=== PATIENT | female | born 1975 | race Caucasian/White ===

== ENCOUNTER → 2023-11-22 08:25 | Outpatient (REF) | payer OTHER, SELFPAY | LOC: RCS 08:25 | PROVIDERS: ATTENDING PHYSICIAN Internal Medicine Cardiovascular Disease; FAMILY PHYSICIAN Family Medicine | DX: I42.9 Cardiomyopathy, unspecified (principal) | CPT/HCPCS: 93306; 93356 ==

== ENCOUNTER 2024-04-23 22:10 | Inpatient (IN) | payer OTHER, SELFPAY ==
[2024-04-23] VITALS (8 sets, daily range): BP systolic 123–134; BP diastolic 72–116; BMI 31.8; BMI 27.7
[2024-04-23 15:00] LABS: % Basophils 0.2 % (0-2); % Eosinophils 1.3 % (0-6); % Immature Granulocytes 1.1 % (0-0.5); % Lymphocytes 16.2 % (20.5-51.1); % Neutrophils 78.2 % (42.2-75.2); Absolute Eosinophils 0.1 10^3/uL (0-0.7); Absolute Immature Granulocytes 0.1 10^3/uL (0-0.05); Absolute Lymphocytes 0.8 10^3/uL (1.2-3.4); Absolute Monocytes 0.1 10^3/uL (0.1-0.6); Absolute Neutrophils 3.7 10^3/uL (1.4-6.5); Hematocrit 26.8 % (37.0-47.0); Hemoglobin 8.8 g/dL (12.0-16.0); Mean Corp Hgb Conc. 32.8 g/dL (33.0-37.0); Mean Corpuscular Hgb 24.9 pg (27.0-31.0); Mean Corpuscular Volume 75.7 fL (81.0-99.0); Mean Platelet Volume 10.4 fL (7.4-10.4); Nucleated Red Blood Cells % 0 %; Platelet Count 276 10^3/uL (130-400); Red Blood Cell Count 3.54 10^6/uL (4.20-5.40); Red Cell Dist. Width 18.1 % (11.5-14.5); White Blood Cell Count 4.7 10^3/uL (4.8-10.8)
[2024-04-23 15:46] LABS: ALT (SGPT) 16 U/L (0-35); AST (SGOT) 32 U/L (14-36); Albumin 3.9 g/dl (3.5-5.0); Alkaline Phosphatase 52 U/L (38-126); Blood Urea Nitrogen 13 mg/dl (7-17); Calcium 9.1 mg/dl (8.4-10.2); Carbon Dioxide 23 mmol/L (22-30); Chloride 107 mmol/L (98-107); Glucose 145 mg/dl (70-99); Potassium 4.1 mmol/L (3.5-5.1); Sodium 139 mmol/L (135-145); Total Bilirubin 0.3 mg/dl (0.2-1.3); Total Protein 7.1 g/dl (6.3-8.2); eGFR > 60.00
--- NOTE | 2024-04-23 16:43 | EDRN ---
Pt speaking in full sentences, states she needs oxygen. Vitals rechecked and normal. Pt in no distress, laughing and speaking the entire 3-5 minutes in triage with this RN.
--- NOTE | 2024-04-23 17:39 | ED.GENMED ---
History of Present Illness
General
Chief Complaint: Breathing Problem
Time Seen by Provider: 04/23/24 17:38
History of Present Illness
History of Present Illness:
HPI: The patient presents with shortness of breath. This is associated with fever that started over the past few days. She is no longer febrile and states that she had a negative COVID test. She was admitted here with bilateral pneumonia and at
that time had a decreased ejection fraction as well as pleural effusions�the etiology was felt to possibly related to lupus.
EXAM:
GENERAL: Patient in mild distress
HEENT: Moist oral mucosa
CARDIOVASCULAR: No murmurs, normal heart rate, regular rhythm, No chest wall tenderness
PULMONARY: Minimal respiratory distress, breath sounds are decreased with some rales at the bases
ABDOMEN: Soft with no peritoneal signs, no tenderness
NEUROLOGIC: Excellent strength all extremities, no coordination deficits
PSYCHIATRIC: Appropriate mental status, normal insight and judgement
EXTREMITIES: Nontender, no edema, moves all extremities equally
SKIN: No rash, no lesions
TIME OF INITIAL ENCOUNTER: 5:50 PM
NUMBER AND COMPLEXITY OF PROBLEMS ADDRESSED AT THE ENCOUNTER
� Chronic conditions affecting care: Has had decreased ejection fraction as well as pleural effusions in the past
� Acute Exacerbation and/or Progression of Chronic Illness: This is an acute problem
� Differential Diagnosis includes: Pleural effusion, PE, pneumonia, reactive airway disease
AMOUNT AND/OR COMPLEXITY OF DATA TO BE REVIEWED AND ANALYZED
� I performed an independent evaluation of and my interpretation is:
EKG: Sinus 94, nonspecific anterior ST abnormality
CT: CT shows no definite sign of PE but does show small to moderate bilateral pleural effusions
X-rays:
Laboratory Studies: Normal chemistries, white count 4.7, hemoglobin 8.8 down from 10.6 in August 2023
Other:
� Review of other/old records: In August 2023 the EF was 43% and most recent echo from 11/22/2023 is now 55 to 60%. The patient was admitted here in August 2023 with severe bilateral pneumonia likely related to lupus
exacerbation and at that time was also managed for heart failure with reduced ejection fraction. She was intubated at that time. She also had small bilateral effusions at that time.
� Clinical information was obtained by an independent historian: I spoke to mother at bedside
� Prescriptions/Medications Considered but not given:
� Further testing considered but not performed:
RISK OF COMPLICATIONS AND/OR MORBIDITY OR MORTALITY OF PATIENT MANAGEMENT
� Social determinants of health affecting care: Lives at home
� Discussion with other providers: Hospitalist, Dr. Flores, for admission at 8:28 PM
� Escalation of care including admission/observation vs risk of discharge considered: The patient reportedly had a chest x-ray that suggested pleural effusions as an outpatient. She feels similar to the time that she was here
and was rather ill. Will obtain CT imaging for further evaluation. CTA obtained that she does have a 'clotting disorder' and has had DVT in the past.
Phy Exam
Physical Exam
Physical Exam:
See HPI
Scores
Heart Failure Risk
Heart Failure Risk Score: Not Applicable
Course
Orders/Labs/Results
Orders:
Orders
04/23/24 14:55
CMP [Comprehensive Metabolic Panel] Urgent
Complete Blood Count/With Diff Urgent
HCG, Serum Qualitative Screen Urgent
Comment: ADD ON
NT-proBNP Urgent
Comment: ADD ON
04/23/24 17:40
Add On- LAB Urgent
Tests Added?: bnp
04/23/24 17:41
Electrocardiogram (*1) Urgent
Reason for Study: Shortness of Breath
EKG- Treatment ONCE
04/23/24 17:50
CT Chest Pe Study Urgent
Comment:
Reason For Exam: sob, outpt cxr pl eff?
04/23/24 17:55
Add On- LAB Urgent
Tests Added?: hcg serum
04/23/24 18:10
COVID-19 Antigen Urgent
Source: Nasal Swab
Influenza A+B Rapid Molecular Urgent
CARO Source: Nasal Swab
Specimen Description:
04/23/24 20:02
Furosemide [Lasix] 40 mg IV NOW STA
Abnormal Lab Results
04/23/24
14:55
WBC 4.7 L 10^3/uL
(4.8-10.8)
RBC 3.54 L 10^6/uL
(4.20-5.40)
Hgb 8.8 L g/dL
(12.0-16.0)
Hct 26.8 L %
(37.0-47.0)
MCV 75.7 L fL
(81.0-99.0)
MCH 24.9 L pg
(27.0-31.0)
MCHC 32.8 L g/dL
(33.0-37.0)
RDW 18.1 H %
(11.5-14.5)
Abs Immat Gran (auto) 0.1 H 10^3/uL
(0-0.05)
Absolute Lymphs (auto) 0.8 L 10^3/uL
(1.2-3.4)
Immature Gran % 1.1 H %
(0-0.5)
Neutrophils % 78.2 H %
(42.2-75.2)
Lymphocytes % 16.2 L %
(20.5-51.1)
Glucose 145 H mg/dl
(70-99)
04/23/24 14:55
04/23/24 14:55
Vital Signs
Initial and Last Documented VS:
Initial Vital Signs
Temp Pulse Resp BP Pulse Ox
98.8 F 117 20 134/84 94
04/23/24 14:44 04/23/24 14:44 04/23/24 14:44 04/23/24 14:44 04/23/24 14:44
Last Documented Vital Signs
Temp Pulse Resp BP Pulse Ox
98.3 F 100 31 132/81 96
04/23/24 17:56 04/23/24 20:15 04/23/24 20:15 04/23/24 20:00 04/23/24 16:41
*Critical Care Note
Total Time (30-74mins, 75-104mins- exclusive of procedures): Not Applicable
ED Attending Note
-
Portions of this chart may have been created with voice recognition software.� Occasional wrong word or��sound alike� substitutions may have occurred due to the inherent limitations of voice recognition software.
Discharge Plan
Departure
Patient Disposition: Admit
Date of Disposition: 04/23/24
Time of Disposition: 20:26
Presentation/result/management discussed w/ accepting MD/DO: Hospitalist
Discharge Problem:
Pleural effusion, bilateral
Prescriptions:
No Action
furosemide 40 mg tablet
40 mg PO DAILY
gabapentin 600 mg tablet
1,200 mg PO HS
omeprazole 40 mg capsule,delayed release(DR/EC)
40 mg PO DAILY
mycophenolate mofetil 500 mg tablet
1,000 mg PO BID
duloxetine 30 mg capsule,delayed release(DR/EC)
30 mg PO DAILY
sildenafil (pulm.hypertension) 20 mg tablet
20 mg PO Q8H
cyclobenzaprine 5 mg Tablet
5 mg PO HS
aspirin [Children's Aspirin] 81 mg Tablet,Chewable
81 mg PO DAILY Qty: 0 0RF
prednisone 10 mg tablet
10 mg PO DAILY Qty: 6 0RF
Rx Instructions:
Taper (start 08/22/23AM): 30mg daily x 1 day, 20mg daily x 1 day, 10mg daily x 1 day
prednisone 10 mg tablet
10 mg PO DAILY Qty: 30 0RF
Rx Instructions:
start 08/25/23
Referrals:
Flako Wild MD [Family Provider] -
Interventions
Interventions:
*Risk Screen - Suicide Last Done: 04/23/24 18:00
*General Assessment Last Done: 04/23/24 18:00
*ED COVID-19 Vaccine History Last Done: 04/23/24 18:00
ED- Cardiac Assessment Last Done: 04/23/24 17:58
ED- Pulmonary Assessment Last Done: 04/23/24 17:58
Discharge Date and Time
Print Language: ANGOLAN
[2024-04-23 18:14] LABS: HCG, Serum Qualitative Screen Negative
[2024-04-23 18:25] LABS: NT-proBNP 226 pg/ml
[2024-04-23 18:31] LABS: COVID-19 Antigen Negative (Negative)
[2024-04-23] MEDS: LASIX 40 MG IV (20:24)
[2024-04-23] MEDS: FLUSH (NSS) 1 FLUSH IV (21:22)
--- NOTE | 2024-04-23 21:35 | HPS.HSE ---
Family Physician
-
Family Physician: Flako Wild
Chief Complaint
-
Shortness of breath
History of Present Illness
Patient is a 48 y/o female with a PMH of SLE, pulmonary hypertension and cardiomyopathy with recovered EF who reports to the ED for shortness of breath x 1 week. Patient states she saw her PCP for the shortness of breath today who told her to get a
chest x-ray. Her PCP called her with the results saying she had bilateral pleural effusions and to come to the ED. She has shortness of breath with exertion and has had a productive cough with clear sputum. She admits to flank pain that is similar
to her previous episode of pleural effusion. She admits to having a fever on Sunday with a max temp of 101.7, which she took Tylenol. In August she was admitted for bilateral pneumonia and had an ECHO that showed a decreased EF and pleural
effusions. On her most recent ECHO in November showed improved EF to 55-60%. She denies chest pain, palpitations, edema, chills, diaphoresis, nausea, vomiting, or abdominal pain.
Medical History
Past Medical History
Past Medical History: Reports Other
Additional Past Medical History:
Cardiomyopathy with Recovered EF
Pulmonary Hypertension
Systemic Lupus Erythematosus
Raynaud's
Peripheral Neuropathy
Past Surgical History: Reports Other
Additional Past Surgical History:
Cholecystectomy
Social History
Tobacco: Smoker (1 PPD)
Family History
Family History: Not pertinent
Allergies / Home Medications
Allergies reflects when Allergies were last updated in [facility].
Home Medications with original date entered in [facility]
Allergy/Medication List:
Allergies
Allergy/AdvReac Type Severity Reaction Status Date / Time
dapsone Allergy Unknown Verified 04/23/24 14:47
hydroxychloroquine Allergy Unknown Verified 04/23/24 14:47
[From Plaquenil]
Home Medications
furosemide 40 mg tablet 40 mg PO DAILY Fluid Retention/Swelling 08/16/23
gabapentin 600 mg tablet 1,200 mg PO HS Pain 08/16/23
mycophenolate mofetil 500 mg tablet 2,000 mg PO DAILY@1430 LUPUS 08/16/23
omeprazole 40 mg capsule,delayed release 40 mg PO DAILY GERD 08/16/23
sildenafil (pulm.hypertension) 20 mg tablet 20 mg PO Q8H Raynaud's 08/16/23
aspirin 81 mg chewable tablet (Children's Aspirin) 81 mg PO DAILY #0 tabs 08/21/23
albuterol sulfate 90 mcg/actuation aerosol inhaler 2 puff inhalation R Q4HPRN PRN sob/wheezing 04/23/24
budesonide-formoterol HFA 80 mcg-4.5 mcg/actuation aerosol inhaler (Symbicort) 2 puff inhalation R BID 04/23/24
prednisone 2.5 mg tablet 7.5 mg PO DAILY 04/23/24
Review of Systems
-
A 12 point ROS was completed and negative except as noted: Yes
Constitutional: Reports Fever (Last Week)
Respiratory: Reports Cough and Trouble Breathing
Cardiac: Denies Chest Pain or Palpitations
Physical Exam
Vital Signs
Vital Signs
Temp Pulse Resp BP Pulse Ox
98.3 F 100 31 132/81 96
04/23/24 17:56 04/23/24 20:15 04/23/24 20:15 04/23/24 20:00 04/23/24 16:41
Physical Exam
General: Comfortable and Conversant
HEENT: Moist mucous membranes and PERRLA
Respiratory: Clear, Non Labored Respirations and Other (Absent Breath Sounds Bilateral Bases)
Cardiac: S1/S2 and Regular Rhythm; No Murmur
GI: Soft, Non Tender and Non Distended
Rectal: Deferred by Provider
Musculoskeletal: No Clubbing, No Cyanosis and No Edema
Skin: Warm and Dry
Neuro: Awake, Alert, Oriented and Nonfocal/grossly intact
Psych: Calm
Laboratory Results
-
04/23/24 14:55
04/23/24 14:55
Laboratory Results
Total Bilirubin 0.3 mg/dl (0.2-1.3) 04/23/24 14:55
AST 32 U/L (14-36) 04/23/24 14:55
ALT 16 U/L (0-35) 04/23/24 14:55
Alkaline Phosphatase 52 U/L (38-126) 04/23/24 14:55
Echo Nov 2023: Left ventricular normal size and function with EF 55-60%.
Data Reviewed
-
CT Scan: Report Reviewed by me
Lab Data: Labs Reviewed by me
Old Records: Reviewed
Impression/Plan
-
Bilateral Pleural Effusions, likely secondary to Lupus
-Consult Cardiology and Pulmonary
-Consult IR for thoracentesis
-Continue Lasix
Microcytic Anemia
-Check Iron studies
Pulmonary Hypertension
-Continue sildenafil
Systemic Lupus Erythematosus
-Continue Mycophenolate
-Continue Prednisone
Peripheral Neuropathy
-Continue gabapentin
GERD
-Continue Protonix
Tobacco Use Disorder
-Encourage smoking cessation
DVT Proph: Lovenox
Code Status: Full Code
[2024-04-23 21:37] LABS: Iron 35 ug/dl (37-170)
[2024-04-23 21:46] LABS: Percent Saturation 7 % (20-50); Total Iron Binding Capacity 465 ug/dl (265-497)
--- NOTE | 2024-04-23 21:49 | W.PN.UPDATE ---
Update Note
Progress Note Update
Seen and examined and discussed with physician property management assistant in detail and in agreement with the detail management and planning by physician property management assistant, independent evaluation made by me.
Patient seen and evaluated, awake and alert, presented to the hospital complaining of progressive shortness of breath over the last few days, admitted for significant exertional activity admitted orthopnea but no paroxysmal nocturnal dyspnea, as.
He had no fever look like earlier at some subjective fever, denied recent travel or sick contact.
Workup in the ER including CTA chest showed no pulmonary embolism but showed by lateral mild to moderate pleural effusion. Given a dose of Lasix she has been urinating well.
Vital signs reviewed
Physical exam:
General: Awake, alert and oriented x3, not in distress and holds appropriate conversation.
HEENT: No active discharge, ecchymosis or bruising, moist lips, tongue and mucous membrane.
Eyes: No discharge or red conjunctiva, no nystagmus, pupils are reactive and equal
Neck:Supple, no JVD no bruit no goiter.
Respiratory: Normal AP contour and diameter, normal chest wall movement, normal respiratory effort, no respiratory distress,
Lungs: Good air entry bilaterally and midlung Toprol decreased in the bases,, no wheezing or rhonchi, no rales or crackles
Heart: S1, S2 regular, normal rate, no added sound. Mild lower extremities
Gastrointestinal: Positive bowel sounds, soft, nontender, no guarding or rigidity or organomegaly
Musculoskeletal: , no chest wall abnormality or tenderness. All joints and extremities have good range of motion, no muscle tenderness or any joint swelling or tenderness.
Extremities: No pitting edema, good peripheral pulses, good range of motion
Skin: Warm and dry, no ulceration, normal color.
Neurological: Awake, alert and oriented x3, , speech clear and comprehensive, good muscle tone, normal sensory and motor function
Psychiatric: Normal mood, normal thought and judgment, normal affect,
Workup including labs, imaging, EKG and archive reviewed.
Assessment and plan:
Bilateral Pleural Effusions, likely secondary to Lupus and no other causes like cardiac exercise specialist for consider specially at some point her EF was 43% the Lasix improvement back to normal. Doubted pneumonia
-Consult Cardiology and Pulmonary
-Consult IR for thoracentesis, for fluid analysis
-Continue Lasix
Daily weight and intake and output
Defer further workup to cardiology and pulm
Microcytic Anemia
-Baseline hemoglobin around 9-10 today is 8.8
Denies any bleeding event
-Check Iron studies, B12 and folic acid
-Occult blood
Pulmonary Hypertension
-Continue sildenafil
-Pulmonary
Systemic Lupus Erythematosus
-Continue Mycophenolate
-Continue Prednisone
Peripheral Neuropathy
-Continue gabapentin
GERD
-Continue Protonix
Tobacco Use Disorder
-Encourage smoking cessation
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
All discussed with the patient in detail and expressed
Discussed with physicians
[2024-04-23] MEDS: REVATIO 20 MG PO (22:59)
[2024-04-23] MEDS: NEURONTIN 1200 MG PO (22:59)
[2024-04-23 23:13] LABS: Urine Albumin Negative (Neg - Trace); Urine Bilirubin Negative (Negative); Urine Character Clear (Clear); Urine Color Yellow; Urine Glucose Negative (Negative); Urine Ketone Negative (Negative); Urine Leukocyte Negative (Negative); Urine Nitrite Negative (Negative); Urine Occult Blood Negative (Negative); Urine Urobilinogen Negative (Neg - 1+)
[2024-04-23 23:16] LABS: Ferritin 20.2 ng/ml (6.24-137)
[2024-04-23 23:47] LABS: Folate > 20.0 ng/ml (2.76-20); Vitamin B12 372 pg/ml (239-931)
--- NOTE | 2024-04-24 00:30 | PTCARENOTE ---
Received pt from ED @ 5670. Pt AAOx3, ambulatory in room. Pt reports SOB but in no acute distress. Oriented to room, call montano and plan of care.
[2024-04-24] MEDS: TYLENOL 650 MG PO ×2 (03:35→10:34)
[2024-04-24 03:46] VITALS: BP 113/60
[2024-04-24 07:35] VITALS: BP 125/82
[2024-04-24] MEDS: DELTASONE 7.5 MG PO (07:50)
[2024-04-24] MEDS: LASIX 40 MG IV (07:50)
[2024-04-24] MEDS: REVATIO 20 MG PO (07:51)
[2024-04-24 08:10] LABS: Hematocrit 28.6 % (37.0-47.0); Hemoglobin 9.2 g/dL (12.0-16.0); Mean Corp Hgb Conc. 32.2 g/dL (33.0-37.0); Mean Corpuscular Hgb 24.4 pg (27.0-31.0); Mean Corpuscular Volume 75.9 fL (81.0-99.0); Mean Platelet Volume 10.2 fL (7.4-10.4); Platelet Count 286 10^3/uL (130-400); Red Blood Cell Count 3.77 10^6/uL (4.20-5.40); Red Cell Dist. Width 17.9 % (11.5-14.5); White Blood Cell Count 4.3 10^3/uL (4.8-10.8)
[2024-04-24 08:19] LABS: INR 0.98
--- NOTE | 2024-04-24 08:24 | CON.CAR ---
Addendum entered and electronically signed by Dheeraj Wang MD 04/24/24 13:16:
I saw and examined the patient.
The University Professor's note was reviewed and I agree with the note.
Comment:
GEN: No distress, awake, Ox3
HEENT: supple, anicteric, mmm
LUNGS: CTA, no wheezes/rales
CV: Reg, S1/S2, 1/6 syst LSB, no gallop
ABD: soft, BS+, NT/ND
EXT: No edema
NEURO: Gross non-focal
SKIN: No rash
PLan:
She has a past medical history of recovered cardiomyopathy, pulm hypertension, lupus, Raynaud's, and tobacco abuse. She presented with shortness of breath and weight gain of approximately 10 pounds. She was found to have bilateral pleural
effusions and started on IV Lasix. She admits to sometimes being noncompliant with a low fluid diet.
Check echocardiogram to reevaluate LVEF and pulmonary pressures. Clinically she is much improved and has diuresed well. She likely will need her outpatient Lasix dose increased to 60 mg daily.
Will continue revatio for pulmonary hypertension.
She likely can be discharged today with close follow-up as an outpatient.
Original Note:
Consultation
Consultation Request
Date/Time Consultation Requested: 04/24/2024
Date/Time Consultation Performed: 04/24/2024
Requesting Provider: Dr. Beckman
Performing Provider: Dr. Wang
Reason for Consultation: Pleural effusion, possible CHF
Medical History
-
History of Present Illness:
HPI: Katty is a 48 year old female with PMH of cardiomyopathy, pulmonary hypertension, lupus, Raynaud's, GERD, and tobacco abuse. She presented to [facility] for evaluation of worsening SOB x 1 week. She also noted weight gain during that time of
approximately 10 lbs. She reports she is typically around 170 lbs, but had noted weights over the past few days were approximately 180lbs which is uncommon. She notes she has been eating a high sodium diet and has been drinking large volumes of
fluid. She has been compliant with her lasix at home, however due to worsening SOB, came to for evaluation. In ER, she was found to have small-moderate b/l pleural effusions and she was admitted for further workup and evaluation. She was started
on IV lasix and notes she has had good urine output overnight with improvement in her respiratory status back to her baseline. She was arranged for thoracentesis this AM, however chest US showed there was not enough fluid to safely tap and procedure
was cancelled. Cardiology consulted due to concern for heart failure contributing to SOB and pleural effusions.
PMH:
CM, EF 43% 08/2023, improved to 55-60% 11/2023
Sinus tachycardia
h/o respiratory failure requiring intubation 08/2023
Pulmonary HTN
Lupus
Raynaud's
GERD
ongoing tobacco use
Past Medical History
Past Medical History: Other
Past Surgical History: Cholecystectomy
Social History
Tobacco: Smoker
Alcohol: Occasional
Personal: Single
Employment: Employed
Family History
Family History: Reviewed & Not Pertinent
Allergies / Home Medications
Allergy/AdvReac Type Severity Reaction Status Date / Time
dapsone Allergy Unknown Verified 04/23/24 14:47
hydroxychloroquine Allergy Unknown Verified 04/23/24 14:47
[From Plaquenil]
�Medication �Instructions �Recorded �Confirmed �Type
furosemide 40 mg tablet 40 mg PO DAILY Fluid 08/16/23 04/23/24 History
Retention/Swelling
gabapentin 600 mg tablet 1,200 mg PO HS Pain 08/16/23 04/23/24 History
mycophenolate mofetil 500 mg tablet 2,000 mg PO DAILY@1430 LUPUS 08/16/23 04/23/24 History
omeprazole 40 mg capsule,delayed 40 mg PO DAILY GERD 08/16/23 04/23/24 History
release
sildenafil (pulm.hypertension) 20 20 mg PO Q8H Raynaud's 08/16/23 04/23/24 History
mg tablet
aspirin 81 mg chewable tablet 81 mg PO DAILY #0 tabs 08/21/23 04/23/24 Rx
(Children's Aspirin)
albuterol sulfate 90 mcg/actuation 2 puff inhalation R Q4HPRN PRN 04/23/24 04/23/24 History
aerosol inhaler sob/wheezing
budesonide-formoterol HFA 80 2 puff inhalation R BID 04/23/24 04/23/24 History
mcg-4.5 mcg/actuation aerosol
inhaler (Symbicort)
prednisone 2.5 mg tablet 7.5 mg PO DAILY 04/23/24 04/23/24 History
Review of Systems
-
History Source: Patient
All other systems: Negative unless noted
Physical Exam
Vital Signs
Temp Pulse Resp BP Pulse Ox
98.0 F 99 19 125/82 94
04/24/24 07:35 04/24/24 07:35 04/24/24 07:35 04/24/24 07:35 04/24/24 07:35
Lab Results
04/24/24 07:32
Fqr-O-Hucgsexkdzp Pept 226 pg/ml 04/23/24 14:55
Physical Exam
General: Well Developed, Well Nourished and No Apparent Distress
HEENT: Normocephalic, Anicteric and Moist Mucous Membranes
Respiratory: Clear and Non Labored Respirations
Cardiac: S1/S2 and Regular Rhythm
Musculoskeletal: No Clubbing, No Cyanosis and No Edema
Skin: Warm and Dry
Neuro: AO x 3 and Nonfocal/Grossly Intact
Psych: Calm
Impression / Plan
-
PCP: Dr. Donald
Movie Critic: Dr. Helton
Impression:
Presented with SOB, weight gain
Small b/l pleural effusions by chest US 04/24
CM, EF 43% 08/2023, improved to 55-60% 11/2023
Sinus tachycardia
h/o respiratory failure requiring intubation 08/2023
Pulmonary HTN
Lupus
Raynaud's
GERD
ongoing tobacco use
Exercise nuclear stress test 09/03/2023: Patient completed 5 minutes and 31 seconds of the Rah protocol achieving 6.5 METS and 85% maximum predicted HR. Stress ECG negative for ischemia. Perfusion imaging reveals a small area of mildly decreased
perfusion that is fixed in the mid inferolateral segment consistent with soft tissue attenuation which improves with prone imaging. TID present with ratio 1.39.
ECHO 08/17/23: EF 43%, WMA of mid inferoseptal, apical septal, and basal mid inferior carlson (this is most c/w 'D shaped septum' from RV pressure overload), enlarged, mod MR, mild to mod TR, small pericardial effusion, PAP 49mmHg
Echo 11/22/2023: EF 55-60%, mild MR, mild TR, estimated PAP 25-30mmHg
Echo 04/24/2024: Study pending
Plan:
-Presented with SOB. Noted weight gain over the past few weeks of approximately 10 lbs. Admits to high sodium diet at home as well as significant fluid intake.
-Chest CT with small-moderate b/l pleural effusions, however chest US 04/24 shows only small effusions, not large enough for thoracentesis.
-Given weight gain with SOB, IV lasix started. ProBNP only 226. Weight in AM 04/24 171lbs which is her baseline.
-Breathing back to baseline. Feels ready for discharge.
-Echo 11/22/2023 with improved EF, now up to 55-60%. Will repeat while admitted.
-Would continue lasix at higher dose 60mg daily. BMP in 1 week.
-EKG SR without any acute ischemic changes.
-Continue sildenafil for pulmonary hypertension.
-Follow up arranged.
HPI: Katty is a 48 year old female with PMH of cardiomyopathy, pulmonary hypertension, lupus, Raynaud's, GERD, and tobacco abuse. She presented to [facility] for evaluation of worsening SOB x 1 week. She also noted weight gain during that time of
approximately 10 lbs. She reports she is typically around 170 lbs, but had noted weights over the past few days were approximately 180lbs which is uncommon. She notes she has been eating a high sodium diet and has been drinking large volumes of
fluid. She has been compliant with her lasix at home, however due to worsening SOB, came to for evaluation. In ER, she was found to have small-moderate b/l pleural effusions and she was admitted for further workup and evaluation. She was started
on IV lasix and notes she has had good urine output overnight with improvement in her respiratory status back to her baseline. She was arranged for thoracentesis this AM, however chest US showed there was not enough fluid to safely tap and procedure
was cancelled. Cardiology consulted due to concern for heart failure contributing to SOB and pleural effusions.
Data Reviewed
-
EKG: Tracing Personally Visualized and interpreted
CT Scan: Report Reviewed by me
Ultrasound: Report Reviewed by me
Labs: Labs Reviewed by me
Old Records: Reviewed
[2024-04-24 08:48] LABS: Blood Urea Nitrogen 15 mg/dl (7-17); Calcium 9.1 mg/dl (8.4-10.2); Carbon Dioxide 26 mmol/L (22-30); Chloride 104 mmol/L (98-107); Estimated Creatinine Clearance 105 ml/min; Glucose 85 mg/dl (70-99); LDH 159 U/L (120-246); Magnesium 1.8 mg/dl (1.6-2.3); Potassium 3.8 mmol/L (3.5-5.1); Sodium 138 mmol/L (135-145); eGFR > 60.00
--- NOTE | 2024-04-24 09:19 | CON.PUL ---
Consultation
Consultation Request
Date/Time Consultation Requested: 04/24/2024-7:30 AM
Date/Time Consultation Performed: 04/24/2024-8:30 AM
Requesting Provider: Hospitalist
Performing Provider: Dr. Barrera
Reason for Consultation: shortness of breath
Medical History
-
Chief Complaint: sob
History of Present Illness:
48-year-old smoking female with history of lupus, pulm hypertension and cardiomyopathy with recovered EF who presents with increasing shortness of breath over 1 week noted to have bilateral pleural effusions and pulm consulted for shortness of
breath 04/24/2024. She feels improved from yesterday including shortness of breath, no longer has any back/chest pain, and less dyspnea on exertion. She had 1 day of fevers which she stated was close to 102 but has not had any since then. She has
no chest congestion, productive cough, pleurisy, hemoptysis, abdominal pain, nausea, vomiting, leg swelling or weakness.
Past Medical History
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 Pulm hypertension-on sildenafil. VDRF/CHF-hypoxemia/hypercapnia 08/16/2023. Raynaud's. Peripheral neuropathy. Cigarette smoker. GERD. Cardiomyopathy-subsequently
recovered EF. Cholecystectomy.)
Social History
Tobacco: Smoker (1 pack/day)
Living: With Family
Employment: Employed
Occupational Exposures: No known asbestos exposure
Environmental Exposures: No known tuberculosis exposure
Family History
Family History: Reviewed & Not Pertinent
Allergies / Home Medications
Allergies
Allergy/AdvReac Type Severity Reaction Status Date / Time
dapsone Allergy Unknown Verified 04/23/24 14:47
hydroxychloroquine Allergy Unknown Verified 04/23/24 14:47
[From Plaquenil]
Home Medications
�Medication �Instructions �Recorded �Confirmed �Last Taken �Type
furosemide 40 mg tablet 40 mg PO DAILY Fluid 08/16/23 04/23/24 04/23/24 History
Retention/Swelling
gabapentin 600 mg tablet 1,200 mg PO HS Pain 08/16/23 04/23/24 04/22/24 History
mycophenolate mofetil 500 mg tablet 2,000 mg PO DAILY@1430 LUPUS 08/16/23 04/23/24 04/22/24 History
omeprazole 40 mg capsule,delayed 40 mg PO DAILY GERD 08/16/23 04/23/24 04/23/24 History
release
sildenafil (pulm.hypertension) 20 20 mg PO Q8H Raynaud's 08/16/23 04/23/24 Unknown History
mg tablet
albuterol sulfate 90 mcg/actuation 2 puff inhalation R Q4HPRN PRN 04/23/24 04/23/24 Unknown History
aerosol inhaler sob/wheezing
budesonide-formoterol HFA 80 2 puff inhalation R BID 04/23/24 04/23/24 Unknown History
mcg-4.5 mcg/actuation aerosol Lung/Breathing Issues
inhaler (Symbicort)
prednisone 2.5 mg tablet 7.5 mg PO DAILY Anti-Inflammatory 04/23/24 04/23/24 04/23/24 History
aspirin 81 mg chewable tablet 81 mg PO DAILY Blood Clot 04/24/24 04/23/24 Unknown History
(Children's Aspirin) Prevention/Tx
Review of Systems
-
Unable to Obtain full review of systems at this time due to: Other (Per HPI)
Vitals / Labs / Diagnostic Testing
Vital Signs
Temp Pulse Resp BP Pulse Ox
98.0 F 99 19 125/82 94
04/24/24 07:35 04/24/24 07:35 04/24/24 07:35 04/24/24 07:35 04/24/24 07:35
Lab Data
04/24/24 07:32
04/24/24 07:32
Laboratory Results
04/24/24
07:32
PT 13.0
INR 0.98
Microbiology
04/23/24 18:10 Nasal Swab Influenza Types A & B (NGOZI) - Final
Negative for Influenza A & B, NAAT
Negative results must be combined with clinical observations
and patient history.
Nucleic Acid Amplification test (NAAT)performed on the
[employer] platform.
Diagnostic Testing:
Physical Exam
-
Exam:
Well-nourished and well-developed in no apparent distress
HEENT-atraumatic, normocephalic
Neck-supple, no JVD, no bruit
Heart-regular rate and rhythm-no murmurs, rubs or gallops
Chest with diminished breath sounds at the bases, no wheezes and rare crackles
Abdomen-soft, nontender, nondistended, no hepatosplenomegaly
Extremities-no cyanosis, clubbing, edema and good peripheral pulses
Integument-intact, no rashes, lesions or ecchymosis
Neurology-alert and oriented, nonfocal motor and sensory exam
Assessment
-
48-year-old smoking female with history of lupus, pulm hypertension and cardiomyopathy with recovered EF who presents with increasing shortness of breath over 1 week noted to have bilateral pleural effusions and pulm consulted for shortness of
breath 04/24/2024.
Assessment
Shortness of breath likely related to bilateral pleural effusions
Bilateral pleural effusions likely related to SLE
History of CHF-EF recovered
Cyyscv-[id number] 9.2
Conditions present prior to admission:
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
Pulmonary hypertension-on sildenafil.
VDRF/CHF-hypoxemia/hypercapnia 08/16/2023.
Raynaud's.
Peripheral neuropathy.
Cigarette smoker.
GERD.
Cardiomyopathy-subsequently recovered EF.
Cholecystectomy.
Plan
Suspect respiratory decompensation is due to fluid overload, possible lupus flare however
Supplemental oxygen
Nebulizers if needed-currently not bronchospastic
Radiographs reviewed
Diuresis as tolerated
Monitor renal function, electrolytes, intake/output, lower extremity edema and weight
Replace electrolytes as needed
Cardiology following-correspondence reviewed
Repeat echocardiogram 04/24/2024-pending
Sildenafil continues for pulmonary hypertension
Smoking cessation counseling provided
Very small pleural effusions to my eye-unlikely amenable to thoracentesis
Interventional radiology consulted in case there was enough fluid
DVT prophylaxis
Nutrition
Early mobilization
Outpatient rheumatologic and dermatologic follow-up
Outpatient pulmonary [id number] has referred her to Lynda Olvera-May 08, 2024
Diagnostic data:
Chest x-ray 08/16/2023-low lung volumes, interstitial pulmonary edema
CT chest 04/23/2024-no definitive evidence for pulmonary embolism, no lobar pulm embolism, small to moderate bilateral pleural effusions, stable 4 mm pulmonary nodule right middle lobe, slightly progressed bilateral axillary lymphadenopathy
Exercise nuclear stress test 09/03/2023: Patient completed 5 minutes and 31 seconds of the Rah protocol achieving 6.5 METS and 85% maximum predicted HR. Stress ECG negative for ischemia. Perfusion imaging reveals a small area of mildly decreased
perfusion that is fixed in the mid inferolateral segment consistent with soft tissue attenuation which improves with prone imaging. TID present with ratio 1.39.
ECHO 08/17/23: EF 43%, WMA of mid inferoseptal, apical septal, and basal mid inferior carlson (this is most c/w 'D shaped septum' from RV pressure overload), enlarged, mod MR, mild to mod TR, small pericardial effusion, PAP 49mmHg
Echo 11/22/2023: EF 55-60%, mild MR, mild TR, estimated PAP 25-30mmHg
Data Reviewed
-
EKG: Report reviewed by me
Radiology: Image personally visualized and interpreted and Report reviewed by me
CT Scan: Image personally visualized and interpreted and Report reviewed by me
Medical Tests (Nuc Med, Echo etc): Report reviewed by me
Labs: Labs reviewed by me
Old Records: Reviewed
Total Time Spent with Patient (in minutes): 55
[2024-04-24 10:24] VITALS: BP 136/73
--- NOTE | 2024-04-24 11:23 | CM ---
Patient seen bedside with mother, initial assessment completed. Patient resides independently in a single story home, seven steps to enter. Patient denies DME, VN, or SNF. Patient denies any food, housing/utility, or transportation insecurities at
home. Patient PCP Flako Wild, pharmacy [facility], confirms prescription coverage. Patient reports her mother will provide transportation home. Patient denies any needs from CM at this time. CM will continue to follow for all
discharge planning needs.
Plan; home no needs anticipated.
--- NOTE | 2024-04-24 13:12 | W.PN.HOSP.TC ---
Today's Communication/Plan
-
Discharge home today
Assessment / Plan
Assessment / Plan
Bilateral Pleural Effusions, likely secondary to Lupus
-Seen by cardiology and Pulmonary
-Consult IR for thoracentesis, no enough fluid to drain
-Will be discharged on oral Lasix 60 mg daily and repeat BMP after 1 week.
Microcytic Anemia
-Check Iron studies
Pulmonary Hypertension
-Continue sildenafil
Systemic Lupus Erythematosus
-Continue Mycophenolate
-Continue Prednisone
Peripheral Neuropathy
-Continue gabapentin
GERD
-Continue Protonix
Tobacco Use Disorder
-Encourage smoking cessation
DVT Proph: Lovenox
Code Status: Full Code
Anticipated Discharge: Today
Subjective/Interval History
-
Date of Service: April 24, 2024
Patient seen and examined at bedside, denies any chest pain, her shortness of breath significantly improved, no abdominal pain, no nausea, no vomiting, no diarrhea or constipation.
Seen by both cardiology and pulmonology.
Plan to be discharged on 60 mg of Lasix daily and repeat BMP in 1 week
Advised for fluid restrictions on discharge.
Objective Data
-
Labs:
Laboratory Results
04/24/24
07:32
WBC 4.3 L
Hgb 9.2 L
Hct 28.6 L
Plt Count 286
PT 13.0
INR 0.98
Sodium 138
Potassium 3.8
Chloride 104
Carbon Dioxide 26
BUN 15
Creatinine 0.7
Glucose 85
Calcium 9.1
Vital Signs:
Vital Signs
Temp Pulse Resp BP Pulse Ox
98.2 F 71 20 136/73 95
04/24/24 10:24 04/24/24 10:24 04/24/24 10:24 04/24/24 10:24 04/24/24 10:24
I&O
04/23/24 04/24/24 04/25/24
06:59 06:59 06:59
Intake Total 480 / 480
Balance 480 / 480
Physical Exam
-
General: Well Developed and No Apparent Distress
HEENT: Normocephalic, Atraumatic and Moist Mucous Membranes
Respiratory: Rales and Rhonchi
Cardiac: Regular Rhythm and S1/S2; Negative Murmur, Rub or Gallop
GI: Soft, Nontender, Nondistended and Normal Bowel Sounds; Negative Organomegaly
Rectal: Deferred by Provider
Musculoskeletal: No Clubbing, No Cyanosis and No Edema
Skin: Negative Rash
Neuro: Nonfocal/Grossly Intact
--- NOTE | 2024-04-24 13:14 | W.DCSUMMARY ---
Discharge Summary
Discharge Data
Date of Admission: 04/23/24
Date of Discharge: 04/24/24
-
Pending Results: Yes
Additional Pending Results:
Pending echocardiogram
Hospital Course
Bilateral Pleural Effusions, likely secondary to Lupus
-Seen by cardiology and Pulmonary
-Consult IR for thoracentesis, no enough fluid to drain
-Will be discharged on oral Lasix 60 mg daily and repeat BMP after 1 week.
Microcytic Anemia
-Check Iron studies
Pulmonary Hypertension
-Continue sildenafil
Systemic Lupus Erythematosus
-Continue Mycophenolate
-Continue Prednisone
Peripheral Neuropathy
-Continue gabapentin
GERD
-Continue Protonix
Tobacco Use Disorder
-Encourage smoking cessation
DVT Proph: Lovenox
Code Status: Full Code
Anticipated Discharge: Today
Discharge Plan
-
Patient Disposition: Home (Routine Discharge)
Discharge Diagnosis/Procedures: Pleural effusion
Diet: 2 Gram Sodium and Restrict fluids to 48 oz
Activity: No restrictions
Driving Restrictions: As prior to admission
Blood Work: BMP in 1 week
Specialty Instructions: Weigh Daily- Call MD for wt gain/loss 3 lbs overnight/5 lbs in 1 week
Referrals:
Angeles Oneal CRNP [Specified Professional Personl] - 05/05/24 1:00 pm ( You have a follow up visit with Dr. Helton's BATH STEWARD/STEWARDESS, [place], at the [place] office. Please call with questions. )
Flako Wild MD [Family Provider] -
Cortez Benitez MD [Active] - in three to four weeks
Prescriptions:
New
furosemide 20 mg Tablet
60 mg PO DAILY Qty: 30 0RF
Continued
gabapentin 600 mg tablet
1,200 mg PO HS
omeprazole 40 mg capsule,delayed release(DR/EC)
40 mg PO DAILY
mycophenolate mofetil 500 mg tablet
2,000 mg PO DAILY@1430
sildenafil (pulm.hypertension) 20 mg tablet
20 mg PO Q8H
prednisone 2.5 mg tablet
7.5 mg PO DAILY
albuterol sulfate 90 mcg/actuation HFA aerosol inhaler
2 puff INHALATION R Q4HPRN PRN (Reason: sob/wheezing)
budesonide-formoterol [Symbicort] 80-4.5 mcg/actuation HFA aerosol inhaler
2 puff INHALATION R BID
aspirin [Children's Aspirin] 81 mg tablet,chewable
81 mg PO DAILY
Discontinued
furosemide 40 mg tablet
40 mg PO DAILY
Discharge Orders:
Discharge Patient (As Directed); Ordered 04/24/24
Ordered By: Alta Beckman
Discharge Date and Time
Print Language: INDONESIAN
== END 2024-04-24 14:15 | disposition home or self-care (01) | DRG 546 ==
LOC: 4 WEST ACU 22:10
PROVIDERS: Emergency Medicine; Physician Assistant Medical; ADMITTING PHYSICIAN Internal Medicine; ATTENDING PHYSICIAN General Practice; EMERGENCY PHYSICIAN Emergency Medicine; FAMILY PHYSICIAN Family Medicine; OTHER PHYSICIAN Internal Medicine Cardiovascular Disease; OTHER PHYSICIAN Internal Medicine Critical Care Medicine
DX: M32.13 Lung involvement in systemic lupus erythematosus (principal); I42.9 Cardiomyopathy, unspecified; J91.8 Pleural effusion in other conditions classified elsewhere; I27.20 Pulmonary hypertension, unspecified; D50.9 Iron deficiency anemia, unspecified; I73.00 Raynaud's syndrome without gangrene; G62.9 Polyneuropathy, unspecified; K21.9 Gastro-esophageal reflux disease without esophagitis; F17.210 Nicotine dependence, cigarettes, uncomplicated; Z91.119 Patient's noncompliance with dietary regimen due to unspecified reason; Z79.82 Long term (current) use of aspirin; Z79.52 Long term (current) use of systemic steroids; Z79.899 Other long term (current) drug therapy; Z90.49 Acquired absence of other specified parts of digestive tract; Z88.8 Allergy status to other drugs, medicaments and biological substances
CPT/HCPCS: 71275; 76604; 80048; 80053; 81003; 82607; 82728; 82746; 83540; 83550; 83615; 83735; 83880; 84155; 84703; 85025; 85027; 85610; 87502; 87811; 93005; 93306; 96374; 99285; Q9967

== ENCOUNTER 2024-05-03 04:24 | Inpatient (IN) | payer OTHER, SELFPAY ==
[2024-05-02 21:42] VITALS: BP 81/39; BMI 26.6
[2024-05-02 22:20] LABS: % Basophils 0.1 % (0-2); % Eosinophils 0.9 % (0-6); % Immature Granulocytes 0.3 % (0-0.5); % Lymphocytes 5.7 % (20.5-51.1); % Monocytes 2.1 % (1.7-9.3); % Neutrophils 90.9 % (42.2-75.2); Absolute Eosinophils 0.1 10^3/uL (0-0.7); Absolute Lymphocytes 0.5 10^3/uL (1.2-3.4); Absolute Monocytes 0.2 10^3/uL (0.1-0.6); Absolute Neutrophils 8.1 10^3/uL (1.4-6.5); Hematocrit 26.6 % (37.0-47.0); Hemoglobin 8.6 g/dL (12.0-16.0); Mean Corp Hgb Conc. 32.3 g/dL (33.0-37.0); Mean Corpuscular Hgb 25.3 pg (27.0-31.0); Mean Corpuscular Volume 78.2 fL (81.0-99.0); Mean Platelet Volume 10.1 fL (7.4-10.4); Nucleated Red Blood Cells % 0 %; Platelet Count 310 10^3/uL (130-400)
--- NOTE | 2024-05-02 22:28 | ED.GENMED ---
History of Present Illness
General
Chief Complaint: Fever
Source: patient and family
Time Seen by Provider: 05/02/24 22:27
History of Present Illness
History of Present Illness:
48-year-old female with a history of lupus who presents with some back pain and fevers at home. Patient had temperature 103 at home she states. She states she took Aleve, ibuprofen and Tylenol today. She states she did have some frequent stools
but not really watery diarrhea. Patient denies vomiting to me. No dysuria. No abdominal pain. No chest pain. Pain is sort of in the right flank area toward midline. No neck pain. Does report feeling just hot and felt like her skin was red.
Is on any immunosuppressive medications. Recently was put on a fluid restriction and given diuretics due to water retention.
Past History
Past History
ED Past Medical History: Other (Systemic lupus erythematosus, pulmonary retention, microcytic anemia, pleural effusions, GERD)
Social History
Tobacco: Former smoker
Phy Exam
Physical Exam
Physical Exam:
CONSTITUTIONAL Patient alert and oriented to person, place and time. Vital signs reviewed. Hypotensive. Temperature 100.4 during exam
HEAD atraumatic, normocephalic.
EYES eyelids normal to inspection, Pupils equally round and reactive to light, Extraocular muscles intact, Conjunctiva normal, Sclera normal.
NECK normal range of motion, Trachea midline, no jugular venous distention.
RESPIRATORY CHEST No respiratory distress noted, Chest expansion equal, diminished at bases.
CARDIOVASCULAR regular rate and rhythm, Heart sounds normal.
ABDOMEN abdomen nontender, Bowel sounds normal. No distention.
BACK normal inspection, no obvious deformities, no CVA tenderness
UPPER EXTREMITY range of motion normal, Motor strength normal, no cyanosis, no edema.
LOWER EXTREMITY range of motion normal, Motor strength normal, no cyanosis, no edema.
NEURO Speech normal, No focal motor deficits, Beatris coma scale 15, Memory normal, Cranial Nerves intact to screening exam.
SKIN skin warm, and generally mildly reddened
PSYCHIATRIC patient oriented to person place and time, Normal affect.
Course
Orders/Labs/Results
Orders:
Orders
05/02/24 22:04
Complete Blood Count/With Diff Urgent
Comprehensive Metabolic Panel Urgent
Lactic Acid Q4H
Comment: ON ICE, CANCEL 2ND ORDER IF FIRST LACTIC ACID LEVEL <2
05/02/24 22:28
0.9% Sodium Chloride 1000 ml [Nss] 1,000 ml IV BOLUS
05/02/24 23:18
Acetaminophen [Tylenol] 650 mg PO NOW STA
05/02/24 23:26
Urinalysis Reflex To Culture Urgent
Date Specimen was Collected: 05/02/24
Time Specimen was Collected: 23:19
Urine Microscopic Reflex Cult Urgent
Blood Culture Urgent
CARO Source: Blood/Venous
Specimen Description:
Urine Culture Urgent
CARO Source: U
Specimen Description:
Date Specimen was Collected: 05/02/24
Time Specimen was Collected: 23:19
05/02/24 23:37
Piperacillin/Tazo 3.375 Gram [Zosyn] 3.375 gram in 50 ml IV NOW
Vancomycin [Vancocin] 2,000 mg 0.9% Sodium Chloride 500 ml [Nss] 500 ml IV NOW
05/02/24 23:47
COVID-19 Antigen Urgent
Source: Nasal Swab
05/02/24 23:59
Vancomycin [Vancocin] 2,000 mg 0.9% Sodium Chloride 500 ml [Nss] 500 ml IV NOW
05/03/24 00:00
CR Chest - 2 Views Urgent
Reason For Exam: fever
05/03/24 00:36
PHENYLephrine 50 MG/250 ML NSS [Ludin-Synephrine] 50 mg in 250 ml IV NOW
Initial dose in mcg/min, then titrate:: 20
Titrate to keep:: MAP > 65 mmHg
Titrate by mcg/min:: 20 mcg/min
Frequency of titrations (minutes):: 5
Maximum dose in ICU in mcg/min:: 200
Maximum dose in IMU in mcg/min:: 80
Begin to taper infusion when:: Remained at goal for 4hrs
Taper by mcg/min:: 20 mcg/min
Frequency of taper (minutes) if patient maintains goal:: 30
Taper to off?: Yes
If infusion off & no longer maintaining goal:: Contact Provider
05/03/24 00:59
NORepinephrine 4 MG/250 ML [Levophed] 4 mg in 250 ml IV NOW
Initial dose in mcg/min, then titrate:: 2
Titrate to keep:: MAP > 65 mmHg
Titrate by mcg/min:: 1-2 mcg/min
Frequency of titrations (minutes):: 5
Maximum dose in ICU in mcg/min:: 30
Maximum dose in IMU in mcg/min:: 8
Maximum dose in IVU in mcg/min:: 4
Begin to taper infusion when:: Remained at goal for 4hrs
Taper by mcg/min:: 1-2 mcg/min
Frequency of taper (minutes) if patient maintains goal:: 30
Taper to off?: Yes
If infusion off & no longer maintaining goal:: Contact Provider
05/03/24 01:00
CT Abd/Pel (IV only)-DH only Urgent
Comment:
Reason For Exam: flank pain, fever, hypotension
Abnormal Lab Results
05/02/24 05/02/24
22:04 23:26
RBC 3.40 L 10^6/uL
(4.20-5.40)
Hgb 8.6 L g/dL
(12.0-16.0)
Hct 26.6 L %
(37.0-47.0)
MCV 78.2 L fL
(81.0-99.0)
MCH 25.3 L pg
(27.0-31.0)
MCHC 32.3 L g/dL
(33.0-37.0)
RDW 18.0 H %
(11.5-14.5)
Absolute Neuts (auto) 8.1 H 10^3/uL
(1.4-6.5)
Absolute Lymphs (auto) 0.5 L 10^3/uL
(1.2-3.4)
Neutrophils % 90.9 H %
(42.2-75.2)
Lymphocytes % 5.7 L %
(20.5-51.1)
Sodium 130 L mmol/L
(135-145)
BUN 38 H mg/dl
(7-17)
Creatinine 1.5 H mg/dL
(0.6-1.0)
AST 83 H U/L
(14-36)
ALT 49 H U/L
(0-35)
Total Protein 6.1 L g/dl
(6.3-8.2)
Albumin 3.2 L g/dl
(3.5-5.0)
Urine Ketones Trace A
(Negative)
Urine Bilirubin 1+ A
(Negative)
Leukocyte Esterase Rfl Trace A
(Negative)
Urine Bacteria (Reflex) Moderate A
(Negative)
05/02/24 22:04
05/02/24 22:04
Vital Signs
Initial and Last Documented VS:
Initial Vital Signs
Temp Pulse Resp BP Pulse Ox
100.4 F H 121 22 81/39 94
05/02/24 21:42 05/02/24 21:42 05/02/24 21:42 05/02/24 21:42 05/02/24 21:42
Last Documented Vital Signs
Temp Pulse Resp BP Pulse Ox
99.0 F 99 20 81/40 95
05/03/24 02:00 05/03/24 00:00 05/03/24 00:00 05/03/24 00:22 05/02/24 23:12
MDM/Problems Addressed
MDM/Problems Addressed:
Fever, immunosuppressive, acute kidney injury, chronic anemia, chronic SLE, septic shock
*Radiology
Radiology exam reviewed: preliminary read by ED provider (Bilateral effusions)
*Pulse Oximetry
Patient hypoxic: no
*Automatic I Threading Machine Feeder Interpretation
Rate: normal
Rhythm: sinus
*Critical Care Note
Total Time (30-74mins, 75-104mins- exclusive of procedures): Not Applicable (45 minutes)
Data Reviewed
Review of Other/Old Records Reveals: Labs (Prior labs reviewed and prior creatinine normal) and Discharge Summary (Discharge summary reviewed from just 10 days ago.)
Source: patient and family
Patient Management
Discussion with other providers: Hospitalist
Escalation/DeEscalation of care consider admission/obs:
48-year-old female on chronic immunosuppressive's with 103 temperature at home. Unclear source at this time. CT reading pending. Initiated Levophed due to the fact that she has been persistently hypotensive despite IV fluids. Cannot give typical
sepsis 30/kg bolus due to pericardial and pleural effusions with volume overload and fluid restriction as recommended. Broad-spectrum antibiotics ordered and given. Admit
ED Attending Note
-
Portions of this chart may have been created with voice recognition software.� Occasional wrong word or��sound alike� substitutions may have occurred due to the inherent limitations of voice recognition software.
Discharge Plan
Departure
Patient Disposition: Admit
Date of Disposition: 05/03/24
Time of Disposition: 01:07
Admit to: IMU
Presentation/result/management discussed w/ accepting MD/DO: Hospitalist
Discharge Problem:
Septic shock
Prescriptions:
No Action
gabapentin 600 mg tablet
1,200 mg PO HS
omeprazole 40 mg capsule,delayed release(DR/EC)
40 mg PO DAILY
mycophenolate mofetil 500 mg tablet
2,000 mg PO DAILY@1430
sildenafil (pulm.hypertension) 20 mg tablet
20 mg PO Q8H
prednisone 2.5 mg tablet
7.5 mg PO DAILY
albuterol sulfate 90 mcg/actuation HFA aerosol inhaler
2 puff INHALATION R Q4HPRN PRN (Reason: sob/wheezing)
budesonide-formoterol [Symbicort] 80-4.5 mcg/actuation HFA aerosol inhaler
2 puff INHALATION R BID
aspirin [Children's Aspirin] 81 mg tablet,chewable
81 mg PO DAILY
furosemide 20 mg Tablet
60 mg PO DAILY Qty: 30 0RF
Referrals:
Flako Wild MD [Family Provider] -
Interventions
Interventions:
*Risk Screen - Suicide Last Done: 05/02/24 21:42
*General Assessment Last Done: 05/02/24 22:04
*Neglect/Abuse Screening Last Done: 05/02/24 21:42
ED- Fall Risk Assessment Last Done: 05/02/24 22:05
ED- Neurological Assessment Last Done: 05/02/24 22:18
ED-Skin Assessment Last Done: 05/02/24 22:18
Discharge Date and Time
Print Language: SURINAMESE
[2024-05-02 22:34] LABS: Lactic Acid 1.1 mmol/L (0.7-2.0)
[2024-05-02 22:35] LABS: ALT (SGPT) 49 U/L (0-35); AST (SGOT) 83 U/L (14-36); Albumin 3.2 g/dl (3.5-5.0); Alkaline Phosphatase 62 U/L (38-126); Blood Urea Nitrogen 38 mg/dl (7-17); Calcium 8.4 mg/dl (8.4-10.2); Carbon Dioxide 26 mmol/L (22-30); Chloride 100 mmol/L (98-107); Estimated Creatinine Clearance 43 ml/min; Glucose 87 mg/dl (70-99); Potassium 3.9 mmol/L (3.5-5.1); Sodium 130 mmol/L (135-145); Total Bilirubin 0.5 mg/dl (0.2-1.3); Total Protein 6.1 g/dl (6.3-8.2); eGFR 42.99
[2024-05-02 22:36] VITALS: BP 80/55
[2024-05-02 23:12] VITALS: BP 82/44
[2024-05-02] MEDS: TYLENOL 650 MG PO (23:24)
[2024-05-02] MEDS: NSS 1000 IV (23:25)
[2024-05-02] MEDS: ZOSYN 50 IV (23:47)
[2024-05-03] VITALS (40 sets, daily range): BP systolic 78–130; BP diastolic 40–94; PULSE 72–87; BMI 28.2
[2024-05-03 00:10] LABS: Urine Albumin Negative (Neg - Trace); Urine Bilirubin 1+ (Negative); Urine Character Clear (Clear); Urine Color Yellow; Urine Glucose Negative (Negative); Urine Ketone Trace (Negative); Urine Leukocyte Trace (Negative); Urine Nitrite Negative (Negative); Urine Occult Blood Negative (Negative); Urine Specific Gravity 1.015 (<1.030); Urine Urobilinogen Negative (Neg - 1+)
[2024-05-03] MEDS: VANCOCIN 540 MG IV (00:19)
[2024-05-03 00:20] LABS: COVID-19 Antigen Negative (Negative)
[2024-05-03 00:25] LABS: Urine Hyaline Cast >15 /LPF (0-2); Urine Mucus Few; Urine Squamous Cell 0-2 /LPF (Few)
[2024-05-03 00:27] LABS: Urine Bacteria Moderate (Negative); Urine Red Blood Cell 0-2 /HPF (0-2)
[2024-05-03] MEDS: LEVOPHED 250 IV ×2 (01:09→11:04)
[2024-05-03] MEDS: DECADRON 10 MG IV (02:53)
--- NOTE | 2024-05-03 04:02 | HPS.HSE ---
Family Physician
-
Family Physician: Flako Wild
Chief Complaint
-
Fever, Malaise
History of Present Illness
Patient is a 48y F with PMH significant for SLE / chronic immunosuppression who presents to ED complaining of fever, malaise and back discomfort. Patient notes that symptoms have been intermittent for the past few weeks. Patient initially
presented to ED on 04/23 with similar symptoms and was admitted. She was not noted to be febrile during that admission. She was treated for suspected CHF and discharged to home on new Lasix 60mg daily. Patient states that her weight has
decreased about 10 lbs since that time.
She states that she has continued to have dyspnea with activity, headache, 'irritated eyes' and occasional loose stools.
Patient also complains of low back discomfort / right flank discomfort.
This evening, she had another fever at home to 103 and family encouraged her to return to the ED for evaluation.
Patient reports that she has had similar symptoms in the past associated with pneumonia / pleural effusion.
Medical History
Past Medical History
Past Medical History: Reports Other
Additional Past Medical History:
Cardiomyopathy with Recovered EF
Pulmonary Hypertension
Systemic Lupus Erythematosus
Raynaud's
Peripheral Neuropathy
Past Surgical History: Reports Other
Additional Past Surgical History:
Cholecystectomy
Social History
Tobacco: Smoker (1 PPD)
Family History
Family History: Not pertinent
Allergies / Home Medications
Allergies reflects when Allergies were last updated in [employer].
Home Medications with original date entered in [facility]
Allergy/Medication List:
Allergies
Allergy/AdvReac Type Severity Reaction Status Date / Time
dapsone Allergy Unknown Verified 05/02/24 21:42
hydroxychloroquine Allergy Unknown Verified 05/02/24 21:42
[From Plaquenil]
Home Medications
gabapentin 600 mg tablet 1,200 mg PO HS Pain 08/16/23
mycophenolate mofetil 500 mg tablet 2,000 mg PO DAILY@1430 LUPUS 08/16/23
omeprazole 40 mg capsule,delayed release 40 mg PO DAILY GERD 08/16/23
sildenafil (pulm.hypertension) 20 mg tablet 20 mg PO Q8H Raynaud's 08/16/23
albuterol sulfate 90 mcg/actuation aerosol inhaler 2 puff inhalation R Q4HPRN PRN sob/wheezing 04/23/24
budesonide-formoterol HFA 80 mcg-4.5 mcg/actuation aerosol inhaler (Symbicort) 2 puff inhalation R BID Lung/Breathing Issues 04/23/24
prednisone 2.5 mg tablet 7.5 mg PO DAILY Anti-Inflammatory 04/23/24
aspirin 81 mg chewable tablet (Children's Aspirin) 81 mg PO DAILY Blood Clot Prevention/Tx 04/24/24
furosemide 20 mg tablet 60 mg (3 x 20 mg) PO DAILY Fluid retention/Swelling #30 tabs 04/24/24
Review of Systems
-
History Source: Patient
A 12 point ROS was completed and negative except as noted: Yes
Constitutional: Reports Fever, Fatigue and Chills
EENT: Denies Sore Throat
Respiratory: Reports Trouble Breathing; Denies Cough or Hemoptysis
Cardiac: Denies Chest Pain or Palpitations
Abdomen/GI: Reports Diarrhea; Denies Abdominal Pain, Nausea, Vomiting, Bloody Stools or Black Stools
: Reports Flank Pain; Denies Dysuria, Frequency or Urgency
Musculoskeletal: Reports Other (Back Pain); Denies Joint Pain or Edema
Neurological: Reports Headache; Denies Dizzy
Psych: Denies Depression or Anxiety
Physical Exam
Vital Signs
Vital Signs
Temp Pulse Resp BP Pulse Ox
99.0 F 93 28 92/48 95
05/03/24 02:00 05/03/24 02:50 05/03/24 02:50 05/03/24 02:50 05/03/24 02:27
Physical Exam
General: Other (48y F in no acute distress.)
HEENT: PERRLA and Other (Dry MM.)
Respiratory: Other (Bibasilar rales about 1/3 up. No wheezing.)
Cardiac: S1/S2, Regular Rhythm and Murmur (III/ SANDIE)
GI: Soft, Non Tender, Non Distended and Normal Bowel Sounds
Musculoskeletal: No Clubbing, No Cyanosis and No Edema
Neuro: AO x 3
Laboratory Results
-
05/02/24 22:04
05/02/24 22:04
Laboratory Results
Lactic Acid Cancelled 05/03/24 02:00
Total Bilirubin 0.5 mg/dl (0.2-1.3) 05/02/24 22:04
AST 83 U/L (14-36) H 05/02/24 22:04
ALT 49 U/L (0-35) H 05/02/24 22:04
Alkaline Phosphatase 62 U/L (38-126) 05/02/24 22:04
Impression/Plan
-
A/P: Patient is a 48y F with PMH significant for SLE and CHFpEF who presents to ED complaining of fever, malaise and back pain.
Fever - ? Pneumonia
Sepsis secondary to the above
- Admit for further evaluation and treatment.
- Patient with intermittent fevers - as high as 103 at home - flank / pleuritic pain.
- CXR done today looks to me like opacity in the bases - ? pneumonia given history / presentation.
- Some areas of pleural fluid - recent CT / IR eval noted too little fluid for aspiration.
- Continue with empiric abx for now given fevers, immunosuppression, etc.
- ID evaluation for additional recommendations.
- Follow-up culture data.
- Had GUERO done last admission which showed pulmonary hypertension. No noted valvular lesions.
- Supportive care including antipyretics, BP support / pressors, etc.
- Follow for any new symptoms / focal complaints / etc.
Hypotension
- Did not receive typical 'sepsis protocol' fluid bolus due to CHF history and noted ascites / third spacing on today's imaging.
- Do suspect intravascular volume depletion given new PRAVEEN and hypotension following initiation of diuretic regimen.
- Continue Levophed for BP support for now.
- Stress dose hydrocortisone given chronic prednisone treatment for SLE.
- Hold diuretics, BP agents, etc acutely and follow for improvement in BP.
- Treat underlying fever / infection as noted above.
Chronic HFpEF
Pulmonary Hypertension
- Volume status difficult to determine as noted above.
- Imaging with pleural effusions, pericardial fluids, ascites - albeit all low volumes.
- Weight down 10 lbs from prior visit and new PRAVEEN / hypotension, etc.
- Hold further Lasix.
- Hold sildenafil as well acutely.
- Follow I/Os, daily weights, etc and adjust medications as necessary.
PRAVEEN
- SCr = 1.5 compared to prior visit baseline of 0.5.
- Suspect pre-renal / intravascular volume depletion as noted above.
- Hold Lasix / sildenafil.
- Hold PPI for now.
- BP / pressor support as needed.
- Follow for return to baseline renal function.
Iron Deficiency Anemia
- Hgb fairly stable.
- Iron studies last admission with TSat = 7% c/w iron deficiency.
- Give dose of Ferrlecit this admission.
- Follow H&H for any changes.
- Monitor for any evidence of active bleeding.
SLE
- Patient on chronic treatment with prednisone and CellCept.
- Hold prednisone acutely while on stress dose steroids - return to usual prednisone dose once BP stable, etc.
- Continue CellCept at current dose.
- ? if intermittent fevers, dyspnea, effusions, etc represent SLE flare / progression?
DVT Prophylaxis: Subcut Heparin
Code Status: Full
--- NOTE | 2024-05-03 06:21 | PTCARENOTE ---
Received pt from ED RN. Pt AAOx3. NSR/sinus tach on the monitor. On RA O2 sat 94%, lungs coarse, tachypneic. BRPx1. Levo gtt @ 8 mcgs/min. Pt educated on pt care. Pt is laying comfortable in bed with call montano in reach
[2024-05-03] MEDS: MAXIPIME 2000 MG IV (06:25)
[2024-05-03] MEDS: STERILE WATER FOR INJECTION 10 ML IV ×2 (06:25→17:37)
[2024-05-03 06:41] LABS: Hematocrit 28.1 % (37.0-47.0); Hemoglobin 9.2 g/dL (12.0-16.0); Mean Corp Hgb Conc. 32.7 g/dL (33.0-37.0); Mean Corpuscular Hgb 25.1 pg (27.0-31.0); Mean Corpuscular Volume 76.6 fL (81.0-99.0); Mean Platelet Volume 10.2 fL (7.4-10.4); Platelet Count 390 10^3/uL (130-400); Red Blood Cell Count 3.67 10^6/uL (4.20-5.40); Red Cell Dist. Width 17.9 % (11.5-14.5); White Blood Cell Count 10.7 10^3/uL (4.8-10.8)
[2024-05-03 07:30] LABS: ALT (SGPT) 44 U/L (0-35); AST (SGOT) 59 U/L (14-36); Albumin 3.6 g/dl (3.5-5.0); Alkaline Phosphatase 63 U/L (38-126); Blood Urea Nitrogen 41 mg/dl (7-17); Calcium 8.9 mg/dl (8.4-10.2); Carbon Dioxide 21 mmol/L (22-30); Chloride 98 mmol/L (98-107); Direct Bilirubin 0.3 mg/dl (0.0-0.4); Estimated Creatinine Clearance 43 ml/min; Glucose 135 mg/dl (70-99); Potassium 4.8 mmol/L (3.5-5.1); Sodium 129 mmol/L (135-145); Total Bilirubin 0.6 mg/dl (0.2-1.3); Total Protein 6.6 g/dl (6.3-8.2); eGFR 36.99
[2024-05-03 07:33] LABS: TSH Reflex To Free T4 0.78 uIU/ml (0.47-4.68)
--- NOTE | 2024-05-03 07:39 | W.PN.HOSP.TC ---
Today's Communication/Plan
-
abx as per ID
Nephro Eval
wean pressors as tolerated
Oxygen supplementation prn
Assessment / Plan
Assessment / Plan
Physical Exam
General: no acute distress appears comfortable at this time
HEENT: PERRLA Normocephalic Atraumatic
Respiratory: Bibasilar rales. No wheezing
Cardiac: S1/S2, Regular Rhythm
GI: Soft, Non Tender, Non Distended and Normal Bowel Sounds
Musculoskeletal: No Clubbing, No Cyanosis and No Edema
Neuro: AO x 3
A/P: Patient is a 48y F with PMH significant for SLE and CHFpEF who presents to ED complaining of fever, malaise and back pain.
Fever Pneumonia
Sepsis secondary to the above
Hypotension possible septic shock on levophed low dose
- Patient with intermittent fevers - as high as 103 at home - flank / pleuritic pain.
- CXR appreciated Small bilateral pleural effusions with associated bibasilar airspace disease suspicious for pneumonia.
CT appreciated:
1. Scattered lymphadenopathy throughout the retroperitoneum and bilateral iliac and inguinal chains, nonspecific and may be reactive or secondary to underlying neoplastic process such as lymphoma.
2. Small volume ascites.
3. Small bilateral pleural effusions.
4. Probable uterine fibroids.
- ID eval appreciated vancomycin cefipime ampicillin doxycycline transfer to [facility] recommended for advance infectious work up given high dose immunosuppression concern for opportunistic infection
Transfer requested however [facility] does not have step down unit and patient remains on pressors, [facility] ICU is full with pending transfers, case was discussed with [facility] Milieu Manager who declined acceptance at this time, recommended re-attempt
transfer request when patient is stable for downgrade to [facility].
- Follow-up culture data.
- Had GUERO done last admission which showed pulmonary hypertension. No noted valvular lesions.
Hypotension
- Did not receive typical 'sepsis protocol' fluid bolus due to CHF history and noted ascites / third spacing on imaging.
- Do suspect intravascular volume depletion given new PRAVEEN and hypotension following initiation of diuretic regimen.
- Continue Levophed for BP support for now. Wean as tolerated
- Stress dose hydrocortisone given chronic prednisone treatment for SLE.
- Hold diuretics, BP agents, etc acutely and follow for improvement in BP.
- Treat underlying fever / infection as noted above.
Chronic HFpEF
Pulmonary Hypertension
- Clinically appears euvolemic
- Imaging with pleural effusions, pericardial fluids, ascites - albeit all low volumes.
- Weight down 10 lbs from prior visit and new PRAVEEN / hypotension, etc.
- Hold further Lasix.
- Sildenafil initially held, since resumed with improvement in BP
- Follow I/Os, daily weights, etc and adjust medications as necessary.
PRAVEEN
Hyponatremia
- Initial Cr 1.5 compared to prior visit baseline of 0.5.
- Suspect pre-renal / intravascular volume depletion as noted above.
- Hold Lasix
- BP / pressor support as needed.
- Nephro eval requested
Iron Deficiency Anemia
- Hgb fairly stable.
- Iron studies last admission with TSat = 7% c/w iron deficiency.
- once Ferrlecit given this admission.
- monitor H&H
SLE
- Patient on chronic treatment with prednisone and CellCept.
- Hold prednisone acutely while on stress dose steroids - return to usual prednisone dose once BP stable, etc.
- Continue CellCept at current dose.
DVT Prophylaxis: Subcut Heparin
GI ppx Protonix
Code Status: Full
Discussed with patient and family at bedside including brother Anton and mother Timur
I spent a total of 58 minutes with the patient or on the floor. More than 50% of this time involved counseling and coordination of care.
Anticipated Discharge: > 48 hours
Subjective/Interval History
-
Date of Service: May 03, 2024
Seen and examined at bedside in no acute distress appears comfortable at this time. Remains on low dose pressor support.
Objective Data
-
Labs:
Laboratory Results
05/02/24 05/03/24
22:04 06:06
WBC 9.0 10.7
Hgb 8.6 L 9.2 L
Hct 26.6 L 28.1 L
Plt Count 310 390 D
Sodium 130 L 129 L
Potassium 3.9 4.8
Chloride 100 98
Carbon Dioxide 26 21 L
BUN 38 H 41 H
Creatinine 1.5 H 1.7 H
Glucose 87 135 H
Calcium 8.4 8.9
Total Bilirubin 0.5 0.6
AST 83 H 59 H
ALT 49 H 44 H
Alkaline Phosphatase 62 63
Vital Signs:
Vital Signs
Temp Pulse Resp BP Pulse Ox
98.3 F 89 18 106/66 94
05/03/24 05:29 05/03/24 06:06 05/03/24 06:06 05/03/24 06:06 05/03/24 06:20
I&O
05/02/24 05/03/24 05/04/24
06:59 06:59 06:59
Intake Total 410 / 410
Balance 410 / 410
--- NOTE | 2024-05-03 07:57 | PHA.VAN.IN ---
Assessment
- Assessment
Renal Function: Appears elevated from baseline (1.7 ( baseline ~ 0.6 mg/dL))
Maximum Temperature: 100.4 05/02 21:42
Concomitant Antimicrobials: cefepime
AUC Dosing Plan
- Dosing Variables
Dosing Weight (kg): 79
Dosing CrCl (ml/min): 43
Vd coefficient (L/kg): 0.7
Plan
- Plan
Initial / Loading Dose: 2000 mg x 1 - given 05/03/24 00:19
Maintenance Regimen: dose by level for now due to PRAVEEN ( baseline SCr ~0.6)
Monitoring: random level in the AM 05/04
will give 100 mg x 1 dose today around noon. At current SCr 1000 mg q24h predicts AUC 460; T 1/2 16.3 h
Pharmacokinetics Vancomycin I
- -
Patient Age: 48
Patient Sex: Female
Vancomycin Day #: 1
Indication: Other
Requesting Provider: Harsh Bustamante
Pertinent Antimicrobial Allergies:
dapsone, hydroxychloroquine
Height / Weight:
Height 5 ft 6 in
Actual Weight 79.2 kg
Pertinent Past Medical History: SLE w/ chronic immunsuppression
- Vital Signs / Lab Results
Temp Pulse Resp BP Pulse Ox
98.3 F 89 18 106/66 94
05/03/24 05:29 05/03/24 06:06 05/03/24 06:06 05/03/24 06:06 05/03/24 06:20
Lab Results - Hematology
05/02/24 05/03/24
22:04 06:06
WBC 9.0 10.7
Lab Results - Chemistry
05/02/24 05/03/24
22:04 06:06
BUN 38 H 41 H
Creatinine 1.5 H 1.7 H
Estimated Creat Clear 43 43
Albumin 3.2 L 3.6
05/02/24 05/03/24
22:04 02:00
Lactic Acid 1.1 Cancelled
Lab Results - Urine
05/02/24
23:26
Urine Nitrite (Reflex) Negative
Leukocyte Esterase Rfl Trace A
Urine WBC (Reflex) 3-5
Ur Squamous Epith Cells 0-2
Urine Bacteria (Reflex) Moderate A
[2024-05-03] MEDS: TYLENOL 650 MG PO ×2 (08:16→19:39)
[2024-05-03] MEDS: SOLU-CORTEF 50 MG IV ×3 (08:16→23:07)
[2024-05-03] MEDS: HEPARIN 5000 UNITS SC ×2 (08:17→19:28)
--- NOTE | 2024-05-03 09:57 | CON.ID ---
Consultation
-
Date/Time Consultation Requested: 05/03/24 5:31
Date/Time Consultation Performed: 05/03/24 9:58
Requesting Provider: Dr Bustamante
Performing Provider: Dr Nina
Reason for Consultation: Fever, Hypotension
Chief Complaint / Past History
Chief Complaint
Fever, Malaise
History of Present Illness
Ms Vera is a 48 year old female with SLE on MMF 2000 mg, pred 7.5 mg, pulm HTN on sildenafil, CHF due to cardiomyopathy subsequently with recovered EF who presented here last night for fever, malaise, back pain/flank pain for several weeks. Also
dyspnea on exertion, headache, irriated eyes, occasional loose stools.
Of note she was recently hospitalized here 04/23 through 04/24 found to have bilateral pleural effusions assessed as likely due to lupus, too small for thoracenesis - discharged on lasix 60 mg PO qday,
Since arrival this visit tmax on arrival 100.4, bp requiring pressor support currently on levophed 6 mcg/min, HR 80s, WBC 10.7, hgb 9.2, plt 390, L shift noted on arrial, eos present in normal amounts, Na 130 now 129, cr 1.7 from baseline on 0.7,
lactic acid 1.1, t bili 0.6, ast 59, alt 44, alk phos 63, UA 3-5 wbc/hpf and moderate bacteria, CT a/p with IV contrast only: retroperitoneal lymphadenopathy, small volume ascites and pleural effusions, also HSM, CXR: no infiltrates or nodules.
urine culture in progress, blood culture x1 in progress, 04/23 influenza neg, 08/17/23 afb from [facility] negative, 08/17/23 bal fungus c albicans, covid ag neg 05/02, 04/23 CT PE: 'Posterior lung base opacities are demonstrated bilaterally, atelectasis
versus pneumonia. Stable 4 mm nodule in the right middle lobe. Borderline superior right hilar adenopathy. Slightly progressive bilateral axillary adenopathy.
Past History
Additional Past Medical History:
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 Pulm hypertension-on sildenafil. VDRF/CHF-hypoxemia/hypercapnia 08/16/2023. Raynaud's. Peripheral neuropathy. Cigarette smoker. GERD. Cardiomyopathy-subsequently recovered EF. .
Additional Past Surgical History:
Cholecystectomy
Allergy History:
dapsone Allergy (Verified 05/02/24 21:42)
Unknown
hydroxychloroquine [From Plaquenil] Allergy (Verified 05/02/24 21:42)
Unknown
Medications Reviewed: Yes
Social History
Tobacco: Smoker
Living: With Family
Employment: Employed
Review of Systems
Vital Signs
Temp Pulse Resp BP Pulse Ox
98.3 F 88 20 104/68 95
05/03/24 07:59 05/03/24 09:00 05/03/24 09:00 05/03/24 09:00 05/03/24 09:00
Physical Exam
Lab / Diagnostic Study Results
05/03/24 06:06
05/03/24 06:06
Abs Immat Gran (auto) 0.0 10^3/uL (0-0.05) 05/02/24 22:04
Absolute Neuts (auto) 8.1 10^3/uL (1.4-6.5) H 05/02/24 22:04
Absolute Lymphs (auto) 0.5 10^3/uL (1.2-3.4) L 05/02/24 22:04
Absolute Monos (auto) 0.2 10^3/uL (0.1-0.6) 05/02/24 22:04
Absolute Basos (auto) 0.0 10^3/uL (0-0.2) 05/02/24 22:04
Immature Gran % 0.3 % (0-0.5) 05/02/24 22:04
Neutrophils % 90.9 % (42.2-75.2) H 05/02/24 22:04
Lymphocytes % 5.7 % (20.5-51.1) L 05/02/24 22:04
Monocytes % 2.1 % (1.7-9.3) 05/02/24 22:04
Eosinophils % 0.9 % (0-6) 05/02/24 22:04
Basophils % 0.1 % (0-2) 05/02/24 22:04
Lactic Acid Cancelled 05/03/24 02:00
Ur Squamous Epith Cells 0-2 /LPF (Few) 05/02/24 23:26
Microbiology Results
Micro:
05/02/24 23:26 Urine Culture - Pending
Urine
05/02/24 23: Blood Culture - Pending
Blood/Venous
Assessment / Plan
Shock - likely septic
SLE on significant Immunosuppression
PRAVEEN
- 04/24 echo: normal EF
- 04/23 CT PE and 05/03 CT A/p both with adenopathy - generalized lymphadenopathy in sum - could be a disseminated infection, radiology has also brought up a concern for possible lymphoma - if no infectious cause identified eventual outpatient or
inpatient oncology consult can be considered
- blood cultures x2 - send second set today
- ua no pyuria - urine culture is in progress
- covid ag negative
- MRSA screen
- send babesia smear, check lyme, ehrlichia, anaplasma serologies
- CMV considered however not typically associated with generalized lymphadenopathy, no evidence of the
- follow renal function another day, if further progression will send BK virus testing
- history of recent cat scratch - lymphadenopathy is generalized - bartonella hensenselae IgG/IgM sent
- does eat [employer] meat - turkey recently - note current listeria outbreak including within [place]
- renally dose antibiotics
- continue vanc - if mrsa screen negative can stop vancomycin
- cefepime dose appropriate
- add ampicillin for now - possible listeriosis
- add doxycycline
- patient is critically ill and quite immunosuppressed on high doses of MMF for Lupus with risk of significant opportunistic infections which will be much slower to be identified here, recommend transfer to the MDs treating her Lupus at [place]
[employer]
Care Review
Plan reviewed with: Physician (Dr Bradshaw - recommended transfer)
[2024-05-03] MEDS: VIBRAMYCIN 100 MG PO ×2 (11:04→19:28)
[2024-05-03] MEDS: VANCOCIN 200 IV (11:04)
[2024-05-03] MEDS: AMPICILLIN 108 MG IV ×3 (12:12→23:07)
--- NOTE | 2024-05-03 12:13 | W.CON.NEPH ---
Consultation
-
Date/Time Consultation Requested: 05/03/24 1012
Date/Time Consultation Performed: 05/03/24 1045
Requesting Provider: Chrissy Rosas
Performing Provider: Mellisa Jiménez
Reason for Consultation: PRAVEEN, hyponatremia
Medical History
-
Chief Complaint: fever
History of Present Illness:
Patient is a 48y F with PMH significant for SLE / chronic immunosuppression with MMF and low dose prednisone, pulm HTN on Sidenafil, GERD on PPI, neuropathy on gabapentin, who presents to ED complaining of fever, malaise and back discomfort.
Patient notes that symptoms have been intermittent for the past few weeks. Patient initially presented to ED on 04/23 with similar symptoms and was admitted. She was not noted to be febrile during that admission. She was treated for CHF, and
discharged to home on increased Lasix 60mg daily on 04/24. Patient states that her weight has decreased about 10 lbs since that time. Yesterday she had another fever at home to 103 and family encouraged her to return to the ED for evaluation. She
also noted hypotensive and was started on pressor.
LAst admit her cr was 0.6, on admit 05/02 cr was at 1.5 and today 1.7 after receiving 1lit NS and holding diuretics hence nephrology consulted. SHe underwent CT abd with contrast on 05/02. Her sodium also low this time at 129, was normal last admit.
She reports following FR and compliant with meds.
She offers no n/v. mild cough now. No SOb or cp, has CESPEDES. No LE edema. NO dysuria or hematuria. No rash or joint swelling.
Past Medical History
Cardiomyopathy with Recovered EF
Pulmonary Hypertension
Systemic Lupus Erythematosus followed at [place]
chr immuno supression
Raynaud's
Peripheral Neuropathy
Past Surgical History: Cholecystectomy
Social History
Tobacco: Smoker (quit 14 days ago 1ppd)
Alcohol: Occasional
Living: With Family
Family History
autoimmune disease in most of her siblings-thyroid, DM, celiac
no CKD
Allergies / Home Medications
Allergy/AdvReac Type Severity Reaction Status Date / Time
dapsone Allergy Unknown Verified 05/02/24 21:42
hydroxychloroquine Allergy Unknown Verified 05/02/24 21:42
[From Plaquenil]
�Medication �Instructions �Recorded �Confirmed �Type
gabapentin 600 mg tablet 1,200 mg PO HS Pain 08/16/23 05/03/24 History
mycophenolate mofetil 500 mg tablet 2,000 mg PO DAILY@1430 LUPUS 08/16/23 05/03/24 History
omeprazole 40 mg capsule,delayed 40 mg PO DAILY GERD 08/16/23 05/03/24 History
release
sildenafil (pulm.hypertension) 20 20 mg PO Q8H Raynaud's 08/16/23 05/03/24 History
mg tablet
albuterol sulfate 90 mcg/actuation 2 puff inhalation R Q4HPRN PRN 04/23/24 05/03/24 History
aerosol inhaler sob/wheezing
budesonide-formoterol HFA 80 2 puff inhalation R BID 04/23/24 05/03/24 History
mcg-4.5 mcg/actuation aerosol Lung/Breathing Issues
inhaler (Symbicort)
prednisone 2.5 mg tablet 7.5 mg PO DAILY Anti-Inflammatory 04/23/24 05/03/24 History
aspirin 81 mg chewable tablet 81 mg PO DAILY Blood Clot 04/24/24 05/03/24 History
(Children's Aspirin) Prevention/Tx
furosemide 20 mg tablet 60 mg (3 x 20 mg) PO DAILY Fluid 04/24/24 05/03/24 Rx
retention/Swelling #30 tabs
Review of Systems
-
all complete 12 point ROS have been inquired and found negative other than stated in HPI
Physical Exam
Vital Signs
Vital Signs
Temp Pulse Resp BP Pulse Ox
98.3 F 67 19 122/50 98
05/03/24 07:59 05/03/24 12:00 05/03/24 12:00 05/03/24 11:18 05/03/24 12:00
Lab Results
WBC 10.7 10^3/uL (4.8-10.8) 05/03/24 06:06
RBC 3.67 10^6/uL (4.20-5.40) L 05/03/24 06:06
Hgb 9.2 g/dL (12.0-16.0) L 05/03/24 06:06
Hct 28.1 % (37.0-47.0) L 05/03/24 06:06
Plt Count 390 10^3/uL (130-400) D 05/03/24 06:06
Sodium 129 mmol/L (135-145) L 05/03/24 06:06
Potassium 4.8 mmol/L (3.5-5.1) 05/03/24 06:06
Chloride 98 mmol/L (98-107) 05/03/24 06:06
Carbon Dioxide 21 mmol/L (22-30) L 05/03/24 06:06
BUN 41 mg/dl (7-17) H 05/03/24 06:06
Creatinine 1.7 mg/dL (0.6-1.0) H 05/03/24 06:06
eGFR 36.99 05/03/24 06:06
Glucose 135 mg/dl (70-99) H 05/03/24 06:06
Calcium 8.9 mg/dl (8.4-10.2) 05/03/24 06:06
Albumin 3.6 g/dl (3.5-5.0) 05/03/24 06:06
CT abd/pelvis with contrast :
1. Scattered lymphadenopathy throughout the retroperitoneum and bilateral iliac and inguinal chains, nonspecific and may be reactive or secondary to underlying neoplastic process such as lymphoma.
2. Small volume ascites.
3. Small bilateral pleural effusions.
4. Probable uterine fibroids.
CXR:
IMPRESSION:
Small bilateral pleural effusions with associated bibasilar airspace disease suspicious for pneumonia.
Physical Exam
General: Awake, Alert, Oriented, AOx3, No Distress and Nontoxic
HEENT: EOMI, Anicteric and Neck Supple
Respiratory: Normal Excursion, Nonlabored Respirations and Other (coarse BS)
Cardiac: S1/S2 and Regular Rate/Rhythm
Breast: Deferred by me
Abdomen: Soft, Nontender and Nondistended
Musculoskeletal: No Cyanosis and No Edema
Skin: No Rash
Neuro: Nonfocal/Grossly Intact
Psych: Mood/afflect pleasant, Insight/judgement good and Appropriate
Data Reviewed
-
Radiology: Report Reviewed by me and Discussed with Patient
Labs: Labs Reviewed by me, Discussed with Patient and Discussed with Family
Assessment/Plan
-
IMP:
Fever - ? Pneumonia
likely septic shock
PRAVEEN
Hyponatremia
Chronic HFpEF
Pulmonary Hypertension
Iron Deficiency Anemia
SLE
Raynaud's
Peripheral Neuropathy
Plan:
Readmit with fever, hypotension
concern of septic shock, abx per ID, cx data sent
PRAVEEN-suspect prerenal specially with low BPs, recent uptitration of lasix and underlying pulm HTN
cr is up day specially post contrast 12/03-follow cr to r/o TATA
UA bacteruria, otherwise bland, no hydro on CT
follow PVR and monitor UOP
check FEna, likely challenge gentle IVF but cautious with CHF
wean pressor as able for MAP>65, on stress dose steroids
hyponatremia likely multifactorial, would cont FR
cont to hold lasix and avoid nephrotoxins, dose meds renally
monitor met acidosis
LN noted on CT but first r/o infectious source
anemia-microcytic IV fe course started for fe def
d/w pt and family
d/w nursing
[2024-05-03] MEDS: CELLCEPT 2000 MG PO (14:45)
[2024-05-03] MEDS: REVATIO 20 MG PO (15:21)
[2024-05-03] MEDS: SODIUM BICARBONATE 1075 MEQ IV (15:22)
--- NOTE | 2024-05-03 15:32 | PTCARENOTE ---
Assumed care of patient at beginning of this shift from previous RN with levophed infusing at 8mcg/min. Patient worked with PT/OT and ambulated in halls with them without difficulty.Dr Jaimes, Dr Nina and Dr Bradshaw in to see patient; decision
was made by them to transfer patient to [facility] d/t sepsis and patient with history of lupus. Levophed able to be weaned throughout the day, slowly; currently at 1mcg/min with MAP 75. Cellcept ordered, however patient questioned if she should
received it; she stated 'the lady doctor said that's what might have caused this infection.' Fletcher text sent to Dr Bradshaw who confirmed that patient should take med; patient consented. She then asked about taking gabopentin and sildenafil; both of
which had not been ordered. Fletcher text sent to Dr Bradshaw who responded that sildenafil was held d/t hypotension; he did resume since bp has been improving. He also stated that gabapentin is resumed but at reduced dose d/t kidney injury.. Patient
updated on all. Patient has been ambulating to bathroom x1 assist. She did walk herself back to the chair at one point today despite being told to always call for assistance; bed alarm initiated for patient safety. Patient made aware. Family remains
at bedside. No bed available at [facility] as of yet. See worklist for full assessment, med titration and vital signs; see MAR for med administration
[2024-05-03] MEDS: FERRLECIT 110 MG IV (16:15)
[2024-05-03] MEDS: PROTONIX 40 MG PO (16:16)
[2024-05-03] MEDS: MAXIPIME 1000 MG IV (17:37)
[2024-05-03] MEDS: ProAmatine 5 MG PO (17:37)
[2024-05-03 18:04] LABS: Osmolality Urine 180 mOsm/kg (300-900)
[2024-05-03 18:15] LABS: Urine Sodium < 5 mmol/L (30-90)
[2024-05-03] MEDS: MELATONIN 5 MG PO (19:39)
[2024-05-03] MEDS: NON-FORMULARY ITEM 1 DROP BOTH EYES (19:40)
--- NOTE | 2024-05-03 20:16 | PTCARENOTE ---
Received pt from dayshift RN. Pt is AAOx3, anxious. NSR on the monitor. Levo gtt weaned off during dayshi. On RA O2 sat 95%, lungs are coarse, tachypneic. BRPx1, urinary frequency. 0.45% NS w/ NaBicarb @ 50 ml/hr. Pt c/o OLSON, PRN Tylenol given (see
MAR). Pt updated on plan of care. Pt is laying comfortable in bed with call montano in reach.
[2024-05-03] MEDS: NEURONTIN 900 MG PO (22:07)
--- NOTE | 2024-05-03 22:13 | PTCARENOTE ---
Pt with BP 87/44 (57), YAZMIN Avery notified. Levo gtt restarted @ 2 mcgs/min. Sildenafil not given due to low BP, YAZMIN Avery notified.
[2024-05-03] MEDS: REVATIO PO (22:14)
[2024-05-03] MEDS: ZYRTEC 5 MG PO (23:06)
[2024-05-04] VITALS (19 sets, daily range): BP systolic 88–131; BP diastolic 50–79; PULSE 74–82; BMI 28.3
[2024-05-04] MEDS: STERILE WATER FOR INJECTION 10 ML IV ×2 (05:08→18:03)
[2024-05-04] MEDS: AMPICILLIN 108 MG IV ×2 (05:08→12:05)
[2024-05-04] MEDS: MAXIPIME 1000 MG IV (05:08)
[2024-05-04 05:49] LABS: Hematocrit 23.7 % (37.0-47.0); Hemoglobin 7.9 g/dL (12.0-16.0); Mean Corp Hgb Conc. 33.3 g/dL (33.0-37.0); Mean Corpuscular Hgb 25.2 pg (27.0-31.0); Mean Corpuscular Volume 75.5 fL (81.0-99.0); Mean Platelet Volume 10.2 fL (7.4-10.4); Platelet Count 284 10^3/uL (130-400); Red Blood Cell Count 3.14 10^6/uL (4.20-5.40); Red Cell Dist. Width 18.1 % (11.5-14.5); White Blood Cell Count 5.7 10^3/uL (4.8-10.8)
[2024-05-04 06:05] LABS: Blood Urea Nitrogen 30 mg/dl (7-17); Calcium 8.8 mg/dl (8.4-10.2); Carbon Dioxide 26 mmol/L (22-30); Chloride 107 mmol/L (98-107); Estimated Creatinine Clearance 82 ml/min; Glucose 120 mg/dl (70-99); Phosphorus 3.2 mg/dl (2.5-4.5); Potassium 3.9 mmol/L (3.5-5.1); Sodium 137 mmol/L (135-145); eGFR > 60.00
[2024-05-04 06:09] LABS: Vancomycin Random 12.7 ug/ml
[2024-05-04] MEDS: REVATIO 20 MG PO ×3 (06:26→21:08)
--- NOTE | 2024-05-04 06:30 | PTCARENOTE ---
Pt expressing concerns about not wanting to be transferred to [place]. Education provided. Dr. Bradshaw notified.
--- NOTE | 2024-05-04 07:19 | W.PN.HOSP.TC ---
Today's Communication/Plan
-
wean pressors as tolerated
midodrine
stress dose steroids
cont abx as per ID
monitor renal function
bowel regimen
Assessment / Plan
Assessment / Plan
Physical Exam
General: no acute distress appears comfortable at this time
HEENT: PERRLA Normocephalic Atraumatic
Respiratory: Bibasilar rales. No wheezing
Cardiac: S1/S2, Regular Rhythm
GI: Soft, Non Tender, Non Distended and Normal Bowel Sounds
Musculoskeletal: No Clubbing, No Cyanosis and No Edema
Neuro: AO x 3
A/P: Patient is a 48y F with PMH significant for SLE and CHFpEF who presents to ED complaining of fever, malaise and back pain.
Fever Pneumonia
Sepsis secondary to the above
Hypotension possible septic shock on levophed low dose
- Patient with intermittent fevers - as high as 103 at home - flank / pleuritic pain.
- CXR appreciated Small bilateral pleural effusions with associated bibasilar airspace disease suspicious for pneumonia.
CT appreciated:
1. Scattered lymphadenopathy throughout the retroperitoneum and bilateral iliac and inguinal chains, nonspecific and may be reactive or secondary to underlying neoplastic process such as lymphoma.
2. Small volume ascites.
3. Small bilateral pleural effusions.
4. Probable uterine fibroids.
- ID eval appreciated empiric vancomycin completed cefipime ampicillin doxycycline
transfer to [facility] recommended for advance infectious work up given high dose immunosuppression concern for opportunistic infection
Transfer requested however [facility] does not have step down unit and patient remains on pressors, [facility] ICU is full with pending transfers, case was discussed with [facility] who declined acceptance at this time, recommended re-attempt
transfer request when patient is stable for downgrade to [facility].
-patient however, subsequently, refusing transfer at this time.
- Follow-up culture data.
- Had GUERO done last admission which showed pulmonary hypertension. No noted valvular lesions.
Hypotension
- Did not receive typical 'sepsis protocol' fluid bolus due to CHF history and noted ascites / third spacing on imaging.
- Do suspect intravascular volume depletion given new PRAVEEN and hypotension following initiation of diuretic regimen.
- Continue Levophed for BP support for now. Wean as tolerated
- Stress dose hydrocortisone given chronic prednisone treatment for SLE.
-Midodrine
- Hold diuretics, BP agents, etc acutely and follow for improvement in BP.
- Treat underlying fever / infection as noted above.
Chronic HFpEF
Pulmonary Hypertension
- Imaging with pleural effusions, pericardial fluids, ascites - albeit all low volumes.
- Weight was down 10 lbs from prior visit and new PRAVEEN / hypotension
- Hold Lasix.
- Sildenafil initially held, since resumed with improvement in BP
- Follow I/Os, daily weights, etc and adjust medications as necessary.
PRAVEEN
Hyponatremia
- Initial Cr 1.5 compared to prior visit baseline of 0.5.
- Suspect pre-renal / intravascular volume depletion as noted above.
- Hold Lasix
- BP / pressor support as needed.
- Nephro eval appreciated brief bicarb gtt given since completed with resolution PRAVEEN and Hyponatremia
Iron Deficiency Anemia
- Hgb fairly stable.
- Iron studies last admission with TSat = 7% c/w iron deficiency.
- once Ferrlecit given. Oral iron supplementation stated
- monitor H&H
SLE
- Patient on chronic treatment with prednisone and CellCept.
- Hold prednisone acutely while on stress dose steroids - return to usual prednisone dose once BP stable, etc.
- Continue CellCept suppose to be taken 1g BID patient has been taking 2g at noon, as noted by ID.
Constipation
-Senna Colace
-PRN Miralax, Bisacodly suppository
-consider enema if constipation persists despite above
DVT Prophylaxis: Subcut Heparin
GI ppx Protonix
Code Status: Full
I spent a total of 58 minutes with the patient or on the floor. More than 50% of this time involved counseling and coordination of care.
Anticipated Discharge: > 48 hours
Subjective/Interval History
-
Date of Service: May 04, 2024
No acute distress appears comfortable on room air. reports constipation. refusing transfer to [facility] at this time
Objective Data
-
Labs:
Laboratory Results
05/04/24
05:29
WBC 5.7
Hgb 7.9 L
Hct 23.7 L
Plt Count 284 D
Sodium 137 D
Potassium 3.9
Chloride 107
Carbon Dioxide 26
BUN 30 H
Creatinine 0.9
Glucose 120 H
Calcium 8.8
Vital Signs:
Vital Signs
Temp Pulse Resp BP Pulse Ox
98.2 F 75 13 107/64 92
05/04/24 03:38 05/04/24 06:00 05/04/24 06:00 05/04/24 06:00 05/04/24 04:11
I&O
05/03/24 05/04/24 05/05/24
06:59 06:59 06:59
Intake Total 410 / 410 1997 / 1997
Output Total 1775 / 1775
Balance 410 / 410 223 / 223
[2024-05-04] MEDS: VIBRAMYCIN 100 MG PO ×2 (08:29→20:04)
[2024-05-04] MEDS: ProAmatine 5 MG PO ×3 (08:29→18:03)
[2024-05-04] MEDS: PROTONIX 40 MG PO (08:29)
[2024-05-04] MEDS: SOLU-CORTEF 50 MG IV ×3 (08:30→23:37)
[2024-05-04] MEDS: HEPARIN 5000 UNITS SC ×2 (08:30→20:04)
[2024-05-04] MEDS: TYLENOL 650 MG PO ×2 (10:16→21:04)
[2024-05-04] MEDS: FEOSOL 325 MG PO (10:16)
[2024-05-04] MEDS: SENOKOT-S 1 TABLET PO ×2 (12:04→20:04)
[2024-05-04] MEDS: MIRALAX 17 GRAMS PO (12:04)
--- NOTE | 2024-05-04 13:00 | W.PN.ID1 ---
Date of Service
Date of Service: May 04, 2024
Today's Communication
- her prescribed MMF dose is 1 gm BID not 2 gm Qday as she has been taking it; I have encouraged her to speak with the prescribing provider after discharge. while here she will take it as prescribed which is 1 gm bid
- stop vancomycin
- cefepime - continue for now
- continue ampicillin for now - possible listeriosis
- continue doxycycline
- patient refusing transfer, understands that workup will be slower at this institution and resolute in her decision. I am not clear on the cause of her shock yet, there is some interval improvement, workup ongoing
Assessment / Plan
Shock - likely septic
SLE
PRAVEEN
- 04/24 echo: normal EF
- 04/23 CT PE and 05/03 CT A/p both with adenopathy - generalized lymphadenopathy in sum - could be a disseminated infection, radiology has also brought up a concern for possible lymphoma - if no infectious cause identified eventual outpatient or
inpatient oncology consult can be considered
- dosing of MMF at 2 gm Qday odd, spoke with pharmacy who were able to look up her outpatient fill which is actually 1 gm BID for a total daily dose of 2 gm - our med rec was updated; this would be a standard dose
- complements were very low with detectable C3, minimal C4 when last assessed 2022; recheck
- blood cultures x2 in progress no growth to date
- ua no pyuria - urine culture finalized negative, not the source
- MRSA screen negative
- babesia smear negative; await check lyme, ehrlichia, anaplasma serologies
- CMV considered however not typically associated with generalized lymphadenopathy, no evidence of the specific tissue infiltration
- renal function improving
- history of recent cat scratch - lymphadenopathy is generalized - bartonella hensenselae IgG/IgM sent
- does eat [employer] meat - turkey recently - note current listeria outbreak including within [place] (though not with [place] specifically yet - with a number of other varieties)
- renally dose antibiotics - adjusted
- stop vancomycin
- cefepime - continue for now
- continue ampicillin for now - possible listeriosis
- continue doxycycline
- patient refusing transfer, understands that workup will be slower at this institution and resolute in her decision. I am not clear on the cause of her shock yet, there is some interval improvement, workup ongoing as above.
Chief Complaint
-: Other (shock)
Subjective / Review of Systems
dosing of MMF at 2 gm Qday odd, spoke with pharmacy who were able to look up her outpatient fill which is actually 1 gm BID for a total daily dose of 2 gm - our med rec was updated
no further fevers
now on 2 mcg/min levophed
without leukocytosis
plt stable
cr stable
na now 137
cr 0.9
lactic acid 1.0
lyme, ehrlichia, anaplasma serologies in progress, babesia negative
Vital Signs / Physical Exam
Vital Signs
Vital Signs
Temp Pulse Resp BP Pulse Ox
99.1 F 81 23 131/66 92
05/04/24 11:05 05/04/24 10:01 05/04/24 10:01 05/04/24 12:06 05/04/24 04:11
Physical Exam
Constitutional: No Acute Distress
Cardiovascular: Regular Rate and S1/S2; Negative Murmur or Rub
Pulmonary: Clear and Symmetric; Negative Wheezes or Rales
Gastrointestinal: Soft, Non Tender, Non Distended and Normal Bowel Sounds
Skin: Warm and Dry; Negative Rash or Jaundice
Objective Data
Lab Data
Lab Results
05/04/24 05:29
Estimated Creat Clear 82 ml/min 05/04/24 05:29
Lactic Acid Cancelled 05/03/24 02:00
Total Bilirubin 0.6 mg/dl (0.2-1.3) 05/03/24 06:06
AST 59 U/L (14-36) H 05/03/24 06:06
ALT 44 U/L (0-35) H 05/03/24 06:06
Alkaline Phosphatase 63 U/L (38-126) 05/03/24 06:06
Most recent labs reviewed.
Micro Results:
05/02/24 23:26 Urine Culture - Final
Urine
05/03/24 10:53 Blood Culture - Preliminary
Blood/Venous No Growth in 24 hours- Final report to follow
05/02/24 23:26 Blood Culture - Preliminary
Blood/Venous No Growth in 24 hours- Final report to follow
05/03/24 10:53 Blood Parasites Smear - Final
Blood/Venous
05/03/24 12:02 Nasal Screen MRSA (PCR) - Final
Nose MRSA not detected - performed by PCR methodology.
Care Review
Plan reviewed with: Physician (Dr Jaimes)
[2024-05-04 13:13] LABS: Hematocrit 24.5 % (37.0-47.0)
--- NOTE | 2024-05-04 13:39 | W.PN.NEPH.PH ---
Today's Communication / Plan
-
monitor off IVF
resume lasix as cr remains stable
Assessment/Plan
-
IMP:
Fever - ? Pneumonia
likely septic shock
PRAVEEN
Hyponatremia
Chronic HFpEF
Pulmonary Hypertension
Iron Deficiency Anemia
SLE
Raynaud's
Peripheral Neuropathy
Plan:
Readmit with fever, hypotension
concern of septic shock, abx per ID, cx data sent
PRAVEEN-suspect prerenal specially with low BPs, recent uptitration of lasix and underlying pulm HTN
cr is down to 0.9 baseline likely no TATA
UA bacteruria, otherwise bland, no hydro on CT
follow PVR and monitor UOP
low FEna, monitor off IVF
BP stable on midodrine, stress dose steroids and off pressor
hyponatremia likely multifactorial, would cont FR -improved now
cont to hold lasix and avoid nephrotoxins,
improving met acidosis
anemia-microcytic IV fe course started for fe def
d/w pt and family
will follow peripherally, call with ?s
-
-
Date of Service: May 04, 2024
CC / HPI / ROS
-
Chief Complaint:
PRAVEEN
History of Present Illness:
cr improved to 0.9, BP stable off pressors and on midodrine
no fever. non oliguric
sodium better at 137
Review of Systems:
no cp or sob
improved back pain
Labs
-
Labs:
WBC 5.7 10^3/uL (4.8-10.8) 05/04/24 05:29
RBC 3.14 10^6/uL (4.20-5.40) L 05/04/24 05:29
Hgb 8.0 g/dL (12.0-16.0) L 05/04/24 13:02
Hct 24.5 % (37.0-47.0) L 05/04/24 13:02
Plt Count 284 10^3/uL (130-400) D 05/04/24 05:29
Sodium 137 mmol/L (135-145) D 05/04/24 05:29
Potassium 3.9 mmol/L (3.5-5.1) 05/04/24 05:29
Chloride 107 mmol/L (98-107) 05/04/24 05:29
Carbon Dioxide 26 mmol/L (22-30) 05/04/24 05:29
BUN 30 mg/dl (7-17) H 05/04/24 05:29
Creatinine 0.9 mg/dL (0.6-1.0) 05/04/24 05:29
eGFR > 60.00 05/04/24 05:29
Glucose 120 mg/dl (70-99) H 05/04/24 05:29
Calcium 8.8 mg/dl (8.4-10.2) 05/04/24 05:29
Phosphorus 3.2 mg/dl (2.5-4.5) 05/04/24 05:29
Albumin 3.6 g/dl (3.5-5.0) 05/03/24 06:06
Physical Exam
-
Vital Signs:
Vital Signs
Temp Pulse Resp BP Pulse Ox
99.1 F 78 27 131/66 92
05/04/24 11:05 05/04/24 12:00 05/04/24 12:00 05/04/24 12:06 05/04/24 04:11
Cardiovascular:: Regular rate and rhythm
Respiratory:: Bilateral: Rales (fine at bases)
Lung Excursion:: Normal
Abdomen:: Nontender and Soft
Extremity Edema:: None: Bilateral:
Gonzalez Catheter: No
[2024-05-04] MEDS: SYMBICORT 80/4.5 MCG INHALER 2 PUFF INH (13:52)
[2024-05-04] MEDS: AMPICILLIN 58 MG IV ×3 (16:03→23:39)
[2024-05-04] MEDS: DULCOLAX 10 MG RECTAL (16:07)
[2024-05-04] MEDS: MAXIPIME 2000 MG IV (18:03)
--- NOTE | 2024-05-04 18:34 | PTCARENOTE ---
Very anxious, talkative/constantly repeating complaints about belly. Abdomen soft / non tender this am - through out the day has become more distended and firm. Bladder scanned 100ml. She is voiding adequately. Bowel regimen ordered and given
+PRN Dulcolax [place]. D/w Dr. Bradshaw. Small results from that. She has mentioned she heard the term congestive heart failure last admit. Diuretics on hold- will give CHF packet. MAPS remain >65- Levo off since 214 . IV Antibx as ordered.
Drinking adequate - however normally on fluid restriction per pt. Ambulated in hallways with this RN today.
[2024-05-04] MEDS: CELLCEPT 1000 MG PO (20:03)
[2024-05-04] MEDS: MYLICON 80 MG PO (20:04)
[2024-05-04] MEDS: NON-FORMULARY ITEM 1 DROP BOTH EYES (20:06)
[2024-05-04] MEDS: SYMBICORT 80/4.5 MCG INHALER INH (20:36)
[2024-05-04] MEDS: DESYREL 25 MG PO (21:05)
[2024-05-04] MEDS: NEURONTIN 1200 MG PO (21:06)
[2024-05-04] MEDS: LIDOCAINE 4% PATCH 1 PATCH TOPICAL (22:17)
[2024-05-04] MEDS: ZYRTEC 5 MG PO (22:18)
--- NOTE | 2024-05-04 22:30 | PTCARENOTE ---
PT recieved from day shift, AAOx3. Talkative, anxious, and wants to be involved in treatment. pt was educated on plan of care. Belly round and distended, no BM, bowel regimen meds given (see DEC) Pt complained about 8/10 back pain and given
prescribed PRN Tylenol, Pt requested something additional for pain. YAZMIN Hyman, notified and ordered lidocaine patch. Pt requested Zyrtec which she stated she takes at home, Rx'ed as well. VSS. Call montano in reach.
[2024-05-05] VITALS (16 sets, daily range): BP systolic 100–137; BP diastolic 59–80; PULSE 74–92; BMI 28.8
[2024-05-05] MEDS: AMPICILLIN 108 MG IV ×5 (03:52→20:38)
[2024-05-05 04:24] LABS: Hematocrit 26.3 % (37.0-47.0); Hemoglobin 8.4 g/dL (12.0-16.0); Mean Corp Hgb Conc. 31.9 g/dL (33.0-37.0); Mean Corpuscular Hgb 25.2 pg (27.0-31.0); Mean Platelet Volume 10.1 fL (7.4-10.4); Platelet Count 268 10^3/uL (130-400); Red Blood Cell Count 3.33 10^6/uL (4.20-5.40); Red Cell Dist. Width 17.6 % (11.5-14.5); White Blood Cell Count 5.1 10^3/uL (4.8-10.8)
[2024-05-05 04:32] LABS: HCG, Serum Qualitative Screen Negative
[2024-05-05 04:35] LABS: Blood Urea Nitrogen 28 mg/dl (7-17); Calcium 9.2 mg/dl (8.4-10.2); Carbon Dioxide 25 mmol/L (22-30); Chloride 108 mmol/L (98-107); Estimated Creatinine Clearance 107 ml/min; Glucose 100 mg/dl (70-99); Magnesium 2.1 mg/dl (1.6-2.3); Phosphorus 3.1 mg/dl (2.5-4.5); Potassium 4.1 mmol/L (3.5-5.1); Sodium 137 mmol/L (135-145); eGFR > 60.00
[2024-05-05 04:42] LABS: Complement C3 < 40 mg/dl (88-165)
[2024-05-05] MEDS: MAXIPIME 2000 MG IV ×2 (05:15→17:32)
[2024-05-05] MEDS: STERILE WATER FOR INJECTION 10 ML IV ×2 (05:16→17:32)
[2024-05-05] MEDS: REVATIO 20 MG PO ×3 (05:16→22:02)
[2024-05-05] MEDS: SYMBICORT 80/4.5 MCG INHALER 2 PUFF INH ×2 (08:02→15:29)
[2024-05-05] MEDS: SOLU-CORTEF 50 MG IV ×2 (08:50→15:53)
[2024-05-05] MEDS: CELLCEPT 1000 MG PO ×2 (08:52→20:40)
[2024-05-05] MEDS: VIBRAMYCIN 100 MG PO ×2 (08:55→20:39)
[2024-05-05] MEDS: FEOSOL 325 MG PO (08:55)
[2024-05-05] MEDS: SENOKOT-S 1 TABLET PO ×2 (08:55→20:39)
[2024-05-05] MEDS: PROTONIX 40 MG PO (08:55)
[2024-05-05] MEDS: ProAmatine 5 MG PO ×3 (08:56→17:28)
[2024-05-05] MEDS: LOW STRENGTH ASPIRIN 81 MG PO (08:58)
[2024-05-05] MEDS: HEPARIN 5000 UNITS SC ×2 (08:58→20:39)
--- NOTE | 2024-05-05 09:23 | W.PN.ID1 ---
Date of Service
Date of Service: May 05, 2024
Today's Communication
- cefepime - continue for today
- continue ampicillin for today - possible listeriosis
- continue doxycycline
Assessment / Plan
Shock - likely septic
SLE
Immunosuppression - undetectable compliments, high dose MMF which she was taking on a different schedule than what was prescribed, also an injectable medication unknown name
PRAVEEN
- 04/24 echo: normal EF
- 04/23 CT PE and 05/03 CT A/p both with adenopathy - generalized lymphadenopathy in sum - could be a disseminated infection, radiology has also brought up a concern for possible lymphoma - if no infectious cause identified eventual outpatient or
inpatient oncology consult can be considered
- continue MMF 1 gm BID which is the dose her prescribing MD intended; asked clinical pharmacy if they can comment on what taking 2 gm Qday might imply - appreciate their input
- obtain last office note from her rheumatology office to clarify what injectable medication she is on
- complements remain undetectable
- blood cultures x2 in progress no growth to date
- await lyme, ehrlichia, anaplasma serologies
- history of recent cat scratch - lymphadenopathy is generalized - bartonella hensenselae IgG/IgM sent
- does eat [employer] meat - turkey recently - note current listeria outbreak including within [place] (though not with [place] specifically yet - with a number of other varieties) - follow blood cultures another day
- cefepime - continue for today
- continue ampicillin for today - possible listeriosis
- continue doxycycline
Chief Complaint
-: Other (shock)
Subjective / Review of Systems
no further fevers
bp stable off of pressors 48 hours
without leukocytosis
hgb stbale
plt normal
cr 0.7
hcg neg
blood cultures no growth to date
asked clinical pharmacy mena if shes able to comment on what taking the myfortic as 2 gm qday rather than 1 gm BID would imply
only complaint today is bloating
still with some cough
no sinus tenderness, sore throat, nausea, vomiting, diarrhea, rashes or joint pains
Vital Signs / Physical Exam
Vital Signs
Vital Signs
Temp Pulse Resp BP Pulse Ox
98.3 F 93 18 117/80 98
05/05/24 08:00 05/05/24 08:56 05/05/24 08:04 05/05/24 08:56 05/05/24 08:04
Physical Exam
Constitutional: No Acute Distress and Chronically Ill
Cardiovascular: Regular Rate and S1/S2; Negative Murmur or Rub
Pulmonary: Clear and Symmetric; Negative Wheezes or Rales
Gastrointestinal: Soft, Non Tender, Non Distended and Normal Bowel Sounds
Skin: Warm and Dry; Negative Rash or Jaundice
Lines: PIV (no erythema)
Objective Data
Lab Data
Lab Results
05/05/24 03:56
05/05/24 03:56
Estimated Creat Clear 107 ml/min 05/05/24 03:56
Lactic Acid Cancelled 05/03/24 02:00
Total Bilirubin 0.6 mg/dl (0.2-1.3) 05/03/24 06:06
AST 59 U/L (14-36) H 05/03/24 06:06
ALT 44 U/L (0-35) H 05/03/24 06:06
Alkaline Phosphatase 63 U/L (38-126) 05/03/24 06:06
Most recent labs reviewed.
Micro Results:
05/02/24 23:26 Blood Culture - Preliminary
Blood/Venous No Growth in 48 hours- Final report to follow
05/02/24 23:26 Urine Culture - Final
Urine
05/03/24 10:53 Blood Culture - Preliminary
Blood/Venous No Growth in 24 hours- Final report to follow
05/03/24 10:53 Blood Parasites Smear - Final
Blood/Venous
05/03/24 12:02 Nasal Screen MRSA (PCR) - Final
Nose MRSA not detected - performed by PCR methodology.
--- NOTE | 2024-05-05 10:03 | PTCARENOTE ---
Pt is AAOx3 on RA very anxious and states she is uncomfortable because she needs Lasix. tt. Belly is firm and large. Pt is ambulating around the bed with out incident. Lungs are slightly coarse and diminished.
--- NOTE | 2024-05-05 11:12 | W.PN.HOSP.TC ---
Today's Communication/Plan
-
monitor BP
US abd -?ascites
nephro recs
cont abx
Assessment / Plan
Assessment / Plan
CT appreciated:
1. Scattered lymphadenopathy throughout the retroperitoneum and bilateral iliac and inguinal chains, nonspecific and may be reactive or secondary to underlying neoplastic process such as lymphoma.
2. Small volume ascites.
3. Small bilateral pleural effusions.
4. Probable uterine fibroids.
Physical Exam
General: no acute distress appears comfortable at this time
HEENT: Normocephalic Atraumatic
Respiratory: Bibasilar rales. No wheezing
Cardiac: S1/S2, Regular Rhythm
GI: Soft, Non Tender, Distended and Normal Bowel Sounds
Musculoskeletal: No Clubbing, No Cyanosis and No Edema
Neuro: AO x 3
A/P: Patient is a 48y F with PMH significant for SLE and CHFpEF who presents to ED complaining of fever, malaise and back pain.
Fever Pneumonia
Sepsis secondary to the above
Hypotension possible septic shock on levophed low dose
- Patient with intermittent fevers - as high as 103 at home - flank / pleuritic pain.
- CXR appreciated Small bilateral pleural effusions with associated bibasilar airspace disease suspicious for pneumonia.
- ID eval appreciated empiric vancomycin completed cefipime ampicillin doxycycline
transfer to [facility] recommended for advance infectious work up given high dose immunosuppression concern for opportunistic infection
Transfer requested however [facility] does not have step down unit and patient remains on pressors, [facility] ICU is full with pending transfers, case was discussed with [facility] who declined acceptance at this time, recommended re-attempt
transfer request when patient is stable for downgrade to [facility].
-patient however, subsequently, refusing transfer at this time.
- Follow-up culture data.
- Had GUERO done last admission which showed pulmonary hypertension. No noted valvular lesions.
- lyme and other tick borne studies pending
- Off levophed.
Hypotension
- Did not receive typical 'sepsis protocol' fluid bolus due to CHF history and noted ascites / third spacing on imaging.
- Do suspect intravascular volume depletion given new PRAVEEN and hypotension following initiation of diuretic regimen.
- Continue Levophed for BP support for now. Wean as tolerated. Off levophed.
- Stress dose hydrocortisone given chronic prednisone treatment for SLE.
- Midodrine
- Treat underlying fever / infection as noted above.
Chronic HFpEF
Pulmonary Hypertension
- Imaging with pleural effusions, pericardial fluids, ascites - albeit all low volumes.
- Weight was down 10 lbs from prior visit and new PRAVEEN / hypotension
- Hold Lasix.
- Sildenafil initially held, since resumed with improvement in BP
- Follow I/Os, daily weights, etc and adjust medications as necessary.
PRAVEEN
Hyponatremia
- Initial Cr 1.5 compared to prior visit baseline of 0.5.
- Suspect pre-renal / intravascular volume depletion as noted above.
- Lasix per nephro
- BP / pressor support as needed.
- Nephro eval appreciated brief bicarb gtt given since completed with resolution PRAVEEN and Hyponatremia
Abdomen Distention
-Check Abd US to assess for ascites. If enough volume will ask IRAD for paracentesis
Iron Deficiency Anemia
- Hgb fairly stable.
- Iron studies last admission with TSat = 7% c/w iron deficiency.
- once Ferrlecit given. Oral iron supplementation stated
- monitor H&H
SLE
- Patient on chronic treatment with prednisone and CellCept.
- Hold prednisone acutely while on stress dose steroids - return to usual prednisone dose once BP stable, etc.
- Start to wean stress dose steroids in next 24h depending on blood pressure.
- Continue CellCept suppose to be taken 1g BID patient has been taking 2g at noon, as noted by ID.
Constipation
-Senna Colace
-PRN Miralax, Bisacodly suppository
-consider enema if constipation persists despite above
DVT Prophylaxis: Subcut Heparin
GI ppx Protonix
Code Status: Full
Anticipated Discharge: > 48 hours
Subjective/Interval History
-
Date of Service: May 05, 2024
States of abdominal distention and bloating
Objective Data
-
Labs:
Laboratory Results
05/05/24
03:56
WBC 5.1
Hgb 8.4 L
Hct 26.3 L
Plt Count 268
Sodium 137
Potassium 4.1
Chloride 108 H
Carbon Dioxide 25
BUN 28 H
Creatinine 0.7
Glucose 100 H
Calcium 9.2
Vital Signs:
Vital Signs
Temp Pulse Resp BP Pulse Ox
98.3 F 93 18 117/80 98
05/05/24 08:00 05/05/24 08:56 05/05/24 08:04 05/05/24 08:56 05/05/24 08:04
I&O
05/04/24 05/05/24 05/06/24
06:59 06:59 06:59
Intake Total 1997 2316 / 2316
Output Total 1775 / 1775 1160 / 1160
Balance 223 / 223 1156 / 1156
Data Reviewed
-
Total Time Spent with Patient (in minutes): 52
--- NOTE | 2024-05-05 12:25 | PTCARENOTE ---
Pt to US via stretcher with monitor in place
[2024-05-05] MEDS: ULTRAM 25 MG PO (13:37)
[2024-05-05 14:17] LABS: Lyme Antibody Screen, EIA Negative (Negative)
--- NOTE | 2024-05-05 15:08 | CM ---
CM met with pt and mother bedside
Pt resides alone in a 1st floor with [address]STE building
Brother resides in same complex but different unit
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
Denies use of DMEs
Denies insecurities
PCP- Flako Wild
Rx- [facility]
PT/OT following- follow for dc determinations
Pt notes her [place] [facility] policy will terminate 05/07
[facility] will start 05/08- does not have card or policy number currently
Discharge Disposition- home, likely no needs
--- NOTE | 2024-05-05 15:30 | PTCARENOTE ---
Pt is asking for MOM pt states she is not allergic to [place]ap[place], it gives her an upset stomach. Dr Nguyen aware. Pt takes off monitor to walk the huynh. Pt becoming angryre her situation
[2024-05-05] MEDS: MILK OF MAGNESIA 30 ML PO (15:53)
--- NOTE | 2024-05-05 15:54 | PTOTSP ---
Observed pt walking independently in hallway. She had disconnected her heart monitor. RN is aware. PT will sign off now.
[2024-05-05] MEDS: LASIX 20 MG IV ×2 (15:59→20:39)
[2024-05-05 21:27] LABS: Ehrlichia chaffeensis IgG Ab <1:64 (<1:64); Ehrlichia chaffeensis IgM Ab < 1:16 (< 1:16)
--- NOTE | 2024-05-05 22:00 | PTCARENOTE ---
Received pt at change of shift. Pt c/o abd pain/discomfort and increased distention. Abd is firm and tender to palpation. No BM yet. Pt requesting an additional dose of IV lasix; states she needs 'to have a good pee' and she will feel better.
Pt's lungs have crackles throughout. Bladder scanned pt for 92 ml. Notified LEAN MANUFACTURING COORDINATOR. One time dose of Lasix ordered and administered.
[2024-05-05] MEDS: LIDOCAINE 4% PATCH TOPICAL (22:01)
[2024-05-05] MEDS: DESYREL 25 MG PO (22:04)
[2024-05-05] MEDS: NEURONTIN 1200 MG PO (22:05)
[2024-05-05] MEDS: NON-FORMULARY ITEM BOTH EYES (22:07)
[2024-05-06] VITALS (16 sets, daily range): BP systolic 107–129; BP diastolic 55–81; PULSE 73–94; BMI 28.8; BMI 29.1
[2024-05-06] MEDS: SOLU-CORTEF 50 MG IV ×3 (00:06→20:24)
[2024-05-06] MEDS: AMPICILLIN 108 MG IV ×6 (00:06→20:22)
[2024-05-06 04:52] LABS: Hematocrit 27.7 % (37.0-47.0); Hemoglobin 8.8 g/dL (12.0-16.0); Mean Corp Hgb Conc. 31.8 g/dL (33.0-37.0); Mean Corpuscular Hgb 24.5 pg (27.0-31.0); Mean Corpuscular Volume 77.2 fL (81.0-99.0); Mean Platelet Volume 10.4 fL (7.4-10.4); Platelet Count 291 10^3/uL (130-400); Red Blood Cell Count 3.59 10^6/uL (4.20-5.40); Red Cell Dist. Width 17.7 % (11.5-14.5); White Blood Cell Count 5.4 10^3/uL (4.8-10.8)
[2024-05-06 05:12] LABS: Blood Urea Nitrogen 30 mg/dl (7-17); Calcium 9.3 mg/dl (8.4-10.2); Carbon Dioxide 29 mmol/L (22-30); Chloride 105 mmol/L (98-107); Estimated Creatinine Clearance 93 ml/min; Glucose 102 mg/dl (70-99); Magnesium 2.4 mg/dl (1.6-2.3); Phosphorus 3.5 mg/dl (2.5-4.5); Potassium 3.9 mmol/L (3.5-5.1); Sodium 138 mmol/L (135-145); eGFR > 60.00
[2024-05-06] MEDS: MAXIPIME 2000 MG IV (05:25)
[2024-05-06] MEDS: STERILE WATER FOR INJECTION 10 ML IV (05:25)
[2024-05-06] MEDS: REVATIO 20 MG PO ×3 (05:30→23:57)
[2024-05-06] MEDS: SYMBICORT 80/4.5 MCG INHALER 2 PUFF INH ×2 (07:34→15:39)
[2024-05-06] MEDS: PROTONIX 40 MG PO (08:04)
[2024-05-06] MEDS: FEOSOL 325 MG PO (08:06)
[2024-05-06] MEDS: HEPARIN 5000 UNITS SC (08:07)
[2024-05-06] MEDS: CELLCEPT 1000 MG PO ×2 (08:07→20:23)
[2024-05-06] MEDS: LOW STRENGTH ASPIRIN 81 MG PO (08:07)
[2024-05-06] MEDS: VIBRAMYCIN 100 MG PO ×2 (08:07→20:23)
[2024-05-06] MEDS: SENOKOT-S 1 TABLET PO ×2 (08:07→20:23)
[2024-05-06] MEDS: ProAmatine 5 MG PO ×3 (08:08→18:03)
[2024-05-06] MEDS: CITROMA 300 ML PO (09:07)
[2024-05-06] MEDS: LASIX 20 MG IV (09:07)
--- NOTE | 2024-05-06 10:01 | W.PN.ID1 ---
Date of Service
Date of Service: May 06, 2024
Today's Communication
see plan
Assessment / Plan
Shock - likely septic - resolved
SLE
Immunosuppression - undetectable compliments, high dose MMF which she was taking on a different schedule than what was prescribed, also an injectable medication unknown name
PRAVEEN
- 04/24 echo: normal EF
- 04/23 CT PE and 05/03 CT A/p both with adenopathy - generalized lymphadenopathy in sum - could be a disseminated infection, radiology has also brought up a concern for possible lymphoma - if no infectious cause identified eventual outpatient or
inpatient oncology consult can be considered
- continue MMF 1 gm BID which is the dose her prescribing MD intended; asked clinical pharmacy if they can comment on what taking 2 gm Qday might imply - appreciate their input
- obtain last office note from her rheumatology office to clarify what injectable medication she is on
- complements remain undetectable
- blood cultures x2 in progress no growth to date
- await anaplasma serologies, lyme/ehrlichia initially negative
- history of recent cat scratch - lymphadenopathy is generalized - bartonella hensenselae IgG/IgM awaiting these levels
- less likely listeriosis with negative cultures
- switch to doxycycline 100 mg PO BID plus augmentin 875/125 mg PO BID 05/03-05/16
- follow up with her Eastern Philosophy Professor at [facility] - instructed her to clarify the intended dose of MMF with prescribing MD and she expressed agreement
Chief Complaint
-: Other (shock)
Subjective / Review of Systems
afebrile
bp stable
without leukocytosis
cr stable
abd US: small volume ascites - likely not tapable
Vital Signs / Physical Exam
Vital Signs
Vital Signs
Temp Pulse Resp BP Pulse Ox
97.9 F 73 21 122/74 96
05/06/24 07:05 05/06/24 09:07 05/06/24 08:57 05/06/24 09:07 05/06/24 07:36
Physical Exam
Constitutional: No Acute Distress
Cardiovascular: Regular Rate and S1/S2; Negative Murmur or Rub
Pulmonary: Clear and Symmetric; Negative Wheezes or Rales
Gastrointestinal: Soft, Non Tender, Non Distended and Normal Bowel Sounds
Skin: Warm and Dry; Negative Rash or Jaundice
Objective Data
Lab Data
Lab Results
05/06/24 04:20
05/06/24 04:20
Estimated Creat Clear 93 ml/min 05/06/24 04:20
Lactic Acid Cancelled 05/03/24 02:00
Total Bilirubin 0.6 mg/dl (0.2-1.3) 05/03/24 06:06
AST 59 U/L (14-36) H 05/03/24 06:06
ALT 44 U/L (0-35) H 05/03/24 06:06
Alkaline Phosphatase 63 U/L (38-126) 05/03/24 06:06
Most recent labs reviewed.
Micro Results:
05/02/24 23:26 Blood Culture - Preliminary
Blood/Venous No Growth in 72 hours- Final report to follow
05/03/24 10:53 Blood Culture - Preliminary
Blood/Venous No Growth in 48 hours- Final report to follow
05/02/24 23:26 Urine Culture - Final
Urine
05/03/24 10:53 Blood Parasites Smear - Final
Blood/Venous
05/03/24 12:02 Nasal Screen MRSA (PCR) - Final
Nose MRSA not detected - performed by PCR methodology.
[2024-05-06 10:09] LABS: NT-proBNP 177 pg/ml
[2024-05-06 10:26] LABS: Bartonella henselae IgG <1:64; Bartonella henselae IgM < 1:16
--- NOTE | 2024-05-06 13:16 | W.PN.HOSP.TC ---
Today's Communication/Plan
-
IV lasix
AXR pending
pt/ot
abx per ID
Assessment / Plan
Assessment / Plan
Physical Exam
General: no acute distress appears comfortable at this time
HEENT: Normocephalic Atraumatic
Respiratory: Bibasilar rales. No wheezing
Cardiac: S1/S2, Regular Rhythm
GI: Soft, Non Tender, Distended and Normal Bowel Sounds
Musculoskeletal: No Clubbing, No Cyanosis and No Edema
Neuro: AO x 3
A/P: Patient is a 48y F with PMH significant for SLE and CHFpEF who presents to ED complaining of fever, malaise and back pain.
Fever Pneumonia
Sepsis secondary to the above
Hypotension possible septic shock on levophed low dose-Resolved
- Patient with intermittent fevers - as high as 103 at home - flank / pleuritic pain.
- CXR appreciated Small bilateral pleural effusions with associated bibasilar airspace disease suspicious for pneumonia.
- ID eval appreciated empiric vancomycin completed cefepime ampicillin doxycycline
transfer to [place] recommended for advance infectious work up given high dose immunosuppression concern for opportunistic infection
Transfer requested however [place] does not have step down unit and patient remains on pressors, [place] ICU is full with pending transfers, case was discussed with [facility] who declined acceptance at this time, recommended re-attempt
transfer request when patient is stable for downgrade to [facility].
-patient however, subsequently, refusing transfer at this time.
- Follow-up culture data.
- Had GUERO done last admission which showed pulmonary hypertension. No noted valvular lesions.
- lyme and other tick borne studies titers within normal limits so far.
- Off levophed.
Hypotension
- Did not receive typical 'sepsis protocol' fluid bolus due to CHF history and noted ascites / third spacing on imaging.
- Do suspect intravascular volume depletion given new PRAVEEN and hypotension following initiation of diuretic regimen.
- Continue Levophed for BP support for now. Wean as tolerated. Off levophed.
- Stress dose hydrocortisone given chronic prednisone treatment for SLE.
- Midodrine
- Treat underlying fever / infection as noted above.
Chronic HFpEF
Pulmonary Hypertension
- Imaging with pleural effusions, pericardial fluids, ascites - albeit all low volumes.
- Weight higher Compared to prior admission
- Restarted Lasix
- Sildenafil initially held, since resumed with improvement in BP
- Follow I/Os, daily weights, etc and adjust medications as necessary.
PRAVEEN
Hyponatremia
- Initial Cr 1.5 compared to prior visit baseline of 0.5.
- Suspect pre-renal / intravascular volume depletion as noted above.
- BP / pressor support as needed.
- Nephro eval appreciated brief bicarb gtt given since completed with resolution PRAVEEN and Hyponatremia
Abdomen Distention
-Check abdominal x-ray
-Abdominal limited ultrasound with small volume ascites. Discussed with [facility] not enough fluid for
-Did have bowel movement earlier today with Citroma. If it ileus may require enema if patient agrees
Iron Deficiency Anemia
- Hgb fairly stable.
- Iron studies last admission with TSat = 7% c/w iron deficiency.
- once Ferrlecit given. Oral iron supplementation stated
- monitor H&H
SLE
- Patient on chronic treatment with prednisone and CellCept.
- Hold prednisone acutely while on stress dose steroids - return to usual prednisone dose once BP stable, etc.
- Start to wean stress dose steroids and decrease hydrocortisone to every 12 hours.
- Continue CellCept suppose to be taken 1g BID patient has been taking 2g at noon, as noted by ID.
Constipation
-Senna Colace
-PRN Miralax, Bisacodly suppository
-consider enema if constipation persists despite above
DVT Prophylaxis: Subcut Heparin
GI ppx Protonix
Code Status: Full
Transfer out of IMU
Anticipated Discharge: 24 - 48 hours
Subjective/Interval History
-
Date of Service: May 06, 2024
had bm earlier today with citroma
states of abd discomfort/distention
Objective Data
-
Labs:
Laboratory Results
05/06/24
04:20
WBC 5.4
Hgb 8.8 L
Hct 27.7 L
Plt Count 291
Sodium 138
Potassium 3.9
Chloride 105
Carbon Dioxide 29
BUN 30 H
Creatinine 0.8
Glucose 102 H
Calcium 9.3
Vital Signs:
Vital Signs
Temp Pulse Resp BP Pulse Ox
98 F 68 21 111/62 96
05/06/24 12:59 05/06/24 12:59 05/06/24 08:57 05/06/24 12:59 05/06/24 07:36
I&O
05/05/24 05/06/24 05/07/24
06:59 06:59 06:59
Intake Total 2316 / 2316 880 / 880
Output Total 1160 / 1160 875 / 875
Balance 1156 / 1156 5 / 5
Data Reviewed
-
Total Time Spent with Patient (in minutes): 58
--- NOTE | 2024-05-06 14:19 | PTCARENOTE ---
Received patient from IMU. AAOx3, ambulated without assistance. Assessed and oriented to room. Call montano in close reach.
--- NOTE | 2024-05-06 14:41 | CON.CAR ---
Addendum entered and electronically signed by Gama Thomason MD 05/06/24 17:05:
I personally performed a history and physical exam of the patient and discussed management with the resident. I reviewed the resident's note and agree with the documented findings and plan of care HPI/CC.
Briefly, 48-year-old woman past medical history of heart failure with recovered ejection fraction and pulmonary hypertension as well as lupus on chronic immunosuppression who presents with fever and presumed septic shock. She received
broad-spectrum IV antibiotics, stress dose steroids and IV fluid resuscitation. Cardiology is consulted for volume overload which I suspect is iatrogenic in the setting of fluid resuscitation, and stress dose steroids.
Patient's main complaint is abdominal distention and weight is up approximately 10 pounds from her dry weight
Warm and well-perfused and appears to only be mildly volume overloaded based on exam
Would continue IV Lasix 40 mg twice a day in an attempt to improve her volume status
Follow daily weights, renal function and electrolytes
Hopefully can transition back to oral Lasix in the next 48 hours
Blood pressure has been marginal and therefore she has been started on midodrine, hopefully can wean off prior to discharge
Original Note:
Consultation
Consultation Request
Date/Time Consultation Requested: 05/06/24
Date/Time Consultation Performed: 05/06/24
Requesting Provider:
Performing Provider:
Reason for Consultation: CHFpEF
Medical History
-
Chief Complaint: CHFpEF
History of Present Illness:
This is a 48y female patient with PMH significant for CHFpEF, pulmonary hypertension, SLE / chronic immunosuppression who presents to ED complaining of fever, malaise and back discomfort for the past few weeks. In the ER she was initiated on
pressor and transferred to IMU for sepsis. She has since been weaned off pressors and is on midodrine now. She was recently admitted to on 04/23 for similar symptoms and at that time she was discharged with furosemide for bilateral pleural
effusions. She admits to having weight gain as her Lasix was on hold since admission for hypotension/shock. She states that her baseline weight is 76 kg, right now she is 81 kg. She is currently afebrile. Due to her immunosuppressive state, she
is undergoing intensive infectious workup. She denies any chest pain, palpitations, dizziness but does admit to having difficulty with 'large belly''. Abdominal x-ray showed no intestinal obstruction.
IV Lasix has been on hold due to her hypotensive state, but IV Lasix 40 Mg twice daily given today. Cardiology consulted due to concern for worsening HFpEF.
Past Medical History
Past Medical History: CHF and Other (Cardiomyopathy with Recovered EF Pulmonary Hypertension Systemic Lupus Erythematosus Raynaud's Peripheral Neuropathy, HAYDEN)
Past Surgical History: Cholecystectomy
Social History
Tobacco: Smoker (quit 3 weeks ago; smoked 1/2-1 pack a day)
Alcohol: None
Family History
Family History: Reviewed & Not Pertinent
Allergies / Home Medications
Allergy/AdvReac Type Severity Reaction Status Date / Time
dapsone Allergy Unknown Verified 05/02/24 21:42
hydroxychloroquine Allergy Unknown Verified 05/02/24 21:42
[From Plaquenil]
�Medication �Instructions �Recorded �Confirmed �Type
gabapentin 600 mg tablet 1,200 mg PO HS Pain 08/16/23 05/03/24 History
omeprazole 40 mg capsule,delayed 40 mg PO DAILY GERD 08/16/23 05/03/24 History
release
sildenafil (pulm.hypertension) 20 20 mg PO Q8H Raynaud's 08/16/23 05/03/24 History
mg tablet
albuterol sulfate 90 mcg/actuation 2 puff inhalation R Q4HPRN PRN 04/23/24 05/03/24 History
aerosol inhaler sob/wheezing
budesonide-formoterol HFA 80 2 puff inhalation R BID 04/23/24 05/03/24 History
mcg-4.5 mcg/actuation aerosol Lung/Breathing Issues
inhaler (Symbicort)
prednisone 2.5 mg tablet 7.5 mg PO DAILY Anti-Inflammatory 04/23/24 05/03/24 History
aspirin 81 mg chewable tablet 81 mg PO DAILY Blood Clot 04/24/24 05/03/24 History
(Children's Aspirin) Prevention/Tx
furosemide 20 mg tablet 60 mg (3 x 20 mg) PO DAILY Fluid 04/24/24 05/03/24 Rx
retention/Swelling #30 tabs
thatdlvcowlzspnwidpivn-zamhyzda-cnmkaqdf 1 drp ophthalmic (eye) HS 05/03/24 05/03/24 History
80 0.5 %-1 %-0.5 % eye drops
(Refresh Optive Advanced)
mycophenolate mofetil 500 mg tablet 1,000 mg PO BID lupus 05/04/24 05/04/24 History
Review of Systems
-
Constitutional: No Symptoms
EENT: No Symptoms
Respiratory: No Symptoms
Cardiac: No Symptoms
Abdomen/GI: Other (Abdominal distention)
Musculoskeletal: No Symptoms
Skin: No Symptoms
Neurological: No Symptoms
Endocrine: No Symptoms
Physical Exam
Vital Signs
Temp Pulse Resp BP Pulse Ox
98.1 F 68 18 121/65 98
05/06/24 14:10 05/06/24 14:10 05/06/24 14:10 05/06/24 14:10 05/06/24 14:15
Lab Results
05/06/24 04:20
05/06/24 04:20
Ghc-W-Egcdkeyizns Pept 177 pg/ml 05/06/24 04:20
Physical Exam
General: No Apparent Distress
HEENT: Normocephalic and Moist Mucous Membranes
Respiratory: Other (Bilateral rales)
Cardiac: S1/S2, Regular Rhythm and Murmur (None)
GI: Non Tender and Distended
Musculoskeletal: No Clubbing, No Cyanosis and No Edema
Skin: Warm and Dry
Neuro: Awake, Alert and Oriented
Psych: Calm
Impression / Plan
-
PCP: Dr. Donald
End Trimmer: Dr. Helton
Impression: This is a 48y female patient with PMH significant for HFpEF, pulmonary hypertension, SLE / chronic immunosuppression who presents to ED complaining of fever, malaise and back discomfort for the past few weeks and was admitted for
hypotensive and sepsis.
Assessment:
HFpEF
Pneumonia
Septic shock on admission
HAYDEN
Small b/l pleural effusions by chest US 04/24
h/o respiratory failure requiring intubation 08/2023
Pulmonary HTN
Lupus
Chronic steroid use due to SLE
Raynaud's
GERD
Former tobacco use
ECHO 08/17/23: EF 43%, WMA of mid inferoseptal, apical septal, and basal mid inferior carlson (this is most c/w 'D shaped septum' from RV pressure overload), enlarged, mod MR, mild to mod TR, small pericardial effusion, PAP 49mmHg
Echo 11/22/2023: EF 55-60%, mild MR, mild TR, estimated PAP 25-30mmHg
Echo 04/24/2024: EF 65%, mild LVH, trace tricuspid regurgitation, estimated PAP of 45-50 mmHg, no pericardial effusion
Plan:
- Initially was on Levophed on admission, weaned off in the IMU and currently on midodrine TID
- Pt is being weaned off stress dose steroids, will slowly wean midodrine as well if BP is stable
- Weight on admission 74kg-->81kg today. (dry weight is around 76 kg)
- No JVD
- Initiated IV Lasix 40mg BID with plans to transition to home dose furosemide upon discharge
- Previous prerenal PRAVEEN resolved, Cr now 0.8
- Monitor CMP, replete electrolytes as needed
- Currently on sildenafil for pulmonary hypertension
- CXR on 05/06: Small bilateral pleural effusions
- Was recommended to see [place] for follow up by outpatient manager camp
- Inf workup pending, IV abx as per ID
[2024-05-06] MEDS: LASIX 40 MG IV (15:38)
[2024-05-06] MEDS: HEPARIN SC (20:22)
[2024-05-06] MEDS: TYLENOL 650 MG PO (20:23)
[2024-05-06] MEDS: LIDOCAINE 4% PATCH TOPICAL (20:45)
[2024-05-06] MEDS: NEURONTIN 1200 MG PO (21:27)
[2024-05-06] MEDS: DESYREL 25 MG PO (21:27)
[2024-05-06] MEDS: NON-FORMULARY ITEM 1 DROP BOTH EYES (21:28)
[2024-05-07 03:09] VITALS: BP 127/63
[2024-05-07] MEDS: AMPICILLIN 108 MG IV ×7 (03:57→23:45)
[2024-05-07 06:00] VITALS: BMI 29.0
[2024-05-07] MEDS: SYMBICORT 80/4.5 MCG INHALER 2 PUFF INH ×2 (07:34→15:38)
[2024-05-07] MEDS: ProAIR HFA INHALER 2 PUFF INH (07:34)
[2024-05-07] MEDS: ProAmatine 5 MG PO (07:48)
[2024-05-07] MEDS: PROTONIX 40 MG PO (07:48)
[2024-05-07] MEDS: LOW STRENGTH ASPIRIN 81 MG PO (07:48)
[2024-05-07] MEDS: REVATIO 20 MG PO ×3 (07:48→23:45)
[2024-05-07] MEDS: VIBRAMYCIN 100 MG PO ×2 (07:48→19:57)
[2024-05-07] MEDS: CELLCEPT 1000 MG PO ×2 (07:48→19:57)
[2024-05-07] MEDS: LASIX 40 MG IV ×2 (07:48→15:22)
[2024-05-07] MEDS: FEOSOL 325 MG PO (07:48)
[2024-05-07] MEDS: HEPARIN SC ×2 (07:49→19:50)
[2024-05-07] MEDS: SOLU-CORTEF 50 MG IV ×2 (07:50→19:56)
[2024-05-07] MEDS: SENOKOT-S 1 TABLET PO ×2 (07:51→19:57)
[2024-05-07 08:37] LABS: Blood Urea Nitrogen 27 mg/dl (7-17); Calcium 8.8 mg/dl (8.4-10.2); Carbon Dioxide 27 mmol/L (22-30); Chloride 105 mmol/L (98-107); Estimated Creatinine Clearance 107 ml/min; Glucose 89 mg/dl (70-99); Potassium 3.6 mmol/L (3.5-5.1); Sodium 138 mmol/L (135-145); eGFR > 60.00
--- NOTE | 2024-05-07 08:48 | W.PN.CARDCBS ---
Addendum entered and electronically signed by Gama Thomason MD 05/07/24 09:46:
I saw and examined the patient.
The Street Openings Inspector's note was reviewed and I agree with the note.
Comment: Briefly, 48-year-old woman past medical history of heart failure with recovered ejection fraction, pulm hypertension and lupus on chronic immunosuppression presenting with septic shock (resolved)
Following volume resuscitation and stress dose steroids she developed volume overload
Abdomen remains distended on exam and is above her dry weight by approximately 10 pounds
IV lasix 40mg BID today, would consider increasing dose tomorrow if she does not respond today
Follow daily weights and renal function
Blood pressure trends are improving, will begin weaning midodrine
Original Note:
Today's Communication / Plan
-
continue IV diuresis
replete K
wean midodrine
Impression / Plan
-
PCP: Dr. Donald
Tool Or Die Drawing Checker: Dr. Helton
Impression: This is a 48y female patient with PMH significant for HFpEF, pulmonary hypertension, SLE / chronic immunosuppression who presents to ED complaining of fever, malaise and back discomfort for the past few weeks and was admitted for
hypotensive and sepsis.
Assessment:
HFpEF
Pneumonia
Septic shock on admission
HAYDEN
Small b/l pleural effusions by chest US 04/24
h/o respiratory failure requiring intubation 08/2023
Pulmonary HTN
Lupus
Chronic steroid use due to SLE
Raynaud's
GERD
Former tobacco use
ECHO 08/17/23: EF 43%, WMA of mid inferoseptal, apical septal, and basal mid inferior carlson (this is most c/w 'D shaped septum' from RV pressure overload), enlarged, mod MR, mild to mod TR, small pericardial effusion, PAP 49mmHg
Echo 11/22/2023: EF 55-60%, mild MR, mild TR, estimated PAP 25-30mmHg
Echo 04/24/2024: EF 65%, mild LVH, trace tricuspid regurgitation, estimated PAP of 45-50 mmHg, no pericardial effusion
Plan:
-concern for acute CHF after aggressive fluid resuscitation in setting of sepsis. she reports abd bloating, no LE edema or SOB
-continue IV lasix 40mg BID. Cr stable
-replete K
-echo with preserved EF
-BPs improving. decrease midodrine to 2.5mg TID and follow
-Currently on sildenafil for pulmonary hypertension. Was recommended to see [facility] for follow up by outpatient financial compliance officer
-abx per ID
-d/w nursing
Progress Note - Tool Or Die Drawing Checker
Subjective
Date of Service: May 07, 2024
Denies SOB, LE edema. reports abd bloating
Objective
Labs:
05/06/24 04:20
05/07/24 05:52
Labs
Hgb 8.8 g/dL (12.0-16.0) L 05/06/24 04:20
Hct 27.7 % (37.0-47.0) L 05/06/24 04:20
Plt Count 291 10^3/uL (130-400) 05/06/24 04:20
Sodium 138 mmol/L (135-145) 05/07/24 05:52
Potassium 3.6 mmol/L (3.5-5.1) 05/07/24 05:52
BUN 27 mg/dl (7-17) H 05/07/24 05:52
Creatinine 0.7 mg/dL (0.6-1.0) 05/07/24 05:52
Glucose 89 mg/dl (70-99) 05/07/24 05:52
Vital Signs and I&O:
Vital Signs
Temp Pulse Resp BP Pulse Ox
98.8 F 81 15 127/73 96
05/07/24 07:30 05/07/24 07:48 05/07/24 07:39 05/07/24 07:48 05/07/24 07:39
Vital Signs
Temp Pulse Resp BP Pulse Ox
98.8 F 81 15 127/73 96
05/07/24 07:30 05/07/24 07:48 05/07/24 07:39 05/07/24 07:48 05/07/24 07:39
Intake & Output
05/05/24 05/06/24 05/07/24 05/08/24
07:59 07:59 07:59 07:59
Intake Total 2316 / 2316 880 / 880 1756 / 1756
Output Total 1160 / 1160 875 / 875 975 / 975
Balance 1156 / 1156 5 / 5 781 / 781
Physical Exam
Physical Exam
GEN: No distress, awake, alert, oriented x3
HEENT: supple, anicteric, mmm, eomi
LUNGS: few crackles at bases
CV: Reg, S1/S2, no murmur
ABD: firm, distended
EXT: No cyanosis, clubbing, edema
NEURO: Gross non-focal
SKIN: Warm, pink, dry. No rash
[2024-05-07] MEDS: KCL 20 MEQ PO (10:10)
[2024-05-07 11:18] VITALS: BP 119/72; BP 123/66; BP 125/75; PULSE 77; PULSE 83; PULSE 87
[2024-05-07] MEDS: ProAmatine 2.5 MG PO ×2 (12:06→17:45)
--- NOTE | 2024-05-07 12:06 | W.PN.HOSP.TC ---
Today's Communication/Plan
-
Abx per ID plan for 2 weeks
IV lasix
may need dose adjustment
Dec midodrine
Assessment / Plan
Assessment / Plan
Physical Exam
General: no acute distress appears comfortable at this time
HEENT: Normocephalic Atraumatic
Respiratory: Bibasilar rales. No wheezing
Cardiac: S1/S2, Regular Rhythm
GI: Soft, Non Tender, Distended and Normal Bowel Sounds
Musculoskeletal: No Clubbing, No Cyanosis and No Edema
Neuro: AO x 3
A/P: Patient is a 48y F with PMH significant for SLE and CHFpEF who presents to ED complaining of fever, malaise and back pain.
Acute on Chronic HFpEF
Pulmonary Hypertension
- Imaging with pleural effusions, pericardial fluids, ascites - albeit all low volumes.
- Weight higher Compared to prior admission
- Restarted Lasix IV 40mg BID
- Sildenafil initially held, since resumed with improvement in BP
- Follow I/Os, daily weights, etc and adjust medications as necessary.
- Seems to have low probnp. FR/Diet changed.
- cards recs
Fever Pneumonia
Sepsis secondary to the above
Hypotension possible septic shock on levophed low dose-Resolved
- Patient with intermittent fevers - as high as 103 at home - flank / pleuritic pain.
- CXR appreciated Small bilateral pleural effusions with associated bibasilar airspace disease suspicious for pneumonia.
- ID eval appreciated empiric vancomycin AND OFF cefepime. ampicillin doxycycline and switch to doxycycline 100 mg PO BID plus augmentin 875/125 mg PO BID 05/03-05/16 on Dc
transfer to [facility] recommended for advance infectious work up given high dose immunosuppression concern for opportunistic infection
Transfer requested however [facility] does not have step down unit and patient remains on pressors, [facility] ICU is full with pending transfers, case was discussed with [facility] who declined acceptance at this time, recommended re-attempt
transfer request when patient is stable for downgrade to [facility].
-patient however, subsequently, refusing transfer at this time.
- Follow-up culture data.
- Had GUERO done last admission which showed pulmonary hypertension. No noted valvular lesions.
- lyme and other tick borne studies titers within normal limits so far.
- Off levophed.
Hypotension
- Did not receive typical 'sepsis protocol' fluid bolus due to CHF history and noted ascites / third spacing on imaging.
- Do suspect intravascular volume depletion given new PRAVEEN and hypotension following initiation of diuretic regimen.
- Continue Levophed for BP support for now. Wean as tolerated. Off levophed.
- Stress dose hydrocortisone given chronic prednisone treatment for SLE.
- Midodrine
- Treat underlying fever / infection as noted above.
PRAVEEN
Hyponatremia
- Initial Cr 1.5 compared to prior visit baseline of 0.5.
- Suspect pre-renal / intravascular volume depletion as noted above.
- BP / pressor support as needed.
- Nephro eval appreciated brief bicarb gtt given since completed with resolution PRAVEEN and Hyponatremia
Abdomen Distention
-Check abdominal x-ray-neg for ileus.
-Abdominal limited ultrasound with small volume ascites. Discussed with [facility] not enough fluid for
-having bm
Iron Deficiency Anemia
- Hgb fairly stable.
- Iron studies last admission with TSat = 7% c/w iron deficiency.
- once Ferrlecit given. Oral iron supplementation stated
- monitor H&H
SLE
- Patient on chronic treatment with prednisone and CellCept.
- Hold prednisone acutely while on stress dose steroids - return to usual prednisone dose once BP stable, etc.
- Start to wean stress dose steroids and decrease hydrocortisone to every 12 hours.
- Continue CellCept suppose to be taken 1g BID patient has been taking 2g at noon, as noted by ID.
Constipation
-Senna Colace
-PRN Miralax, Bisacodly suppository
-consider enema if constipation persists despite above
Abdominal lymphadenopathy
-Per patient she was evaluated with CT chest per pulm demand planning analyst 3 months ago and was told lymphadenopathy was secondary to lupus
-Explained to patient the CT abdomen pelvis results today
-Given copy of CT abdomen results to compare with her primary other imaging with her demand planning analyst at [facility]. Patient has appointment with her primary pathologist next Sunday.
-Recommend further outpatient evaluation with hematology.
DVT Prophylaxis: Subcut Heparin
GI ppx Protonix
Code Status: Full
Anticipated Discharge: > 48 hours
Subjective/Interval History
-
Date of Service: May 07, 2024
passing urine
anxious
Objective Data
-
Labs:
Laboratory Results
05/07/24
05:52
Sodium 138
Potassium 3.6
Chloride 105
Carbon Dioxide 27
BUN 27 H
Creatinine 0.7
Glucose 89
Calcium 8.8
Vital Signs:
Vital Signs
Temp Pulse Resp BP Pulse Ox
98.1 F 77 18 123/66 96
05/07/24 11:18 05/07/24 11:18 05/07/24 11:18 05/07/24 11:18 05/07/24 11:18
I&O
05/06/24 05/07/24 05/08/24
06:59 06:59 06:59
Intake Total 880 / 880 1756 / 1756
Output Total 875 / 875 975 / 975
Balance 781 / 781
Data Reviewed
-
Total Time Spent with Patient (in minutes): 58
--- NOTE | 2024-05-07 12:14 | W.PN.ID1 ---
Date of Service
Date of Service: May 07, 2024
Today's Communication
- 04/23 CT PE and 05/03 CT A/p both with adenopathy - generalized lymphadenopathy in sum- follow up with her PCP, suggest confirming resolution
- continue doxycycline 100 mg PO BID plus augmentin 875/125 mg PO BID 05/03-05/16
- follow up with her Environmental Compliance Officer at [facility] - instructed her to clarify the intended dose of MMF with prescribing MD and she expressed agreement
Assessment / Plan
Shock - likely septic - resolved
SLE
Immunosuppression - undetectable compliments, high dose MMF which she was taking on a different schedule than what was prescribed, also an injectable medication unknown name
PRAVEEN
- chart checked, no progress note back from [facility], re-requested
- 04/23 CT PE and 05/03 CT A/p both with adenopathy - generalized lymphadenopathy in sum- follow up with her PCP, suggest confirming resolution
- blood cultures x2 in progress no growth to date
- await anaplasma serologies; lyme/ehrlichia initially negative
- Bartonella henselae IgG/IgM negative
- continue doxycycline 100 mg PO BID plus augmentin 875/125 mg PO BID 05/03-05/16
- follow up with her Environmental Compliance Officer at [facility] - instructed her to clarify the intended dose of MMF with prescribing MD and she expressed agreement
Chief Complaint
-: Other (shock)
Subjective / Review of Systems
remains afebrile
midodrine being tapered
abd distension and up 10 lbs
chart checked, no progress note back from [facility], asked pediatric acute care unit nurse to resend directly to rheum office, however rheum office reported fax wasnt working, referred back to medical records, and it was resent there
Vital Signs / Physical Exam
Vital Signs
Vital Signs
Temp Pulse Resp BP Pulse Ox
98.1 F 77 18 123/66 96
05/07/24 11:18 05/07/24 11:18 05/07/24 11:18 05/07/24 11:18 05/07/24 11:18
Physical Exam
Constitutional: No Acute Distress
Cardiovascular: Regular Rate and S1/S2; Negative Murmur or Rub
Pulmonary: Clear and Symmetric; Negative Wheezes or Rales
Gastrointestinal: Soft, Non Tender, Non Distended and Normal Bowel Sounds
Skin: Warm and Dry; Negative Rash or Jaundice
Objective Data
Lab Data
Lab Results
05/06/24 04:20
05/07/24 05:52
Estimated Creat Clear 107 ml/min 05/07/24 05:52
Lactic Acid Cancelled 05/03/24 02:00
Total Bilirubin 0.6 mg/dl (0.2-1.3) 05/03/24 06:06
AST 59 U/L (14-36) H 05/03/24 06:06
ALT 44 U/L (0-35) H 05/03/24 06:06
Alkaline Phosphatase 63 U/L (38-126) 05/03/24 06:06
Most recent labs reviewed notable in that
anaplasma serologies pending
B henseale serologies negative
blood cultures remain neg
Micro Results:
05/03/24 10:53 Blood Culture - Preliminary
Blood/Venous No Growth in 4 days- Final report to follow
05/02/24 23:26 Blood Culture - Preliminary
Blood/Venous No Growth in 4 days- Final report to follow
05/02/24 23:26 Urine Culture - Final
Urine
05/03/24 10:53 Blood Parasites Smear - Final
Blood/Venous
05/03/24 12:02 Nasal Screen MRSA (PCR) - Final
Nose MRSA not detected - performed by PCR methodology.
[2024-05-07 15:30] VITALS: BP 112/48
--- NOTE | 2024-05-07 16:23 | CM ---
Katty is going to continue taking oral antibiotics; she is (I) amb and adl's. Family is local and supportive.
Plan: Discharge home alone with no needs. Her brother lives nearby and other family is available to help as needed.
Discharge Disposition- home with no needs
[2024-05-07 19:30] VITALS: BP 105/50; BP 120/75; BP 124/76; PULSE 74; PULSE 75; PULSE 81
[2024-05-07] MEDS: LIDOCAINE 4% PATCH TOPICAL (20:13)
[2024-05-07] MEDS: NON-FORMULARY ITEM BOTH EYES (20:13)
[2024-05-07] MEDS: NEURONTIN 1200 MG PO (21:11)
[2024-05-07] MEDS: DESYREL 25 MG PO (21:11)
[2024-05-07 23:30] VITALS: BP 121/54
[2024-05-08] VITALS (9 sets, daily range): BP systolic 105–129; BP diastolic 48–80; PULSE 76–99; BMI 28.8
[2024-05-08] MEDS: AMPICILLIN 108 MG IV ×5 (03:49→20:13)
[2024-05-08 05:05] LABS: Anaplasma phagocytophilum IgG <1:80 (<1:80); Anaplasma phagocytophilum IgM < 1:16 (< 1:16)
[2024-05-08 07:41] LABS: Blood Urea Nitrogen 23 mg/dl (7-17); Calcium 8.9 mg/dl (8.4-10.2); Carbon Dioxide 28 mmol/L (22-30); Chloride 105 mmol/L (98-107); Estimated Creatinine Clearance 107 ml/min; Glucose 84 mg/dl (70-99); Potassium 3.4 mmol/L (3.5-5.1); Sodium 138 mmol/L (135-145); eGFR > 60.00
[2024-05-08] MEDS: SOLU-CORTEF 50 MG IV ×2 (07:53→19:55)
[2024-05-08] MEDS: LASIX 40 MG IV (07:57)
[2024-05-08] MEDS: HEPARIN 5000 UNITS SC (08:01)
[2024-05-08] MEDS: SYMBICORT 80/4.5 MCG INHALER 2 PUFF INH ×2 (08:02→15:42)
[2024-05-08] MEDS: REVATIO 20 MG PO ×3 (08:04→23:43)
[2024-05-08] MEDS: SENOKOT-S 1 TABLET PO (08:05)
[2024-05-08] MEDS: PROTONIX 40 MG PO (08:05)
[2024-05-08] MEDS: ProAmatine 2.5 MG PO ×3 (08:06→17:23)
[2024-05-08] MEDS: FEOSOL PO ×2 (08:06→08:18)
[2024-05-08] MEDS: VIBRAMYCIN 100 MG PO ×2 (08:06→20:09)
[2024-05-08] MEDS: CELLCEPT 1000 MG PO ×2 (08:07→20:34)
[2024-05-08] MEDS: LOW STRENGTH ASPIRIN 81 MG PO (08:08)
[2024-05-08] MEDS: TYLENOL 650 MG PO ×3 (08:12→21:19)
[2024-05-08] MEDS: KCL 40 MEQ PO (08:16)
--- NOTE | 2024-05-08 11:57 | W.PN.HOSP.TC ---
Today's Communication/Plan
-
Replete KCl
Cardiology rec
IV Lasix
Assessment / Plan
Assessment / Plan
Physical Exam
General: no acute distress appears comfortable at this time
HEENT: Normocephalic Atraumatic
Respiratory: Bibasilar rales. No wheezing
Cardiac: S1/S2, Regular Rhythm
GI: Soft, Non Tender, Distended improving and Normal Bowel Sounds
Musculoskeletal: No Clubbing, No Cyanosis and No Edema
Neuro: AO x 3
A/P: Patient is a 48y F with PMH significant for SLE and CHFpEF who presents to ED complaining of fever, malaise and back pain.
Acute on Chronic HFpEF
Pulmonary Hypertension
- Imaging with pleural effusions, pericardial fluids, ascites - albeit all low volumes.
- Weight higher Compared to prior admission
- Restarted Lasix IV 40mg BID
- Sildenafil initially held, since resumed with improvement in BP
- Follow I/Os, daily weights, etc and adjust medications as necessary.
- Seems to have low probnp. FR/Diet changed.
- cards recs
Fever Pneumonia
Sepsis secondary to the above
Hypotension possible septic shock on levophed low dose-Resolved
- Patient with intermittent fevers - as high as 103 at home - flank / pleuritic pain.
- CXR appreciated Small bilateral pleural effusions with associated bibasilar airspace disease suspicious for pneumonia.
- ID eval appreciated empiric vancomycin AND OFF cefepime. ampicillin doxycycline and switch to doxycycline 100 mg PO BID plus augmentin 875/125 mg PO BID 05/03-05/16 on Dc
transfer to [facility] recommended for advance infectious work up given high dose immunosuppression concern for opportunistic infection
Transfer requested however [facility] does not have step down unit and patient remains on pressors, [facility] ICU is full with pending transfers, case was discussed with [facility] Metallurgical Technician who declined acceptance at this time, recommended re-attempt
transfer request when patient is stable for downgrade to [facility].
-patient however, subsequently, refusing transfer at this time.
- Follow-up culture data.
- Had GUERO done last admission which showed pulmonary hypertension. No noted valvular lesions.
- lyme and other tick borne studies titers within normal limits so far.
- Off levophed.
Hypotension
- Did not receive typical 'sepsis protocol' fluid bolus due to CHF history and noted ascites / third spacing on imaging.
- Do suspect intravascular volume depletion given new PRAVEEN and hypotension following initiation of diuretic regimen.
- Continue Levophed for BP support for now. Wean as tolerated. Off levophed.
- Stress dose hydrocortisone given chronic prednisone treatment for SLE.
- Midodrine
- Treat underlying fever / infection as noted above.
PRAVEEN
Hyponatremia
- Initial Cr 1.5 compared to prior visit baseline of 0.5.
- Suspect pre-renal / intravascular volume depletion as noted above.
- BP / pressor support as needed.
- Nephro eval appreciated brief bicarb gtt given since completed with resolution PRAVEEN and Hyponatremia
Abdomen Distention significant improvement
-Check abdominal x-ray-neg for ileus.
-Abdominal limited ultrasound with small volume ascites. Discussed with [facility] not enough fluid for
-having bm
Iron Deficiency Anemia
- Hgb fairly stable.
- Iron studies last admission with TSat = 7% c/w iron deficiency.
- once Ferrlecit given. Oral iron supplementation stated
- monitor H&H
SLE
- Patient on chronic treatment with prednisone and CellCept.
- Hold prednisone acutely while on stress dose steroids - return to usual prednisone dose once BP stable, etc.
- Start to wean stress dose steroids and decrease hydrocortisone to every 12 hours.
- Continue CellCept suppose to be taken 1g BID patient has been taking 2g at noon, as noted by ID.
Constipation
-Senna Colace
-PRN Miralax, Bisacodly suppository
-consider enema if constipation persists despite above
Abdominal lymphadenopathy
-Per patient she was evaluated with CT chest per pulm manager training 3 months ago and was told lymphadenopathy was secondary to lupus
-Explained to patient the CT abdomen pelvis results in details
-Given copy of CT abdomen results to compare with her primary other imaging with her manager training at [facility]. Patient has appointment with her primary pathologist next Sunday.
-Recommend further outpatient evaluation with hematology.
Hypokalemia
Replete and monitor
DVT Prophylaxis: Subcut Heparin
GI ppx Protonix
Code Status: Full
Anticipated Discharge: Within 24 hours
Subjective/Interval History
-
Date of Service: May 08, 2024
states of improvement in abd distention
having bm
Objective Data
-
Labs:
Laboratory Results
05/08/24
06:39
Sodium 138
Potassium 3.4 L
Chloride 105
Carbon Dioxide 28
BUN 23 H
Creatinine 0.7
Glucose 84
Calcium 8.9
Vital Signs:
Vital Signs
Temp Pulse Resp BP Pulse Ox
98.3 F 85 16 124/80 94
05/08/24 07:45 05/08/24 08:06 05/08/24 08:05 05/08/24 08:06 05/08/24 08:05
I&O
05/07/24 05/08/24 05/09/24
06:59 06:59 06:59
Intake Total 1756 / 1756 1955 / 1955
Output Total 975 / 975 1974
Balance 781 / 781 -19 / -19
Data Reviewed
-
Total Time Spent with Patient (in minutes): 56
[2024-05-08] MEDS: FLUSH (NSS) 2 FLUSH IV (12:11)
--- NOTE | 2024-05-08 12:41 | W.PN.CARDCBS ---
Addendum entered and electronically signed by Issac Dyson DO 05/08/24 13:16:
I saw and examined the patient.
The Fire Production Operator's note was reviewed and I agree with the note.
Comment:
Plan:
Increase lasix for better diuresis as she only lost 1 lb over last 24 hrs and she states her wt went up over 10 lbs from admit.
Cr stable. Replete potassium as needed.
Echo reviewed and EF is preserved
Wean off midodrine as bp will allow.
Cont supportive care and abx as per ID.
Remains on sildenafil for pulmonary hypertension and was recommended to see [facility] for follow up by outpatient heel buffer
Original Note:
Today's Communication / Plan
-
increase lasix
replete K
Impression / Plan
-
PCP: Dr. Donald
Tsa Screener: Dr. Helton
Impression: This is a 48y female patient with PMH significant for HFpEF, pulmonary hypertension, SLE / chronic immunosuppression who presents to ED complaining of fever, malaise and back discomfort for the past few weeks and was admitted for
hypotensive and sepsis.
Assessment:
HFpEF
Pneumonia
Septic shock on admission
HAYDEN
Small b/l pleural effusions by chest US 04/24
h/o respiratory failure requiring intubation 08/2023
Pulmonary HTN
Lupus
Chronic steroid use due to SLE
Raynaud's
GERD
Former tobacco use
ECHO 08/17/23: EF 43%, WMA of mid inferoseptal, apical septal, and basal mid inferior carlson (this is most c/w 'D shaped septum' from RV pressure overload), enlarged, mod MR, mild to mod TR, small pericardial effusion, PAP 49mmHg
Echo 11/22/2023: EF 55-60%, mild MR, mild TR, estimated PAP 25-30mmHg
Echo 04/24/2024: EF 65%, mild LVH, trace tricuspid regurgitation, estimated PAP of 45-50 mmHg, no pericardial effusion
Plan:
-concern for acute CHF after aggressive fluid resuscitation in setting of sepsis. she reports abd bloating, without LE edema or SOB
-Patient reports weight up 10 to 14 pounds from baseline, however only losing 1 pound a day on current Lasix dosing. As creatinine remained stable will increase Lasix to 80 mg IV twice daily and assess response.
-Replete K
-echo with preserved EF
-follow BPs, continue midodrine to 2.5mg TID for now, wean off as able
-Currently on sildenafil for pulmonary hypertension. Was recommended to see [facility] for follow up by outpatient heel buffer
-abx per ID
Progress Note - Tsa Screener
Subjective
Date of Service: May 08, 2024
Denies shortness of breath. Reports continued abdominal bloating. Reports decent urine output.
Objective
Labs:
05/06/24 04:20
05/08/24 06:39
Labs
Hgb 8.8 g/dL (12.0-16.0) L 05/06/24 04:20
Hct 27.7 % (37.0-47.0) L 05/06/24 04:20
Plt Count 291 10^3/uL (130-400) 05/06/24 04:20
Sodium 138 mmol/L (135-145) 05/08/24 06:39
Potassium 3.4 mmol/L (3.5-5.1) L 05/08/24 06:39
BUN 23 mg/dl (7-17) H 05/08/24 06:39
Creatinine 0.7 mg/dL (0.6-1.0) 05/08/24 06:39
Glucose 84 mg/dl (70-99) 05/08/24 06:39
Vital Signs and I&O:
Vital Signs
Temp Pulse Resp BP Pulse Ox
97.9 F 80 20 114/49 94
05/08/24 11:50 05/08/24 11:50 05/08/24 11:50 05/08/24 12:19 05/08/24 11:50
Vital Signs
Temp Pulse Resp BP Pulse Ox
97.9 F 80 20 114/49 94
05/08/24 11:50 05/08/24 11:50 05/08/24 11:50 05/08/24 12:19 05/08/24 11:50
Intake & Output
05/06/24 05/07/24 05/08/24 05/09/24
07:59 07:59 07:59 07:59
Intake Total 880 / 880 1756 / 1756 1955
Output Total 875 / 875 975 / 975 1974 / 1974
Balance 781 / 781 -
Physical Exam
Physical Exam
GEN: No distress, awake, alert, oriented x3
HEENT: supple, anicteric, mmm, eomi
LUNGS: few crackles at bases
CV: Reg, S1/S2, no murmur
ABD: firm, distended
EXT: No cyanosis, clubbing, edema
NEURO: Gross non-focal
SKIN: Warm, pink, dry. No rash
--- NOTE | 2024-05-08 15:36 | CM ---
Cm continues to follow Katty for discharge planning. She is (I) amb and adl's; being medically managed with no discharge needs identified.
Plan: Discharge to home with no needs.
PCP- Flako Wild
Rx- [facility]
[2024-05-08] MEDS: LASIX 80 MG IV (16:31)
--- NOTE | 2024-05-08 16:59 | W.PN.ID1 ---
Date of Service
Date of Service: May 08, 2024
Today's Communication
- generalized lymphadenopathy in sum- follow up with her PCP, suggest confirming resolution
- continue doxycycline 100 mg PO BID plus augmentin 875/125 mg PO BID 05/03-05/16
- follow up with her Teacher Counselor at [facility] - instructed her to clarify the intended dose of MMF with prescribing MD and she expressed agreement
ID service will no longer actively follow this patient please recall for further questions
Assessment / Plan
Shock - likely septic - resolved
SLE
Immunosuppression - undetectable compliments, high dose MMF which she was taking on a different schedule than what was prescribed, also an injectable medication unknown name
PRAVEEN
- chart checked, no progress note back from [facility], re-requested
- 04/23 CT PE and 05/03 CT A/p both with adenopathy - generalized lymphadenopathy in sum- follow up with her PCP, suggest confirming resolution
- blood cultures x2 in progress no growth to date
- await anaplasma serologies; lyme/ehrlichia initially negative
- Bartonella henselae IgG/IgM negative
- continue doxycycline 100 mg PO BID plus augmentin 875/125 mg PO BID 05/03-05/16
- follow up with her Teacher Counselor at [facility] - instructed her to clarify the intended dose of MMF with prescribing MD and she expressed agreement
ID service will no longer actively follow this patient please recall for further questions
Chief Complaint
-: Other (shock)
Subjective / Review of Systems
remains afebrile
no comaplints beyond abdominal distension
Vital Signs / Physical Exam
Vital Signs
Vital Signs
Temp Pulse Resp BP Pulse Ox
98 F 75 16 126/71 97
05/08/24 15:40 05/08/24 16:31 05/08/24 15:44 05/08/24 16:31 05/08/24 15:44
Physical Exam
Constitutional: No Acute Distress
Cardiovascular: Regular Rate and S1/S2; Negative Murmur or Rub
Pulmonary: Clear and Symmetric; Negative Wheezes or Rales
Gastrointestinal: Soft, Non Tender, Non Distended and Normal Bowel Sounds
Skin: Warm and Dry; Negative Rash or Jaundice
Objective Data
Lab Data
Lab Results
05/06/24 04:20
05/08/24 06:39
Estimated Creat Clear 107 ml/min 05/08/24 06:39
Lactic Acid Cancelled 05/03/24 02:00
Total Bilirubin 0.6 mg/dl (0.2-1.3) 05/03/24 06:06
AST 59 U/L (14-36) H 05/03/24 06:06
ALT 44 U/L (0-35) H 05/03/24 06:06
Alkaline Phosphatase 63 U/L (38-126) 05/03/24 06:06
Most recent labs reviewed.
Micro Results:
05/03/24 10:53 Blood Culture - Final
Blood/Venous No Growth - Final Report
05/02/24 23:26 Blood Culture - Final
Blood/Venous No Growth - Final Report
05/02/24 23:26 Urine Culture - Final
Urine
05/03/24 10:53 Blood Parasites Smear - Final
Blood/Venous
05/03/24 12:02 Nasal Screen MRSA (PCR) - Final
Nose MRSA not detected - performed by PCR methodology.
[2024-05-08] MEDS: SENOKOT-S PO (20:06)
[2024-05-08] MEDS: HEPARIN SC (20:06)
[2024-05-08] MEDS: LIDOCAINE 4% PATCH TOPICAL (20:07)
[2024-05-08] MEDS: MYLICON 80 MG PO (20:17)
[2024-05-08] MEDS: NON-FORMULARY ITEM 1 DROP BOTH EYES (21:17)
[2024-05-08] MEDS: NEURONTIN 1200 MG PO (21:19)
[2024-05-08] MEDS: DESYREL 25 MG PO (21:20)
[2024-05-09] MEDS: AMPICILLIN 108 MG IV ×4 (00:17→12:02)
[2024-05-09 03:30] VITALS: BP 114/68
[2024-05-09 05:58] VITALS: BP 101/62
[2024-05-09 06:00] VITALS: BMI 28.7
[2024-05-09 07:00] VITALS: BP 141/84
[2024-05-09] MEDS: SYMBICORT 80/4.5 MCG INHALER 2 PUFF INH (07:57)
[2024-05-09 08:00] VITALS: BP 141/84; BP 146/81; BP 146/86; PULSE 81; PULSE 93
[2024-05-09 08:39] LABS: Blood Urea Nitrogen 22 mg/dl (7-17); Calcium 8.7 mg/dl (8.4-10.2); Carbon Dioxide 26 mmol/L (22-30); Chloride 104 mmol/L (98-107); Estimated Creatinine Clearance 106 ml/min; Glucose 75 mg/dl (70-99); Potassium 3.4 mmol/L (3.5-5.1); Sodium 138 mmol/L (135-145); eGFR > 60.00
[2024-05-09] MEDS: FLUSH (NSS) 3 FLUSH IV (08:40)
[2024-05-09] MEDS: PROTONIX 40 MG PO (08:41)
[2024-05-09] MEDS: CELLCEPT 1000 MG PO (08:41)
[2024-05-09] MEDS: LOW STRENGTH ASPIRIN 81 MG PO (08:45)
[2024-05-09] MEDS: VIBRAMYCIN 100 MG PO (08:45)
[2024-05-09] MEDS: ProAmatine PO (08:45)
[2024-05-09] MEDS: FEOSOL PO (08:46)
[2024-05-09] MEDS: LASIX 80 MG IV ×2 (08:46→15:02)
[2024-05-09] MEDS: SOLU-CORTEF 50 MG IV (08:46)
[2024-05-09] MEDS: SENOKOT-S 1 TABLET PO (08:46)
[2024-05-09] MEDS: HEPARIN SC (08:47)
[2024-05-09] MEDS: REVATIO 20 MG PO ×2 (08:48→15:02)
[2024-05-09] MEDS: KCL 40 MEQ PO (09:06)
[2024-05-09] MEDS: MYLICON 80 MG PO (09:11)
--- NOTE | 2024-05-09 09:42 | W.PN.CARDCBS ---
Addendum entered and electronically signed by Gama Thomason MD 05/09/24 13:14:
I saw and examined the patient.
The Surveillance Camera Technician's note was reviewed and I agree with the note.
Comment: Briefly, 48-year-old woman past medical history of reported preserved ejection fraction presenting with septic shock
Following volume resuscitation and stress to steroids she developed volume overload
Weights are coming down and she was responding well to current Lasix dosing
Plan for additional Lasix dose this afternoon and then stable for discharge from my perspective
She should continue on 80 mg twice a day of Lasix as an outpatient
BMP in 1 to 2 weeks
Patient cardiology follow-up has been arranged
Original Note:
Today's Communication / Plan
-
continue IV lasix today. ok for DC s/p 4PM dose on po lasix 80mg BID
BMP in 1 week
stop midodrine
OP cardiac follow up arranged
Impression / Plan
-
PCP: Dr. Donald
Stereotyper: Dr. Helton
Impression: This is a 48y female patient with PMH significant for HFpEF, pulmonary hypertension, SLE / chronic immunosuppression who presents to ED complaining of fever, malaise and back discomfort for the past few weeks and was admitted for
hypotensive and sepsis.
Assessment:
Acute HFpEF
Pneumonia
Septic shock on admission
HAYDEN
Small b/l pleural effusions by chest US 04/24
h/o respiratory failure requiring intubation 08/2023
Pulmonary HTN
Lupus
Chronic steroid use due to SLE
Raynaud's
GERD
Former tobacco use
ECHO 08/17/23: EF 43%, WMA of mid inferoseptal, apical septal, and basal mid inferior carlson (this is most c/w 'D shaped septum' from RV pressure overload), enlarged, mod MR, mild to mod TR, small pericardial effusion, PAP 49mmHg
Echo 11/22/2023: EF 55-60%, mild MR, mild TR, estimated PAP 25-30mmHg
Echo 04/24/2024: EF 65%, mild LVH, trace tricuspid regurgitation, estimated PAP of 45-50 mmHg, no pericardial effusion
Plan:
-concern for acute CHF after aggressive fluid resuscitation in setting of sepsis.
-With good diuresis overnight with increase in IV Lasix to 80 mg twice daily. She is eager for discharge. Will continue IV Lasix today, with plan for discharge after afternoon dose. Will discharge on p.o. Lasix 80 mg twice daily and reassess in
office next week
-replete K
-BMP in 1 week
-echo 04/24 with preserved EF
-stop midodrine as BPs improving
-Currently on sildenafil for pulmonary hypertension. Was recommended to see [facility] for follow up by outpatient beam builder
-abx per ID
-d/w hospitalist
Progress Note - Stereotyper
Subjective
Date of Service: May 09, 2024
Reports good diuresis overnight
Objective
Labs:
05/06/24 04:20
05/09/24 07:24
Labs
Hgb 8.8 g/dL (12.0-16.0) L 05/06/24 04:20
Hct 27.7 % (37.0-47.0) L 05/06/24 04:20
Plt Count 291 10^3/uL (130-400) 05/06/24 04:20
Sodium 138 mmol/L (135-145) 05/09/24 07:24
Potassium 3.4 mmol/L (3.5-5.1) L 05/09/24 07:24
BUN 22 mg/dl (7-17) H 05/09/24 07:24
Creatinine 0.7 mg/dL (0.6-1.0) 05/09/24 07:24
Glucose 75 mg/dl (70-99) 05/09/24 07:24
Vital Signs and I&O:
Vital Signs
Temp Pulse Resp BP Pulse Ox
98.3 F 92 18 141/84 97
05/09/24 07:00 05/09/24 07:59 05/09/24 07:00 05/09/24 08:45 05/09/24 07:59
Vital Signs
Temp Pulse Resp BP Pulse Ox
98.3 F 92 18 141/84 97
05/09/24 07:00 05/09/24 07:59 05/09/24 07:00 05/09/24 08:45 05/09/24 07:59
Intake & Output
05/07/24 05/08/24 05/09/24 05/10/24
07:59 07:59 07:59 07:59
Intake Total 1756 / 1756 1955 / 1955 920 / 920
Output Total 975 / 975 1974 / 1974 2350 / 2350
Balance 781 / 781 -19 / -19 -1430 / -1430
Physical Exam
Physical Exam
GEN: No distress, awake, alert, oriented x3
HEENT: supple, anicteric, mmm, eomi
LUNGS: few crackles at bases
CV: Reg, S1/S2, no murmur
ABD: firm, distended
EXT: No cyanosis, clubbing, edema
NEURO: Gross non-focal
SKIN: Warm, pink, dry. No rash
--- NOTE | 2024-05-09 10:51 | W.PN.HOSP.TC ---
Today's Communication/Plan
-
po 80mg lasix bid
kcl
po abx
Op f/u rheum/heme
Assessment / Plan
Assessment / Plan
Physical Exam
General: no acute distress appears comfortable at this time
HEENT: Normocephalic Atraumatic
Respiratory: Bibasilar rales. No wheezing
Cardiac: S1/S2, Regular Rhythm
GI: Soft, Non Tender, Distended improving and Normal Bowel Sounds
Musculoskeletal: No Clubbing, No Cyanosis and No Edema
Neuro: AO x 3
A/P: Patient is a 48y F with PMH significant for SLE and CHFpEF who presents to ED complaining of fever, malaise and back pain.
Acute on Chronic HFpEF
Pulmonary Hypertension-recommend to see PHTN specialist at [facility]
- Restarted Lasix and dose upgrade to 80mg BID on 05/08. Increase to 80mg po bid on dc. Add PO kcl with lasix on dc.
- Sildenafil initially held, since resumed with improvement in BP
- Follow I/Os, daily weights, etc and adjust medications as necessary.
- Seems to have low probnp. FR/Diet changed.
- cards recs
Fever Pneumonia
Sepsis secondary to the above
Hypotension possible septic shock on levophed low dose-Resolved
- Patient with intermittent fevers - as high as 103 at home - flank / pleuritic pain.
- CXR appreciated Small bilateral pleural effusions with associated bibasilar airspace disease suspicious for pneumonia.
- ID eval appreciated empiric vancomycin AND OFF cefepime. ampicillin doxycycline and switch to doxycycline 100 mg PO BID plus augmentin 875/125 mg PO BID 05/03-05/16 on Dc
transfer to [facility] recommended for advance infectious work up given high dose immunosuppression concern for opportunistic infection
Transfer requested however [facility] does not have step down unit and patient remains on pressors, [facility] ICU is full with pending transfers, case was discussed with [facility] who declined acceptance at this time, recommended re-attempt
transfer request when patient is stable for downgrade to Tele.
-patient however, subsequently, refusing transfer at this time.
- Follow-up culture data.
- Had GUERO done last admission which showed pulmonary hypertension. No noted valvular lesions.
- lyme and other tick borne studies titers within normal limits so far.
- Off levophed.
Hypotension
- Did not receive typical 'sepsis protocol' fluid bolus due to CHF history and noted ascites / third spacing on imaging.
- Do suspect intravascular volume depletion given new PRAVEEN and hypotension following initiation of diuretic regimen.
- Continue Levophed for BP support for now. Wean as tolerated. Off levophed.
- Stress dose hydrocortisone given chronic prednisone treatment for SLE.
- Midodrine DCed
- Treat underlying fever / infection as noted above.
PRAVEEN
Hyponatremia
- Initial Cr 1.5 compared to prior visit baseline of 0.5.
- Nephro eval appreciated brief bicarb gtt given since completed with resolution PRAVEEN and Hyponatremia
Abdomen Distention significant improvement
-Check abdominal x-ray-neg for ileus.
-Abdominal limited ultrasound with small volume ascites. Discussed with [facility] not enough fluid for
-having bm.
Iron Deficiency Anemia
- Hgb fairly stable.
- Iron studies last admission with TSat = 7% c/w iron deficiency.
- once Ferrlecit given. Oral iron supplementation stated
- monitor H&H
SLE
- Patient on chronic treatment with prednisone and CellCept.
- Hold prednisone acutely while on stress dose steroids - return to usual prednisone dose once BP stable, etc.
- Start to wean stress dose steroids and decrease hydrocortisone to every 12 hours.
- Continue CellCept suppose to be taken 1g BID patient has been taking 2g at noon, as noted by ID.
Constipation
-Senna Colace
-PRN Miralax, Bisacodly suppository
-consider enema if constipation persists despite above
Abdominal lymphadenopathy
-Per patient she was evaluated with CT chest per pulm forestry tree pruner 3 months ago and was told lymphadenopathy was secondary to lupus
-Explained to patient the CT abdomen pelvis results in details
-Given copy of CT abdomen results to compare with her primary other imaging with her forestry tree pruner at [facility]. Patient has appointment with her primary pathologist next Sunday.
-Recommend further outpatient evaluation with hematology pending completion of antibiotics course.
Hypokalemia
Replete and monitor
DVT Prophylaxis: Subcut Heparin
GI ppx Protonix
Code Status: Full
d.w with cardiology
More than 30 minutes spent in discharge including
Final examination of the patient
Summarizing hospital stay
Instructions for continuing care to all relevant caregivers
Preparation of discharge records, prescriptions, and referral forms
Total time spent (in minutes): 58
Anticipated Discharge: Today
Subjective/Interval History
-
Date of Service: May 09, 2024
passing urine
abd less distended
wants to go home
Objective Data
-
Labs:
Laboratory Results
05/09/24
07:24
Sodium 138
Potassium 3.4 L
Chloride 104
Carbon Dioxide 26
BUN 22 H
Creatinine 0.7
Glucose 75
Calcium 8.7
Vital Signs:
Vital Signs
Temp Pulse Resp BP Pulse Ox
98.3 F 92 18 141/84 97
05/09/24 07:00 05/09/24 07:59 05/09/24 07:00 05/09/24 08:45 05/09/24 07:59
I&O
05/08/24 05/09/24 05/10/24
06:59 06:59 06:59
Intake Total 1955 920 / 920
Output Total 1974 2350 / 2350
Balance -19 / -19 -1430 / -1430
--- NOTE | 2024-05-09 11:10 | W.DCSUMMARY ---
Discharge Summary
Discharge Data
Date of Admission: 05/03/24
Date of Discharge: 05/09/24
-
Pending Results: No
Hospital Course
48-year-old female past medical history of lupus, chronic immunosuppressive state, pulmonary hypertension, chronic HFpEF, chronic steroid therapy, respiratory complaining of fever malaise and back pain. Patient was found to be in shock which was
seen likely secondary to sepsis. Source of infection was likely felt to be pneumonia and UTI. Patient underwent extensive workup for fever and was started on broad-spectrum antibiotic with Vanco and cefepime. Infectious disease was concerned
about patient high risk of severe underlying infection and opportunistic infection and recommended transfer. [facility] was called and [place] refused and also patient also further refused to be Transferred to a different institution.
Patient fever curve improved. Patient blood pressure stabilized. Patient underwent extensive infectious workup and was negative for tickborne diseases. Patient required Levophed which was eventually weaned off. Midodrine was started. Patient
was taken off chronic prednisone p.o. and was started on stress dose steroids. Stabilization of blood pressure IV steroids were down titrated. Patient was continued on ampicillin and doxycycline which was transitioned to p.o. Doxy and Augmentin on
discharge. Patient was also found to be in acute on chronic diastolic heart failure exacerbation and cardiology was consulted. Patient also had PRAVEEN which resolved with IV fluid resuscitation. Patient was complaining of severe abdominal
distention. CT abdomen pelvis was negative for ileus. Ultrasound abdomen was negative for ascites. Patient also with severe constipation which resolved with bowel regimen and enema. Patient also with volume overload with significant increase in
weight. Patient was started on low-dose Lasix which was uptitrated to as high as 80 mg Lasix twice daily. Patient with significant improvement in weight. Improvement in significant abdominal distention. After also discussed with CT abdomen
pelvis finding of lymphadenopathy which was found on CAT scan of abdomen and pelvis. Patient further stated that her rheumatology had a CT scan of the chest 3 months ago which showed chest lymphadenopathy. Per her primary rheumtalogist,
lymphadenopathy is likely secondary to lupus. Stated to patient to follow-up with her primary doctor and clerical manager and test equipment mechanic after completion of antibiotics to assess for resolution of lymphadenopathy if not then further workup.
Patient verbalized understanding with the plan. On discharge patient Lasix would be uptitrated from 60 mg prior to arrival to, 80 mg twice daily with KCl and recommended outpatient repeat BMP.
Discharge Plan
-
Patient Disposition: Home (Routine Discharge)
Discharge Diagnosis/Procedures: Acute on chronic diastolic heart with exacerbation
Pulmonary hypertension
Septic shock likely secondary to pneumonia
Acute kidney injury
Hypotension
Hyponatremia
Abdominal distention
Constipation
Hypokalemia
Abdominal lymphadenopathy
Condition: Fair
Diet: 2 Gram Sodium and Restrict fluids to 48 oz
Activity: As tolerated
Driving Restrictions: As prior to admission
Blood Work: BMP in 1 week via primary doctor.
Specialty Instructions: Weigh Daily- Call MD for wt gain/loss 3 lbs overnight/5 lbs in 1 week
Activity Restrictions/Additional Instructions:
Recommend to see pulmonary hypertension specialist at [facility].
Recommend to follow-up with primary doctor and clerical manager and test equipment mechanic for resolution and to assess for further workup for abdominal lymphadenopathy.
Instructions: *[facility] Heart Failure Instructions
Referrals:
Flako Wild MD [Family Provider] - in less than 1 week
Cora Lopez MD [Active] - in two to three weeks (Follow-up for lymphadenopathy. Call to make appointment.)
Gama Thomason MD [Active] - 05/14/24 10:40 am (You have a cardiology follow up appointment at the [place] office. Please call with questions. )
Prescriptions:
New
doxycycline hyclate 100 mg Capsule
100 mg PO Q12 Qty: 15 0RF
potassium chloride 20 mEq Tablet,Er Particles/Crystals
20 meq PO 0800,1600 30 Days Qty: 60 0RF
ferrous sulfate [FeroSul] 325 mg (65 mg iron) Tablet
325 mg PO DAILY 30 Days Qty: 30 0RF
furosemide [Lasix] 80 mg tablet
80 mg PO BID Qty: 60 0RF
amoxicillin-pot clavulanate 875-125 mg tablet
1 tab PO Q12H Qty: 14 0RF
Continued
gabapentin 600 mg tablet
1,200 mg PO HS
omeprazole 40 mg capsule,delayed release(DR/EC)
40 mg PO DAILY
sildenafil (pulm.hypertension) 20 mg tablet
20 mg PO Q8H
prednisone 2.5 mg tablet
7.5 mg PO DAILY
albuterol sulfate 90 mcg/actuation HFA aerosol inhaler
2 puff INHALATION R Q4HPRN PRN (Reason: sob/wheezing)
budesonide-formoterol [Symbicort] 80-4.5 mcg/actuation HFA aerosol inhaler
2 puff INHALATION R BID
aspirin [Children's Aspirin] 81 mg tablet,chewable
81 mg PO DAILY
Refresh Optive Advanced 0.5-1-0.5 % Drops
1 drp OPHTHALMIC (EYE) HS
mycophenolate mofetil 500 mg tablet
1,000 mg PO BID
fenofibrate
145 mg PO DAILY
Discontinued
furosemide 20 mg Tablet
60 mg PO DAILY Qty: 30 0RF
Discharge Orders:
Discharge Patient (As Directed); Ordered 05/09/24
Ordered By: Tee Scruggs
Discharge Date and Time
Discharge Date/Time: 05/09/24 15:55
Print Language: ANGUILLAN
[2024-05-09] MEDS: TYLENOL 650 MG PO (12:01)
[2024-05-09] MEDS: FLUSH (NSS) 1 FLUSH IV (12:02)
--- NOTE | 2024-05-09 13:07 | VNURNOTE ---
Received request for [facility] - patient with exac HF. Home Health Liaison met with patient at bedside to discuss [facility] nurse visits, schedule and homebound status. Patient is agreeable and understands that visits at home will be 2-3 x per week to assess
and teach medical management. Patient understands to notify [facility] before she returns to work. [facility] brochure provided with contact information. Patient is aware that [facility] will contact them for start of care in 1-2 days after discharge from .
Current insurance info faxed to [facility]. [facility] referral completed in [facility].
--- NOTE | 2024-05-09 13:56 | CM ---
met with patient at bedside,[facility]patient with fluctuating bp and chf.family to transport home.
[2024-05-09] MEDS: FLUSH (NSS) 2 FLUSH IV (15:02)
[2024-05-09] MEDS: KCL 20 MEQ PO (15:02)
[2024-05-09 15:42] VITALS: BP 119/65
== END 2024-05-09 15:55 | disposition home health service (06) | DRG 871 ==
LOC: 4 EAST ACU 04:24
PROVIDERS: Emergency Medicine; Internal Medicine; ADMITTING PHYSICIAN Hospitalist; ATTENDING PHYSICIAN Hospitalist; CONSULT PHYSICIAN Internal Medicine; CONSULT PHYSICIAN Internal Medicine Cardiovascular Disease; CONSULT PHYSICIAN Student in an Organized Health Care Education/Training Program; EMERGENCY PHYSICIAN Emergency Medicine; FAMILY PHYSICIAN Family Medicine
DX: A41.9 Sepsis, unspecified organism (principal); I50.33 Acute on chronic diastolic (congestive) heart failure; R65.21 Severe sepsis with septic shock; J18.9 Pneumonia, unspecified organism; N17.9 Acute kidney failure, unspecified; D84.821 Immunodeficiency due to drugs; R18.8 Other ascites; E87.1 Hypo-osmolality and hyponatremia; I42.8 Other cardiomyopathies; N39.0 Urinary tract infection, site not specified; E87.20 Acidosis, unspecified; D50.9 Iron deficiency anemia, unspecified; R59.0 Localized enlarged lymph nodes; I27.20 Pulmonary hypertension, unspecified; I73.00 Raynaud's syndrome without gangrene; G62.9 Polyneuropathy, unspecified; M54.9 Dorsalgia, unspecified; K21.9 Gastro-esophageal reflux disease without esophagitis; R14.0 Abdominal distension (gaseous); F17.210 Nicotine dependence, cigarettes, uncomplicated; E87.6 Hypokalemia; M32.9 Systemic lupus erythematosus, unspecified; K59.00 Constipation, unspecified; Z79.51 Long term (current) use of inhaled steroids; Z79.52 Long term (current) use of systemic steroids; Z79.624 Long term (current) use of inhibitors of nucleotide synthesis; Z79.82 Long term (current) use of aspirin; Z87.01 Personal history of pneumonia (recurrent); Z88.8 Allergy status to other drugs, medicaments and biological substances; Z11.52 Encounter for screening for COVID-19
CPT/HCPCS: 71046; 74019; 74177; 76705; 80048; 80053; 80202; 81003; 81015; 82248; 82570; 83605; 83735; 83880; 83935; 84100; 84300; 84443; 84703; 85014; 85018; 85025; 85027; 86160; 86611; 86618; 86666; 86850; 86900; 86901; 87015; 87040; 87086; 87207; 87641; 87811; 94640; 96365; 96366; 96367; 96375; 97162; 97166; 99285; 99406; J2916; J7030; Q9967

== ENCOUNTER 2024-11-20 22:16 | Inpatient (IN) | payer OTHER, SELFPAY ==
[2024-11-20 18:23] VITALS: BP 106/62
[2024-11-20 18:43] LABS: % Basophils 0.4 % (0-2); % Eosinophils 0.6 % (0-6); % Immature Granulocytes 0.6 % (0-0.5); % Lymphocytes 14.6 % (20.5-51.1); % Monocytes 8.7 % (1.7-9.3); % Neutrophils 75.1 % (42.2-75.2); Absolute Lymphocytes 0.8 10^3/uL (1.2-3.4); Absolute Monocytes 0.5 10^3/uL (0.1-0.6); Absolute Neutrophils 4.1 10^3/uL (1.4-6.5); Hematocrit 27.6 % (37.0-47.0); Hemoglobin 9.2 g/dL (12.0-16.0); Mean Corp Hgb Conc. 33.3 g/dL (33.0-37.0); Mean Corpuscular Hgb 27.5 pg (27.0-31.0); Mean Corpuscular Volume 82.6 fL (81.0-99.0); Mean Platelet Volume 9.7 fL (7.4-10.4); Nucleated Red Blood Cells % 0 %; Platelet Count 329 10^3/uL (130-400); Red Blood Cell Count 3.34 10^6/uL (4.20-5.40); Red Cell Dist. Width 16.6 % (11.5-14.5); White Blood Cell Count 5.4 10^3/uL (4.8-10.8)
[2024-11-20 18:55] LABS: INR 0.92; PT 12.8 Sec (11.4-14.6)
[2024-11-20 18:56] LABS: APTT 28.5 Sec (23.4-35.0)
[2024-11-20 18:58] LABS: ALT (SGPT) 23 U/L (0-35); AST (SGOT) 55 U/L (14-36); Albumin 3.7 g/dl (3.5-5.0); Alkaline Phosphatase 50 U/L (38-126); Blood Urea Nitrogen 59 mg/dl (7-17); Calcium 8.4 mg/dl (8.4-10.2); Carbon Dioxide 33 mmol/L (22-30); Chloride 85 mmol/L (98-107); Glucose 99 mg/dl (70-99); Sodium 130 mmol/L (135-145); Total Bilirubin 0.5 mg/dl (0.2-1.3); Total Protein 6.7 g/dl (6.3-8.2); eGFR 23.29
[2024-11-20 19:10] LABS: NT-proBNP 295 pg/ml; Troponin I < 0.012 ng/ml
[2024-11-20 20:13] VITALS: BP 102/52
[2024-11-20 20:22] VITALS: BMI 27.3
[2024-11-20 20:37] VITALS: BP 112/61
--- NOTE | 2024-11-20 20:37 | ED.GENMED ---
History of Present Illness
General
Chief Complaint: Breathing Problem
Source: patient
Time Seen by Provider: 11/20/24 20:02
History of Present Illness
History of Present Illness:
49-year-old female with a history of lupus, lupus nephritis, congestive heart failure with preserved ejection fraction presents to the emergency room for abdominal distention. Patient states she been experiencing abdominal distention for some time
but it became dramatically worse over the past 1 to 2 days. Currently her abdomen feels so distended it is making it difficult for her to breathe. No fever or chills. Patient is prescribed both furosemide and metolazone. She is compliant with
both. Recently her roller machine operator recommended an increase in the amount of her diuretics. Despite this she continues to have abdominal swelling. Patient denies any chest pain.
Past History
Past History
ED Past Medical History: Other (Systemic lupus erythematosus, pulmonary retention, microcytic anemia, pleural effusions, GERD)
Social History
Tobacco: Former smoker
Phy Exam
Physical Exam
Physical Exam:
General: Awake, Alert, Oriented X3. No acute distress.
Vitals: unremarkable
Head: Atraumatic
Eyes: Pupils equal, EOMI
Throat: Airway intact, no exudates, dry mucosa
Neck: Trachea midline
Lungs: Clear and equal b/l
Heart: Regular rate, no murmurs
Abd: Soft, protuberant abdomen which is tense but not particularly tender, No pulsatile mass
Neuro: Nonfocal
Skin: Warm, dry, no rash
Extremities: pulses equal b/l, no edema
Scores
Heart Failure Risk
Heart Failure Risk Score: Not Applicable
Course
Orders/Labs/Results
Orders:
Orders
11/20/24 18:20
Electrocardiogram (*1) Urgent
Reason for Study: Shortness of Breath
11/20/24 18:28
Electrocardiogram (*1) Urgent
Reason for Study: Shortness of Breath
11/20/24 18:36
Complete Blood Count/With Diff Urgent
Comprehensive Metabolic Panel Urgent
PTT Urgent
Pro-BNP [NT-proBNP] Urgent
Prothrombin Time Urgent
Troponin I Urgent
11/20/24 20:36
Potassium Chloride 10% Elixir [KCl Elixir] 40 meq PO NOW STA
11/20/24 21:42
Admit/Transfer Patient As Directed
Co-Sign Provider:
Level of Care: Inpatient admission
Assign to:: Medical/Surgical
Physician / Group: hospitalist
Diagnosis: acute kidney injury
Reason for Hospitalization: acute kidney injury, abodminal distension
Expected length of stay greater than two midnights?: Yes
ELOS- Estimated Length of Stay in days: 2
I certify the patient meets the requirements for IP care: Yes
CR Chest - 2 Views Urgent
Comment:
Reason For Exam: shortness of breath, eval effusion, pulm edema
11/20/24 21:43
PRN Pain Medication Management As Directed
May give lesser potent ordered pain med per pt: Yes
preference::
Protocol:: Medication orders for pain may be administered in a
manner that supports deferring to patient preference
when the pt is:
- Requesting an ordered lesser potent pain medication.
Least to most potent pain medications are defined
as: acetaminophen < NSAID < tramadol < opioids
(morphine, oxycodone, hydromorphone).
- Requesting a lesser dose of the same medication IF
ORDERED.
- Requesting a less intrusive route of administration
if both routes are prescribed by the provider (PO <
IV).
11/20/24 21:45
Code Status As Directed
Resuscitation Status: Full Code
11/20/24 21:47
Orthostatic Vital Signs As Directed
Orthostatic VS Frequency: Now
11/20/24 22:00
0.9% Sodium Chloride 1000 ml [Nss] 1,000 ml IV 125 mls/hr
11/20/24 22:03
Osmolality, Random Urine Stat
Date Specimen was Collected: 11/20/24
Time Specimen was Collected: 22:00
Urinalysis Reflex To Culture Stat
Date Specimen was Collected: 11/20/24
Time Specimen was Collected: 21:59
Urine Creatinine Stat
Date Specimen was Collected: 11/20/24
Time Specimen was Collected: 22:00
Urine Microscopic Reflex Cult Stat
Urine Protein/Creat Ratio (Random) [Protein/Creat Ratio (Random)] Stat
Date Specimen was Collected: 11/20/24
Time Specimen was Collected: 22:00
Urine Sodium Stat
Date Specimen was Collected: 11/20/24
Time Specimen was Collected: 22:00
11/20/24 22:11
HYDROmorphone [Dilaudid] 0.5 mg IV Q4HPRN PRN
11/20/24 23:00
Flush (0.9% Sodium Chloride) [Flush (Nss)] See Dose Instructions IV PER PROTOCOL
11/21/24 00:09
Acetaminophen [Tylenol] 650 mg PO Q4HPRN PRN
Albuterol [ProAIR HFA INHALER] 2 puff INH R Q4HPRN PRN
Bisacodyl [Dulcolax] 10 mg RECTAL [id number] PRN
Docusate W/Senna [Senokot-S] 1 tablet PO BIDPRN PRN
Gabapentin [Neurontin] 300 mg PO HS
Heparin 5,000 units SC Q8
Ondansetron Injectable [Zofran] 4 mg IV Q6HPRN PRN
Polyethylene Glycol Powder [Miralax] 17 grams PO DAILYPRN PRN
Sildenafil Citrate [Revatio] 20 mg PO Q8H
11/21/24 00:09
Echo 2D MMode Color/Doppler Routine
Reason for Study: eval RV function, LVEF
IRAD CONSULT Routine
Consulting Provider: Mk Jordan
Was physician already notified: Yes
Reason for Consult/Procedure: diagnostic paracentesis
Acknowledgement that appropriate orders are entered: Yes
Body Fluid Cell Count Routine
What is the Body Fluid: peritoneal fluid
Comment: post procedure
Body Fluid LDH Routine
Fluid Source: Peritoneal (Ascites)
Body Fluid Protein Routine
Fluid Source: Peritoneal (Ascites)
Fluid Culture with Gram Stain Routine
CARO Source: Peritoneal Fluid
Specimen Description:
Comment: Post Procedure
Activity As Directed
Activity Level: With Assistance
Orthostatic Vital Signs As Directed
Orthostatic VS Frequency: Daily
Vital Signs As Directed
Frequency: Per unit guidelines
Pulse Ox/spot Check [RESP] Routine
Quantity: 1
Renal & Bladder US [US Renal With Bladder] Urgent
Comment:
Reason For Exam: PRAVEEN
DX Deep Vein Thrombosis Video Routine
11/21/24 06:00
JHON, IgG Reflex to HEp-2 [S] IN AM
Basic Metabolic Panel IN AM
Body Fluid Albumin IN AM
Fluid Source: Peritoneal (Ascites)
Complete Blood Count/No Diff IN AM
Creatine Phosphokinase IN AM
ESR [Erythrocyte Sed Rate] IN AM
Magnesium IN AM
Prothrombin Time IN AM
11/21/24 08:00
FOLic ACID [Folvite] 1 mg PO DAILY
Minoxidil [Loniten] 2.5 mg PO DAILY
Pantoprazole [Protonix] 40 mg PO DAILY
Prednisone [Deltasone] 5 mg PO DAILY
mycophenolate mofetil 1,500 mg PO BID
11/21/24 Dinner
Regular
Fluid Restriction: 1500 mL/day (50 oz)
Abnormal Lab Results
11/20/24 11/20/24
18:36 22:03
RBC 3.34 L 10^6/uL
(4.20-5.40)
Hgb 9.2 L g/dL
(12.0-16.0)
Hct 27.6 L %
(37.0-47.0)
RDW 16.6 H %
(11.5-14.5)
Absolute Lymphs (auto) 0.8 L 10^3/uL
(1.2-3.4)
Immature Gran % 0.6 H %
(0-0.5)
Lymphocytes % 14.6 L %
(20.5-51.1)
Sodium 130 L mmol/L
(135-145)
Potassium 3.0 L mmol/L
(3.5-5.1)
Chloride 85 L mmol/L
(98-107)
Carbon Dioxide 33 H mmol/L
(22-30)
BUN 59 H mg/dl
(7-17)
Creatinine 2.5 H mg/dL
(0.6-1.0)
AST 55 H U/L
(14-36)
Urine Bacteria (Reflex) Few A
(Negative)
Urine Osmolality 268 L mOsm/kg
(300-900)
Urine Albumin (Reflex) 2+ A
(Neg - Trace)
11/20/24 18:36
11/20/24 18:36
Vital Signs
Initial and Last Documented VS:
Initial Vital Signs
Temp Pulse Resp BP Pulse Ox
98.0 F 88 18 106/62 100
11/20/24 18:23 11/20/24 18:23 11/20/24 18:23 11/20/24 18:23 11/20/24 18:23
Last Documented Vital Signs
Temp Pulse Resp BP Pulse Ox
98.0 F 90 20 105/76 97
11/21/24 00:27 11/21/24 00:27 11/21/24 00:27 11/21/24 00:27 11/21/24 01:25
MDM/Problems Addressed
Differential Diagnosis Includes:
Ascites from heart failure, small bowel obstruction, ileus
MDM/Problems Addressed:
Patient presents with abdominal distention and difficulty breathing. I placed a bedside ultrasound probe on her abdomen which revealed large amount of ascites. Patient's labs show mild hyponatremia and hypokalemia. Patient's BUN and creatinine
are elevated at 5092.5. Her creatinine was 1.051 on October 10 as an outpatient. I suspect this is likely from volume contraction and diuresis. Patient would benefit from paracentesis. Will hospitalize the patient for paracentesis tomorrow as
well as cardiology evaluation for any medication adjustments.
*Pulse Oximetry
Patient hypoxic: no
*EKG
Interpreted by ED Provider?: Yes
Comparison EKG: no changes
Heart Rate: 78
Rate: normal
Rhythm: sinus
Ischemia: T-wave inversion (Anterior leads)
*[employer] Interpretation
Rate: normal
Interpretation: normal
Rhythm: sinus
*Critical Care Note
Total Time (30-74mins, 75-104mins- exclusive of procedures): Not Applicable
ED Attending Note
-
Portions of this chart may have been created with voice recognition software.� Occasional wrong word or��sound alike� substitutions may have occurred due to the inherent limitations of voice recognition software.
Discharge Plan
Departure
Patient Disposition: Admit
Date of Disposition: 11/20/24
Time of Disposition: 20:39
Admit to: Med/Surg
Presentation/result/management discussed w/ accepting MD/DO: Hospitalist
Condition: Fair
Discharge Problem:
Ascites
Interventions
Interventions:
*Risk Screen - Suicide Last Done: 11/20/24 18:23
*General Assessment Last Done: 11/20/24 20:12
*Neglect/Abuse Screening Last Done: 11/20/24 20:12
ED- Fall Risk Assessment Last Done: 11/20/24 20:12
*ED COVID-19 Vaccine History Last Done: 11/20/24 20:12
*Nursing Disposition Last Done: 11/20/24 23:55
ED- Cardiac Assessment Last Done: 11/20/24 20:12
ED- Pulmonary Assessment Last Done: 11/20/24 20:12
Discharge Date and Time
Discharge Date/Time: 11/20/24 23:55
[2024-11-20] MEDS: KCL ELIXIR 40 MEQ PO (20:55)
[2024-11-20 21:00] VITALS: BP 107/63
--- NOTE | 2024-11-20 21:22 | HPS.HSE ---
Addendum entered and electronically signed by Brianna Enrique MD 11/27/24 07:02:
Correcton to First line of H&P
Patient is a 49 year old female.
Original Note:
Family Physician
-
Family Physician: Flako Wild MD
Chief Complaint
-
Severe abdominal distention
History of Present Illness
This is a 48-year-old female with past medical history significant for systemic lupus on immunosuppressants, history of CHF with recovered EF, COPD, Raynaud's phenomenon, prior history of sepsis presenting to the emergency department with rapidly
progressive abdominal distention for the last few days.
Patient reported that she has had chronic abdominal distention for several months. She reports that her weight is usually around 160 to 162 pounds. However over the last 2 weeks she has gained weight with weight going to 1 and 67 pounds. She
reports that she has had increased abdominal distention that became more severe over the last 24 hours. She denies any ankle swelling. She feels short of breath due to the abdominal distention but denies any dyspnea on exertion. He denies having
any chest pain. She denies any palpitations. She reports that she takes Lasix 80 mg daily with metolazone once to twice a week. She discussed situation with date night sitter who recommended that she take metolazone 3 times this week. She took them
at 6 today. She noticed no difference in urine output. She denies having any fevers or chills. She denies any changes in her bowel habits. She denied any history of cirrhosis. She denies any jaundice. She does not drink alcohol. She denies
any changes to the color of her urine. Patient stated she has felt dehydrated for several weeks now and has been mostly drinking water. She reports she otherwise had a normal p.o. intake.
Patient reported that she was diagnosed with COVID about 3 days ago. She started taking Paxlovid yesterday and is taking approximately 3 doses. She denies any other medication changes. She is on Saphnelo every month for lupus as well as CellCept
and prednisone. She denies history of lupus nephritis but is apparently being sent to a rod buster for evaluation. Last creatinine was 0.97 in October.
In the emergency department she was afebrile blood pressure was 102/50 with a pulse of 83. She is satting 98% on room air. ECG showed normal sinus rhythm with a rate of 78. Troponin was negative. BNP was negative. CBC was unremarkable.
Electrolytes notable for a sodium of 130, potassium of 3.0, bicarb of 33, BUN was 59 with a creatinine of 2.5 which is up from 0.7.
Abdominal x-ray with nonspecific bowel gas pattern. Abdominal ultrasound w/ small volume ascites with largest pocket in the left lower quadrant.
Medical History
Past Medical History
Past Medical History: Reports Asthma, CHF (Recovered EF, pulmonary hypertension) and Other (Systemic lupus erythematosus)
Past Surgical History: Reports Cholecystectomy and Other
Social History
Tobacco: Non-smoker
Alcohol: None
Drug: None
Family History
Family History: Not pertinent
Allergies / Home Medications
Allergies reflects when Allergies were last updated in [facility].
Home Medications with original date entered in [facility]
Allergy/Medication List:
Allergies
Allergy/AdvReac Type Severity Reaction Status Date / Time
dapsone Allergy Unknown Verified 11/20/24 18:25
hydroxychloroquine Allergy Unknown Verified 11/20/24 18:25
[From Plaquenil]
Home Medications
gabapentin 600 mg tablet 1,200 mg PO HS Pain 08/16/23
omeprazole 40 mg capsule,delayed release 40 mg PO DAILY GERD 08/16/23
sildenafil (pulm.hypertension) 20 mg tablet 20 mg PO Q8H Raynaud's 08/16/23
albuterol sulfate 90 mcg/actuation aerosol inhaler 2 puff inhalation R Q4HPRN PRN sob/wheezing 04/23/24
aspirin 81 mg chewable tablet (Children's Aspirin) 81 mg PO DAILY Blood Clot Prevention/Tx 04/24/24
mycophenolate mofetil 500 mg tablet 1,500 mg PO BID lupus 05/04/24
fenofibrate nanocrystallized 145 mg tablet 145 mg PO DAILY ##0 05/08/24
anifrolumab-fnia 300 mg/2 mL (150 mg/mL) intravenous solution (Saphnelo) 300 mg IV Q4W 11/20/24
biotin 1 mg tablet 1 mg PO DAILY 11/20/24
budesonide-formoterol HFA 160 mcg-4.5 mcg/actuation aerosol inhaler (Symbicort) 2 puff inhalation R BID 11/20/24
folic acid 1 mg tablet 1 mg PO DAILY 11/20/24
furosemide 80 mg tablet (Lasix) 80 mg PO DAILY Heart Failure 11/20/24
ibuprofen 800 mg tablet 800 mg PO DAILYPRN PRN mild pain 11/20/24
minoxidil 2.5 mg tablet 2.5 mg PO DAILY 11/20/24
nirmatrelvir 300 mg (150 mg x2)-ritonavir 100 mg tablet,dose pack (Paxlovid) 0 ea PO .COMPLEX 11/20/24
omalizumab 300 mg/2 mL subcutaneous auto-injector (Xolair) 300 mg SC QMONTH 11/20/24
potassium chloride 20 mEq tablet,extended release(part/cryst) 20 meq PO QID Electrolyte Repletion 11/20/24
prednisone 5 mg tablet 5 mg PO DAILY 11/20/24
tiotropium bromide 2.5 mcg/actuation mist for inhalation (Spiriva Respimat) 2 puff inhalation R DAILY 11/20/24
Review of Systems
-
History Source: Patient
Constitutional: Reports No Symptoms
EENT: Reports No Symptoms
Respiratory: Reports No Symptoms
Cardiac: Reports No Symptoms
Abdomen/GI: Reports Abdominal Pain and Nausea
Musculoskeletal: Reports No Symptoms
Skin: Reports No Symptoms
Neurological: Reports No Symptoms
Endocrine: Reports No Symptoms
Hematologic/Lymphatic: Reports No Symptoms
Psych: Reports No Symptoms
Physical Exam
Vital Signs
Vital Signs
Temp Pulse Resp BP Pulse Ox
98.0 F 82 13 107/63 97
11/20/24 18:23 11/20/24 21:00 11/20/24 21:00 11/20/24 21:00 11/20/24 20:45
Physical Exam
General: Well Developed, Well Nourished, No Apparent Distress and Comfortable
HEENT: NormoCephalic, Anicteric, Moist mucous membranes and Atraumatic
Respiratory: Clear
Cardiac: S1/S2 and Regular Rhythm
Breast: Deferred by me
GI: Tender, Distended and No Hepatosplenomegaly
Rectal: Deferred by Provider
Genito-urinary: Deferred by me
Musculoskeletal: No Clubbing and No Cyanosis
Skin: Warm
Neuro: AO x 3 and Nonfocal/grossly intact
Hematologic/Lymphatic: No Lymphadenopathy
Psych: Calm
Laboratory Results
-
11/20/24 18:36
11/20/24 18:36
Laboratory Results
PT 12.8 Sec (11.4-14.6) 11/20/24 18:36
INR 0.92 11/20/24 18:36
APTT 28.5 Sec (23.4-35.0) 11/20/24 18:36
Total Bilirubin 0.5 mg/dl (0.2-1.3) 11/20/24 18:36
AST 55 U/L (14-36) H 11/20/24 18:36
ALT 23 U/L (0-35) 11/20/24 18:36
Alkaline Phosphatase 50 U/L (38-126) 11/20/24 18:36
Troponin I < 0.012 ng/ml 11/20/24 18:36
Data Reviewed
-
Diagnostic Radiology: Report Reviewed by me
Ultrasound: Report Reviewed by me
Medical Tests (Nuc Med, Echo, EKG etc): Image Personally Visualized and interpreted
Lab Data: Labs Reviewed by me
Old Records: Reviewed
Impression/Plan
-
IMPRESSION:
48-year-old with history of systemic lupus erythematosus, CHF with preserved EF, pulmonary hypertension, presents with abdominal pain and distension and found to be in PRAVEEN. Has abdominal distension on exam which is tense and appears more prominent
and symptomatic than the u/s fluid analysis suggests. Denies urinary symptoms. Lungs are clear, BNP is normal for her age and rules out acute CHF. No history of liver disease that would explain persistent prior ascites which has been attributed
to congestive heart failure. Last renal function was 0.97 in early october and not known to have active lupus nephritis. Recently treated with paxlovid over the last 24 hours for COVID 19 infection. D/W nephrology who recommended transfer due to
lupus and patient medications. However patient does not want to be transferred to [facility] where she has rheumatology. Will look for evidence of active lupus and transfer if positive after confering w/ local rheum here.
PLAN:
1. PRAVEEN - Unclear etiology. On high dose lasix 80mg and metolazone. BUN/Cr > 20. Urine appears clear rather than dark visually. With normal bnp and no ankle edema, unlikely CHF exacerbation. Denies NSAIDs. Suspect hypovolemic from over
diuresis. Degree of ascites is quite small on u/s despite abdominal distention and pain. Possible SBP (no known cirrhosis, had hepatomegally on previous CT abd/pelvis, mild elevated AST trending down) given tenderness.
- admit to med/surg
- check urine electrolytes, creatinine, sediments and spot protein/cr
- orthostatic vs
- hold lasix/metolazone, ibuprofen (prescribed daily but patient denies use)
- chest xray for evidence of pulm edema.
- check echo for RV function
- renal dose gabapentin
- continue cellcept and prednisone
- check esr and JHON for activity of lupus
- gentle hydration overnight
- renal bladder/kidney
- nephrology consult
2. Ascites - Thought to be due to CHF in the past. No other evidence of CHF and small ascites per U/S. No fevers. Denies etoh. BP soft.
- IR for diagnostic paracentesis to evaluate for portal hypertension
- hold diuretics for now
- check liver function with inr, (albumin normal)
- start empiric ceftriaxone + albumin for SBP
3. Hyponatremia - hypovolemic hyponatremia suspected
- free water restriction for now
- urine lytes osm as above
- IV NS for now x 1
- replete K
DVT PPX - heparin sq
Code status - Full Code
[2024-11-20] MEDS: NSS 1000 IV (22:05)
[2024-11-20 22:22] LABS: Urine Albumin 2+ (Neg - Trace); Urine Bilirubin Negative (Negative); Urine Character Clear (Clear); Urine Color Yellow; Urine Glucose Negative (Negative); Urine Ketone Negative (Negative); Urine Leukocyte Negative (Negative); Urine Nitrite Negative (Negative); Urine Occult Blood Negative (Negative); Urine Urobilinogen Negative (Neg - 1+)
[2024-11-20 22:26] LABS: Osmolality Urine 268 mOsm/kg (300-900)
[2024-11-20 22:29] LABS: Urine Bacteria Few (Negative); Urine Red Blood Cell 0-2 /HPF (0-2); Urine Squamous Cell 21-25 /LPF (Few); Urine White Cell 0-2 /HPF (0-5)
[2024-11-20] MEDS: DILAUDID 0.5 MG IV (22:32)
[2024-11-20 22:39] VITALS: BP 93/50
[2024-11-20 22:43] LABS: Protein/creatinine Ratio 0.9; Urine Protein 31 mg/dl; Urine Sodium 64 mmol/L (30-90)
[2024-11-20] MEDS: STERILE WATER FOR INJECTION 20 ML IV (23:24)
[2024-11-20] MEDS: ROCEPHIN 2000 MG IV (23:24)
[2024-11-20] MEDS: FLEXBUMIN 100 IV (23:48)
[2024-11-21 00:08] VITALS: BMI 27.2
[2024-11-21 00:27] VITALS: BP 105/76
--- NOTE | 2024-11-21 00:28 | PTCARENOTE ---
Pt arrived to floor via stretcher from the ED. Pt ambulatory from stretcher to room without difficulty. Pt AAOX3. Pt used bathroom independently. CESPEDES, POX 97% on RA. Lungs dec @ bases. Round, dist, obese abd. Pt denies abd pain, just distention. Pt
reports back pain / which is chronic. Right hand int infusing Albumin as ordered. call montano in reach Will continue to monitor.
[2024-11-21 00:39] VITALS: BMI 27.2
[2024-11-21] MEDS: HEPARIN 5000 UNITS SC ×4 (00:45→23:24)
[2024-11-21] MEDS: NEURONTIN 300 MG PO ×2 (00:45→22:09)
[2024-11-21] MEDS: REVATIO 20 MG PO ×4 (00:45→23:25)
[2024-11-21] MEDS: TYLENOL 650 MG PO ×3 (00:45→23:24)
[2024-11-21] MEDS: DILAUDID 0.5 MG IV ×3 (02:37→12:13)
[2024-11-21] MEDS: FLEXBUMIN 100 IV ×2 (04:32→12:03)
[2024-11-21 06:00] VITALS: BMI 27.2
[2024-11-21 07:03] LABS: Hematocrit 25.8 % (37.0-47.0); Hemoglobin 8.5 g/dL (12.0-16.0); Mean Corp Hgb Conc. 32.9 g/dL (33.0-37.0); Mean Corpuscular Hgb 27.2 pg (27.0-31.0); Mean Corpuscular Volume 82.4 fL (81.0-99.0); Mean Platelet Volume 9.3 fL (7.4-10.4); Platelet Count 266 10^3/uL (130-400); Red Blood Cell Count 3.13 10^6/uL (4.20-5.40); Red Cell Dist. Width 16.5 % (11.5-14.5); White Blood Cell Count 4.9 10^3/uL (4.8-10.8)
[2024-11-21 07:15] LABS: INR 0.96; PT 13.3 Sec (11.4-14.6)
[2024-11-21 07:20] VITALS: BP 101/61
--- NOTE | 2024-11-21 07:25 | W.PN.HOSP.TC ---
Addendum entered and electronically signed by Carrie Gage MD 11/21/24 15:20:
I saw and evaluated the patient independently. I reviewed the resident�s note and agree with findings and plan as documented by Dr. Do.
GENERAL: well developed, well nourished, female in apparent distress from distended abdomen
HEENT: NC/AT--no O2 requirements
HEART: regular rate and rhythm, +S1, +S2
LUNGS : clear to auscultation bilaterally
ABDOM: soft, nontender, distended, + bowel sounds + fluid wave
EXT: no cyanosis, clubbing, or edema
NEUROLOGIC: grossly intact
Acute kidney injury-- unclear--doubt post renal with neg renal/bladder US and low post void residual--doubt renal causes as UA benign--that leaves prerenal--pt with Hx of CHF and on metolazone/lasix as outpt, possible overdiuresis--BP ~100
systolic--pro BNP (295) WNL doubt acute heart failure exacerbation--creat improved with IVF (2.4 to 1.7)--cont following--consideration for renal consult--hold lasix
ascites--unclear cause--no imaging done in ED--no evidence of HF on exam--consider CT scan (will be limited without IV contrast)--will check abdominal US (would like to see liver eval)--await IR for tap--will likely need IV albumin infusion if large
volume fluid removed--Empiric ceftriaxone and albumin started for spontaneous bacterial peritonitis--echo pending
SLE/Raynaud's--ESR < 10--UA neg--no renal involvement at this time--cont cellcept
Hyponatremia--could be due to hypovolemia--consider renal consult--does not appear volume overloaded c/w CHF--cont fluid restriction
Hypokalemia--replete
pulm HTN--cont sildenafil
COVID positive--finish Paxlovid started as outpt
DVT proph
code status -- FULL CODE
Original Note:
Today's Communication/Plan
-
Liver-chem profile labs added to further assess ascites. Consider abdominal ultrasound of the liver. Empiric ceftriaxone and albumin given for spontaneous bacterial peritonitis. Interventional radiology consulted for assessment of potential
peritoneal fluid drainage.
Assessment / Plan
Assessment / Plan
HPI: Patient is a 49-year-old female with a history of lupus, lupus nephritis, congestive heart failure with a preserved ejection fraction who presented to the emergency room for abdominal distention. She stated that she had been experiencing
abdominal distention for many months but it became dramatically worse over the last 1 to 2 days. She reported that her weight was usually around 160 to 162 pounds. However, over the last 2 weeks prior to her presentation she has dramatically
gained more weight. At the time of her presentation her abdomen felt so distended it was making it difficult for her to breathe. The patient stated that she has felt dehydrated for several weeks and has been mostly drinking water. The patient
reported that she was diagnosed with COVID about 3 days prior to her presentation. She started taking Paxlovid the day before her presentation and has taken approximately 3 doses. The patient reported no fevers or chills. Patient denies any chest
pain. The patient felt short of breath due to the abdominal distention but denied any dyspnea on exertion. The patient takes both furosemide and metolazone at home. She is compliant with her medications. Her steam fitter recently recommended
every increase in the amount of diuretics she takes. Despite this she continued to have abdominal swelling. Chest x-ray conducted showed low lung volumes which may be related to poor inspiratory effort, bibasilar parenchymal opacity with possible
considerations including parenchymal scarring, atelectasis, and/or pneumonia. In the emergency department she was afebrile with a blood pressure of 102/50 with a pulse of 83 her oxygen saturation was 98% on room air. ECG showed normal sinus rhythm
with a rate of 78. Troponin was negative, BMP negative, and CBC was unremarkable. The patient was hyponatremic with a sodium of 30, potassium of 3, and bicarb of 33. Labs collected in the emergency department showed a BUN of 59 and a creatinine of
2.5 indicating acute kidney injury. AST was also elevated at 55. The patient was admitted to [facility] for acute kidney injury.
Assessment/Plan:
-Acute kidney injury: Unresolved
Unclear etiology. The patient is on a high dose of Lasix at 80 mg and metolazone. Patient has a normal BNP and no ankle edema which does not suggest CHF exacerbation. Patient does not use NSAIDs. Possibility of hypovolemia from overdiuresis.
Cannot rule out spontaneous bacterial peritonitis (no known cirrhosis, had hepatomegaly on previous CT of the abdomen and pelvis, mild elevated AST that trends down) given tenderness.
Follow creatinine
Check urine electrolytes, protein, RBCs, sendiments
Holding Lasix
Chest x-ray on 11/20/2024 showed low lung volumes. Possibly related to poor inspiratory effort. Cannot entirely exclude subpulmonic effusions, right greater than the left. Bibasilar parenchymal opacity. Possible considerations include
parenchymal scarring, atelectasis, and/or pneumonia.
Echocardiogram pending
Gabapentin has been renally dosed
Follow ESR and JHON for lupus activity
Gentle hydration
Renal and bladder ultrasound conducted on 11/21/2024 showed no focal abnormality of the urinary bladder. Postvoid bladder residual with estimated volume of 119 cc. Normal appearance of both kidneys. Ascites is noted.
-Ascites:
Abdomen is noticeably distended
Abdominal ultrasound conducted on 05/05/2024 showed small volume ascites
Holding diuretics for now
Liver function test with INR
Empiric ceftriaxone and albumin started for spontaneous bacterial peritonitis
-Hyponatremia:
Possibly hypovolemic hyponatremia
Patient is currently on a free water restriction
Follow urine electrolytes and osmolarity
Consider nephrology consult if hyponatremia persists
-Hypokalemia:
Potassium was 3 on 11/20/2024 and 2.9 on 11/21/2024.
Potassium chloride given
-COVID positive:
Monitor patient and maintain adequate contact precautions
Anticipated Discharge: > 48 hours
Subjective/Interval History
-
Met with patient at the bedside. She is visibly uncomfortable and curled up in the position leaning towards the right side of the bed. She complains of acute abdominal distention and pain and repeatedly asks for someone to 'tap me'. Spoke
to the patient and informed her that interventional radiology would come and see her as soon as possible. Supportive counseling given.
Objective Data
-
Labs:
Labs
11/21/24 06:41
11/21/24 06:41
Vital Signs:
Vital Signs
Temp Pulse Resp BP Pulse Ox
98.0 F 90 20 105/76 97
11/21/24 00:27 11/21/24 00:27 11/21/24 00:27 11/21/24 00:27 11/21/24 01:25
I&O
11/20/24 11/21/24 11/22/24
06:59 06:59 06:59
Intake Total 1560 / 1560
Output Total 350 / 350
Balance 1210 / 1210
Review of Systems
-
History Source: Patient
Constitutional: Reports Weakness
EENT: Reports No Symptoms Reported
Respiratory: Reports No Symptoms
Cardiac: Reports No Symptoms
Abdomen/GI: Reports Abdominal Pain, Bloated and Other (Pressure)
Breast: Reports No Symptoms
Genitourinary: Reports No Symptoms
Musculoskeletal: Reports No Symptoms
Skin: Reports No Symptoms
Neuro: Reports No Symptoms
Endocrine: Reports No Symptoms
Hematologic / Lymphatic: Reports No Symptoms
Allergy / Immunology: Reports No Symptoms
Physical Exam
-
General: Well Developed, Well Nourished and Pain
HEENT: Normocephalic, Atraumatic and Moist Mucous Membranes
Respiratory: Clear to Auscultation
Cardiac: Regular Rhythm and S1/S2; Negative JVD
Breast: Deferred by me
GI: Tender, Distended and Other (Visible and palpable ascites)
Rectal: Deferred by Provider
Genito-urinary: Deferred by me
Musculoskeletal: No Clubbing and No Cyanosis
Skin: Warm and Dry
Neuro: Awake, Alert, Oriented and AO x 3
[2024-11-21 07:27] LABS: Blood Urea Nitrogen 54 mg/dl (7-17); Calcium 8.6 mg/dl (8.4-10.2); Carbon Dioxide 32 mmol/L (22-30); Chloride 88 mmol/L (98-107); Creatine Phosphokinase 33 U/L (30-135); Estimated Creatinine Clearance 38 ml/min; Glucose 97 mg/dl (70-99); Magnesium 2.2 mg/dl (1.6-2.3); Potassium 2.9 mmol/L (3.5-5.1); Sodium 130 mmol/L (135-145); eGFR 36.76
[2024-11-21] MEDS: LONITEN 2.5 MG PO (07:51)
[2024-11-21] MEDS: FOLVITE 1 MG PO (07:51)
[2024-11-21] MEDS: DELTASONE 5 MG PO (07:51)
[2024-11-21] MEDS: PROTONIX 40 MG PO (07:51)
[2024-11-21] MEDS: CELLCEPT 1500 MG PO ×2 (07:53→20:44)
[2024-11-21] MEDS: NSS 1000 IV (07:56)
[2024-11-21 10:10] LABS: Erythrocyte Sed Rate 10 mm/hour (0-20)
[2024-11-21 13:47] LABS: ALT (SGPT) 18 U/L (0-35); AST (SGOT) 39 U/L (14-36); Albumin 3.8 g/dl (3.5-5.0); Alkaline Phosphatase 38 U/L (38-126); Direct Bilirubin 0.2 mg/dl (0.0-0.4); Total Bilirubin 0.3 mg/dl (0.2-1.3); Total Protein 6.3 g/dl (6.3-8.2)
[2024-11-21 15:49] VITALS: BP 105/61; BP_SYST 90
[2024-11-21 16:25] VITALS: BP 97/50; BP_SYST 79
[2024-11-21] MEDS: KCL 270 MEQ IV (16:43)
[2024-11-21 17:23] LABS: Body Fluid Albumin 2.4 g/dl; Body Fluid LDH < 90 U/L; Body Fluid Protein 4.4 g/dl
[2024-11-21 18:39] LABS: Body Fluid Mononuclear 91.5 %; Body Fluid Polymorphonuclear 8.5 %; Body Fluid WBC 153 /CUMM
[2024-11-21 18:41] LABS: Body Fluid Second Tech HB
[2024-11-21 22:11] VITALS: BP 106/71
[2024-11-21 22:12] VITALS: BMI 26.6
[2024-11-21] MEDS: NSS IV ×2 (23:01)
[2024-11-21] MEDS: FLEXBUMIN IV (23:23)
[2024-11-21] MEDS: DESYREL 25 MG PO (23:23)
[2024-11-21] MEDS: ROCEPHIN 2000 MG IV (23:24)
[2024-11-21] MEDS: STERILE WATER FOR INJECTION 20 ML IV (23:24)
[2024-11-21 23:27] VITALS: BP 103/53
--- NOTE | 2024-11-21 23:43 | PTCARENOTE ---
Pt c/o feeling bloated, like abdomen getting larger already s/p paracentesis today. Asking for a dose of lasix. Explained PRAVEEN and lasix is on hold currently. Lungs with slight crackles at bases, abdomen does appear round/distended. Had pt step on
scale - 164.5lb. Discussed with AIRWORTHINESS SAFETY INSPECTOR, will hold IVF and reassess. Pt also asking for trazodone to sleep, ordered and provided. Pt also refused last dose of albumin d/t fear of added fluid.
[2024-11-22 03:49] LABS: Hematocrit 27.8 % (37.0-47.0); Hemoglobin 8.8 g/dL (12.0-16.0); Mean Corp Hgb Conc. 31.7 g/dL (33.0-37.0); Mean Corpuscular Hgb 26.6 pg (27.0-31.0); Mean Platelet Volume 8.9 fL (7.4-10.4); Platelet Count 283 10^3/uL (130-400); Red Blood Cell Count 3.31 10^6/uL (4.20-5.40); Red Cell Dist. Width 16.6 % (11.5-14.5); White Blood Cell Count 4.2 10^3/uL (4.8-10.8)
[2024-11-22 04:38] LABS: ALT (SGPT) 17 U/L (0-35); AST (SGOT) 34 U/L (14-36); Albumin 3.5 g/dl (3.5-5.0); Alkaline Phosphatase 38 U/L (38-126); Blood Urea Nitrogen 36 mg/dl (7-17); Calcium 8.7 mg/dl (8.4-10.2); Carbon Dioxide 30 mmol/L (22-30); Chloride 93 mmol/L (98-107); Estimated Creatinine Clearance 54 ml/min; Glucose 92 mg/dl (70-99); Magnesium 2.3 mg/dl (1.6-2.3); Potassium 2.8 mmol/L (3.5-5.1); Sodium 132 mmol/L (135-145); Total Bilirubin 0.4 mg/dl (0.2-1.3); Total Protein 5.9 g/dl (6.3-8.2); eGFR 55.84
[2024-11-22 06:00] VITALS: BMI 26.5
[2024-11-22 07:00] VITALS: BP 93/62
[2024-11-22] MEDS: LONITEN 2.5 MG PO (07:37)
[2024-11-22] MEDS: REVATIO 20 MG PO ×3 (07:37→22:03)
[2024-11-22] MEDS: FOLVITE 1 MG PO (07:37)
[2024-11-22] MEDS: SENOKOT-S 1 TABLET PO (07:43)
[2024-11-22] MEDS: PROTONIX 40 MG PO (07:44)
[2024-11-22] MEDS: DELTASONE 5 MG PO (07:44)
[2024-11-22] MEDS: HEPARIN 5000 UNITS SC ×2 (07:44→16:25)
[2024-11-22] MEDS: CELLCEPT 1500 MG PO ×2 (07:44→22:02)
[2024-11-22] MEDS: KCL 270 MEQ IV (08:31)
[2024-11-22] MEDS: KCL 40 MEQ PO (08:32)
--- NOTE | 2024-11-22 11:09 | W.PN.HOSP.TC ---
Today's Communication/Plan
-
replete K
IVF low rate
consult IR for another tap
consult GI
check CT scan in AM
Assessment / Plan
Assessment / Plan
pt is a 49 year old female
Acute kidney injury-- unclear--doubt post renal with neg renal/bladder US and low post void residual--doubt renal causes as UA benign--that leaves prerenal--pt with Hx of CHF and on metolazone/lasix as outpt, possible overdiuresis?--BP ~100
systolic--pro BNP (295) WNL-- doubt acute heart failure exacerbation--creat improved with IVF (2.4 to 1.7 to 1.2 today)--cont following
ascites--unclear cause--no imaging done in ED--no evidence of HF on exam-- CT scan to look at liver parenchyma or for malignancy, will order for tomorrow after cont IVF today---s/p IR for tap, 3200mls off--Empiric ceftriaxone and albumin started for
spontaneous bacterial peritonitis stopped--echo normal--SAAG consistent with portal hypertension--will consult GI
SLE/Raynaud's--ESR < 10--UA neg--no renal involvement at this time--cont cellcept
Hyponatremia--could be due to hypovolemia--consider renal consult--does not appear volume overloaded c/w CHF--improving with IVF
Hypokalemia--replete
pulm HTN--cont sildenafil
COVID positive--Paxlovid stopped on admission
DVT proph
code status -- FULL CODE
Anticipated Discharge: > 48 hours
Subjective/Interval History
-
Date of Service: November 22, 2024
pt wants to be tapped again and wants to go home
Objective Data
-
Labs:
Laboratory Results
11/22/24
03:28
WBC 4.2 L
Hgb 8.8 L
Hct 27.8 L
Plt Count 283
Sodium 132 L
Potassium 2.8 L
Chloride 93 L
Carbon Dioxide 30
BUN 36 H
Creatinine 1.2 H
Glucose 92
Calcium 8.7
Total Bilirubin 0.4
AST 34
ALT 17
Alkaline Phosphatase 38
Vital Signs:
max temp for 24 hours
11/21/24
23:27
Temp 98.7 F
Vital Signs
Temp Pulse Resp BP Pulse Ox
97.8 F 87 18 93/62 97
11/22/24 07:00 11/22/24 07:37 11/22/24 07:00 11/22/24 07:37 11/22/24 07:00
I&O
11/21/24 11/22/24 11/23/24
06:59 06:59 06:59
Intake Total 1560 / 1560 1680 / 1680
Output Total 350 / 350 550 / 550
Balance 1210 / 1210 1130 / 1130
Review of Systems
-
All other systems: Reviewed and negative
Abdomen/GI: Reports Other (distension)
Physical Exam
-
General: Well Developed, Well Nourished and No Apparent Distress
HEENT: Normocephalic and Atraumatic; Negative Oxygen
Respiratory: Clear to Auscultation; Negative Wheezes or Rhonchi
Cardiac: Regular Rhythm, S1/S2 and Murmur
GI: Soft, Nontender, Normal Bowel Sounds and Distended
Musculoskeletal: No Clubbing, No Cyanosis and No Edema
Skin: Warm
Neuro: Awake
[2024-11-22] MEDS: LASIX 40 MG IV (11:42)
[2024-11-22 15:00] VITALS: BP 101/67
--- NOTE | 2024-11-22 15:28 | CON.GI ---
Consultation
-
Date/Time Consultation Requested: 11/22/2024, 11am
Date/Time Consultation Performed: 11/22/2024 4pm
Requesting Provider: Dr. Gage
Performing Provider: Dr. Salinas
Reason for Consultation: ascites
Medical History
Chief Complaint / HPI
Chief Complaint: abdominal distension
History of Present Illness:
49-year-old female past medical history of lupus c/b lupus nephritis, CHF, COPD, Raynaud's, pulmonary HTN follows at [facility] presenting with abdominal distention. She also was diagnosed with COVID 3 days ago and started Paxlovid. Underwent para as
below.
Per pt has abdominal distention intermittently last year but last week it was acutely worsened. In past managed by diuretics with cardiology.
Past Medical History
Past Medical History: Asthma, CHF, COPD and Other (lupus, pulmonary HTN)
Past Surgical History: Cholecystectomy
Social History
Tobacco: Non-Smoker
Alcohol: None
Drug: None
Allergies / Home Medications
Allergy/AdvReac Type Severity Reaction Status Date / Time
dapsone Allergy Unknown Verified 11/20/24 18:25
hydroxychloroquine Allergy Unknown Verified 11/20/24 18:25
[From Plaquenil]
�Medication �Instructions �Recorded
gabapentin 600 mg tablet 1,200 mg PO HS Pain 08/16/23
omeprazole 40 mg capsule,delayed 40 mg PO DAILY GERD 08/16/23
release
sildenafil (pulm.hypertension) 20 20 mg PO Q8H Raynaud's 08/16/23
mg tablet
albuterol sulfate 90 mcg/actuation 2 puff inhalation R Q4HPRN PRN 04/23/24
aerosol inhaler sob/wheezing
aspirin 81 mg chewable tablet 81 mg PO DAILY Blood Clot 04/24/24
(Children's Aspirin) Prevention/Tx
mycophenolate mofetil 500 mg tablet 1,500 mg PO BID lupus 05/04/24
fenofibrate nanocrystallized 145 145 mg PO DAILY High Cholesterol 05/08/24
mg tablet ##0
anifrolumab-fnia 300 mg/2 mL (150 300 mg IV Q4W Sleep 11/20/24
mg/mL) intravenous solution
(Saphnelo)
biotin 1 mg tablet 1 mg PO DAILY Supplement 11/20/24
budesonide-formoterol HFA 160 2 puff inhalation R BID 11/20/24
mcg-4.5 mcg/actuation aerosol Lung/Breathing Issues
inhaler (Symbicort)
folic acid 1 mg tablet 1 mg PO DAILY Supplement 11/20/24
furosemide 80 mg tablet (Lasix) 80 mg PO DAILY Heart Failure 11/20/24
ibuprofen 800 mg tablet 800 mg PO DAILYPRN PRN mild pain 11/20/24
minoxidil 2.5 mg tablet 2.5 mg PO DAILY 11/20/24
nirmatrelvir 300 mg (150 mg 0 ea PO .COMPLEX covid 11/20/24
x2)-ritonavir 100 mg tablet,dose
pack (Paxlovid)
omalizumab 300 mg/2 mL 300 mg SC QMONTH Lung/Breathing 11/20/24
subcutaneous auto-injector (Xolair) Issues
potassium chloride 20 mEq 20 meq PO QID Electrolyte Repletion 11/20/24
tablet,extended release(part/cryst)
prednisone 5 mg tablet 5 mg PO DAILY Anti-Inflammatory 11/20/24
tiotropium bromide 2.5 2 puff inhalation R DAILY 11/20/24
mcg/actuation mist for inhalation Lung/Breathing Issues
(Spiriva Respimat)
Review of Systems
-
All other systems: A 12 pt ROS was Negative except as stated above in HPI
Vital Signs
Temp Pulse Resp BP Pulse Ox
97.8 F 88 18 98/65 97
11/22/24 07:00 11/22/24 11:42 11/22/24 07:00 11/22/24 11:42 11/22/24 07:00
Physical Exam
Exam
General: Well Developed
HEENT: Normocephalic
Respiratory: Clear
Cardiac: Regular Rhythm
GI: Non Tender and Distended (soft)
Neuro: AO x 3
Psych: Calm
Results
WBC 4.2 10^3/uL (4.8-10.8) L 11/22/24 03:28
Hgb 8.8 g/dL (12.0-16.0) L 11/22/24 03:28
Hct 27.8 % (37.0-47.0) L 11/22/24 03:28
MCV 84.0 fL (81.0-99.0) 11/22/24 03:28
Plt Count 283 10^3/uL (130-400) 11/22/24 03:28
Absolute Neuts (auto) 4.1 10^3/uL (1.4-6.5) 11/20/24 18:36
PT 13.3 Sec (11.4-14.6) 11/21/24 06:41
INR 0.96 11/21/24 06:41
APTT 28.5 Sec (23.4-35.0) 11/20/24 18:36
Sodium 132 mmol/L (135-145) L 11/22/24 03:28
Potassium 2.8 mmol/L (3.5-5.1) L 11/22/24 03:28
Chloride 93 mmol/L (98-107) L 11/22/24 03:28
Carbon Dioxide 30 mmol/L (22-30) 11/22/24 03:28
BUN 36 mg/dl (7-17) H 11/22/24 03:28
Creatinine 1.2 mg/dL (0.6-1.0) H 11/22/24 03:28
Calcium 8.7 mg/dl (8.4-10.2) 11/22/24 03:28
Total Bilirubin 0.4 mg/dl (0.2-1.3) 11/22/24 03:28
AST 34 U/L (14-36) 11/22/24 03:28
ALT 17 U/L (0-35) 11/22/24 03:28
Alkaline Phosphatase 38 U/L (38-126) 11/22/24 03:28
Diagnostic Image Results:
Prior GI Procedures:
EGD:
Colonoscopy:
Assessment / Plan
-
49-year-old female past medical history of lupus, CHF with preserved EF, pulmonary hypertension presenting with abdominal pain and distention found to be in PRAVEEN (improving) with ascites. Paracentesis done yesterday which showed white blood cell
count 153, total protein 4.4, albumin 2.4. Total of 3.2 L removed. Concerned this could be liver in etiology on discussion with hospitalist. Reviewing last abdominal CT from 2023 shows hepatosplenomegaly but mentions no nodular liver. Her
platelet count is normal and her coags are normal which is not typical and cirrhosis. LFTs normal. Protein count high in fluid more typical with heart failure; SAAG is 1.3 (with today's albumin in blood would be 1.1 exactly). A repeat echo was
done and showed normal LV size and function limited study, normal right ventricular size and function. Lupus can cause ascites however typically SAAG < 1.1 (but elevated protein). With the high protein in the fluid most likely this is cardiac vs
lupus induced.
Low suspicion as portal HTN as etiology on d/w Dr. Gage planning on getting CT tomorrow. Can also consider fibroscan as outpatient. Recommend she also d/w rheum re: ascites.
Will need diuretics continued outpatient.
Patient asking about discharge I d/w Dr. Gage due to low K she would have to leave AMA she is agreeable to stay.
-
-
Thank you for consultation and allowing me to participate in the patient's care. Please call the [facility] GI physician during the after hours with any questions or concerns.
[2024-11-22] MEDS: SYMBICORT 160/4.5 MCG INHALER 2 PUFF INH (20:32)
[2024-11-22 20:49] LABS: Potassium 3.4 mmol/L (3.5-5.1)
[2024-11-22] MEDS: DESYREL 25 MG PO (22:02)
[2024-11-22] MEDS: NEURONTIN 300 MG PO (22:03)
[2024-11-22] MEDS: HEPARIN SC (23:29)
[2024-11-22 23:44] VITALS: BP 96/46
[2024-11-23 06:00] VITALS: BMI 26.6
[2024-11-23] MEDS: KCL 40 MEQ PO ×2 (06:00→16:38)
[2024-11-23 06:59] LABS: Hematocrit 27.8 % (37.0-47.0); Hemoglobin 8.9 g/dL (12.0-16.0); Mean Corpuscular Hgb 26.6 pg (27.0-31.0); Mean Corpuscular Volume 83.2 fL (81.0-99.0); Mean Platelet Volume 9.4 fL (7.4-10.4); Platelet Count 297 10^3/uL (130-400); Red Blood Cell Count 3.34 10^6/uL (4.20-5.40); Red Cell Dist. Width 16.7 % (11.5-14.5); White Blood Cell Count 5.1 10^3/uL (4.8-10.8)
[2024-11-23 07:00] VITALS: BP 108/69
[2024-11-23 07:31] LABS: ALT (SGPT) 17 U/L (0-35); AST (SGOT) 31 U/L (14-36); Albumin 3.8 g/dl (3.5-5.0); Alkaline Phosphatase 41 U/L (38-126); Blood Urea Nitrogen 32 mg/dl (7-17); Calcium 8.8 mg/dl (8.4-10.2); Carbon Dioxide 29 mmol/L (22-30); Chloride 94 mmol/L (98-107); Estimated Creatinine Clearance 59 ml/min; Glucose 87 mg/dl (70-99); Magnesium 2.3 mg/dl (1.6-2.3); Potassium 3.4 mmol/L (3.5-5.1); Sodium 133 mmol/L (135-145); Total Bilirubin 0.5 mg/dl (0.2-1.3); Total Protein 6.3 g/dl (6.3-8.2); eGFR > 60.00
[2024-11-23 07:31] LABS: ANA, IgG Reflex to HEp-2 Detected (None Detected)
[2024-11-23] MEDS: SYMBICORT 160/4.5 MCG INHALER INH ×2 (08:42→19:50)
[2024-11-23] MEDS: SPIRIVA RESPIMAT 2.5 MCG INH (08:42)
[2024-11-23] MEDS: HEPARIN SC ×2 (09:35→16:39)
[2024-11-23] MEDS: OMNIPAQUE 50 ML PO (12:17)
[2024-11-23 12:22] LABS: HCG, Urine Qualitative Screen Negative
--- NOTE | 2024-11-23 12:59 | W.PN.HOSP.TC ---
Today's Communication/Plan
-
see bold
Assessment / Plan
Assessment / Plan
Pt seen and examined with NICOLASA Ontiveros present at bedside for the entirety of the interview and physical exam
Gen: NAD, AAOx3.
Eyes: EOMI, PERRLA, no scleral icterus.
Neck: supple.
CV: RRR, +S1/S2, no m/r/g.
Resp: CTAB, no rales, wheezes, or rhonchi.
Abd: +BS, soft, NT, moderate distention due to ascites
Skin: No rashes.
Neuro: CN 2-12 intact, non-focal.
Psych: Normal mood and affect.
CXR: Low lung volumes. Possibly related to poor inspiratory effort. Cannot entirely exclude subpulmonic effusions, right greater than left. Bibasilar parenchymal opacity, as described. Possible considerations include parenchymal scarring,
atelectasis, and/or pneumonia.
Renal U/S: No focal abnormality of the urinary bladder. Post void bladder residual with estimated volume 119 cc. Normal appearance of both kidneys. Ascites is noted.
Abd U/S: Hepatosplenomegaly. Cholecystectomy. Small bilateral pleural effusions. Small volume perihepatic ascites. 7 mm nonobstructing calculus versus cluster of small calculi in the upper pole the right kidney.
Echo: Limited study
Normal left ventricular size and systolic function. Mild concentric left
ventricular hypertrophy. No regional wall motion abnormalities are seen. LV
ejection fraction is 60-65% by Bateman's method of discs.
Since echo April 2024, there is no significant change. However current study is
limited.
Acute kidney injury:
-renal U/S unremarkable as above
-U/A only remarkable for 2+ albumin
-Thought to be prerenal and possibly due to overdiuresis as patient received metolazone and Lasix as an outpatient.
-Patient received IV fluids and her Cr has improved from 2.5 to 1.1
Ascites:
-s/p paracentesis 3200cc on 11/21/24, SAAG 1.4
-LFTs normal
-received empiric albumin and Rocephin earlier during hospitalization, now stopped as ascitic fluid WBC 153
-GI following, discussed with Dr. Salinas
-Echo above, proBNP 295, doubt CHF as etiology. Pt was on Lasix POST CLOSER for heart failure. Pt states she see Dr. Helton. Will have cardiology see.
-CT A/P today
-likely repeat paracentesis tomorrow with cytology
SLE/Raynaud's:
-ESR < 10
-U/A unremarkable
-no renal involvement at this time
-cont cellcept/Prednisone
Other problems:
Anemia of chronic disease: Hb stable
Hyponatremia, mild, improved with IVFs
Hypokalemia: PO K
Pulm HTN: cont sildenafil
COVID positive: Paxlovid stopped on admission
FULL/Heparin
Total time spent on today's encounter was 50 minutes which included time spent in counseling the patient/family regarding diagnosis and treatment plan as listed above, goals of care, and symptom management. Case was discussed with nursing staff,
specialists, and care coordinators/case management. All labs and imaging personally reviewed by me. Remainder the time spent in detailed review of previous records, lab data, imaging, and other medical provider documentation.
Anticipated Discharge: 24 - 48 hours
Subjective/Interval History
-
Date of Service: November 23, 2024
c/o worsening ascites
Objective Data
-
Labs:
Laboratory Results
11/23/24
06:07
WBC 5.1
Hgb 8.9 L
Hct 27.8 L
Plt Count 297
Sodium 133 L
Potassium 3.4 L
Chloride 94 L
Carbon Dioxide 29
BUN 32 H
Creatinine 1.1 H
Glucose 87
Calcium 8.8
Total Bilirubin 0.5
AST 31
ALT 17
Alkaline Phosphatase 41
Vital Signs:
Vital Signs
Temp Pulse Resp BP Pulse Ox
97.7 F 88 18 108/69 92
11/23/24 07:00 11/23/24 07:00 11/23/24 07:00 11/23/24 07:00 11/23/24 07:00
I&O
11/22/24 11/23/24 11/24/24
06:59 06:59 06:59
Intake Total 1680 / 1680 1200 / 1200
Output Total 550 / 550
Balance 1130 / 1130 1200 / 1200
--- NOTE | 2024-11-23 13:41 | CM ---
Alert awake oriented patient that lives with her mom in an apartment. Address changed admission changed in summary. She is independent in driving and all ADLs.Offered VN she declined.
NO adaptive devices.
No VN/SNF hx.
Pharmacy [facility].
PCP DR Wild
PLAN Home no needs
--- NOTE | 2024-11-23 14:53 | PTCARENOTE ---
patient c/o of worsening ascites and abd fullness/belatedness. requesting Lasix. Dr. Bauer not ordering Lasix at this time, consulting Dr. Mills. Also, patient c/o headache and requesting Motrin but due to elevated kidney enzymes Motrin not
ordered. offered Tylenol, but patient reports it didn't work in the past for them. Also, patient requesting food and is hungry, down in CT scan at present, vss, will continue to monitor.
--- NOTE | 2024-11-23 15:15 | CON.CAR ---
Consultation
Consultation Request
Date/Time Consultation Requested: 11/22/2024 at noon
Date/Time Consultation Performed: 11/22/2024 at 1515
Requesting Provider: Beni Bauer MD
Performing Provider: Roddy Mills MD
Reason for Consultation: Ascites, history of heart failure
Medical History
-
History of Present Illness:
49-year-old woman with history of cardiomyopathy with improved EF, lupus with pulmonary hypertension, Raynaud's prior episode of vent dependent respiratory failure August 2023. Admitted with pneumonia and UTI in May 2024, had acute on chronic
heart failure with improved EF during that hospital stay with PRAVEEN, managed with furosemide. Seen in our office in August. CT angiogram of the coronaries was recommended but patient deferred, she also deferred cardiac MRI. Now admitted on
November 20 with abdominal distention. Was taking furosemide 80 mg daily and metolazone once or twice per week. Diagnosed with COVID 3 days prior to admission and started on Paxlovid. She is on Saphnelo monthly for lupus. She has undergone
paracentesis of 3200 mL and cardiology consult is now requested. Although she has dyspnea, major complaint is abdominal bloating. She states that during her May admission with HFpEF she improved with furosemide. She received furosemide 40 mg
yesterday but with minimal response.
Past Medical History
Past Medical History: CHF (History of heart failure with improved EF), HTN, Hypercholesterolemia and Other (systemic lupus, pulmonary hypertension,)
Past Surgical History: Cholecystectomy
Social History
Tobacco: Former Smoker
Alcohol: None
Drug: None
Family History
Family History: Reviewed & Not Pertinent
Allergies / Home Medications
Allergy/AdvReac Type Severity Reaction Status Date / Time
dapsone Allergy Unknown Verified 11/20/24 18:25
hydroxychloroquine Allergy Unknown Verified 11/20/24 18:25
[From Plaquenil]
�Medication �Instructions �Recorded �Confirmed �Type
gabapentin 600 mg tablet 1,200 mg PO HS Pain 08/16/23 11/20/24 History
omeprazole 40 mg capsule,delayed 40 mg PO DAILY GERD 08/16/23 11/20/24 History
release
sildenafil (pulm.hypertension) 20 20 mg PO Q8H Raynaud's 08/16/23 11/20/24 History
mg tablet
albuterol sulfate 90 mcg/actuation 2 puff inhalation R Q4HPRN PRN 04/23/24 11/20/24 History
aerosol inhaler sob/wheezing
aspirin 81 mg chewable tablet 81 mg PO DAILY Blood Clot 04/24/24 11/20/24 History
(Children's Aspirin) Prevention/Tx
mycophenolate mofetil 500 mg tablet 1,500 mg PO BID lupus 05/04/24 11/20/24 History
fenofibrate nanocrystallized 145 145 mg PO DAILY High Cholesterol 05/08/24 11/20/24 History
mg tablet ##0
anifrolumab-fnia 300 mg/2 mL (150 300 mg IV Q4W Sleep 11/20/24 11/20/24 History
mg/mL) intravenous solution
(Saphnelo)
biotin 1 mg tablet 1 mg PO DAILY Supplement 11/20/24 11/20/24 History
budesonide-formoterol HFA 160 2 puff inhalation R BID 11/20/24 11/20/24 History
mcg-4.5 mcg/actuation aerosol Lung/Breathing Issues
inhaler (Symbicort)
folic acid 1 mg tablet 1 mg PO DAILY Supplement 11/20/24 11/20/24 History
furosemide 80 mg tablet (Lasix) 80 mg PO DAILY Heart Failure 11/20/24 11/20/24 History
ibuprofen 800 mg tablet 800 mg PO DAILYPRN PRN mild pain 11/20/24 11/20/24 History
minoxidil 2.5 mg tablet 2.5 mg PO DAILY 11/20/24 11/20/24 History
nirmatrelvir 300 mg (150 mg 0 ea PO .COMPLEX covid 11/20/24 11/20/24 History
x2)-ritonavir 100 mg tablet,dose
pack (Paxlovid)
omalizumab 300 mg/2 mL 300 mg SC QMONTH Lung/Breathing 11/20/24 11/20/24 History
subcutaneous auto-injector (Xolair) Issues
potassium chloride 20 mEq 20 meq PO QID Electrolyte Repletion 11/20/24 11/20/24 History
tablet,extended release(part/cryst)
prednisone 5 mg tablet 5 mg PO DAILY Anti-Inflammatory 11/20/24 11/20/24 History
tiotropium bromide 2.5 2 puff inhalation R DAILY 11/20/24 11/20/24 History
mcg/actuation mist for inhalation Lung/Breathing Issues
(Spiriva Respimat)
Review of Systems
-
All other systems: Negative unless noted
Physical Exam
Vital Signs
Temp Pulse Resp BP Pulse Ox
36.5 C 88 18 108/69 92
11/23/24 07:00 11/23/24 07:00 11/23/24 07:00 11/23/24 07:00 11/23/24 07:00
Lab Results
11/23/24 06:07
11/23/24 06:07
Troponin I < 0.012 ng/ml 11/20/24 18:36
Txe-Z-Fcjldcrzmud Pept 295 pg/ml 11/20/24 18:36
Physical Exam
General: Well Developed and No Apparent Distress
Respiratory: Clear
Cardiac: Regular Rhythm, Peripheral Edema (2+) and Other (Increased P2, no obvious murmur, JVD probably elevated but hard to assess)
GI: Soft and Distended
Skin: Warm and Dry
Neuro: AO x 3
Psych: Calm
Impression / Plan
-
PCP: Dr. Donald
Editorial Assistant: Dr. Helton
Impression: This is a 48y female patient with PMH significant for HFpEF, pulmonary hypertension, SLE / chronic immunosuppression who presents to ED complaining of fever, malaise and back discomfort for the past few weeks and was admitted for
hypotensive and sepsis.
Assessment:
COVID
Acute on chronic HFpEF
HAYDEN history
Small b/l pleural effusions by chest US 04/24
h/o respiratory failure requiring intubation 08/2023
Pulmonary HTN on sildenafil
Lupus
Chronic steroid use due to SLE
Raynaud's
GERD
Former tobacco use
ECHO 08/17/23: EF 43%, WMA of mid inferoseptal, apical septal, and basal mid inferior carlson (this is most c/w 'D shaped septum' from RV pressure overload), enlarged, mod MR, mild to mod TR, small pericardial effusion, PAP 49mmHg
Echo 11/22/2023: EF 55-60%, mild MR, mild TR, estimated PAP 25-30mmHg
Echo 04/24/2024: EF 65%, mild LVH, trace tricuspid regurgitation, estimated PAP of 45-50 mmHg, no pericardial effusion
Echo 11/21/2024: Mild LVH, EF 60-65%, normal RV, normal atria, mild MR, trace tricuspid regurgitation, could not determine pulmonary artery systolic pressure
Plan:
She presents with ascites in the serum albumin ascites gradient and
Relatively high serum/ascitic albumin gradient potentially consistent with HEART FAILURE. Is elevated. Her pulmonary artery pressure was not determined on her recent echo.
In the past, she has had PRAVEEN with furosemide but would favor IV furosemide 80 mg daily.
Would like to avoid right heart cath, etc.
Could consider follow-up echo study attempting to get better estimate of pulmonary artery pressure, IVC diameter etc.
Will discuss with primary rotary drier as to whether SGLT2 antagonist would be appropriate.
Data Reviewed
-
EKG: Tracing Personally Visualized and interpreted (Sinus rhythm vertical axis, prolonged QT with nonspecific T wave changes anteriorly, RSR prime)
Labs: Labs Reviewed by me (Hemoglobin 8.9, potassium 3.4, sodium 133, BUN/creatinine 32 and 1.1, proBNP was 295 on , troponin was negative)
Old Records: Reviewed
[2024-11-23 16:38] VITALS: BP 112/75
[2024-11-23] MEDS: LONITEN 2.5 MG PO (16:38)
[2024-11-23] MEDS: REVATIO 20 MG PO ×2 (16:38→23:19)
[2024-11-23] MEDS: FOLVITE 1 MG PO (16:38)
[2024-11-23] MEDS: CELLCEPT 1500 MG PO ×2 (16:39→19:38)
[2024-11-23] MEDS: DELTASONE 5 MG PO (16:39)
[2024-11-23] MEDS: PROTONIX 40 MG PO (16:39)
[2024-11-23] MEDS: REVATIO PO (16:43)
--- NOTE | 2024-11-23 16:45 | W.PN.GI.CBS2 ---
Addendum entered and electronically signed by Maryse Salinas MD 11/24/24 07:59:
.
Original Note:
Today's Communication / Plan
-
repeat para tmwr
Assessment / Plan
-
49-year-old female past medical history of lupus, CHF with preserved EF, pulmonary hypertension presenting with abdominal pain and distention found to be in PRAVEEN (improving) with ascites. Paracentesis done yesterday which showed white blood cell
count 153, total protein 4.4, albumin 2.4. Total of 3.2 L removed. Concerned this could be liver in etiology on discussion with hospitalist. Reviewing last abdominal CT from 2023 shows hepatosplenomegaly but mentions no nodular liver. Her
platelet count is normal and her coags are normal which is not typical and cirrhosis. LFTs normal. US and CT do not show cirrhotic liver. Protein count high in fluid more typical with heart failure; SAAG is 1.3 (with today's albumin in blood
would be 1.1 exactly). A repeat echo was done and showed normal LV size and function limited study, normal right ventricular size and function. Lupus can cause ascites however typically SAAG < 1.1 (but elevated protein). With the high protein in
the fluid most likely this is cardiac vs lupus induced however echo for cardiac is not impressive.
Low suspicion as portal HTN as etiology. However will get fibroscan outpatient.
Agree with plan for repeat para - would send for cytology, protein, albumin, cell count, glucose, LDH, amylase.
Pt will benefit from diuretics eventually - K is low.
Cardiology consulted as well patient known to Dr. Price.
Additionally CT showed volvulus surgery has seen patient and does not think this is the case.
D/w hospitalist.
Subjective
Subjective
Date of Service: November 23, 2024
worsening abd distension
Objective
Data Reviewed
Laboratory Data:
Laboratory Results
11/23/24 06:07
11/23/24 06:07
Laboratory Results
PT 13.3 Sec (11.4-14.6) 11/21/24 06:41
INR 0.96 11/21/24 06:41
APTT 28.5 Sec (23.4-35.0) 11/20/24 18:36
Phosphorus 3.0 mg/dl (2.5-4.5) 11/22/24 03:28
Magnesium 2.3 mg/dl (1.6-2.3) 11/23/24 06:07
Total Bilirubin 0.5 mg/dl (0.2-1.3) 11/23/24 06:07
AST 31 U/L (14-36) 11/23/24 06:07
ALT 17 U/L (0-35) 11/23/24 06:07
Alkaline Phosphatase 41 U/L (38-126) 11/23/24 06:07
Vital Signs and I&O:
Vital Signs
Temp Pulse Resp BP Pulse Ox
98.3 F 99 18 112/75 94
11/23/24 16:38 11/23/24 16:38 11/23/24 16:38 11/23/24 16:38 11/23/24 16:38
I&O
11/22/24 11/23/24 11/24/24
06:59 06:59 06:59
Intake Total 1680 / 1680 1200 / 1200
Output Total 550 / 550
Balance 1130 / 1130 1200 / 1200
Physical Exam
Physical Exam
HEENT: Anicteric
GI: Distended and Non Tender
--- NOTE | 2024-11-23 16:47 | CON.GS ---
Consultation
-
Date/Time Consultation Requested: 11/23/2024 4:30 PM
Date/Time Consultation Performed: 11/23/2024 4:45 PM
Requesting Provider: Dr. Bauer
Performing Provider: Dr. العراقي
Reason for Consultation: 'Small bowel volvulus'
Medical History
-
Chief Complaint: Ascites
History of Present Illness:
This is a 49-year-old female with a history of remote laparoscopic cholecystectomy, lupus complicated by lupus nephritis, CHF, COPD, Raynaud's, pulmonary hypertension with known abdominal ascites though it has been sometime since she has had
paracentesis. She was diagnosed with COVID 3 days ago and started on Paxlovid. She underwent a paracentesis yesterday with 3.2 L removed. GI and cards following, unclear etiology of the ascites. She got a CT scan today which was read as a 'small
bowel volvulus' but on my read, while there is a small swirl in the mesentery the vessels are open out to the periphery. There is some thickening of the bowel but this could be reactive to the surrounding ascites and very nonspecific. Most
reassuring however is that the oral contrast has made its way through to the colon without any sign of obstruction. Also it would be very unusual for someone with such a limited surgical history to develop adhesions enough to cause a volvulus.
More importantly clinically the patient reports no increased or unusual pain or discomfort. She is in fact hungry.
Past Medical History
Past Medical History: Other (See HPI)
Past Surgical History: Other
Social History
Tobacco: Non-Smoker
Alcohol: None
Drug: None
Family History
Family History: Reviewed & Not Pertinent
Allergies / Home Medications
Allergy/AdvReac Type Severity Reaction Status Date / Time
dapsone Allergy Unknown Verified 11/20/24 18:25
hydroxychloroquine Allergy Unknown Verified 11/20/24 18:25
[From Plaquenil]
�Medication �Instructions �Recorded �Confirmed �Type
gabapentin 600 mg tablet 1,200 mg PO HS Pain 08/16/23 11/20/24 History
omeprazole 40 mg capsule,delayed 40 mg PO DAILY GERD 08/16/23 11/20/24 History
release
sildenafil (pulm.hypertension) 20 20 mg PO Q8H Raynaud's 08/16/23 11/20/24 History
mg tablet
albuterol sulfate 90 mcg/actuation 2 puff inhalation R Q4HPRN PRN 04/23/24 11/20/24 History
aerosol inhaler sob/wheezing
aspirin 81 mg chewable tablet 81 mg PO DAILY Blood Clot 04/24/24 11/20/24 History
(Children's Aspirin) Prevention/Tx
mycophenolate mofetil 500 mg tablet 1,500 mg PO BID lupus 05/04/24 11/20/24 History
fenofibrate nanocrystallized 145 145 mg PO DAILY High Cholesterol 05/08/24 11/20/24 History
mg tablet ##0
anifrolumab-fnia 300 mg/2 mL (150 300 mg IV Q4W Sleep 11/20/24 11/20/24 History
mg/mL) intravenous solution
(Saphnelo)
biotin 1 mg tablet 1 mg PO DAILY Supplement 11/20/24 11/20/24 History
budesonide-formoterol HFA 160 2 puff inhalation R BID 11/20/24 11/20/24 History
mcg-4.5 mcg/actuation aerosol Lung/Breathing Issues
inhaler (Symbicort)
folic acid 1 mg tablet 1 mg PO DAILY Supplement 11/20/24 11/20/24 History
furosemide 80 mg tablet (Lasix) 80 mg PO DAILY Heart Failure 11/20/24 11/20/24 History
ibuprofen 800 mg tablet 800 mg PO DAILYPRN PRN mild pain 11/20/24 11/20/24 History
minoxidil 2.5 mg tablet 2.5 mg PO DAILY 11/20/24 11/20/24 History
nirmatrelvir 300 mg (150 mg 0 ea PO .COMPLEX covid 11/20/24 11/20/24 History
x2)-ritonavir 100 mg tablet,dose
pack (Paxlovid)
omalizumab 300 mg/2 mL 300 mg SC QMONTH Lung/Breathing 11/20/24 11/20/24 History
subcutaneous auto-injector (Xolair) Issues
potassium chloride 20 mEq 20 meq PO QID Electrolyte Repletion 11/20/24 11/20/24 History
tablet,extended release(part/cryst)
prednisone 5 mg tablet 5 mg PO DAILY Anti-Inflammatory 11/20/24 11/20/24 History
tiotropium bromide 2.5 2 puff inhalation R DAILY 11/20/24 11/20/24 History
mcg/actuation mist for inhalation Lung/Breathing Issues
(Spiriva Respimat)
Review of Systems
-
All other systems: Negative unless noted
A 10 point review of systems was completed, and was negative except as per HPI.
Physical Exam
Vital Signs
Temp Pulse Resp BP Pulse Ox
98.3 F 99 18 112/75 94
11/23/24 16:38 11/23/24 16:38 11/23/24 16:38 11/23/24 16:38 11/23/24 16:38
11/22/24 11/23/24 11/24/24
06:59 06:59 06:59
Actual Weight 74.389 kg 74.616 kg
Body Mass Index (BMI) 26.6
Lab Results
11/23/24 06:07
11/23/24 06:07
WBC 5.1 10^3/uL (4.8-10.8) 11/23/24 06:07
Hgb 8.9 g/dL (12.0-16.0) L 11/23/24 06:07
Hct 27.8 % (37.0-47.0) L 11/23/24 06:07
Plt Count 297 10^3/uL (130-400) 11/23/24 06:07
Abs Immat Gran (auto) 0.0 10^3/uL (0-0.05) 11/20/24 18:36
Neutrophils % 75.1 % (42.2-75.2) 11/20/24 18:36
Physical Exam
General: Well Developed and No Apparent Distress
Respiratory: Non Labored Respirations
GI: Soft, Non Tender, Non Distended and Other (Abdomen is protuberant with positive fluid wave shift.)
Data Reviewed
-
CT Scan: Image Personally Visualized and interpreted, Report Reviewed by me, Discussed with Physician, Discussed with Nurse and Discussed with Patient
Labs: Labs Reviewed by me, Discussed with Physician and Discussed with Patient
Total Time Spent with Patient (in minutes): 60
Assessment / Plan
-
This is a 49-year-old female with history significant for laparoscopic cholecystectomy, CHF, pulmonary hypertension, COPD, lupus and ascites of unclear etiology status post recent paracentesis in the setting of a COVID infection. CT scan today
concerning for possible small bowel volvulus though clinically she appears very well and does not meet criteria for this diagnosis.
No acute surgical intervention warranted at this time.
Diet per primary.
General surgery will sign off for now, please call with any questions or concerns.
[2024-11-23] MEDS: LASIX 80 MG IV (18:15)
[2024-11-23] MEDS: KCL 20 MEQ PO (19:38)
[2024-11-23] MEDS: ZOFRAN 4 MG IV (19:40)
[2024-11-23] MEDS: NEURONTIN 300 MG PO (23:19)
[2024-11-23 23:30] VITALS: BP 106/69
[2024-11-24] MEDS: HEPARIN SC ×2 (00:35→08:08)
[2024-11-24] MEDS: ZOFRAN 4 MG IV (02:15)
[2024-11-24 06:00] VITALS: BMI 27.0
[2024-11-24 06:25] LABS: Hematocrit 29.7 % (37.0-47.0); Hemoglobin 9.5 g/dL (12.0-16.0); Mean Corpuscular Hgb 26.6 pg (27.0-31.0); Mean Corpuscular Volume 83.2 fL (81.0-99.0); Mean Platelet Volume 9.3 fL (7.4-10.4); Platelet Count 300 10^3/uL (130-400); Red Blood Cell Count 3.57 10^6/uL (4.20-5.40); Red Cell Dist. Width 16.7 % (11.5-14.5); White Blood Cell Count 4.4 10^3/uL (4.8-10.8)
[2024-11-24 06:57] LABS: Blood Urea Nitrogen 37 mg/dl (7-17); Carbon Dioxide 28 mmol/L (22-30); Chloride 95 mmol/L (98-107); Estimated Creatinine Clearance 43 ml/min; Glucose 88 mg/dl (70-99); Sodium 132 mmol/L (135-145); eGFR 42.72
[2024-11-24 07:05] VITALS: BP 98/55
--- NOTE | 2024-11-24 07:28 | W.PN.HOSP.TC ---
Today's Communication/Plan
-
Appreciate input from cardiology and gastroenterology. Consideration of starting an SGLT2 antagonist. Consideration of follow-up echo study in order to better determine pulmonary artery pressure, IVC diameter, and volume status. Repeat
paracentesis scheduled. Abdominal CT showed small bowel volvulus with no apparent obstruction. There is no proximal luminal dilatation and ingested contrast material passed through the small bowel and was present in the distal small bowel and colon.
Assessment / Plan
Assessment / Plan
Assessment/Plan:
-Acute kidney injury: Unresolved
Unclear etiology. The patient is on a high dose of Lasix at 80 mg and metolazone. Patient has a normal BNP and no ankle edema which does not suggest CHF exacerbation. Patient does not use NSAIDs. Possibility of hypovolemia from overdiuresis.
Cannot rule out spontaneous bacterial peritonitis (no known cirrhosis, had hepatomegaly on previous CT of the abdomen and pelvis, mild elevated AST that trends down) given tenderness.
Follow creatinine -patient received IV fluids and a creatinine improved from 2.5-1.1
Check urine urine analysis only remarkable for 2+ albumin
Holding Lasix
Chest x-ray on 11/20/2024 showed low lung volumes. Possibly related to poor inspiratory effort. Cannot entirely exclude subpulmonic effusions, right greater than the left. Bibasilar parenchymal opacity. Possible considerations include
parenchymal scarring, atelectasis, and/or pneumonia.
Echocardiogram -was a limited study that showed normal left ventricular size and systolic function. Mild concentric left ventricular hypertrophy. Left ventricular ejection fraction is 60 to 65%. No significant change from echo conducted on April
2023.
Gabapentin has been renally dosed
Follow ESR and JHON for lupus activity
Gentle hydration
Renal and bladder ultrasound conducted on 11/21/2024 showed no focal abnormality of the urinary bladder. Postvoid bladder residual with estimated volume of 119 cc. Normal appearance of both kidneys. Ascites is noted.
-Ascites:
Abdomen is noticeably distended
Abdominal ultrasound conducted on 05/05/2024 showed small volume ascites
Holding diuretics for now
Liver function test normal
Empiric ceftriaxone and albumin started for spontaneous bacterial peritonitis
Paracentesis conducted on 11/21/2024 produced 3200 cc and had SAAG 1.4
Gastroenterology consulted
proBNP 295 which does not suggest CHF as etiology. Patient is on Lasix for heart failure. She states that she sees Dr. Nino - Cardiology consulted -they are considering whether an SGLT2 antagonist would be appropriate
Repeat paracentesis with cytology scheduled
-Small bowel volvulus: Monitoring
Abdominal CT conducted on 11/23/2024 showed small bowel volvulus. There may be vascular compromise, with associated circumferential wall thickening involving the proximal to mid jejunum. There is also edema with mild vascular congestion involving
the small bowel mesentery. No apparent obstruction, without proximal luminal dilatation, and ingested contrast material has passed through the small bowel and is present within the distal small bowel and colon.
-SLE/Raynaud's:
ESR <10
Urine analysis was unremarkable
No renal involvement seen
Continue CellCept/prednisone
-Anemia of chronic disease: Stable
Follow hemoglobin
-Hyponatremia:
Possibly hypovolemic hyponatremia
Patient is currently on a free water restriction
Follow urine electrolytes and osmolarity
Consider nephrology consult if hyponatremia persists
-Hypokalemia:
Potassium was 3 on 11/20/2024 and 2.9 on 11/21/2024.
Potassium chloride [id number]-[id number] 4.0 on 11/24/2024
-Pulmonary hypertension:
Continue sildenafil
-COVID positive:
Monitor patient and maintain adequate contact precautions.
Paxlovid was stopped on admission
Anticipated Discharge: > 48 hours
Subjective/Interval History
-
Met with patient at the bedside. She complains of abdominal distention and pressure resulting in pain. The patient cannot take deep breaths and is breathing in a short shallow pattern. Patient is anxious and continues to inquire about when she
have fluid removed next.
Objective Data
-
Labs:
Laboratory Results
11/24/24
06:10
WBC 4.4 L
Hgb 9.5 L
Hct 29.7 L
Plt Count 300
Sodium 132 L
Potassium 4.0
Chloride 95 L
Carbon Dioxide 28
BUN 37 H
Creatinine 1.5 H
Glucose 88
Calcium 9.0
Vital Signs:
Vital Signs
Temp Pulse Resp BP Pulse Ox
98.9 F 108 19 98/55 97
11/24/24 07:05 11/24/24 07:05 11/24/24 07:05 11/24/24 07:05 11/24/24 07:05
I&O
11/23/24 11/24/24 11/25/24
06:59 06:59 06:59
Intake Total 1200 / 1200 480 / 480
Output Total 250 / 250
Balance 1200 / 1200 230 / 230
Review of Systems
-
History Source: Patient
EENT: Reports No Symptoms Reported
Respiratory: Reports Trouble Breathing
Cardiac: Reports No Symptoms
Abdomen/GI: Reports Abdominal Pain and Nausea
Breast: Reports No Symptoms
Genitourinary: Reports No Symptoms
Musculoskeletal: Reports No Symptoms
Skin: Reports No Symptoms
Neuro: Reports No Symptoms
Endocrine: Reports No Symptoms
Psych: Reports Anxious
Physical Exam
-
General: Well Developed and Well Nourished
HEENT: Normocephalic, Atraumatic and Moist Mucous Membranes
Respiratory: Clear to Auscultation and Other (Short shallow breaths)
Cardiac: S1/S2; Negative JVD
Breast: Deferred by me
GI: Tender and Distended
Rectal: Deferred by Provider
Genito-urinary: Deferred by me
Musculoskeletal: No Clubbing and No Cyanosis
Skin: Warm and Dry
Neuro: Awake, Alert, Oriented and AO x 3
Psych: Anxious
[2024-11-24] MEDS: SPIRIVA RESPIMAT 2.5 MCG 2 PUFF INH (07:49)
[2024-11-24] MEDS: SYMBICORT 160/4.5 MCG INHALER 2 PUFF INH (07:50)
[2024-11-24] MEDS: LASIX 80 MG IV (08:04)
[2024-11-24] MEDS: FOLVITE 1 MG PO (08:06)
[2024-11-24] MEDS: DELTASONE 5 MG PO (08:06)
[2024-11-24] MEDS: KCL 20 MEQ PO ×2 (08:06→21:18)
[2024-11-24] MEDS: CELLCEPT 1500 MG PO ×2 (08:06→21:21)
[2024-11-24] MEDS: REVATIO 20 MG PO ×3 (08:07→23:28)
[2024-11-24] MEDS: PROTONIX 40 MG PO (08:07)
[2024-11-24] MEDS: LONITEN 2.5 MG PO (08:07)
[2024-11-24] MEDS: HEPARIN 5000 UNITS SC ×2 (08:13→17:04)
--- NOTE | 2024-11-24 08:34 | W.PN.UPDATE ---
Update Note
Progress Note Update
I saw and evaluated the patient. I reviewed the resident�s note and agree with findings and plan as documented in the resident�s note.
Pt seen and examined with NICOLASA Mondragon present at bedside for the entirety of the interview and physical exam
Gen: NAD, AAOx3.
Eyes: EOMI, PERRLA, no scleral icterus.
Neck: supple.
CV: RRR, +S1/S2, 12/03 systolic murmur
Resp: CTAB anteriorly, no rales, wheezes, or rhonchi.
Abd: +BS, soft, NT, minimal distention due to ascites
Skin: No rashes.
Neuro: CN 2-12 intact, non-focal.
Psych: Normal mood and affect.
CXR: Low lung volumes. Possibly related to poor inspiratory effort. Cannot entirely exclude subpulmonic effusions, right greater than left. Bibasilar parenchymal opacity, as described. Possible considerations include parenchymal scarring,
atelectasis, and/or pneumonia.
Renal U/S: No focal abnormality of the urinary bladder. Post void bladder residual with estimated volume 119 cc. Normal appearance of both kidneys. Ascites is noted.
Abd U/S: Hepatosplenomegaly. Cholecystectomy. Small bilateral pleural effusions. Small volume perihepatic ascites. 7 mm nonobstructing calculus versus cluster of small calculi in the upper pole the right kidney.
CT A/P 11/23/24: Small bowel volvulus. There may be vascular compromise, with associated circumferential wall thickening involving the proximal to mid jejunum. There is also edema with mild vascular congestion involving the small bowel mesentery. No
apparent obstruction, without proximal luminal dilatation, and ingested contrast material has passed through the small bowel and is present within distal small bowel and colon. Moderate to large ascites has developed since prior examination. No
focal collection or abscess. No free air. Stable small bilateral pleural effusions. Stable hepatosplenomegaly. Stable mild adenopathy.
Echo: Limited study
Normal left ventricular size and systolic function. Mild concentric left
ventricular hypertrophy. No regional wall motion abnormalities are seen. LV
ejection fraction is 60-65% by Bateman's method of discs.
Since echo April 2024, there is no significant change. However current study is
limited.
Acute kidney injury:
-renal U/S unremarkable as above
-U/A only remarkable for 2+ albumin
-Thought to be prerenal and possibly due to overdiuresis as patient received metolazone and Lasix as an outpatient.
-Patient received IV fluids and her Cr has improved from 2.5 to 1.1. Now 1.5 after starting IV lasix on 11/22/24 for acute HFpEF (CRS)
Acute HFpEF:
-IV lasix started 11/22/24 and increased to 80mg IV daily on 11/23/24
-cards following, discussed with cards
-GDMT limited by hypotension
-repeat echo
-if Cr worse tomorrow pt will need RHC
Ascites:
-s/p paracentesis 3200cc on 11/21/24, SAAG 1.4
-LFTs normal
-received empiric albumin and Rocephin earlier during hospitalization, now stopped as ascitic fluid WBC 153
-GI saw in c/s
-Echo above, treatment of acute HFpEF (which could be an etiology of the pt's ascites) as above
-CT A/P above, appreciate surgery c/s, no SB volvulus as per discussion with Dr. العراقي
-repeat paracentesis today for 1650cc, cytology pending
SLE/Raynaud's:
-ESR < 10
-U/A unremarkable
-no renal involvement at this time
-cont cellcept/Prednisone
Other problems:
Anemia of chronic disease: Hb stable
Hyponatremia, mild, stable
Hypokalemia, resolved
Pulm HTN: cont sildenafil
COVID positive: Paxlovid stopped on admission
FULL/Heparin
Total time spent on today's encounter was 51 minutes which included time spent in counseling the patient/family regarding diagnosis and treatment plan as listed above, goals of care, and symptom management. Case was discussed with nursing staff,
specialists, and care coordinators/case management. All labs and imaging personally reviewed by me. Remainder the time spent in detailed review of previous records, lab data, imaging, and other medical provider documentation.
[2024-11-24 09:25] VITALS: BP 107/82; BP_SYST 115
[2024-11-24 10:50] LABS: Body Fluid WBC 103 /CUMM
[2024-11-24 10:58] LABS: Body Fluid Second Tech CMB
[2024-11-24 11:04] LABS: Body Fluid Albumin 2.1 g/dl; Body Fluid Amylase 41 U/L; Body Fluid Glucose 90 mg/dl; Body Fluid LDH < 90 U/L
[2024-11-24] MEDS: TYLENOL 650 MG PO ×2 (11:09→17:08)
[2024-11-24 11:20] VITALS: BP 96/56
--- NOTE | 2024-11-24 12:09 | W.PN.CARDCBS ---
Addendum entered and electronically signed by Issac Dyson DO 11/24/24 13:59:
I saw and examined the patient.
The [employer]'s note was reviewed and I agree with the note.
Comment:
Plan:
Cont IV diuresis with transtion to oral lasix next 24 hrs.
Will hold lasix in am until cr is known.
If cr continues to rise, may consider right heart cath. She states that she was due for a routine right heart cath next month through [facility] for her PHTN
Repeat paracentesis today had 1650 cc out.
Paracentesis 3200 cc out Nov 21 2024.
Reviewed with primary service and GI
Discussed with primary service.
Original Note:
Today's Communication / Plan
-
Continue IV diuresis with consideration of transition to oral lasix in next 24-48 hours
Check limited echo 11/25/24 to assess pulmonary pressures
Check proBNP and BMP in am
Repeat paracentesis today
Cost analysis for SGLT2 inhibitor
Impression / Plan
-
PCP: Dr. Donald
Exerciser: Dr. Helton
Impression: This is a 48y female patient with PMH significant for HFpEF, pulmonary hypertension, SLE / chronic immunosuppression who presents to ED complaining of fever, malaise and back discomfort for the past few weeks and was admitted for
hypotensive and sepsis.
Assessment:
Presented 11/20/2024 with abdominal distention, pain
COVID tested positive 11/19/24, treated with Paxlovid
Acute on chronic HFpEF
Ascities
s/p paracentesis 3200 mL of ascitic fluid 11/21/2024
s/p paracentesis 1650 cc of clear yellow ascitic fluid 11/24/2024
Small b/l pleural effusions
history of iron deficiency anemia
h/o respiratory failure requiring intubation 08/2023
Pulmonary HTN on sildenafil
Lupus
Chronic steroid use due to SLE
Raynaud's
GERD
Former tobacco use
Cholecystectomy
ECHO 08/17/23: EF 43%, WMA of mid inferoseptal, apical septal, and basal mid inferior carlson (this is most c/w 'D shaped septum' from RV pressure overload), enlarged, mod MR, mild to mod TR, small pericardial effusion, PAP 49mmHg
Echo 11/22/2023: EF 55-60%, mild MR, mild TR, estimated PAP 25-30mmHg
Echo 04/24/2024: EF 65%, mild LVH, trace tricuspid regurgitation, estimated PAP of 45-50 mmHg, no pericardial effusion
Echo 11/21/2024: Mild LVH, EF 60-65%, normal RV, normal atria, mild MR, trace tricuspid regurgitation, could not determine pulmonary artery systolic pressure
Plan:
Presented 11/20/2024 with abdominal distention, pain. Found to have significant ascites.
Status post paracentesis 11/21/2024 with removal of 3200 mL of ascitic fluid. Patient underwent repeat paracentesis on 11/24/2024 with additional removal of 1650 cc of ascitic fluid. Cytology pending
PproBNP was normal at 295 on admission. Unclear if ascities heart failure vs Lupus related. Initially had PRAVEEN with creatinine of 2.5 on admission. Diuretic was placed on hold with improvement of creatinine to 1.1 (11/23). Lasix 80 mg IV was
resumed 11/23. Creatinine currently at 1.5. Will repeat BMP and proBNP in a.m.. Consider transitioning to oral diuretic in a.m. pending creatinine
If volume status continues to be difficult to assess could consider right heart catheterization. Will hold for now
If creat stable would consider starting SGLT2 inhibitor. Will have case management perform cost analysis.
Longstanding history of pulmonary hypertension followed by Ro[facility] p[facility]rez on Sildenafil. Her pulmonary artery pressure was not determined on her echo 11/21/2024. Will have have patient get limited echo 11/25/24.
COVID positive prior to arrival treated with Paxlovid which was stopped on admission.
Progress Note - Exerciser
Subjective
Date of Service: November 24, 2024
Objective
Labs:
11/24/24 06:10
11/24/24 06:10
Labs
Hgb 9.5 g/dL (12.0-16.0) L 11/24/24 06:10
Hct 29.7 % (37.0-47.0) L 11/24/24 06:10
Plt Count 300 10^3/uL (130-400) 11/24/24 06:10
PT 13.3 Sec (11.4-14.6) 11/21/24 06:41
INR 0.96 11/21/24 06:41
APTT 28.5 Sec (23.4-35.0) 11/20/24 18:36
Sodium 132 mmol/L (135-145) L 11/24/24 06:10
Potassium 4.0 mmol/L (3.5-5.1) 11/24/24 06:10
BUN 37 mg/dl (7-17) H 11/24/24 06:10
Creatinine 1.5 mg/dL (0.6-1.0) H 11/24/24 06:10
Glucose 88 mg/dl (70-99) 11/24/24 06:10
Vital Signs and I&O:
Vital Signs
Temp Pulse Resp BP Pulse Ox
98.6 F 110 18 96/56 97
11/24/24 11:20 11/24/24 11:20 11/24/24 11:20 11/24/24 11:20 11/24/24 11:20
Vital Signs
Temp Pulse Resp BP Pulse Ox
98.6 F 110 18 96/56 97
11/24/24 11:20 11/24/24 11:20 11/24/24 11:20 11/24/24 11:20 11/24/24 11:20
Intake & Output
11/22/24 11/23/24 11/24/24 11/25/24
06:59 06:59 06:59 06:59
Intake Total 1680 / 1680 1200 / 1200 480 / 480
Output Total 550 / 550 250 / 250
Balance 1130 / 1130 1200 / 1200 230 / 230
Physical Exam
Physical Exam
GEN: No distress, awake, alert, oriented x3
HEENT: supple, anicteric, mmm
LUNGS: mildly decreased at bases otherwise CTA, no wheezes, rales
CV: Reg, S1/S2, no murmur
ABD: firm, mild distention
EXT: No cyanosis, clubbing, edema
NEURO: Gross non-focal
SKIN: Warm, pink, dry. No rash
--- NOTE | 2024-11-24 13:56 | W.PN.GI.CBS2 ---
Addendum entered and electronically signed by Maryse Salinas MD 11/24/24 15:17:
I saw and examined the patient.
The WEB PRESS OPERATOR APPRENTICE or PA's note was reviewed and I agree with the note.
Comment: 49-year-old female past medical history of lupus, CHF with preserved EF, pulmonary hypertension presenting with abdominal pain and distention found to be in PRAVEEN (improving) with ascites. Paracentesis done yesterday which showed white blood
cell count 153, total protein 4.4, albumin 2.4. Total of 3.2 L removed. GI consulted for concern this could be liver in etiology on discussion with hospitalist. Reviewing last abdominal CT from 2023 shows hepatosplenomegaly but mentions no
nodular liver. Her platelet count is normal and her coags are normal which is not typical and cirrhosis. LFTs normal. US and CT do not show cirrhotic liver. Protein count high in fluid more typical with heart failure SAAG >1.1. Appreciate
cardiology input they agree this is more cardiac.
We ordered repeat para again which again shows high protein. Full fluid work up and analysis sent off inc cytology.
No need for fibroscan outpatient reviewed with patient.
D/w hospitalist. GI will sign off. Pls call with ?s.
Original Note:
Today's Communication / Plan
-
etiology of ascites likely related to cardiac etiology
albumin, platelets and INR remain normal
repeat para for 1650 ml -- both taps more c/w congestive/cardiac etiology high SAAG and high protein
amylase 41, glucose 90
appreciate cards input - for repeat echo, proBNP 11/25
diuretic per cards
will sign off call with questions
Assessment / Plan
-
49-year-old female past medical history of lupus, CHF with preserved EF, pulmonary hypertension presenting with abdominal pain and distention found to be in PRAVEEN (improving) with ascites. Paracentesis done 11/21 which showed white blood cell count
153, total protein 4.4, albumin 2.4. Total of 3.2 L removed. Concerned this could be liver in etiology on discussion with hospitalist. Reviewing last abdominal CT from 2023 shows hepatosplenomegaly but mentions no nodular liver. Her platelet
count is normal and her coags are normal which is not typical and cirrhosis. LFTs normal. US and CT do not show cirrhotic liver. Protein count high in fluid more typical with heart failure; SAAG is 1.3 (with today's albumin in blood would be 1.1
exactly). A repeat echo was done and showed normal LV size and function limited study, normal right ventricular size and function. Lupus can cause ascites however typically SAAG < 1.1 (but elevated protein). With the high protein in the fluid most
likely this is cardiac vs lupus induced however echo for cardiac is not impressive.
-ascites 11/21 3200ml (SAAG 1.4, high protein), 11/24 1650 (SAAG 1.7 high protein
-covid + 11/19
-PRAVEEN on admission
-hx HFpEF
-pulm HTN
-SLE/chronic immunosuppression
-b/l effusion
history of iron deficiency anemia
h/o respiratory failure requiring intubation 08/2023
Raynaud's
GERD
Former tobacco use
Cholecystectomy
PLAN:
etiology of ascites likely related to cardiac etiology
albumin, platelets and INR remain normal
repeat para for 1650 ml -- both taps more c/w congestive/cardiac etiology high SAAG and high protein
amylase 41, glucose 90
appreciate cards input - for repeat echo, proBNP 11/25
diuretic per cards
will sign off call with questions
Subjective
Subjective
Date of Service: November 24, 2024
11/23 brown loose stool on regular diet
Objective
Data Reviewed
Laboratory Data:
Laboratory Results
11/24/24 06:10
11/24/24 06:10
Laboratory Results
PT 13.3 Sec (11.4-14.6) 11/21/24 06:41
INR 0.96 11/21/24 06:41
APTT 28.5 Sec (23.4-35.0) 11/20/24 18:36
Phosphorus 3.0 mg/dl (2.5-4.5) 11/22/24 03:28
Magnesium 2.3 mg/dl (1.6-2.3) 11/23/24 06:07
Total Bilirubin 0.5 mg/dl (0.2-1.3) 11/23/24 06:07
AST 31 U/L (14-36) 11/23/24 06:07
ALT 17 U/L (0-35) 11/23/24 06:07
Alkaline Phosphatase 41 U/L (38-126) 11/23/24 06:07
Vital Signs and I&O:
Vital Signs
Temp Pulse Resp BP Pulse Ox
98.6 F 110 18 96/56 97
11/24/24 11:20 11/24/24 11:20 11/24/24 11:20 11/24/24 11:20 11/24/24 11:20
I&O
11/23/24 11/24/24 11/25/24
06:59 06:59 06:59
Intake Total 1200 / 1200 480 / 480
Output Total 250 / 250
Balance 1200 / 1200 230 / 230
Physical Exam
Physical Exam
HEENT: Anicteric and Moist mucous membranes
Cardiology: Normal Sinus Rhythm
Pulmonary: Clear
GI: Soft, Distended and Non Tender
Extremities: No Edema
Neuro: Non Focal
--- NOTE | 2024-11-24 14:08 | CM ---
CM reviewed chart and consulted for med pricing
Call with [facility] [phone]
Farxiga 10 mg QD and Jardiance 10 mg QD same costs
$3/brand name 30 days
$1/generic 30 days
no prior required
TT/Apryl cardio
Discharge Diposition- home, no needs anticipated
[2024-11-24 15:05] VITALS: BP 94/54
[2024-11-24] MEDS: SYMBICORT 160/4.5 MCG INHALER INH (20:08)
[2024-11-24] MEDS: NEURONTIN 300 MG PO (21:18)
[2024-11-24] MEDS: MELATONIN 5 MG PO (21:19)
[2024-11-24 21:27] VITALS: BP 111/72
[2024-11-25] MEDS: HEPARIN SC (01:03)
[2024-11-25 01:37] LABS: ANA, HEp-2, IgG Detected (<1:80)
[2024-11-25] MEDS: ZOFRAN 4 MG IV (03:15)
[2024-11-25 06:00] VITALS: BMI 26.2
[2024-11-25 06:49] LABS: Hematocrit 28.7 % (37.0-47.0); Hemoglobin 9.3 g/dL (12.0-16.0); Mean Corp Hgb Conc. 32.4 g/dL (33.0-37.0); Mean Corpuscular Hgb 27.2 pg (27.0-31.0); Mean Corpuscular Volume 83.9 fL (81.0-99.0); Mean Platelet Volume 9.2 fL (7.4-10.4); Platelet Count 281 10^3/uL (130-400); Red Blood Cell Count 3.42 10^6/uL (4.20-5.40); Red Cell Dist. Width 16.9 % (11.5-14.5); White Blood Cell Count 3.8 10^3/uL (4.8-10.8)
[2024-11-25 07:03] LABS: NT-proBNP 102 pg/ml
[2024-11-25 07:05] VITALS: BP 123/68
[2024-11-25 07:23] LABS: ALT (SGPT) 41 U/L (0-35); AST (SGOT) 118 U/L (14-36); Albumin 3.6 g/dl (3.5-5.0); Alkaline Phosphatase 45 U/L (38-126); Blood Urea Nitrogen 29 mg/dl (7-17); Calcium 8.8 mg/dl (8.4-10.2); Carbon Dioxide 28 mmol/L (22-30); Chloride 95 mmol/L (98-107); Estimated Creatinine Clearance 59 ml/min; Glucose 90 mg/dl (70-99); Potassium 4.1 mmol/L (3.5-5.1); Sodium 130 mmol/L (135-145); Total Bilirubin 0.6 mg/dl (0.2-1.3); Total Protein 6.1 g/dl (6.3-8.2); eGFR > 60.00
[2024-11-25] MEDS: SPIRIVA RESPIMAT 2.5 MCG 2 PUFF INH (07:27)
[2024-11-25] MEDS: SYMBICORT 160/4.5 MCG INHALER 2 PUFF INH (07:27)
[2024-11-25] MEDS: CELLCEPT 1500 MG PO (08:02)
[2024-11-25] MEDS: REVATIO 20 MG PO (08:03)
[2024-11-25] MEDS: DELTASONE 5 MG PO (08:03)
[2024-11-25] MEDS: LONITEN 2.5 MG PO (08:03)
[2024-11-25] MEDS: PROTONIX 40 MG PO (08:03)
[2024-11-25] MEDS: HEPARIN 5000 UNITS SC (08:05)
[2024-11-25] MEDS: FOLVITE 1 MG PO (08:05)
[2024-11-25] MEDS: KCL 20 MEQ PO (08:05)
--- NOTE | 2024-11-25 08:25 | W.PN.UPDATE ---
Addendum entered and electronically signed by Beni Bauer MD 11/25/24 14:02:
Total time spent on d/c = 35 min. This included today's physical exam, progress note, review of laboratory and diagnostic data, preparation of discharge documents and prescriptions, and discussions about the pt's hospital course and discharge plan
with the patient and other medical researcher involved in the patient's care.
Original Note:
Update Note
Progress Note Update
I saw and evaluated the patient. I reviewed the resident�s note and agree with findings and plan as documented in the resident�s note.
No new complaints.
Pt seen and examined with RN Pattie Mondragon present at bedside for the entirety of the interview and physical exam
Gen: remains NAD, AAOx3.
Eyes: EOMI, PERRLA, no scleral icterus.
Neck: supple.
CV: RRR, +S1/S2, 2/6 systolic murmur
Resp: CTAB, no rales, wheezes, or rhonchi.
Abd: remains +BS, soft, NT, minimal distention due to ascites
Skin: No rashes.
Neuro: CN 2-12 intact, non-focal.
Psych: Normal mood and affect.
CXR: Low lung volumes. Possibly related to poor inspiratory effort. Cannot entirely exclude subpulmonic effusions, right greater than left. Bibasilar parenchymal opacity, as described. Possible considerations include parenchymal scarring,
atelectasis, and/or pneumonia.
Renal U/S: No focal abnormality of the urinary bladder. Post void bladder residual with estimated volume 119 cc. Normal appearance of both kidneys. Ascites is noted.
Abd U/S: Hepatosplenomegaly. Cholecystectomy. Small bilateral pleural effusions. Small volume perihepatic ascites. 7 mm nonobstructing calculus versus cluster of small calculi in the upper pole the right kidney.
CT A/P 11/23/24: Small bowel volvulus. There may be vascular compromise, with associated circumferential wall thickening involving the proximal to mid jejunum. There is also edema with mild vascular congestion involving the small bowel mesentery. No
apparent obstruction, without proximal luminal dilatation, and ingested contrast material has passed through the small bowel and is present within distal small bowel and colon. Moderate to large ascites has developed since prior examination. No
focal collection or abscess. No free air. Stable small bilateral pleural effusions. Stable hepatosplenomegaly. Stable mild adenopathy.
Echo 11/21/24: Limited study
Normal left ventricular size and systolic function. Mild concentric left
ventricular hypertrophy. No regional wall motion abnormalities are seen. LV
ejection fraction is 60-65% by Bateman's method of discs.
Since echo April 2024, there is no significant change. However current study is
limited.
Acute kidney injury:
-renal U/S unremarkable as above
-U/A only remarkable for 2+ albumin
-Thought to be prerenal and possibly due to overdiuresis as patient received metolazone and Lasix as an outpatient.
-Patient received IV fluids and her Cr has improved from 2.5 to 1.1.
Acute HFpEF:
-IV lasix started 11/22/24 and increased to 80mg IV daily on 11/23/24
-cards following
-GDMT limited by hypotension
-repeat echo
Ascites:
-s/p paracentesis 3200cc on 11/21/24, SAAG 1.4
-LFTs normal
-received empiric albumin and Rocephin earlier during hospitalization, now stopped as ascitic fluid WBC 153
-GI saw in c/s
-Echo above, treatment of acute HFpEF (which could be an etiology of the pt's ascites) as above
-CT A/P above, appreciate surgery c/s, no SB volvulus as per discussion with Dr. العراقي
-repeat paracentesis 11/24/24 for 1650cc, cytology pending
SLE/Raynaud's:
-ESR < 10
-U/A unremarkable
-no renal involvement at this time
-cont cellcept/Prednisone
Other problems:
Anemia of chronic disease: Hb stable
Hyponatremia, mild, stable
Hypokalemia, resolved
Pulm HTN: cont sildenafil
COVID positive: Paxlovid stopped on admission
PRAVEEN due to CRS
FULL/Heparin
Dispo: Pt states that cardiology saw the pt this AM and stated that the pt can be discharged. She is unsure which clam shucker saw her and there is no note from cardiology in the computer at this moment. [employer] message sent to cardiology to
discuss.
[2024-11-25] MEDS: LASIX 80 MG IV (09:06)
--- NOTE | 2024-11-25 10:03 | W.PN.HOSP.TC ---
Today's Communication/Plan
-
Paracentesis conducted on 11/24/2024 had an SAAG greater than 1.1 suggesting cardiac causes for her symptoms. Appreciate cardiology and gastroenterology recommendations. May move forward with discharge planning once ascites is resolved/better
controlled and after recommendations from both cardiology and gastroenterology..
Assessment / Plan
Assessment / Plan
Assessment/Plan:
-Acute kidney injury: Unresolved
Unclear etiology. The patient is on a high dose of Lasix at 80 mg and metolazone. Patient has a normal BNP and no ankle edema which does not suggest CHF exacerbation. Patient does not use NSAIDs. Possibility of hypovolemia from overdiuresis.
Cannot rule out spontaneous bacterial peritonitis (no known cirrhosis, had hepatomegaly on previous CT of the abdomen and pelvis, mild elevated AST that trends down) given tenderness.
Follow creatinine -patient received IV fluids and a creatinine improved from 2.5-1.1
Check urine urine analysis only remarkable for 2+ albumin
Chest x-ray on 11/20/2024 showed low lung volumes. Possibly related to poor inspiratory effort. Cannot entirely exclude subpulmonic effusions, right greater than the left. Bibasilar parenchymal opacity. Possible considerations include
parenchymal scarring, atelectasis, and/or pneumonia.
Echocardiogram -was a limited study that showed normal left ventricular size and systolic function. Mild concentric left ventricular hypertrophy. Left ventricular ejection fraction is 60 to 65%. No significant change from echo conducted on April
2023.
Gabapentin has been renally dosed
Follow ESR and JHON for lupus activity
Gentle hydration
Renal and bladder ultrasound conducted on 11/21/2024 showed no focal abnormality of the urinary bladder. Postvoid bladder residual with estimated volume of 119 cc. Normal appearance of both kidneys. Ascites is noted.
-Ascites:
Abdomen is noticeably distended
Abdominal ultrasound conducted on 05/05/2024 showed small volume ascites
Holding diuretics for now
Liver function test normal
Empiric ceftriaxone and albumin started for spontaneous bacterial peritonitis
Paracentesis conducted on 11/21/2024 produced 3200 cc and had SAAG 1.4
Appreciate cardiology recommendations
Appreciate gastroenterology recommendations
Continue Lasix
proBNP 295 which does not suggest CHF as etiology. Patient is on Lasix for heart failure. She states that she sees Dr. Nino - Cardiology consulted -they are considering whether an SGLT2 antagonist would be appropriate
Repeat paracentesis on 11/24/2024 showed increased protein within SAAG greater than 1.1 -cytology pending
LFTs are normal, ultrasound and CT do not show cirrhotic liver, protein count high is more typical in heart failure.
-Small bowel volvulus: Monitoring
Abdominal CT conducted on 11/23/2024 showed small bowel volvulus. There may be vascular compromise, with associated circumferential wall thickening involving the proximal to mid jejunum. There is also edema with mild vascular congestion involving
the small bowel mesentery. No apparent obstruction, without proximal luminal dilatation, and ingested contrast material has passed through the small bowel and is present within the distal small bowel and colon.
-SLE/Raynaud's:
ESR <10
Urine analysis was unremarkable
No renal involvement seen
Continue CellCept/prednisone
-Anemia of chronic disease: Stable
Follow hemoglobin
-Hyponatremia:
Possibly hypovolemic hyponatremia
Patient is currently on a free water restriction
Follow urine electrolytes and osmolarity
Consider nephrology consult if hyponatremia persists
-Hypokalemia:
Potassium was 3 on 11/20/2024 and 2.9 on 11/21/2024.
Potassium chloride tabin-[id number] 4.0 on 11/24/2024
-Pulmonary hypertension:
Continue sildenafil
-COVID positive:
Monitor patient and maintain adequate contact precautions.
Paxlovid was stopped on admission
Anticipated Discharge: > 48 hours
Subjective/Interval History
-
Met with patient at the bedside. Patient is anxious and concerned about more peritoneal fluid accumulation. Reassurance given and current treatment discussed.
Objective Data
-
Labs:
Laboratory Results
02/18/25
06:22
WBC 3.8 L
Hgb 9.3 L
Hct 28.7 L
Plt Count 281
Sodium 130 L
Potassium 4.1
Chloride 95 L
Carbon Dioxide 28
BUN 29 H
Creatinine 1.1 H
Glucose 90
Calcium 8.8
Total Bilirubin 0.6
AST 118 H
ALT 41 H
Alkaline Phosphatase 45
Vital Signs:
Vital Signs
Temp Pulse Resp BP Pulse Ox
98.1 F 70 16 123/63 94
11/25/24 07:05 11/25/24 09:06 11/25/24 07:34 11/25/24 09:06 11/25/24 07:34
I&O
11/24/24 11/25/24 11/26/24
06:59 06:59 06:59
Intake Total 480 / 480 1560 / 1560
Output Total 250 / 250 1100 / 1100
Balance 230 / 230 460 / 460
Review of Systems
-
History Source: Patient
Constitutional: Reports No Symptoms
EENT: Reports No Symptoms Reported
Respiratory: Reports Other (Shallow breathing but improved compared to yesterday following paracentesis)
Cardiac: Reports No Symptoms
Abdomen/GI: Reports Abdominal Pain and Bloated
Breast: Reports No Symptoms
Genitourinary: Reports No Symptoms
Musculoskeletal: Reports No Symptoms
Skin: Reports No Symptoms
Neuro: Reports No Symptoms
Endocrine: Reports No Symptoms
Hematologic / Lymphatic: Reports No Symptoms
Psych: Reports Anxious
Physical Exam
-
General: Well Developed, Well Nourished and Pain
HEENT: Normocephalic, Atraumatic and Moist Mucous Membranes
Respiratory: Clear to Auscultation
Cardiac: S1/S2; Negative Murmur or JVD
GI: Soft and Distended
Rectal: Deferred by Provider
Genito-urinary: Deferred by me
Musculoskeletal: No Clubbing, No Cyanosis and No Edema
Skin: Warm, Dry and Rash
Neuro: Awake, Alert, Oriented and AO x 3
Psych: Anxious
--- NOTE | 2024-11-25 11:34 | W.PN.CARDCBS ---
Addendum entered and electronically signed by Dheeraj Wang MD 11/25/24 12:59:
I saw and examined the patient.
The Crematory Operator's note was reviewed and I agree with the note.
Comment:
GEN: No distress, awake, Ox3
HEENT: supple, anicteric, mmm
LUNGS: CTA, no wheezes/rales
CV: Reg, S1/S2, 1/6 syst LSB, no gallop
ABD: soft, BS+, NT/ND
EXT: No edema
NEURO: Gross non-focal
SKIN: No rash
Plan:
Overall much improved. Creatinine at 1.1. PA pressure on transthoracic study 30.
Okay for discharge today. Will discharge on Lasix 80 mg p.o. daily with metolazone 2.5 mg 4 times a week.
Check basic metabolic panel in 1 week.
Will arrange follow-up
Original Note:
Today's Communication / Plan
-
Transition to oral Lasix 80 mg daily
Increased outpatient dosing of metolazone 2.5 mg 4 times a week (EOD)
Increase potassium to 40 mEq 3 times daily on metolazone days and continue 20 mEq 4 times daily on 9 metolazone days
BMP in 1 week
Limited echo to assess pulmonary functions ordered
Likely discharge after echo completed and reviewed
Impression / Plan
-
PCP: Dr. Donald
Vault Clerk: Dr. Helton
Impression: This is a 48y female patient with PMH significant for HFpEF, pulmonary hypertension, SLE / chronic immunosuppression who presents to ED complaining of fever, malaise and back discomfort for the past few weeks and was admitted for
hypotensive and sepsis.
Assessment:
Presented 11/20/2024 with abdominal distention, pain
COVID tested positive 11/19/24, treated with Paxlovid
Acute on chronic HFpEF
Ascities
s/p paracentesis 3200 mL of ascitic fluid 11/21/2024
s/p paracentesis 1650 cc of clear yellow ascitic fluid 11/24/2024
Small b/l pleural effusions
history of iron deficiency anemia
h/o respiratory failure requiring intubation 08/2023
Pulmonary HTN on sildenafil
Lupus
Chronic steroid use due to SLE
Raynaud's
GERD
Former tobacco use
Cholecystectomy
ECHO 08/17/23: EF 43%, WMA of mid inferoseptal, apical septal, and basal mid inferior carlson (this is most c/w 'D shaped septum' from RV pressure overload), enlarged, mod MR, mild to mod TR, small pericardial effusion, PAP 49mmHg
Echo 11/22/2023: EF 55-60%, mild MR, mild TR, estimated PAP 25-30mmHg
Echo 04/24/2024: EF 65%, mild LVH, trace tricuspid regurgitation, estimated PAP of 45-50 mmHg, no pericardial effusion
Echo 11/21/2024: Mild LVH, EF 60-65%, normal RV, normal atria, mild MR, trace tricuspid regurgitation, could not determine pulmonary artery systolic pressure
Plan:
Presented 11/20/2024 with abdominal distention, pain. Found to have significant ascites.
Status post paracentesis 11/21/2024 with removal of 3200 mL of ascitic fluid. Patient underwent repeat paracentesis on 11/24/2024 with additional removal of 1650 cc of ascitic fluid. Cytology pending.
Symptomatically has improved following paracentesis and ongoing diuresis
PproBNP was normal at 295 on admission. Rechecked 11/25/2024 currently 102.
Unclear if ascities heart failure vs Lupus related. Initially had PRAVEEN with creatinine of 2.5 on admission. Diuretic was placed on hold with improvement of creatinine to 1.1 (11/23). Lasix 80 mg IV was resumed 11/23. Creatinine improving with
diuresis 2.5->1.5->1.1.
Patient symptomatically improving with diuresis and paracentesis x 2 with improving renal function
Would transition to oral Lasix 80 mg daily. Patient was also taking metolazone twice a week as outpatient. Would increase this to 2.5 mg EOD (4 times a week). Patient will need potassium aggressive repletion with more frequent metolazone.
Increase potassium to 40 mEq 3 times daily on metolazone days and continue 20 mg 4 times daily on none metolazone days. If continues to have reaccumulation of ascites could also consider addition of Aldactone.
Recheck BMP in 7 days upon discharge
Longstanding history of pulmonary hypertension on Sildenafil. Her pulmonary artery pressure was not determined on her echo 11/21/2024. Will have have patient get limited echo 11/25/24. This has been ordered.
COVID positive prior to arrival treated with Paxlovid which was stopped on admission.
Progress Note - Vault Clerk
Subjective
Date of Service: November 25, 2024
Patient seen and examined. Patient reports overall she is feeling better with less abdominal bloating fullness and shortness of breath as well as improved appetite
Objective
Labs:
11/25/24 06:22
11/25/24 06:22
Labs
Hgb 9.3 g/dL (12.0-16.0) L 11/25/24 06:22
Hct 28.7 % (37.0-47.0) L 11/25/24 06:22
Plt Count 281 10^3/uL (130-400) 11/25/24 06:22
PT 13.3 Sec (11.4-14.6) 11/21/24 06:41
INR 0.96 11/21/24 06:41
APTT 28.5 Sec (23.4-35.0) 11/20/24 18:36
Sodium 130 mmol/L (135-145) L 11/25/24 06:22
Potassium 4.1 mmol/L (3.5-5.1) 11/25/24 06:22
BUN 29 mg/dl (7-17) H 11/25/24 06:22
Creatinine 1.1 mg/dL (0.6-1.0) H 11/25/24 06:22
Glucose 90 mg/dl (70-99) 11/25/24 06:22
Vital Signs and I&O:
Vital Signs
Temp Pulse Resp BP Pulse Ox
98.1 F 70 16 123/63 94
11/25/24 07:05 11/25/24 09:06 11/25/24 07:34 11/25/24 09:06 11/25/24 07:34
Vital Signs
Temp Pulse Resp BP Pulse Ox
98.1 F 70 16 123/63 94
11/25/24 07:05 11/25/24 09:06 11/25/24 07:34 11/25/24 09:06 11/25/24 07:34
Intake & Output
11/23/24 11/24/24 11/25/24 11/26/24
06:59 06:59 06:59 06:59
Intake Total 1200 / 1200 480 / 480 1560 / 1560
Output Total 250 / 250 1100 / 1100
Balance 1200 / 1200 230 / 230 460 / 460
Physical Exam
Physical Exam
GEN: No distress, awake, Ox3
HEENT: supple, anicteric, mmm
LUNGS: Crackles at bilateral bases otherwise CTA, no wheezes/rales
CV: Reg, S1/S2, no murmur, rub or gallop
ABD: soft, BS+, NT/ND
EXT: No edema, clubbing or cyanosis
NEURO: Gross non-focal
SKIN: No rash, warm, dry, pink
--- NOTE | 2024-11-25 11:36 | CM ---
CM reviewed pt with Dr Bauer- planned for dc today
Call to pt due to precautions [phone]
No dc needs noted
She has arranged for family transport home
Discharge Disposition- home, no needs, family transport
--- NOTE | 2024-11-25 11:56 | W.DCSUMMARY ---
Discharge Summary
Discharge Data
Date of Admission: 11/20/24
Date of Discharge: 11/25/24
-
Pending Results: No
Hospital Course
Patient is a 49-year-old female with a history of lupus, lupus nephritis, congestive heart failure with a preserved ejection fraction who presented to the emergency room for abdominal distention. She stated that she had been experiencing abdominal
distention for many months but it became dramatically worse over the last 1 to 2 days. She reported that her weight was usually around 160 to 162 pounds. However, over the last 2 weeks prior to her presentation she has dramatically gained more
weight. At the time of her presentation her abdomen felt so distended it was making it difficult for her to breathe. The patient stated that she has felt dehydrated for several weeks and has been mostly drinking water. The patient reported that
she was diagnosed with COVID about 3 days prior to her presentation. She started taking Paxlovid the day before her presentation and has taken approximately 3 doses. The patient reported no fevers or chills. Patient denies any chest pain. The
patient felt short of breath due to the abdominal distention but denied any dyspnea on exertion. The patient takes both furosemide and metolazone at home. She is compliant with her medications. Her framing and hanging recently recommended every increase
in the amount of diuretics she takes. Despite this she continued to have abdominal swelling. Chest x-ray conducted showed low lung volumes which may be related to poor inspiratory effort, bibasilar parenchymal opacity with possible considerations
including parenchymal scarring, atelectasis, and/or pneumonia. In the emergency department she was afebrile with a blood pressure of 102/50 with a pulse of 83 her oxygen saturation was 98% on room air. ECG showed normal sinus rhythm with a rate of
78. Troponin was negative, BMP negative, and CBC was unremarkable. The patient was hyponatremic with a sodium of 30, potassium of 3, and bicarb of 33. Labs collected in the emergency department showed a BUN of 59 and a creatinine of 2.5 indicating
acute kidney injury. AST was also elevated at 55. The patient was admitted to [facility] for acute kidney injury.
LFTs were taken to assess potential cause of ascites. Empiric ceftriaxone and albumin was given prophylactically for spontaneous bacterial peritonitis. Renal ultrasound of the bladder conducted on 11/21/2024 showed no focal abnormality of the
urinary bladder. IV fluid support was given. Postvoid residual volume was 119 cc normal appearance of both kidneys. With apparent ascites noted. The patient was found to be hypokalemic with a potassium of 3 on 11/20/2024 and 2.9 on 11/21/2024
which was subsequently repleted. Contact precautions were maintained throughout the hospital admission as the patient was COVID-positive. The patient's creatinine improved from a 2.4 on admission to 1.1 with IV fluid support. Paracentesis was
conducted on 11/21/2024 and fluid aspirate determined to have an SAAG of 1.4. LFTs were normal. Cardiology was consulted following the paracentesis as the SAAG indicated a possible cardiac cause. The patient received furosemide but had limited
response so her dosage was increased. CT scan of the abdomen conducted on 11/23/2024 showed small bowel volvulus. There may be vascular compromise with associated circumferential wall thickening involving the proximal to mid jejunum. There was
also edema with mild vascular congestion involving the small bowel mesentery. There was no apparent obstruction without proximal luminal dilatation and ingested contrast material passing through the small bowel and present with in the distal small
bowel and colon. Surgery was consulted and they recommended that no acute surgical intervention was warranted during the admission. A repeat paracentesis was done on 11/24/2024 producing 1650 cc and had a SAAG of greater than 1.1. The patient was
transitioned over to oral Lasix in preparation of discharge. Echocardiogram conducted on 11/25/2024 showed normal left ventricular size and function. Normal regional wall motion. Left ventricular wall ejection fraction was measured at 60 to 65% by
visual assessment. There was normal right ventricular size and function. Pulmonary artery pressure on transthoracic study found to be 30 the patient was cleared for discharge from a cardiology perspective and was discharged on 80 mg Lasix oral
daily with metolazone 2.5 mg 4 times a week. The patient has also been asked to check a basic metabolic panel within 1 week.
The patient has reached maximal benefit from this hospital admission and is appropriate for discharge. The patient is medically stable and there are no barriers that would impede the patient from being safely discharged at the present time. The
patient should follow-up with her primary care provider within 1 week following discharge the patient should follow-up with her outpatient framing and hanging and a follow-up appointment has been set for December 08, 2024.
Discharge Plan
-
Patient Disposition: Home (Routine Discharge)
Discharge Diagnosis/Procedures: Ascites, Acute HFpEF, SLE/Raynaud's, Hypokalemia
Diet: As tolerated
Activity: No restrictions
Driving Restrictions: As prior to admission
Blood Work: BMP and magnesium level 1-2 weeks (ordered placed on chart)
Activity Restrictions/Additional Instructions:
Patient will be discharged home on increased dose of metolazone 2.5 mg every other day in addition to Lasix 80 mg daily. On days she takes metolazone she should increase potassium supplementation to 40 mEq 3 times daily. 1 days patient does not
take metolazone she will continue her prior outpatient dosing of 20 mEq 4 times daily.
Referrals:
Flako Wild MD [Family Provider] - in less than 1 week
Liseth Michelle PA-C [Specified Professional Personl] - 12/10/24 8:40 am (You have cardiology follow up with Liseth Michelle PA-C on December 10 at 8:40 am in [place] [facility]. If you are unable to make this appointment please call
[phone] to reschedule)
Prescriptions:
New
metolazone 2.5 mg tablet
2.5 mg PO Q OTHER DAY 30 Days Qty: 15 0RF
Rx Instructions:
Take Metolazone 2.5mg 4 times a week.
Continued
gabapentin 600 mg tablet
1,200 mg PO HS
omeprazole 40 mg capsule,delayed release(DR/EC)
40 mg PO DAILY
sildenafil (pulm.hypertension) 20 mg tablet
20 mg PO Q8H
albuterol sulfate 90 mcg/actuation HFA aerosol inhaler
2 puff INHALATION R Q4HPRN PRN (Reason: sob/wheezing)
aspirin [Children's Aspirin] 81 mg tablet,chewable
81 mg PO DAILY
mycophenolate mofetil 500 mg tablet
1,500 mg PO BID
fenofibrate nanocrystallized 145 mg Tablet
145 mg PO DAILY Qty: 0
ibuprofen 800 mg Tablet
800 mg PO DAILYPRN PRN (Reason: mild pain)
prednisone 5 mg Tablet
5 mg PO DAILY
minoxidil 2.5 mg Tablet
2.5 mg PO DAILY
folic acid 1 mg Tablet
1 mg PO DAILY
biotin 1 mg Tablet
1 mg PO DAILY
budesonide-formoterol [Symbicort] 160-4.5 mcg/actuation Hfa Aerosol Inhaler
2 puff INHALATION R BID
Spiriva Respimat 2.5 mcg/actuation Mist
2 puff INHALATION R DAILY
Saphnelo 300 mg/2 mL (150 mg/mL) Solution
300 mg IV Q4W
Xolair 300 mg/2 mL auto-injector
300 mg SC QMONTH
potassium chloride 20 mEq tablet,ER particles/crystals
20 meq PO QID
furosemide [Lasix] 80 mg tablet
80 mg PO DAILY
Discontinued
Paxlovid 300 mg (150 mg x 2)-100 mg Tablets,Dose Pack
0 ea PO .COMPLEX
Rx Instructions:
take TWO 150 mg tablets of nirmatrelvir with ONE 100 mg tablet of ritonavir twice daily for 5 days
Discharge Orders:
Discharge Patient (As Directed); Ordered 11/25/24
Ordered By: Sriram Do
Discharge Date and Time
Print Language: MALDIVIAN
[2024-11-25 15:05] VITALS: BP 121/77
[2024-11-26 06:03] LABS: ANA Pattern Homogeneous; ANA Titer >1:2560; Cytoplasmic Pattern Speckled
== END 2024-11-25 15:26 | disposition home or self-care (01) | DRG 177 ==
LOC: 3 WEST ACU 22:16
PROVIDERS: Emergency Medicine; Internal Medicine; Nurse Practitioner Family; Physician Assistant Medical; Radiology Diagnostic Radiology; ADMITTING PHYSICIAN Internal Medicine; ATTENDING PHYSICIAN Internal Medicine; CONSULT PHYSICIAN Internal Medicine Cardiovascular Disease; CONSULT PHYSICIAN Internal Medicine Gastroenterology; CONSULT PHYSICIAN Surgery; EMERGENCY PHYSICIAN Emergency Medicine; FAMILY PHYSICIAN Family Medicine
PROC: 0W9G3ZZ Drainage of Peritoneal Cavity, Percutaneous Approach (ICD-10-PCS; 2024-11-21)
DX: U07.1 COVID-19 (principal); I50.33 Acute on chronic diastolic (congestive) heart failure; K56.2 Volvulus; R18.8 Other ascites; N17.9 Acute kidney failure, unspecified; E87.1 Hypo-osmolality and hyponatremia; D84.9 Immunodeficiency, unspecified; Z87.891 Personal history of nicotine dependence; Z79.82 Long term (current) use of aspirin; M32.9 Systemic lupus erythematosus, unspecified; I73.00 Raynaud's syndrome without gangrene; E87.6 Hypokalemia; I27.20 Pulmonary hypertension, unspecified; Z79.52 Long term (current) use of systemic steroids; K21.9 Gastro-esophageal reflux disease without esophagitis; Z79.899 Other long term (current) drug therapy
CPT/HCPCS: 88305; 93308; 49083; 71046; 74177; 76700; 76770; 80048; 80053; 81003; 81015; 81025; 82042; 82150; 82248; 82550; 82570; 82945; 83615; 83735; 83880; 83935; 84100; 84132; 84156; 84157; 84300; 84484; 85025; 85027; 85610; 85652; 85730; 86038; 86039; 87015; 87070; 87205; 88112; 89051; 93005; 93321; 93325; 94640; 99285; P9047; Q9967

== ENCOUNTER 2025-01-02 17:56 | Inpatient (IN) | payer OTHER, SELFPAY ==
[2025-01-02] VITALS (10 sets, daily range): BP systolic 80–116; BP diastolic 61–71; BMI 27.5; BMI 26.0
[2025-01-02 13:48] LABS: ALT (SGPT) 16 U/L (0-35); AST (SGOT) 36 U/L (14-36); Alkaline Phosphatase 41 U/L (38-126); Blood Urea Nitrogen 77 mg/dl (7-17); Calcium 9.2 mg/dl (8.4-10.2); Carbon Dioxide 30 mmol/L (22-30); Chloride 90 mmol/L (98-107); Glucose 114 mg/dl (70-99); Hematocrit 25.9 % (37.0-47.0); Hemoglobin 8.6 g/dL (12.0-16.0); Mean Corp Hgb Conc. 33.2 g/dL (33.0-37.0); Mean Corpuscular Hgb 27.3 pg (27.0-31.0); Mean Corpuscular Volume 82.2 fL (81.0-99.0); Mean Platelet Volume 9.6 fL (7.4-10.4); Platelet Count 235 10^3/uL (130-400); Potassium 3.2 mmol/L (3.5-5.1); Red Blood Cell Count 3.15 10^6/uL (4.20-5.40); Red Cell Dist. Width 17.1 % (11.5-14.5); Sodium 134 mmol/L (135-145); Total Bilirubin 0.5 mg/dl (0.2-1.3); Total Protein 7.1 g/dl (6.3-8.2); eGFR 25.58
[2025-01-02 13:59] LABS: NT-proBNP 600 pg/ml; Troponin I < 0.012 ng/ml
[2025-01-02 14:16] LABS: % Basophils 0.3 % (0-2); % Immature Granulocytes 0.3 % (0-0.5); % Lymphocytes 15.5 % (20.5-51.1); % Monocytes 6.8 % (1.7-9.3); % Neutrophils 77.1 % (42.2-75.2); Absolute Lymphocytes 0.5 10^3/uL (1.2-3.4); Absolute Monocytes 0.2 10^3/uL (0.1-0.6); Absolute Neutrophils 2.3 10^3/uL (1.4-6.5); Nucleated Red Blood Cells % 0 %
--- NOTE | 2025-01-02 15:05 | ED.GENMED ---
History of Present Illness
<YAZMIN Ramos - Last Filed: 01/02/25 19:02>
General
Chief Complaint: Abdominal Symptoms
Source: patient
Exam Limitations: none
Time Seen by Provider: 01/02/25 15:04
Nursing documentation reviewed up to this point in time: agreed with
History of Present Illness
History of Present Illness:
Patient is a 41-year-old female with history of lupus lupus nephritis CHF with preserved ejection fraction, ascites, history of paracentesis presents to the ER for evaluation. She reports over the past several days she has had increasing swelling
in her abdomen again and feels very full very uncomfortable. She has gained over 5 pounds in 1 night. She feels very short of breath. Symptoms have become worse over the past 2 days. She has had 2 paracentesis in the past here at [facility]. She is followed by [facility] for her lupus and [facility] for primary care physician. Her PCP sent her here today.
She denies any actual abdominal pain but feels very bloated. She denies any fever or chills.
Past History
<YAZMIN Ramos - Last Filed: 01/02/25 19:02>
Past History
ED Past Medical History: Other (Systemic lupus erythematosus, pulmonary retention, microcytic anemia, pleural effusions, GERD)
Social History
Tobacco: Former smoker
Review of Systems
<YAZMIN Ramos - Last Filed: 01/02/25 19:02>
Review of Systems
All Other Systems: ROS reviewed and negative except as documented in HPI and ROS
Constitutional: Reports no symptoms; Denies fever
Respiratory: Reports trouble breathing; Denies cough or hemoptysis
Cardiac: Reports no symptoms; Denies chest pain
ABD/GI: Reports other (+ abdominal bloating ; denies abdominal pain )
: Reports no symptoms
Musculoskeletal: Reports no symptoms
Skin: Reports no symptoms
Neurological: Reports no symptoms
Hematologic/Lymphatic: Reports no symptoms
Psychiatric: Reports no symptoms
Phy Exam
<YAZMIN Ramos - Last Filed: 01/02/25 19:02>
General Physical Exam
General Presentation: no apparent distress
General age: appears stated age
General Skin: warm and dry
General Habitus: normal
General Mental: alert
General Hydration: appears well hydrated
Cardiovascular Exam
Cardiovascular Exam: regular rate/rhythm, no murmur and normal peripheral pulses
Pulmonary Exam
Pulmonary Exam: no respiratory distress and other (crackles b/l bases )
Neurological Exam
Neurological Exam: alert and oriented x3
Musculoskeletal Exam
Musculoskeletal Exam: full ROM
Skin Exam
Skin Exam: normal color and warm/dry
Psychiatric Exam
Psychiatric Exam: normal mood/affect
Course
<YAZMIN Ramos - Last Filed: 01/02/25 19:02>
Orders/Labs/Results
Orders:
Orders
01/02/25 13:13
Electrocardiogram (*1) Urgent
Reason for Study: Other
Other Reason for Exam: Respiratory Distress
EKG- Treatment ONCE
CR Chest - 2 Views Urgent
Comment:
Reason For Exam: respiratory distress
01/02/25 13:23
Complete Blood Count/With Diff Urgent
Comprehensive Metabolic Panel Urgent
NT-proBNP Urgent
Troponin I Urgent
01/02/25 15:31
IRAD CONSULT Routine
Consulting Provider: Mk Jordan
Was physician already notified: Yes
Reason for Consult/Procedure: ascite/paracentesis
Acknowledgement that appropriate orders are entered: Yes
01/02/25 16:38
Body Fluid Cell Count Routine
What is the Body Fluid: peritoneal fluid
Date Specimen was Collected: 01/02/25
Time Specimen was Collected: 16:35
Comment: post procedure
Fluid Culture with Gram Stain Routine
CARO Source: Peritoneal Fluid
Specimen Description:
Date Specimen was Collected: 01/02/25
Time Specimen was Collected: 16:36
Comment: Post Procedure
01/02/25 17:31
Potassium Chloride 10% Elixir [KCl Elixir] 40 meq PO NOW STA
01/02/25 17:38
Admit/Transfer Patient As Directed
Co-Sign Provider:
Level of Care: Inpatient admission
Assign to:: Telemetry
Physician / Group: htay
Diagnosis: asites
Reason for Telemetry: Other
Other Reason for Telemetry: hypotension
Date to Stop Telemetry: 01/04/25
Time to Stop Telemetry: 11:00
Reason for Hospitalization: ascites
Expected length of stay greater than two midnights?: Yes
ELOS- Estimated Length of Stay in days: 3
I certify the patient meets the requirements for IP care: Yes
PRN Pain Medication Management As Directed
May give lesser potent ordered pain med per pt: Yes
preference::
Protocol:: Medication orders for pain may be administered in a
manner that supports deferring to patient preference
when the pt is:
- Requesting an ordered lesser potent pain medication.
Least to most potent pain medications are defined
as: acetaminophen < NSAID < tramadol < opioids
(morphine, oxycodone, hydromorphone).
- Requesting a lesser dose of the same medication IF
ORDERED.
- Requesting a less intrusive route of administration
if both routes are prescribed by the provider (PO <
IV).
01/02/25 17:39
Code Status As Directed
Resuscitation Status: Full Code
01/02/25 18:00
Albumin Human 5% 250 ml [Albumin 5%] 12.5 grams in 250 ml IV ONCE
01/02/25 18:11
Urine Protein Routine
Date Specimen was Collected: 01/02/25
Time Specimen was Collected: 17:28
01/04/25 11:00
DC Protocol for Telemetry ONCE
Abnormal Lab Results
01/02/25
13:23
WBC 3.0 L 10^3/uL
(4.8-10.8)
RBC 3.15 L 10^6/uL
(4.20-5.40)
Hgb 8.6 L g/dL
(12.0-16.0)
Hct 25.9 L %
(37.0-47.0)
RDW 17.1 H %
(11.5-14.5)
Absolute Lymphs (auto) 0.5 L 10^3/uL
(1.2-3.4)
Neutrophils % 77.1 H %
(42.2-75.2)
Lymphocytes % 15.5 L %
(20.5-51.1)
Sodium 134 L mmol/L
(135-145)
Potassium 3.2 L mmol/L
(3.5-5.1)
Chloride 90 L mmol/L
(98-107)
BUN 77 H mg/dl
(7-17)
Creatinine 2.3 H mg/dL
(0.6-1.0)
Glucose 114 H mg/dl
(70-99)
01/02/25 13:23
01/02/25 13:23
Vital Signs
Initial and Last Documented VS:
Initial Vital Signs
Temp Pulse Resp BP Pulse Ox
98.2 F 87 16 116/71 98
01/02/25 13:09 01/02/25 13:09 01/02/25 13:09 01/02/25 13:09 01/02/25 13:09
Last Documented Vital Signs
Temp Pulse Resp BP Pulse Ox
97.9 F 92 21 101/64 98
01/02/25 16:03 01/02/25 18:17 01/02/25 18:17 01/02/25 18:01 01/02/25 18:17
<Victor Hugo Rodriguez, DO - Last Filed: 01/02/25 15:45>
Orders/Labs/Results
Orders:
Orders
01/02/25 13:13
Electrocardiogram (*1) Urgent
Reason for Study: Other
Other Reason for Exam: Respiratory Distress
EKG- Treatment ONCE
CR Chest - 2 Views Urgent
Comment:
Reason For Exam: respiratory distress
01/02/25 13:23
Complete Blood Count/With Diff Urgent
Comprehensive Metabolic Panel Urgent
NT-proBNP Urgent
Troponin I Urgent
01/02/25 15:31
IRAD CONSULT Routine
Consulting Provider: Mk Jordan
Was physician already notified: Yes
Reason for Consult/Procedure: ascite/paracentesis
Acknowledgement that appropriate orders are entered: Yes
01/02/25 16:38
Body Fluid Cell Count Routine
What is the Body Fluid: peritoneal fluid
Date Specimen was Collected: 01/02/25
Time Specimen was Collected: 16:35
Comment: post procedure
Fluid Culture with Gram Stain Routine
CARO Source: Peritoneal Fluid
Specimen Description:
Date Specimen was Collected: 01/02/25
Time Specimen was Collected: 16:36
Comment: Post Procedure
01/02/25 17:31
Potassium Chloride 10% Elixir [KCl Elixir] 40 meq PO NOW STA
01/02/25 17:38
Admit/Transfer Patient As Directed
Co-Sign Provider:
Level of Care: Inpatient admission
Assign to:: Telemetry
Physician / Group: htay
Diagnosis: asites
Reason for Telemetry: Other
Other Reason for Telemetry: hypotension
Date to Stop Telemetry: 01/04/25
Time to Stop Telemetry: 11:00
Reason for Hospitalization: ascites
Expected length of stay greater than two midnights?: Yes
ELOS- Estimated Length of Stay in days: 3
I certify the patient meets the requirements for IP care: Yes
PRN Pain Medication Management As Directed
May give lesser potent ordered pain med per pt: Yes
preference::
Protocol:: Medication orders for pain may be administered in a
manner that supports deferring to patient preference
when the pt is:
- Requesting an ordered lesser potent pain medication.
Least to most potent pain medications are defined
as: acetaminophen < NSAID < tramadol < opioids
(morphine, oxycodone, hydromorphone).
- Requesting a lesser dose of the same medication IF
ORDERED.
- Requesting a less intrusive route of administration
if both routes are prescribed by the provider (PO <
IV).
01/02/25 17:39
Code Status As Directed
Resuscitation Status: Full Code
01/02/25 18:00
Albumin Human 5% 250 ml [Albumin 5%] 12.5 grams in 250 ml IV ONCE
01/02/25 18:11
Urine Protein Routine
Date Specimen was Collected: 01/02/25
Time Specimen was Collected: 17:28
01/04/25 11:00
DC Protocol for Telemetry ONCE
Abnormal Lab Results
01/02/25
13:23
WBC 3.0 L 10^3/uL
(4.8-10.8)
RBC 3.15 L 10^6/uL
(4.20-5.40)
Hgb 8.6 L g/dL
(12.0-16.0)
Hct 25.9 L %
(37.0-47.0)
RDW 17.1 H %
(11.5-14.5)
Absolute Lymphs (auto) 0.5 L 10^3/uL
(1.2-3.4)
Neutrophils % 77.1 H %
(42.2-75.2)
Lymphocytes % 15.5 L %
(20.5-51.1)
Sodium 134 L mmol/L
(135-145)
Potassium 3.2 L mmol/L
(3.5-5.1)
Chloride 90 L mmol/L
(98-107)
BUN 77 H mg/dl
(7-17)
Creatinine 2.3 H mg/dL
(0.6-1.0)
Glucose 114 H mg/dl
(70-99)
01/02/25 13:23
01/02/25 13:23
Vital Signs
Initial and Last Documented VS:
Initial Vital Signs
Temp Pulse Resp BP Pulse Ox
98.2 F 87 16 116/71 98
01/02/25 13:09 01/02/25 13:09 01/02/25 13:09 01/02/25 13:09 01/02/25 13:09
Last Documented Vital Signs
Temp Pulse Resp BP Pulse Ox
97.9 F 92 21 101/64 98
01/02/25 16:03 01/02/25 18:17 01/02/25 18:17 01/02/25 18:01 01/02/25 18:17
<YAZMIN Ramos - Last Filed: 01/02/25 19:02>
MDM/Problems Addressed
MDM/Problems Addressed:
Patient is a 49-year-old female with significant history of lupus, lupus nephritis CHF presents to the ER for evaluation. She has had increasing abdominal swelling, ascites and shortness of breath related to this for the past several days. She
presents with obvious ascites she denies any actual pain denies any fever chills no symptoms consistent with SBP. She is nontoxic. She does have some crackles at her bases bilaterally. She does have a history of anemia and her hemoglobin is 8.6
minimally lower than November 25; her renal function has increased however from a creatinine of 1.1 November 25 to 2.3 today. Patient's troponin is negative no chest pain BNP only 600.
I did speak with interventional radiology they were able to do paracentesis and removed 2600 mL of fluid. Gram stain culture and cell count sent and no concerning findings on results.
Patient required mission for worsening renal failure.
Cardiology made aware they have been in touch with patient's basketball assembler at [facility] and as per cardiology [facility] would like to have patient transferred they are however patient is adamant and refusing this.
She has not likely admitted to [facility] will require admission here for further monitoring.
Chronic conditions affecting care:
lupus , lupus nephritis
<YAZMIN Ramos - Last Filed: 01/02/25 19:02>
*Radiology
Radiology exam reviewed: preliminary read by ED provider and radiology read reviewed
*Pulse Oximetry
Patient hypoxic: no
*EKG
Interpreted by ED Provider?: Yes
Interpretation: normal
Comparison EKG: no comparison EKG present
Heart Rate: 85
Rate: normal
Rhythm: sinus
Ischemia: no ischemia
*Critical Care Note
Total Time (30-74mins, 75-104mins- exclusive of procedures): Not Applicable
<YAZMIN Ramos - Last Filed: 01/02/25 19:02>
Patient Management
Discussion with other providers: Corporate Librarian (cardiology dr Helton ; rheumatology )
ED Attending Note
<YAZMIN Ramos - Last Filed: 01/02/25 19:02>
-
Portions of this chart may have been created with voice recognition software.� Occasional wrong word or��sound alike� substitutions may have occurred due to the inherent limitations of voice recognition software.
<Victor Hugo Rodriguez, DO - Last Filed: 01/02/25 15:45>
ED Attending Note
Patient seen and examined by attending physician: Yes
I performed the substantive portion of visit, reviewed & personally made and approve the management plan that is documented in note by myself or CHAUNCEY.: Yes
ED Attending Note:
I have seen and evaluated the patient with a [id number] encounter. I have spoken to the advance practicer provider and involved in the medical history, the physical exam, medical decision making.
Evaluation and management service: agree unless noted differently below.
Results interpretation: agree unless noted differently below.
Focused HPI: 49-year-old female presenting for evaluation of ascites. Patient has a history of lupus nephritis. She has had issues like this before requiring paracentesis
Physical exam: Distended abdomen with ascites. No tenderness noted
Medical Decision Making: Given worsening creatinine, will ultimately met. Will send for paracentesis. Patient is very nervous that she will be taking off of her Lasix. She states last time she was taken off her Lasix, she required another
paracentesis within 24 hours
Discharge Plan
Departure
Patient Disposition: Admit
Date of Disposition: 01/02/25
Time of Disposition: 17:09
Admit to: Telemetry
Admit to doctor: hospitalist
Presentation/result/management discussed w/ accepting MD/DO: Hospitalist
Patient with high blood pressure during this ER visit?: No
Condition: Fair
Covid-19: Not Applicable
Discharge Problem:
Abdominal ascites
Interventions
Interventions:
*Risk Screen - Suicide Last Done: 01/02/25 13:09
*General Assessment Last Done: 01/02/25 15:25
*Neglect/Abuse Screening Last Done: 01/02/25 13:09
*ED- Fall Risk Assessment Last Done: 01/02/25 15:25
*ED COVID-19 Vaccine History Last Done: 01/02/25 15:25
ZR-Mroaqu-Zjdfwgcino Assessment Last Done: 01/02/25 15:25
--- NOTE | 2025-01-02 15:55 | EDRN ---
IR called this RN and stated that they are ready for the pt, the pt is being taken to IR
--- NOTE | 2025-01-02 16:55 | EDRN ---
IR called and gave this RN verbal report
[2025-01-02 17:06] LABS: Body Fluid WBC 105 /CUMM
--- NOTE | 2025-01-02 17:10 | HPS.HSE ---
Family Physician
-
Family Physician: Mk Jordan MD
Chief Complaint
-
Abdominal distention
History of Present Illness
41-year-old female with history of lupus nephritis CHF with preserved ejection fraction, ascites, history of paracentesis presents to the ER for evaluation. She reports over the past several days she has had increasing swelling in her abdomen
again and feels very full very uncomfortable. She has gained over 5 pounds in 1 night. She feels very short of breath. Symptoms have become worse over the past 2 days. She has had 2 paracentesis in the past here at [facility]. She is
followed by [place] [facility] for her lupus and [facility] for primary care physician.Patient denied any abdominal pain. Patient denied any nausea vomiting diarrhea. Patient stated some urinary hesitancy despite on Lasix for past 2 days. Patient
denied any urinary frequency, urgency or hematuria. 3 days ago she had a temp of 101.4, which resolved on its own. She complaining of headache. Patient denied any chest pain. Patient denied any dizzy.
Patient underwent paracentesis in the ER. You told 2600 mL of ascites fluid. Fluids sent for culture. Patient received a dose of albumin in ER.Admitting for further management
Medical History
Past Medical History
Past Medical History: Reports Other
Additional Past Medical History:
CHF
COPD
Lupus
Past Surgical History: Reports Other
Additional Past Surgical History:
Cholecystectomy
Social History
Tobacco: Non-smoker
Alcohol: None
Drug: None
Living: With Family
Family History
Family History: Not pertinent
Allergies / Home Medications
Allergies reflects when Allergies were last updated in [email or web address].
Home Medications with original date entered in [email or web address]
Allergy/Medication List:
Allergies
Allergy/AdvReac Type Severity Reaction Status Date / Time
dapsone Allergy Unknown Verified 01/02/25 13:09
hydroxychloroquine Allergy Unknown Verified 01/02/25 13:09
[From Plaquenil]
Home Medications
gabapentin 600 mg tablet 1,200 mg PO HS Pain 08/16/23
omeprazole 40 mg capsule,delayed release 40 mg PO DAILY GERD 08/16/23
sildenafil (pulm.hypertension) 20 mg tablet 20 mg PO Q8H Raynaud's 08/16/23
albuterol sulfate 90 mcg/actuation aerosol inhaler 2 puff inhalation R Q4HPRN PRN sob/wheezing 04/23/24
mycophenolate mofetil 500 mg tablet 1,500 mg PO BID lupus 05/04/24
fenofibrate nanocrystallized 145 mg tablet 145 mg PO DAILY High Cholesterol ##0 05/08/24
anifrolumab-fnia 300 mg/2 mL (150 mg/mL) intravenous solution (Saphnelo) 300 mg IV Q4W Sleep 11/20/24
budesonide-formoterol HFA 160 mcg-4.5 mcg/actuation aerosol inhaler (Symbicort) 2 puff inhalation R BID Lung/Breathing Issues 11/20/24
folic acid 1 mg tablet 1 mg PO DAILY Supplement 11/20/24
furosemide 80 mg tablet (Lasix) 80 mg PO DAILY Heart Failure 11/20/24
minoxidil 2.5 mg tablet 2.5 mg PO DAILY 11/20/24
omalizumab 300 mg/2 mL subcutaneous auto-injector (Xolair) 300 mg SC QMONTH Lung/Breathing Issues 11/20/24
potassium chloride 20 mEq tablet,extended release(part/cryst) 20 meq PO QID Electrolyte Repletion 11/20/24
prednisone 5 mg tablet 5 mg PO DAILY Anti-Inflammatory 11/20/24
tiotropium bromide 2.5 mcg/actuation mist for inhalation (Spiriva Respimat) 2 puff inhalation R DAILY Lung/Breathing Issues 11/20/24
acetaminophen 500 mg tablet (Tylenol Extra Strength) 1,500 mg PO DAILYPRN PRN mild pain/fever 01/02/25
cyclobenzaprine 5 mg tablet 5 mg PO HSPRN PRN sleep/joint pain 01/02/25
metolazone 2.5 mg tablet 2.5 mg PO Q48H 01/02/25
potassium chloride 20 mEq tablet,extended release(part/cryst) 20 meq PO DAILYPRN PRN when taking metolazone 01/02/25
Review of Systems
-
Constitutional: Reports No Symptoms
EENT: Reports No Symptoms
Respiratory: Reports Trouble Breathing
Cardiac: Reports No Symptoms
Abdomen/GI: Reports Other (Swelling)
: Reports No Symptoms
Musculoskeletal: Reports Edema (Left lower extremities edema)
Skin: Reports No Symptoms
Neurological: Reports No Symptoms
Endocrine: Reports No Symptoms
Hematologic/Lymphatic: Reports No Symptoms
Psych: Reports No Symptoms
Physical Exam
Vital Signs
Vital Signs
Temp Pulse Resp BP Pulse Ox
97.9 F 80 15 98/64 96
01/02/25 16:03 01/02/25 16:59 01/02/25 16:59 01/02/25 16:59 01/02/25 16:53
Physical Exam
General: Well Developed, Well Nourished and No Apparent Distress
HEENT: NormoCephalic, Moist mucous membranes and Atraumatic
Respiratory: Clear
Cardiac: S1/S2 and Regular Rhythm; No Murmur or Rub
GI: Soft, Non Tender, Non Distended and Normal Bowel Sounds; No Organomegaly
Rectal: Deferred by Provider
Musculoskeletal: No Clubbing, No Cyanosis and Other (Left lower extremities edema)
Skin: No Rash
Neuro: AO x 3 and Nonfocal/grossly intact
Psych: Calm
Laboratory Results
-
01/02/25 13:23
01/02/25 13:23
Laboratory Results
Total Bilirubin 0.5 mg/dl (0.2-1.3) 01/02/25 13:23
AST 36 U/L (14-36) 01/02/25 13:23
ALT 16 U/L (0-35) 01/02/25 13:23
Alkaline Phosphatase 41 U/L (38-126) 01/02/25 13:23
Troponin I < 0.012 ng/ml 01/02/25 13:23
Data Reviewed
-
Lab Data: Labs Reviewed by me
Impression/Plan
-
#Abdominal swelling/ascites
-Paracentesis today yielded 2600 mL of ascites fluid
-Gastroenterology consulted
-ascites fluid sent for culture
#Chronic leukopenia/anemia of chronic disease
-WBCs 3.0, hemoglobin 8.6
-No active bleeding
-Continue to monitor
#Hypokalemia likely from diuretics
#Acute kidney injury Likely from fluid overload
#History of lupus nephritis
-Creatinine 2.3
-Potassium 3.2
-Nephrology consulted
#Small bowel volvulus: Monitoring
-Abdominal CT conducted on 11/23/2024 showed small bowel volvulus. There may be vascular compromise, with associated circumferential wall thickening involving the proximal to mid jejunum. There is also edema with mild vascular congestion involving
the small bowel mesentery. No apparent obstruction, without proximal luminal dilatation, and ingested contrast material has passed through the small bowel and is present within the distal small bowel and colon.
#SLE/Raynaud's
-Continue CellCept/prednisone
-Gabapentin continued
#Pulmonary hypertension:
-Continue sildenafil
#Hyperlipidemia
statin continued
#History of CHF
-Lasix continued
-Metolazone continued
-Minoxidil continued
-strict I &O, daily weight
-cardiology consulted
# GERD
-PPI continued
# Pulmonary hypertension
-Sildenafil continued
#dvt prophylaxis
-heparin sq
#CODE status
-full code
[2025-01-02 17:20] LABS: Body Fluid Second Tech DW
[2025-01-02] MEDS: ALBUMIN 5% 250 IV (18:05)
--- NOTE | 2025-01-02 18:07 | W.PN.UPDATE ---
Update Note
Progress Note Update
This note serves as an addendum to the H&P by bolt loader CHAUNCEY Dottie HERNANDEZ
HPI
49F HX HFpEF, follow with [facility] card, recurrent ascites, lupus, lupus nephritis, followed at [place] Rheum seen at ER:
- increasing abdominal swelling/ascites
- no abd pain , low suspicion for SBP
- had ISD guided abdominal paracentesis and noted PRAVEEN on CKD3a
- she is on lasix and metolazone. she is very scared of stopping her lasix.
- she is afebrile wbc 3.0 with HX chr leucopenia due to SLE
PHX; see above
VSS
11/24/24
06:00 11/25/24
06:00 01/02/25
13:09
Temp 98.2 F
Pulse 87
Resp Rate 16
Blood pressure 116/71
SaO2 98
Oxygen Mode of Delivery Room air
Actual Weight 75.75 kg 73.709 kg 77.111 kg
PE
Gen: not toxic
HEENT:anicteric
Neck: supple
Lungs:symmetric AE
Cor: RRR S1 S2
Abdomen: distend , NT, NG
ASSOCIATE PROFESSOR OF MANAGEMENT:AAO3
MS: b/l Marni edema
Psych: appropriate
05/06/24 11/24/24 11/25/24
04:20 06:10 06:22
WBC 3.8 L
Hgb 8.8 L 9.3 L
Plt Count
Sodium 130 L
Chloride
BUN
Creatinine 1.1 H
eGFR 42.72 > 60.00
Troponin I
Bmu-G-Pdohzahowbb Pept
Fluid WBC
Fluid Mononuclear Cell
Fl Polymorphonucl Cell
01/02/25 01/02/25
13:23 16:38
WBC 3.0 L
Hgb 8.6 L
Plt Count 235
Sodium 134 L
Chloride 90 L
BUN 77 H
Creatinine 2.3 H
eGFR 25.58
Troponin I < 0.012
Acj-A-Pmgzneczbac Pept 600
Fluid WBC 105
Fluid Mononuclear Cell 99.0
Fl Polymorphonucl Cell 1.0
NEG Flu A & B
Pending CXR final report
EKG
NORMAL SINUS RHYTHM
LOW VOLTAGE QRS
CANNOT RULE OUT INFERIOR INFARCT , AGE UNDETERMINED
ABNORMAL ECG
WHEN COMPARED WITH ECG OF 20-NOV-2024 18:22,
NO SIGNIFICANT CHANGE WAS FOUND
Us Guided abdominal Paracentesis
- s/p 5 % albumin 250 cc prior to tap
- yielding 2600 mL of ascitic fluid.
- Ascites fluid Cx sent
11/25/24 TTE
1. Limited echocardiogram to assess pulmonary pressures.
2. Normal left ventricular size and systolic function without regional wall motion abnormalities.
Estimated left ventricular ejection fraction is 60 to 65% by visual assessment.
2. Normal right ventricular size and systolic function.
3. Mild tricuspid regurgitation with estimated pulmonary artery systolic pressure of 30 mmHg, assuming a right atrial pressure of 3 mmHg
4. No pericardial effusion.
Last hospitalist admission: 11/20/24 - 11/25/24
DC DX:Ascites, Acute HFpEF, SLE/Raynaud's, Hypokalemia
ASSESSMENT & PLAN
Recurrent Ascites: Gained 3.4 kg ( 7.5 lb) over 6 weeks
Us Guided abdominal Paracentesis
- s/p 5 % albumin 250 cc prior to tap
- yielding 2600 mL of ascitic fluid.
- Ascites fluid Cx sent
- Prio HX s/p paracentesis 3200cc on 11/21/24, SAAG 1.4
- LFTs normal
- Hold of empiric IV ABx ascitic fluid WBC 153
- on Frusemide 80 daily
- Hold Metolazone 2.5 mg q48H
- GI consult to eval for ascites fluid ( transudate vs exudate )
HX chr HFpEF: Not in acute HF
Gained 3.4 kg ( 7.5 lb) over 6 weeks
Unremarkable pro BNP
- GDMT limited by hypotension per prior Card consult
- on Frusemide 80 daily
- Hold Metolazone 2.5 mg q48H
- any consideration for RHC cath ?
- Case text consulted with [facility] Card Dr Helton
PRAVEEN - Thought to be prerenal and possibly due to overdiuresis as patient received metolazone and Lasix as an outpatient.
CKD 3a with baseline eGFR 40- 55
- Known HX Albuminuria
- Prior renal U/S unremarkable
- check UA
- on Frusemide 80 daily
- Hold Metolazone 2.5 mg q48H
- Renal consult
SLE/Raynaud's:
-check ESR
-check U/A
- doubt renal involvement at this time
-cont CellCept/Prednisone
Other problems:
Anemia of chronic disease: Hb stable
Hyponatremia, mild, stable
Hypokalemia, resolved
Pul HTN: cont sildenafil
COVID positive: Paxlovid stopped on admission
DVT Px: SQH
Full code
IP TLM
[2025-01-02] MEDS: KCL ELIXIR 40 MEQ PO (18:08)
[2025-01-02 18:42] LABS: Urine Protein 22 mg/dl (0-12)
[2025-01-02 19:36] LABS: Erythrocyte Sed Rate 34 mm/hour (0-20)
--- NOTE | 2025-01-02 19:45 | PTCARENOTE ---
Pt admitted to 333 from ED. Ambulated to bed without difficulty. Denies SOB. SR on tele. VSS. Call [facility] within reach.
[2025-01-02 20:36] LABS: Urine Albumin 1+ (Neg - Trace); Urine Bilirubin Negative (Negative); Urine Character Clear (Clear); Urine Color Yellow; Urine Glucose Negative (Negative); Urine Ketone Negative (Negative); Urine Leukocyte Negative (Negative); Urine Nitrite Negative (Negative); Urine Occult Blood Negative (Negative); Urine Urobilinogen Negative (Neg - 1+)
[2025-01-02 20:44] LABS: Urine Bacteria Few (Negative); Urine Red Blood Cell 0-2 /HPF (0-2); Urine White Cell 0-2 /HPF (0-5)
[2025-01-02] MEDS: HEPARIN 5000 UNITS SC (20:57)
[2025-01-02] MEDS: FLEXERIL 5 MG PO (21:12)
[2025-01-02] MEDS: TYLENOL 650 MG PO (21:13)
[2025-01-02] MEDS: KCL 20 MEQ PO (21:14)
[2025-01-02] MEDS: NEURONTIN 1200 MG PO (21:16)
[2025-01-02] MEDS: REVATIO 20 MG PO (21:17)
[2025-01-03] MEDS: TYLENOL 650 MG PO (03:09)
[2025-01-03 03:37] VITALS: BP 107/59
[2025-01-03 06:00] VITALS: BMI 26.1
[2025-01-03 06:59] LABS: Blood Urea Nitrogen 65 mg/dl (7-17); Calcium 8.7 mg/dl (8.4-10.2); Carbon Dioxide 31 mmol/L (22-30); Chloride 93 mmol/L (98-107); Estimated Creatinine Clearance 40 ml/min; Glucose 89 mg/dl (70-99); Hematocrit 23.6 % (37.0-47.0); Hemoglobin 7.7 g/dL (12.0-16.0); Mean Corp Hgb Conc. 32.6 g/dL (33.0-37.0); Mean Corpuscular Hgb 27.1 pg (27.0-31.0); Mean Corpuscular Volume 83.1 fL (81.0-99.0); Mean Platelet Volume 10.1 fL (7.4-10.4); Platelet Count 223 10^3/uL (130-400); Potassium 3.3 mmol/L (3.5-5.1); Red Blood Cell Count 2.84 10^6/uL (4.20-5.40); Red Cell Dist. Width 17.2 % (11.5-14.5); Sodium 135 mmol/L (135-145); White Blood Cell Count 2.4 10^3/uL (4.8-10.8); eGFR 39.54
[2025-01-03 07:05] VITALS: BP 110/64
[2025-01-03] MEDS: SPIRIVA RESPIMAT 2.5 MCG 2 PUFF INH (07:28)
[2025-01-03 07:29] LABS: TSH Reflex To Free T4 0.57 uIU/ml (0.47-4.68)
--- NOTE | 2025-01-03 08:26 | W.PN.HOSP.TC ---
Today's Communication/Plan
-
Discharge today
Assessment / Plan
Assessment / Plan
41-year-old female with history of lupus nephritis CHF with preserved ejection fraction, ascites, history of paracentesis presents to the ER for evaluation. She reports over the past several days she has had increasing swelling in her abdomen
again and feels very full very uncomfortable. She has gained over 5 pounds in 1 night. She feels very short of breath. Symptoms have become worse over the past 2 days. She has had 2 paracentesis in the past here at [facility]. She is
followed by [facility] for her lupus and [facility] for primary care physician.Patient denied any abdominal pain. Patient denied any nausea vomiting diarrhea. Patient stated some urinary hesitancy despite on Lasix for past 2 days. Patient
denied any urinary frequency, urgency or hematuria. 3 days ago she had a temp of 101.4, which resolved on its own. She complaining of headache. Patient denied any chest pain. Patient denied any dizzy.
Patient underwent paracentesis in the ER. You told 2600 mL of ascites fluid. Fluids sent for culture. Patient received a dose of albumin in ER.Admitting for further management
#Abdominal swelling/ascites
-Paracentesis today yielded 2600 mL of ascites fluid
-Appreciate GI input, suspect cardiogenic ascites, as patient has no liver pathology
-Appreciate cardiology input, recommend increasing Lasix from 80 mg daily to 100 mg daily. Recommend stopping metolazone
-Needs repeat BMP with PCP in 1 week
-Will discharge as per patient request
-Follow-up with cardiology in the office as scheduled, as well as her PCP in 1 week.
#Chronic leukopenia/anemia of chronic disease
-No active bleeding
-Continue to monitor
#Hypokalemia likely from diuretics
#Acute kidney injury Likely from fluid overload
#History of lupus nephritis
Appreciate nephrology input, creatinine now near her baseline at 1.6, down from 2.3
Nephrology does not feel that her volume gains are related to underlying lupus nephritis or kidney disease
Continue to replete potassium, repeat BMP with PCP in 1 week
#Small bowel volvulus: Monitoring
-Abdominal CT conducted on 11/23/2024 showed small bowel volvulus. There may be vascular compromise, with associated circumferential wall thickening involving the proximal to mid jejunum. There is also edema with mild vascular congestion involving
the small bowel mesentery. No apparent obstruction, without proximal luminal dilatation, and ingested contrast material has passed through the small bowel and is present within the distal small bowel and colon.
#SLE/Raynaud's
-Continue CellCept/prednisone
-Gabapentin continued
#Pulmonary hypertension:
-Continue sildenafil
#Hyperlipidemia
statin continued
#History of CHF
-Lasix continued
-Metolazone continued
-Minoxidil continued
-strict I &O, daily weight
-cardiology consulted
# GERD
-PPI continued
# Pulmonary hypertension
-Sildenafil continued
DVT prophylaxis�subcu Lovenox
Full code
Physical Exam
General: No acute distress
HEENT: Normocephalic, Atraumatic, EOMI, MMM
Respiratory: Clear to Auscultation bilaterally
Cardiac: Normal S1/S2, Regular Rate and Rhythm
GI: Soft, Nontender, mildly distended, Normal Bowel Sounds
Extremities: No Clubbing, Cyanosis, or Edema
Neuro: Nonfocal/Grossly Intact
Psych: Calm, Cooperative
Derm: No Visible lesions
Anticipated Discharge: Today
Subjective/Interval History
-
Date of Service: January 03, 2025
Patient reports feeling much better after her paracentesis yesterday. Shortness of breath resolved. Breathing back to baseline. No chest pain, no palpitations. No fever, no vomiting.
Objective Data
-
Labs:
Laboratory Results
01/03/25
05:50
WBC 2.4 L*
Hgb 7.7 L
Hct 23.6 L
Plt Count 223
Sodium 135
Potassium 3.3 L
Chloride 93 L
Carbon Dioxide 31 H
BUN 65 H
Creatinine 1.6 H
Glucose 89
Calcium 8.7
Vital Signs:
Vital Signs
Temp Pulse Resp BP Pulse Ox
98.4 F 78 16 110/64 96
01/03/25 07:05 01/03/25 07:28 01/03/25 07:28 01/03/25 07:05 01/03/25 07:05
I&O
01/02/25 01/03/25 01/04/25
06:59 06:59 06:59
Intake Total 1440 / 1440
Output Total 100 / 100
Balance 1340 / 1340
--- NOTE | 2025-01-03 09:14 | CON.GI ---
Addendum entered and electronically signed by Flako Cavazos MD 01/03/25 10:27:
Patient seen and examined, agree constrictors note. Patient presents with recurrent ascites. She has a history of lupus nephritis, CHF, pulmonary hypertension follows at [place], recently admitted with ascites where evaluation showed changes
consistent with probable cardiac ascites. She admittedly has dietary indiscretions with a large amount of salt usually. Upon presentation here she had repeat paracentesis with much improved symptoms. Currently on exam she has probable mild
ascites though is soft and no tenderness.
1. Ascites: Likely cardiogenic, with no liver disease, not related to portal hypertension, also with dietary indiscretions. At this point would continue fluid management per cardiology and renal, and again discussed salt restriction. Will hold on
further GI workup for now.
We will sign off for now, please call back with any further questions.
Original Note:
Consultation
-
Date/Time Consultation Requested: 01/02/251941
Date/Time Consultation Performed: 01/03/25844
Requesting Provider: YAZMIN Wolf
Performing Provider: Dr. Cavazos/YAZMIN Constantino
Reason for Consultation: ascites
Medical History
Chief Complaint / HPI
Chief Complaint: abdominal distension
History of Present Illness:
49-year-old female past medical history of lupus c/b lupus nephritis, CHF with preserved EF, pulmonary hypertension, PRAVEEN, COPD, Raynaud's, pulmonary HTN follows at [place] who we saw in November presenting with abdominal distention we saw in November
with ascites. Who presented to the emergency room with increased abdominal distention. She had a paracentesis in the emergency room of 2600 mL. We are asked to evaluate for the same. Diuretics are managed by cardiology. We saw her in November.
She had had 2 paracenteses at that time both with elevated protein in ascites fluid more typical with cardiac versus rheumatological. SAG >1.1. She had no signs of cirrhosis. With normal INR, preserved platelets, normal LFTs. Ultrasound, CAT
scan do not show cirrhotic liver. Cytology reviewed and is negative for malignancy. I discussed with patient and she states that she 'cannot get off the fast food'. She also eats a lot of lunch meat. He finds it difficult to follow a 2 g sodium
diet. I advised her to download an ngoc. She states she cannot do that. I also advised her to follow-up with the dietitian. I did show her how to calculate a 2 g sodium diet manually. She does understand to weigh herself daily. I did show her
how to calculate things such as the Lisa that is sitting at her bedside. How to enter it in her phone and to look up the nutritional value including sodium and this. To write it down on a daily basis and to follow it. She does follow with
nephrology, cardiology here as well as cardiology down at [place].
Past Medical History
Past Medical History: Asthma, CHF, COPD and Other (lupus, pulmonary HTN)
Past Surgical History: Cholecystectomy
Social History
Tobacco: Non-Smoker
Alcohol: None
Drug: None
Allergies / Home Medications
Allergy/AdvReac Type Severity Reaction Status Date / Time
dapsone Allergy Unknown Verified 01/02/25 13:09
hydroxychloroquine Allergy Unknown Verified 01/02/25 13:09
[From Plaquenil]
�Medication �Instructions �Recorded
gabapentin 600 mg tablet 1,200 mg PO HS Pain 08/16/23
omeprazole 40 mg capsule,delayed 40 mg PO DAILY GERD 08/16/23
release
sildenafil (pulm.hypertension) 20 20 mg PO Q8H Raynaud's 08/16/23
mg tablet
albuterol sulfate 90 mcg/actuation 2 puff inhalation R Q4HPRN PRN 04/23/24
aerosol inhaler sob/wheezing
mycophenolate mofetil 500 mg tablet 1,500 mg PO BID lupus 05/04/24
fenofibrate nanocrystallized 145 145 mg PO DAILY High Cholesterol 05/08/24
mg tablet ##0
anifrolumab-fnia 300 mg/2 mL (150 300 mg IV Q4W Sleep 11/20/24
mg/mL) intravenous solution
(Saphnelo)
budesonide-formoterol HFA 160 2 puff inhalation R BID 11/20/24
mcg-4.5 mcg/actuation aerosol Lung/Breathing Issues
inhaler (Symbicort)
folic acid 1 mg tablet 1 mg PO DAILY Supplement 11/20/24
furosemide 80 mg tablet (Lasix) 80 mg PO DAILY Heart Failure 11/20/24
minoxidil 2.5 mg tablet 2.5 mg PO DAILY 11/20/24
omalizumab 300 mg/2 mL 300 mg SC QMONTH Lung/Breathing 11/20/24
subcutaneous auto-injector (Xolair) Issues
potassium chloride 20 mEq 20 meq PO QID Electrolyte Repletion 11/20/24
tablet,extended release(part/cryst)
prednisone 5 mg tablet 5 mg PO DAILY Anti-Inflammatory 11/20/24
tiotropium bromide 2.5 2 puff inhalation R DAILY 11/20/24
mcg/actuation mist for inhalation Lung/Breathing Issues
(Spiriva Respimat)
acetaminophen 500 mg tablet 1,500 mg PO DAILYPRN PRN mild 01/02/25
(Tylenol Extra Strength) pain/fever
cyclobenzaprine 5 mg tablet 5 mg PO HSPRN PRN sleep/joint pain 01/02/25
metolazone 2.5 mg tablet 2.5 mg PO Q48H 01/02/25
potassium chloride 20 mEq 20 meq PO DAILYPRN PRN when taking 01/02/25
tablet,extended release(part/cryst) metolazone
Review of Systems
-
All other systems: A 12 pt ROS was Negative except as stated above in HPI
Vital Signs
Temp Pulse Resp BP Pulse Ox
98.4 F 78 16 110/64 96
01/03/25 07:05 01/03/25 07:28 01/03/25 07:28 01/03/25 07:05 01/03/25 07:05
Physical Exam
Exam
General: No Apparent Distress
HEENT: Anicteric
Respiratory: Other (Decreased bases bilaterally)
Cardiac: Regular Rhythm
GI: Soft, Non Tender, Non Distended and Normal Bowel Sounds
Musculoskeletal: Edema (Left lower extremity edema)
Skin: Warm and Dry
Neuro: AO x 3
Psych: Calm
Results
WBC 2.4 10^3/uL (4.8-10.8) L* 01/03/25 05:50
Hgb 7.7 g/dL (12.0-16.0) L 01/03/25 05:50
Hct 23.6 % (37.0-47.0) L 01/03/25 05:50
MCV 83.1 fL (81.0-99.0) 01/03/25 05:50
Plt Count 223 10^3/uL (130-400) 01/03/25 05:50
Absolute Neuts (auto) 2.3 10^3/uL (1.4-6.5) 01/02/25 13:23
Sodium 135 mmol/L (135-145) 01/03/25 05:50
Potassium 3.3 mmol/L (3.5-5.1) L 01/03/25 05:50
Chloride 93 mmol/L (98-107) L 01/03/25 05:50
Carbon Dioxide 31 mmol/L (22-30) H 01/03/25 05:50
BUN 65 mg/dl (7-17) H 01/03/25 05:50
Creatinine 1.6 mg/dL (0.6-1.0) H 01/03/25 05:50
Calcium 8.7 mg/dl (8.4-10.2) 01/03/25 05:50
Total Bilirubin 0.5 mg/dl (0.2-1.3) 01/02/25 13:23
AST 36 U/L (14-36) 01/02/25 13:23
ALT 16 U/L (0-35) 01/02/25 13:23
Alkaline Phosphatase 41 U/L (38-126) 01/02/25 13:23
Diagnostic Image Results:
Chest x-ray:
IMPRESSION:
Small bilateral pleural effusions. Right larger than left. Progressed on the right. Stable on the left.
Mild elevation of the right hemidiaphragm. Stable
Mild cardiomegaly. Stable
Paracentesis 01/02/2025:Successful ultrasound-guided paracentesis yielding 2600 mL of ascitic fluid.
Fluid WBC 105, PMN 1.0, fluid culture and Gram stain pending
-
ascites 11/21 3200ml (SAAG 1.4, high protein)
ascites 11/24 1650 (SAAG 1.7 high protein)
Prior GI Procedures:
EGD:
Colonoscopy:
Assessment / Plan
-
49-year-old female past medical history of lupus c/b lupus nephritis, CHF with preserved EF, pulmonary hypertension, PRAVEEN, COPD, Raynaud's, pulmonary HTN follows at [facility] who we saw in November presenting with abdominal distention we saw in November
with ascites. Who presented to the emergency room with increased abdominal distention. She had a paracentesis in the emergency room of 2600 mL. We are asked to evaluate for the same. Diuretics are managed by cardiology. We saw her in November.
She had had 2 paracenteses at that time both with elevated protein in ascites fluid more typical with cardiac versus rheumatological. SAG >1.1. She had no signs of cirrhosis. With normal INR, preserved platelets, normal LFTs. Ultrasound, CAT
scan do not show cirrhotic liver. Cytology reviewed and is negative for malignancy.
-ascites, s/p para 2600ml, prior para x 2 (November) with elevated protein in ascites fluid more typical with cardiac versus rheumatological. No signs of cirrhosis.
-hypokalemia
-RPAVEEN
-hx HFpEF
-pulm HTN
-SLE/chronic immunosuppression
-b/l effusion
history of iron deficiency anemia
h/o respiratory failure requiring intubation 08/2023
Raynaud's
GERD
Former tobacco use
Cholecystectomy
PLAN:
-Patient admits to non compliance with 2 gm Na diet
-Recommend matrix inspector consultation
-Nephrology consultation pending
-Diuretic managed by Cardiology
-No signs of cirrhosis
-
-
Thank you for consultation and allowing me to participate in the patient's care. Please call the web production manager GI physician during the after hours with any questions or concerns.
[2025-01-03] MEDS: DELTASONE 5 MG PO (09:27)
[2025-01-03] MEDS: KCL 20 MEQ PO ×3 (09:28→13:04)
[2025-01-03] MEDS: FOLVITE 1 MG PO (09:28)
[2025-01-03] MEDS: LASIX 80 MG PO (09:29)
[2025-01-03] MEDS: LONITEN 2.5 MG PO (09:30)
[2025-01-03] MEDS: PROTONIX 40 MG PO (09:31)
[2025-01-03] MEDS: REVATIO 20 MG PO (09:31)
[2025-01-03] MEDS: TRICOR 145 MG PO (09:32)
[2025-01-03] MEDS: HEPARIN SC (09:33)
--- NOTE | 2025-01-03 09:55 | W.CON.NEPH ---
Consultation
-
Date/Time Consultation Requested: 01/03/2025 7:00 AM
Date/Time Consultation Performed: 01/03/2025 10:00 AM
Requesting Provider: Dr. Loya
Performing Provider: Dr. Ernst
Reason for Consultation: Chronic kidney disease
Medical History
-
Chief Complaint: Chronic kidney disease stage III
History of Present Illness:
Patient is a 49y F with PMH significant for SLE / chronic immunosuppression with MMF and low dose prednisone, pulm HTN on Sidenafil, GERD on PPI, neuropathy on gabapentin. She has a history of congestive heart failure maintained on both Lasix and
metolazone. She was recently admitted to the hospital from 11/20/2024 to 11/25/2024 with abdominal distention and weight gains. During that admission there was some associated acute renal failure with creatinine up to 2.5 but eventually was
discharged with a creatinine of 1.1 on 11/25/24. She re presented last evening with a creatinine of 2.3 which is now down to 1.6 and nephrology was consulted. She presented to the emergency room for increased swelling of her abdomen and weight
gains. She is followed by [facility] for her lupus. She underwent 2.6 L paracentesis in the emergency room
Past Medical History
Cardiomyopathy with Recovered EF
Pulmonary Hypertension
Systemic Lupus Erythematosus followed at [facility]
chronic immuno supression
Raynaud's
Peripheral Neuropathy
Recurrent ascites
Past Surgical History: Cholecystectomy
Social History
Tobacco: Smoker (quit 14 days ago 1ppd)
Alcohol: Occasional
Living: With Family
Family History
autoimmune disease in most of her siblings-thyroid, DM, celiac
no CKD
Allergies / Home Medications
Allergy/AdvReac Type Severity Reaction Status Date / Time
dapsone Allergy Unknown Verified 01/02/25 13:09
hydroxychloroquine Allergy Unknown Verified 01/02/25 13:09
[From Plaquenil]
�Medication �Instructions �Recorded �Confirmed �Type
gabapentin 600 mg tablet 1,200 mg PO HS Pain 08/16/23 01/02/25 History
omeprazole 40 mg capsule,delayed 40 mg PO DAILY GERD 08/16/23 01/02/25 History
release
sildenafil (pulm.hypertension) 20 20 mg PO Q8H Raynaud's 08/16/23 01/02/25 History
mg tablet
albuterol sulfate 90 mcg/actuation 2 puff inhalation R Q4HPRN PRN 04/23/24 01/02/25 History
aerosol inhaler sob/wheezing
mycophenolate mofetil 500 mg tablet 1,500 mg PO BID lupus 05/04/24 01/02/25 History
fenofibrate nanocrystallized 145 145 mg PO DAILY High Cholesterol 05/08/24 01/02/25 History
mg tablet ##0
anifrolumab-fnia 300 mg/2 mL (150 300 mg IV Q4W Sleep 11/20/24 01/02/25 History
mg/mL) intravenous solution
(Saphnelo)
budesonide-formoterol HFA 160 2 puff inhalation R BID 11/20/24 01/02/25 History
mcg-4.5 mcg/actuation aerosol Lung/Breathing Issues
inhaler (Symbicort)
folic acid 1 mg tablet 1 mg PO DAILY Supplement 11/20/24 01/02/25 History
furosemide 80 mg tablet (Lasix) 80 mg PO DAILY Heart Failure 11/20/24 01/02/25 History
minoxidil 2.5 mg tablet 2.5 mg PO DAILY 11/20/24 01/02/25 History
omalizumab 300 mg/2 mL 300 mg SC QMONTH Lung/Breathing 11/20/24 01/02/25 History
subcutaneous auto-injector (Xolair) Issues
potassium chloride 20 mEq 20 meq PO QID Electrolyte Repletion 11/20/24 01/02/25 History
tablet,extended release(part/cryst)
prednisone 5 mg tablet 5 mg PO DAILY Anti-Inflammatory 11/20/24 01/02/25 History
tiotropium bromide 2.5 2 puff inhalation R DAILY 11/20/24 01/02/25 History
mcg/actuation mist for inhalation Lung/Breathing Issues
(Spiriva Respimat)
acetaminophen 500 mg tablet 1,500 mg PO DAILYPRN PRN mild 01/02/25 01/02/25 History
(Tylenol Extra Strength) pain/fever
cyclobenzaprine 5 mg tablet 5 mg PO HSPRN PRN sleep/joint pain 01/02/25 01/02/25 History
metolazone 2.5 mg tablet 2.5 mg PO Q48H 01/02/25 01/02/25 History
potassium chloride 20 mEq 20 meq PO DAILYPRN PRN when taking 01/02/25 01/02/25 History
tablet,extended release(part/cryst) metolazone
Review of Systems
-
History Source: Patient
All other systems: Negative unless noted
Constitutional: Weight Gain
Abdomen/GI: Other (Ascites)
Physical Exam
Vital Signs
Vital Signs
Temp Pulse Resp BP Pulse Ox
98.4 F 78 16 110/64 96
01/03/25 07:05 01/03/25 09:30 01/03/25 07:28 01/03/25 09:30 01/03/25 07:05
Lab Results
01/03/25 05:50
01/03/25 05:50
WBC 2.4 10^3/uL (4.8-10.8) L* 01/03/25 05:50
RBC 2.84 10^6/uL (4.20-5.40) L 01/03/25 05:50
Hgb 7.7 g/dL (12.0-16.0) L 01/03/25 05:50
Hct 23.6 % (37.0-47.0) L 01/03/25 05:50
Plt Count 223 10^3/uL (130-400) 01/03/25 05:50
Sodium 135 mmol/L (135-145) 01/03/25 05:50
Potassium 3.3 mmol/L (3.5-5.1) L 01/03/25 05:50
Chloride 93 mmol/L (98-107) L 01/03/25 05:50
Carbon Dioxide 31 mmol/L (22-30) H 01/03/25 05:50
BUN 65 mg/dl (7-17) H 01/03/25 05:50
Creatinine 1.6 mg/dL (0.6-1.0) H 01/03/25 05:50
eGFR 39.54 01/03/25 05:50
Glucose 89 mg/dl (70-99) 01/03/25 05:50
Calcium 8.7 mg/dl (8.4-10.2) 01/03/25 05:50
Det-L-Luybeamkils Pept 600 pg/ml 01/02/25 13:23
Albumin 4.0 g/dl (3.5-5.0) 01/02/25 13:23
Physical Exam
General: AOx3, Nontoxic , NAD
HEENT: PERRL, EOMI, Anicteric, Conjunctivae Clear, Ear/Nose Intact, Hearing Normal, Oropharynx Clear/Moist, Dentition Intact, Facial Symmetry, Neck Supple, Neck: Trachea Midline, No JVD and No Thyromegaly, no Bruits
Respiratory: Clear to auscultation bilaterally with normal lung exersion
Cardiac: S1/S2 and Regular Rate/Rhythm
Breast: Deferred by me
Abdomen: Soft, Nontender, distended, Normal Bowel Sounds and No Hepatosplenomegaly
Rectal: Deferred by Provider
Genito-urinary: No Costovertebral Tenderness
Extremities: No Clubbing, No Cyanosis and No Edema
Skin: No Rash or open lesions
Neuro: Nonfocal/Grossly Intact, CN II-XII (Intact) and Strength (Musculoskeletal exam 5 out of 5 both upper and lower extremities)
Hematologic/Lymphatic: No Cervical Lymphadenopathy, No Submandibular Lymphadenopathy and No Supraclavicular Lymphadenopathy
Psych: Mood/afflect pleasant, Insight/judgement good and Appropriate
Vascular: plus 2 pedal and radial pulses
Data Reviewed
-
Radiology: Image Personally Visualized and interpreted (Chest x-ray personally reviewed on presentation: No evidence of congestive heart failure or pneumonic process)
Labs: Labs Reviewed by me (BMP CBC, urinalysis notes 1+ albumin no blood)
Old Records: Reviewed (Reviewed old records and discharge summary from November 2024, creatinine 1.1 as of 11/25/2024)
Assessment/Plan
-
Impression:
PRAVEEN
CKD 3a
Recurrent ascites and volume overload
History of congestive heart failure with preserved EF
Pulmonary hypertension
Raynaud's
Peripheral neuropathy
SLE on chronic immunotherapy
Plan
PRAVEEN:
-Creatinine already improving towards baseline and currently at 1.5
-Underlying urine sediment pre review of UA is not active and therefore not consistent with active lupus nephritis
-Maintain current immunosuppression regimen as maintained by rheumatology at [facility]
-I suspect fluctuations in creatinines are due to volume shifts i.e. prerenal stimulus with associated hypotension (patient on minoxidil and sildenafil at the direction of cardiology)
-I defer diuretic therapy to cardiology given her underlying pulmonary hypertension
-I do not think her volume gains are related to underlying lupus nephritis or kidney disease
-Patient is stable for discharge from my perspective
--- NOTE | 2025-01-03 10:59 | CON.CAR ---
Addendum entered and electronically signed by Issac Dyson DO 01/03/25 12:38:
I saw and examined the patient.
The Power Transmission Engineer's note was reviewed and I agree with the note.
Comment:
HPI: Patient is a 49-year-old woman with history of cardiomyopathy with improved EF, lupus with pulmonary hypertension, history of lupus nephritis, Raynaud's, prior episode of vent dependent respiratory failure August 2023. She has had ongoing
issues with ascites. During admission 11/2024 she required paracentesis 11/21/2024 and 11/24/2024. She was discharged on Lasix 80 mg daily with metolazone 2.5 mg every other day. She was seen in the office 12/10/2024 and complained of worsening
abdominal bloating and shortness of breath although weights were overall stable. She is chronically on sildenafil. She then called to report 4 pound weight gain overnight and that she felt as though she needed another tap. She came to the
emergency room and underwent paracentesis 01/02/2025, 2600 cc out. Outpatient woods superintendent spoke with Dr. Robert Nova. She was started on IVIG several months ago and seen by multiple specialists at [facility] including Dr. Saavedra, pulmonary hypertension
specialist and heart failure specialist, Dr. De Jesus. Patient relays that she was told during these appointments that her ascites was not felt to be cardiac in origin. Due to her ongoing symptoms, in [facility] ER yesterday there was discussion regarding
ER to ER transfer to [facility], however patient refused this. On arrival her creatinine was up to 2.3. Cardiology consulted for evaluation. She reports feeling much improved status post paracentesis. She does report poor compliance with low-salt
diet.
Plan:
Improvement with 2600 cc ascitic fluid removal 01/02
Pt feels improved and adamant about discharge
Reviewed need for improvement in sodium and fluid restriction. These were discussed. We also discussed her diet which she admits is poor including high sodium foods.
Her compliance with diuretic therapy is also unclear. She apparently is taking metolazone potentially at the wrong time. We discussed holding metolazone for now and using it as needed for weight gain. We discussed increasing her Lasix to 100 mg
daily.
She was offered right heart cath this admission but declined this.
She will be monitored closely as outpt with follow-up within the next week. Her creatinine will be monitored with outpatient BMP. Her cr is improved and nephrology notes that her renal function is stable for d/c.
She is encouraged to follow-up with her gear hobber set up operator soon as possible as etiology of her recurrent ascites is not completely clear.
Her recent echo showed preserved LV function as well as PASP 30 mmHg. She continues with treatment for pulmonary pretension. Her recent pulmonary hypertension specialist did not feel that her ascites was from heart failure, decompensation per
patient
-She has undergone 3 paracenteses in the last 1.5 months despite escalating diuretic dosing.
Records have been requested.
Outpatient follow-up to be arranged.
Discussed with the patient, primary service, GI, and family at bedside.
Original Note:
Consultation
Consultation Request
Date/Time Consultation Performed: 01/03/25
Requesting Provider: Dr. Singletary
Performing Provider: Jeri Sheriff PA-C for Dr. Dyson
Reason for Consultation: ascites
Medical History
-
Chief Complaint: abd bloating, weight gain
History of Present Illness:
Patient is a 49-year-old woman with history of cardiomyopathy with improved EF, lupus with pulmonary hypertension, history of lupus nephritis, Raynaud's, prior episode of vent dependent respiratory failure August 2023. She has had ongoing issues
with ascites. During admission 11/2024 she required paracentesis 11/21/2024 and 11/24/2024. She was discharged on Lasix 80 mg daily with metolazone 2.5 mg every other day. She was seen in the office 12/10/2024 and complained of worsening abdominal
bloating and shortness of breath although weights were overall stable. She is chronically on sildenafil. She then called to report 4 pound weight gain overnight and that she felt as though she needed another tap. She came to the emergency room and
underwent paracentesis 01/02/2025. Outpatient woods superintendent spoke with Dr. Robert Nova. She was started on IVIG several months ago and seen by multiple specialists at [facility] including Dr. Saavedra, pulmonary hypertension specialist and heart failure
specialist, Dr. De Jesus. Patient relays that she was told during these appointments that her ascites was not felt to be cardiac in origin. Due to her ongoing symptoms, discussion regarding ER to ER transfer to [facility] was discussed however patient
refused this. On arrival her creatinine was up to 2.3. Cardiology consulted for evaluation. She reports feeling much improved status post paracentesis. She does report poor compliance with low-salt diet.
PMH:
Ascites
s/p paracentesis 3200 mL of ascitic fluid 11/21/2024
s/p paracentesis 1650 cc of clear yellow ascitic fluid 11/24/2024
history of iron deficiency anemia
h/o respiratory failure requiring intubation 08/2023
Pulmonary HTN on sildenafil
Lupus with prior lupus nephritis
Chronic steroid use due to SLE
Raynaud's
GERD
Former tobacco use
Cholecystectomy
Past Medical History
Past Medical History: CHF (History of heart failure with improved EF), HTN, Hypercholesterolemia and Other (systemic lupus, pulmonary hypertension,)
Past Surgical History: Cholecystectomy
Social History
Tobacco: Former Smoker
Alcohol: None
Drug: None
Living: With Family
Family History
Family History: Reviewed & Not Pertinent
Allergies / Home Medications
Allergy/AdvReac Type Severity Reaction Status Date / Time
dapsone Allergy Unknown Verified 01/02/25 13:09
hydroxychloroquine Allergy Unknown Verified 01/02/25 13:09
[From Plaquenil]
�Medication �Instructions �Recorded �Confirmed �Type
gabapentin 600 mg tablet 1,200 mg PO HS Pain 08/16/23 01/02/25 History
omeprazole 40 mg capsule,delayed 40 mg PO DAILY GERD 08/16/23 01/02/25 History
release
sildenafil (pulm.hypertension) 20 20 mg PO Q8H Raynaud's 08/16/23 01/02/25 History
mg tablet
albuterol sulfate 90 mcg/actuation 2 puff inhalation R Q4HPRN PRN 04/23/24 01/02/25 History
aerosol inhaler sob/wheezing
mycophenolate mofetil 500 mg tablet 1,500 mg PO BID lupus 05/04/24 01/02/25 History
fenofibrate nanocrystallized 145 145 mg PO DAILY High Cholesterol 05/08/24 01/02/25 History
mg tablet ##0
anifrolumab-fnia 300 mg/2 mL (150 300 mg IV Q4W Sleep 11/20/24 01/02/25 History
mg/mL) intravenous solution
(Saphnelo)
budesonide-formoterol HFA 160 2 puff inhalation R BID 11/20/24 01/02/25 History
mcg-4.5 mcg/actuation aerosol Lung/Breathing Issues
inhaler (Symbicort)
folic acid 1 mg tablet 1 mg PO DAILY Supplement 11/20/24 01/02/25 History
furosemide 80 mg tablet (Lasix) 80 mg PO DAILY Heart Failure 11/20/24 01/02/25 History
minoxidil 2.5 mg tablet 2.5 mg PO DAILY 11/20/24 01/02/25 History
omalizumab 300 mg/2 mL 300 mg SC QMONTH Lung/Breathing 11/20/24 01/02/25 History
subcutaneous auto-injector (Xolair) Issues
potassium chloride 20 mEq 20 meq PO QID Electrolyte Repletion 11/20/24 01/02/25 History
tablet,extended release(part/cryst)
prednisone 5 mg tablet 5 mg PO DAILY Anti-Inflammatory 11/20/24 01/02/25 History
tiotropium bromide 2.5 2 puff inhalation R DAILY 11/20/24 01/02/25 History
mcg/actuation mist for inhalation Lung/Breathing Issues
(Spiriva Respimat)
acetaminophen 500 mg tablet 1,500 mg PO DAILYPRN PRN mild 01/02/25 01/02/25 History
(Tylenol Extra Strength) pain/fever
cyclobenzaprine 5 mg tablet 5 mg PO HSPRN PRN sleep/joint pain 01/02/25 01/02/25 History
metolazone 2.5 mg tablet 2.5 mg PO Q48H 01/02/25 01/02/25 History
potassium chloride 20 mEq 20 meq PO DAILYPRN PRN when taking 01/02/25 01/02/25 History
tablet,extended release(part/cryst) metolazone
Review of Systems
-
History Source: Patient and Family
All other systems: Negative unless noted
Physical Exam
Vital Signs
Temp Pulse Resp BP Pulse Ox
98.4 F 78 16 110/64 96
01/03/25 07:05 01/03/25 09:30 01/03/25 07:28 01/03/25 09:30 01/03/25 07:05
Lab Results
01/03/25 05:50
01/03/25 05:50
Troponin I < 0.012 ng/ml 01/02/25 13:23
Ief-H-Nwzepxnqtnq Pept 600 pg/ml 01/02/25 13:23
Physical Exam
General: No Apparent Distress and Comfortable
HEENT: Normocephalic, Anicteric and Moist Mucous Membranes
Respiratory: Clear and Non Labored Respirations
Cardiac: S1/S2 and Regular Rhythm
GI: Soft, Non Tender and Distended (mild)
Musculoskeletal: No Clubbing, No Cyanosis and No Edema
Skin: Warm and Dry
Neuro: AO x 3
Impression / Plan
-
Primary Senior Tax Specialist: Dr. Hel[facility]
Primary Ash Worker: Dr. Robert Nova of [facility]
Primary Pulm HTN: Dr. Saavedra
Assessment:
Presentation with abd bloating, SOB
PRAVEEN
Acute on chronic HFpEF
Ascites
s/p paracentesis 3200 mL of ascitic fluid 11/21/2024
s/p paracentesis 1650 cc of clear yellow ascitic fluid 11/24/2024
s/p paracentesis 2600mL of ascitic fluid 01/02/25
history of iron deficiency anemia
h/o respiratory failure requiring intubation 08/2023
Pulmonary HTN on sildenafil
Lupus with prior lupus nephritis
Chronic steroid use due to SLE
Raynaud's
GERD
Former tobacco use
Cholecystectomy
Poor dietary compliance
ECHO 08/17/23: EF 43%, WMA of mid inferoseptal, apical septal, and basal mid inferior carlson (this is most c/w 'D shaped septum' from RV pressure overload), enlarged, mod MR, mild to mod TR, small pericardial effusion, PAP 49mmHg
Echo 11/22/2023: EF 55-60%, mild MR, mild TR, estimated PAP 25-30mmHg
Echo 04/24/2024: EF 65%, mild LVH, trace tricuspid regurgitation, estimated PAP of 45-50 mmHg, no pericardial effusion
Echo 11/21/2024: Mild LVH, EF 60-65%, normal RV, normal atria, mild MR, trace tricuspid regurgitation, could not determine pulmonary artery systolic pressure
Plan:
-Complex case. Patient is a 49-year-old female who has been struggling recently with ascites. She has undergone 3 paracenteses in the last 1.5 months despite escalating diuretic dosing. With this she has noted to have acute kidney injury. She
also has had multiple echocardiograms within the last several years all of which have shown normal EF and normal right heart. She does have a history of pulmonary hypertension and was recently seen by pulmonary hypertension specialist at [facility].
She is also followed by a gear hobber set up operator at [facility] for lupus.
-It appears unusual for patient to have structurally normal right heart with significant fluid accumulation in abdomen from heart failure.
-She reports when seen by pulmonary hypertension specialist they did not feel as though a right heart catheterization would be helpful. We did offer right heart cath to patient on Sunday, however she is unwilling to stay. She will follow-up with
her gear hobber set up operator at [facility] in short order
-Discussed importance of compliance with low-salt diet and fluid restriction
-Prior to admission was on p.o. Lasix 80 mg daily with metolazone every other day. She feels as though 'metolazone does not work'. Would tentatively plan for discharge on Lasix 100 mg daily and if notices weight gain, could use metolazone on a as
needed basis
-replete K
-will attempt to obtain outpatient records from [facility] for full review. Reviewed office correspondence
-hgb 7.7. work up per primary service.
-will arrange OP cardiac follow up
-d/w family at bedside
Data Reviewed
-
EKG: Tracing Personally Visualized and interpreted
Radiology: Report Reviewed by me
Medical Tests (Nuc Med, Echo etc): Report Reviewed by me
Labs: Labs Reviewed by me
Old Records: Reviewed
[2025-01-03 11:02] VITALS: BP 106/57
--- NOTE | 2025-01-03 12:21 | W.DCSUMMARY ---
Discharge Summary
Discharge Data
Date of Admission: 01/02/25
Date of Discharge: 01/03/25
-
Pending Results: No
Hospital Course
Discharge diagnosis:
Recurrent ascites, unclear etiology, possibly cardiac versus rheumatologic in origin
Chronic heart failure with a preserved ejection fraction
Small bilateral pleural effusion
Pulmonary hypertension on sildenafil
Lupus on chronic steroids
Chronic leukopenia
Hypokalemia
Acute kidney injury superimposed on stage IIIa chronic kidney disease
Gastroesophageal reflux disease
Consults: Cardiology, GI, nephrology
CXR:
Small bilateral pleural effusions. Right larger than left. Progressed on the right. Stable on the left.
Mild elevation of the right hemidiaphragm. Stable
Mild cardiomegaly. Stable
Hospital course:
49-year-old female with a past medical history of pulmonary hypertension, CHF, lupus on steroids, leukopenia, and stage IIIa chronic kidney disease presents with ascites. She had a paracentesis in the ER, draining 2.6 L. She was seen in
conjunction with GI, who states there is no liver pathology. GI recommends continued low-sodium diet, diuretics as per cardiology.
Patient was seen in conjunction with cardiology. This is patient's third paracentesis in the last 1.5 months despite increasing her diuretics. Patient states that she has followed up with Dr. Saavedra, pulmonary hypertension specialist and heart
failure specialist, Dr. De Jesus. Patient relays that she was told during these appointments that her ascites was not felt to be cardiac in origin. Due to her ongoing symptoms, there was discussion regarding ER to ER transfer to [facility], however
patient refused this. Cardiology increased her Lasix from 80 mg daily to 100 mg daily. Her metolazone was discontinued.
Patient was found to have acute kidney injury superimposed on stage IIIa chronic kidney disease. She was seen in conjunction with nephrology, who states that her ascites is not related to underlying lupus nephritis or kidney disease. Patient's
creatinine did improve from 2.3 upon admission to 1.6 on the day of discharge, which is closer to her baseline. She has hypokalemia, potassium was 3.3. She usually takes potassium chloride 20 mill equivalents 4 times a day. She received an extra
dose of potassium.
Patient is medically stable for discharge on the increased dose of Lasix as recommended by cardiology. She needs a repeat BMP with her PCP in 1 week. She needs to follow-up with cardiology in the office as scheduled, and her primary care doctor in
1 week.
Disposition: Home with home care
Discharge planning: Required 39 minutes
Discharge Plan
-
Patient Disposition: Home (Routine Discharge)
Discharge Diagnosis/Procedures: Ascites, heart failure, pulmonary hypertension, chronic kidney disease, hypokalemia, lupus
Condition: Fair
Diet: Restrict fluids to 64 oz
Activity: As tolerated
Driving Restrictions: As prior to admission
Blood Work: BMP with your PCP in 1 week
Activity Restrictions/Additional Instructions:
Cardiology recommends increasing your Lasix/furosemide to 100 mg daily.
You have been prescribed Lasix 20 mg tablets, you can take with 80 mg for total of 100 mg daily.
Stop metolazone.
Follow-up with your primary care doctor in 1 week, and cardiology in the office as scheduled.
Referrals:
Mk Jordan MD [Family Provider] - in two to three weeks
Liseth Michelle PA-C [Specified Professional Personl] - 01/09/25 8:20 am (You have a cardiology appointment at the [facility] office with Dr. Helton's physician metal forger's assistant, Liseth. Please call with questions)
Prescriptions:
New
furosemide 20 mg tablet
20 mg PO DAILY Qty: 30 0RF
Rx Instructions:
Take with furosemide 80 mg daily for total of 100 mg daily
Continued
gabapentin 600 mg tablet
1,200 mg PO HS
omeprazole 40 mg capsule,delayed release(/EC)
40 mg PO DAILY
sildenafil (pulm.hypertension) 20 mg tablet
20 mg PO Q8H
albuterol sulfate 90 mcg/actuation HFA aerosol inhaler
2 puff INHALATION R Q4HPRN PRN (Reason: sob/wheezing)
mycophenolate mofetil 500 mg tablet
1,500 mg PO BID
fenofibrate nanocrystallized 145 mg Tablet
145 mg PO DAILY Qty: 0
prednisone 5 mg Tablet
5 mg PO DAILY
minoxidil 2.5 mg Tablet
2.5 mg PO DAILY
folic acid 1 mg Tablet
1 mg PO DAILY
budesonide-formoterol [Symbicort] 160-4.5 mcg/actuation Hfa Aerosol Inhaler
2 puff INHALATION R BID
Spiriva Respimat 2.5 mcg/actuation Mist
2 puff INHALATION R DAILY
Saphnelo 300 mg/2 mL (150 mg/mL) Solution
300 mg IV Q4W
Patient Comments:
01/02/25: Next dose due Sunday(01/06/25)
Xolair 300 mg/2 mL auto-injector
300 mg SC QMONTH
potassium chloride 20 mEq tablet,ER particles/crystals
20 meq PO QID
furosemide [Lasix] 80 mg tablet
80 mg PO DAILY
acetaminophen [Tylenol Extra Strength] 500 mg Tablet
1,500 mg PO DAILYPRN PRN (Reason: mild pain/fever)
cyclobenzaprine 5 mg Tablet
5 mg PO HSPRN PRN (Reason: sleep/joint pain)
Discontinued
potassium chloride 20 mEq Tablet,Er Particles/Crystals
20 meq PO DAILYPRN PRN (Reason: when taking metolazone)
metolazone 2.5 mg tablet
2.5 mg PO Q48H
Discharge Orders:
Discharge Patient (As Directed); Ordered 01/03/25
Ordered By: Alfredo Loya
Discharge Date and Time
Print Language: IRISH
[2025-01-03 14:57] VITALS: BP 124/83
--- NOTE | 2025-01-03 16:02 | PTCARENOTE ---
left lower leg with ?Lump/raised area
[2025-01-05 00:52] LABS: Complement C3 < 40 mg/dl (88-165)
[2025-01-05 02:40] LABS: ds-DNA Ab, IgG Reflex To Titer >300 IU (0-24)
== END 2025-01-03 16:02 | disposition home or self-care (01) | DRG 682 ==
LOC: 3 WEST ACU 17:56
PROVIDERS: Internal Medicine Cardiovascular Disease; Nurse Practitioner; Registered Nurse; ADMITTING PHYSICIAN Internal Medicine; ATTENDING PHYSICIAN Family Medicine; CONSULT PHYSICIAN Internal Medicine Gastroenterology; CONSULT PHYSICIAN Nuclear Medicine Nuclear Cardiology; CONSULT PHYSICIAN Radiology Diagnostic Radiology; CONSULT PHYSICIAN Specialist; EMERGENCY PHYSICIAN Student in an Organized Health Care Education/Training Program
PROC: 0W9G3ZZ Drainage of Peritoneal Cavity, Percutaneous Approach (ICD-10-PCS; 2025-01-02)
DX: N17.9 Acute kidney failure, unspecified (principal); K56.2 Volvulus; R18.8 Other ascites; I13.0 Hypertensive heart and chronic kidney disease with heart failure and stage 1 through stage 4 chronic kidney disease, or unspecified chronic kidney disease; E87.1 Hypo-osmolality and hyponatremia; D84.821 Immunodeficiency due to drugs; I42.9 Cardiomyopathy, unspecified; I50.32 Chronic diastolic (congestive) heart failure; M32.14 Glomerular disease in systemic lupus erythematosus; R14.0 Abdominal distension (gaseous); D50.9 Iron deficiency anemia, unspecified; K21.9 Gastro-esophageal reflux disease without esophagitis; M32.9 Systemic lupus erythematosus, unspecified; I95.9 Hypotension, unspecified; R51.9 Headache, unspecified; D63.8 Anemia in other chronic diseases classified elsewhere; J44.9 Chronic obstructive pulmonary disease, unspecified; E78.00 Pure hypercholesterolemia, unspecified; E87.6 Hypokalemia; T50.2X5A Adverse effect of carbonic-anhydrase inhibitors, benzothiadiazides and other diuretics, initial encounter; I73.00 Raynaud's syndrome without gangrene; G62.9 Polyneuropathy, unspecified; I27.20 Pulmonary hypertension, unspecified; N18.31 Chronic kidney disease, stage 3a; R39.11 Hesitancy of micturition; Z90.49 Acquired absence of other specified parts of digestive tract; Z87.891 Personal history of nicotine dependence; Z88.8 Allergy status to other drugs, medicaments and biological substances; Z79.51 Long term (current) use of inhaled steroids; Z79.52 Long term (current) use of systemic steroids; Z79.624 Long term (current) use of inhibitors of nucleotide synthesis; Z91.119 Patient's noncompliance with dietary regimen due to unspecified reason
CPT/HCPCS: 49083; 71046; 80048; 80053; 81003; 81015; 83880; 84156; 84443; 84484; 85025; 85027; 85652; 86160; 86225; 86256; 87015; 87070; 87205; 89051; 93005; 94640; 96365; 99285; P9045

== ENCOUNTER → 2025-02-05 07:45 | Outpatient (REF) | payer OTHER, SELFPAY | LOC: WOUND 07:45 | PROVIDERS: ATTENDING PHYSICIAN Surgery | DX: L97.222 Non-pressure chronic ulcer of left calf with fat layer exposed (principal); L93.0 Discoid lupus erythematosus; I87.2 Venous insufficiency (chronic) (peripheral); I73.9 Peripheral vascular disease, unspecified; J44.9 Chronic obstructive pulmonary disease, unspecified; Z68.26 Body mass index [BMI] 26.0-26.9, adult; Z79.52 Long term (current) use of systemic steroids | CPT/HCPCS: 11042; 99204 ==

== ENCOUNTER 2025-02-06 15:47 | Inpatient (IN) | payer OTHER, SELFPAY ==
[2025-02-06 11:50] VITALS: BP 119/74
[2025-02-06 12:10] LABS: % Basophils 0.3 % (0-2); % Immature Granulocytes 0.9 % (0-0.5); % Lymphocytes 17.7 % (20.5-51.1); % Neutrophils 69.1 % (42.2-75.2); Absolute Lymphocytes 0.6 10^3/uL (1.2-3.4); Absolute Monocytes 0.4 10^3/uL (0.1-0.6); Absolute Neutrophils 2.3 10^3/uL (1.4-6.5); Hematocrit 26.4 % (37.0-47.0); Hemoglobin 8.7 g/dL (12.0-16.0); Mean Corpuscular Hgb 27.4 pg (27.0-31.0); Mean Corpuscular Volume 83.3 fL (81.0-99.0); Nucleated Red Blood Cells % 0 %; Platelet Count 283 10^3/uL (130-400); Red Blood Cell Count 3.17 10^6/uL (4.20-5.40); Red Cell Dist. Width 15.6 % (11.5-14.5); White Blood Cell Count 3.3 10^3/uL (4.8-10.8)
[2025-02-06 12:22] LABS: Lactic Acid 0.6 mmol/L (0.7-2.0)
[2025-02-06 12:25] LABS: ALT (SGPT) 63 U/L (0-35); AST (SGOT) 128 U/L (14-36); Albumin 3.5 g/dl (3.5-5.0); Alkaline Phosphatase 102 U/L (38-126); Blood Urea Nitrogen 33 mg/dl (7-17); Calcium 8.7 mg/dl (8.4-10.2); Carbon Dioxide 27 mmol/L (22-30); Chloride 96 mmol/L (98-107); Glucose 95 mg/dl (70-99); Sodium 134 mmol/L (135-145); Total Bilirubin 0.6 mg/dl (0.2-1.3); Total Protein 6.2 g/dl (6.3-8.2); eGFR 55.84
[2025-02-06 13:24] VITALS: BMI 25.9
[2025-02-06] MEDS: ZOSYN 50 IV ×2 (13:55→20:10)
[2025-02-06] MEDS: DILAUDID 0.5 MG IV (13:55)
--- NOTE | 2025-02-06 13:58 | ED.GENMED ---
History of Present Illness
General
Chief Complaint: Skin Problem
Time Seen by Provider: 02/06/25 13:07
History of Present Illness
History of Present Illness:
49-year-old female presents to the emergency department for evaluation of a worsening ulcer to the left lower extremity. Is had a chronic ulcer managed by wound care as well as dermatology. 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
for dermatomyositis. She has been on cephalexin by her retort engineer but today noted increased warmth and discomfort thus was sent to the emergency department for further evaluation. She is also noted to be febrile this morning at 101 Fahrenheit.
She is immunocompromise due to chronic prednisone use as well as CellCept for lupus.
Per her retort engineer notes there is concern for significant muscle edema in the area of infection and severe pain not responding to cephalexin with a fever of 101 Fahrenheit. They recommend hospital admission for IV antibiotics.
Past History
Past History
ED Past Medical History: Other (Systemic lupus erythematosus, pulmonary retention, microcytic anemia, pleural effusions, GERD)
Social History
Tobacco: Former smoker
Review of Systems
Review of Systems
Allergies reviewed?: Yes
All Other Systems: ROS reviewed and negative except as documented in HPI and ROS
Phy Exam
Physical Exam
Physical Exam:
GEN: Well appearing, NAD, WDWN
HEENT: Oral mucosa moist, no scleral icterus
Cardiac: Regular rate
Lung: No respiratory distress, no tachypnea
MSK: No gross deformity or injuries
Skin: Good color, no pallor or jaundice, no rashes
Neuro: AO x3, moves all extremities freely
Psych: Calm, cooperative
Course
Orders/Labs/Results
Orders:
Orders
02/06/25 12:02
Complete Blood Count/With Diff Urgent
Comprehensive Metabolic Panel Urgent
Lactic Acid Q4H
Comment: ON ICE, CANCEL 2ND ORDER IF FIRST LACTIC ACID LEVEL <2
Blood Culture Q20M
CARO Source: Blood/Venous
Specimen Description:
Comment: Urgent from separate sites. If patient screens positive for possible sepsis
02/06/25 12:20
Blood Culture Q20M
CARO Source: Blood/Venous
Specimen Description:
Comment: Urgent from separate sites. If patient screens positive for possible sepsis
02/06/25 13:31
HYDROmorphone [Dilaudid] 0.5 mg IV NOW STA
Piperacillin/Tazo 3.375 Gram [Zosyn] 3.375 gram in 50 ml IV NOW
Abnormal Lab Results
02/06/25
12:02
WBC 3.3 L 10^3/uL
(4.8-10.8)
RBC 3.17 L 10^6/uL
(4.20-5.40)
Hgb 8.7 L g/dL
(12.0-16.0)
Hct 26.4 L %
(37.0-47.0)
RDW 15.6 H %
(11.5-14.5)
Absolute Lymphs (auto) 0.6 L 10^3/uL
(1.2-3.4)
Immature Gran % 0.9 H %
(0-0.5)
Lymphocytes % 17.7 L %
(20.5-51.1)
Monocytes % 12.0 H %
(1.7-9.3)
Sodium 134 L mmol/L
(135-145)
Potassium 3.0 L mmol/L
(3.5-5.1)
Chloride 96 L mmol/L
(98-107)
BUN 33 H mg/dl
(7-17)
Creatinine 1.2 H mg/dL
(0.6-1.0)
Lactic Acid 0.6 L mmol/L
(0.7-2.0)
AST 128 H U/L
(14-36)
ALT 63 H U/L
(0-35)
Total Protein 6.2 L g/dl
(6.3-8.2)
02/06/25 12:02
02/06/25 12:02
Vital Signs
Initial and Last Documented VS:
Initial Vital Signs
Temp Pulse Resp BP Pulse Ox
98.5 F 101 16 119/74 94
02/06/25 11:50 02/06/25 11:50 02/06/25 11:50 02/06/25 11:50 02/06/25 11:50
Last Documented Vital Signs
Temp Pulse Resp BP Pulse Ox
98.6 F 101 16 119/74 94
02/06/25 13:27 02/06/25 11:50 02/06/25 11:50 02/06/25 11:50 02/06/25 11:50
MDM/Problems Addressed
MDM/Problems Addressed:
Will admit for IV antibiotics due to immunocompromise state on CellCept and prednisone and failure of outpatient oral antibiotics
*Critical Care Note
Total Time (30-74mins, 75-104mins- exclusive of procedures): Not Applicable
ED Attending Note
-
Portions of this chart may have been created with voice recognition software.� Occasional wrong word or��sound alike� substitutions may have occurred due to the inherent limitations of voice recognition software.
Discharge Plan
Departure
Patient Disposition: Admit
Date of Disposition: 02/06/25
Time of Disposition: 14:43
Admit to: Med/Surg
Presentation/result/management discussed w/ accepting MD/DO: Hospitalist
Discharge Problem:
Cellulitis of left leg
Prescriptions:
No Action
gabapentin 600 mg tablet
1,200 mg PO HS
omeprazole 40 mg capsule,delayed release(DR/EC)
40 mg PO DAILY
sildenafil (pulm.hypertension) 20 mg tablet
20 mg PO Q8H
albuterol sulfate 90 mcg/actuation HFA aerosol inhaler
2 puff INHALATION R Q4HPRN PRN (Reason: sob/wheezing)
mycophenolate mofetil 500 mg tablet
1,500 mg PO BID
fenofibrate nanocrystallized 145 mg Tablet
145 mg PO DAILY Qty: 0
prednisone 5 mg Tablet
5 mg PO DAILY
minoxidil 2.5 mg Tablet
2.5 mg PO DAILY
folic acid 1 mg Tablet
1 mg PO DAILY
budesonide-formoterol [Symbicort] 160-4.5 mcg/actuation Hfa Aerosol Inhaler
2 puff INHALATION R BID
Spiriva Respimat 2.5 mcg/actuation Mist
2 puff INHALATION R DAILY
Saphnelo 300 mg/2 mL (150 mg/mL) Solution
300 mg IV Q4W
Patient Comments:
01/02/25: Next dose due Sunday(01/06/25)
Xolair 300 mg/2 mL auto-injector
300 mg SC QMONTH
potassium chloride 20 mEq tablet,ER particles/crystals
20 meq PO QID
furosemide [Lasix] 80 mg tablet
80 mg PO DAILY
acetaminophen [Tylenol Extra Strength] 500 mg Tablet
1,500 mg PO DAILYPRN PRN (Reason: mild pain/fever)
cyclobenzaprine 5 mg Tablet
5 mg PO HSPRN PRN (Reason: sleep/joint pain)
furosemide 20 mg tablet
20 mg PO DAILY Qty: 30 0RF
Rx Instructions:
Take with furosemide 80 mg daily for total of 100 mg daily
Referrals:
Adin Wild MD [Family Provider] -
Interventions
Interventions:
*Risk Screen - Suicide Last Done: 02/06/25 11:50
*General Assessment Last Done: 02/06/25 12:20
*Neglect/Abuse Screening Last Done: 02/06/25 11:50
*ED- Fall Risk Assessment Last Done: 02/06/25 12:20
*ED COVID-19 Vaccine History Last Done: 02/06/25 12:20
ED-Skin Assessment Last Done: 02/06/25 13:58
Discharge Date and Time
Print Language: SYRIAC
--- NOTE | 2025-02-06 14:50 | HPS.HSE ---
Family Physician
-
Family Physician: Adin Wild
Chief Complaint
-
Left lower extremity swelling/chronic ulcer/fever
History of Present Illness
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 She has been on chronic doxycycline for a couple months was just placed on Keflex 1 week ago due to erythema around the
ulcerated site along with pain and swelling to her left lower extremity. She reports she did not allow them to do an ultrasound due to pain she has significant swelling in that left leg compared to right she is willing to have an ultrasound today
to rule out a clot given she did have history of superficial DVT greater than 20 years ago and I will offer pain medication before her ultrasound is completed. She is complaining 'I am not well'. She had a temperature at home today of 101F. She
feels as though her temperature is coming back and is currently 99F she is current nausea with dry heaves. She denies headache, sore throat, chest pain, palpitations, cough, shortness of breath, abdominal pain, vomiting, diarrhea, urinary symptoms.
She has past medical history of systemic lupus, Raynaud's on CellCept/prednisone, chronic leukopenia/anemia of chronic disease, CKD 3 A, /lupus nephritis, chronic hypokalemia due to diuretics, COPD, history of cardiogenic ascites December 2024 2600 mL
cc removed, chronic CHF, COPD, pulmonary hypertension, HLD, GERD small bowel volvulus December 2024
Medical History
Past Medical History
Past Medical History: Reports Other
Additional Past Medical History:
systemic lupus/ Raynaud's on CellCept/prednisone
chronic leukopenia/anemia of chronic disease
CKD 3 A, /lupus nephritis
chronic hypokalemia due to diuretics
History of superficial DVT greater than 20 years ago left lower extremity
COPD
history of cardiogenic ascites December 2024 2600 mL cc removed
chronic CHF
COPD
pulmonary hypertension
HLD
GERD small bowel volvulus December 2024
Past Surgical History: Reports Other
Additional Past Surgical History:
Cholecystectomy
Social History
Tobacco: Non-smoker
Alcohol: None
Drug: None
Personal: Single
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
Family History
Family History: Other (Mother history of CAD/cardiac stent, father history PR, CABG x 4 vessel, 1 sister history of Raynaud's/DM 2, 1 brother history of alcohol abuse/cirrhosis)
Allergies / Home Medications
Allergies reflects when Allergies were last updated in [facility].
Home Medications with original date entered in [facility]
Allergy/Medication List:
Allergies
Allergy/AdvReac Type Severity Reaction Status Date / Time
hydroxychloroquine Allergy Unknown Verified 02/06/25 11:50
[From Plaquenil]
Home Medications
gabapentin 600 mg tablet 1,200 mg PO HS Pain 08/16/23
omeprazole 40 mg capsule,delayed release 40 mg PO DAILY GERD 08/16/23
sildenafil (pulm.hypertension) 20 mg tablet 20 mg PO Q8H Raynaud's 08/16/23
albuterol sulfate 90 mcg/actuation aerosol inhaler 2 puff inhalation R Q4HPRN PRN sob/wheezing 04/23/24
mycophenolate mofetil 500 mg tablet 1,500 mg PO BID lupus 05/04/24
fenofibrate nanocrystallized 145 mg tablet 145 mg PO DAILY High Cholesterol ##0 05/08/24
anifrolumab-fnia 300 mg/2 mL (150 mg/mL) intravenous solution (Saphnelo) 300 mg IV Q4W Sleep 11/20/24
budesonide-formoterol HFA 160 mcg-4.5 mcg/actuation aerosol inhaler (Symbicort) 2 puff inhalation R BID Lung/Breathing Issues 11/20/24
folic acid 1 mg tablet 1 mg PO DAILY Supplement 11/20/24
furosemide 80 mg tablet (Lasix) 80 mg PO DAILY Heart Failure 11/20/24
minoxidil 2.5 mg tablet 2.5 mg PO DAILY 11/20/24
omalizumab 300 mg/2 mL subcutaneous auto-injector (Xolair) 300 mg SC QMONTH Lung/Breathing Issues 11/20/24
potassium chloride 20 mEq tablet,extended release(part/cryst) 20 meq PO QID Electrolyte Repletion 11/20/24
prednisone 5 mg tablet 5 mg PO DAILY Anti-Inflammatory 11/20/24
tiotropium bromide 2.5 mcg/actuation mist for inhalation (Spiriva Respimat) 2 puff inhalation R DAILY Lung/Breathing Issues 11/20/24
acetaminophen 500 mg tablet (Tylenol Extra Strength) 1,000 mg PO DAILYPRN PRN mild pain/fever 01/02/25
cyclobenzaprine 5 mg tablet 5 mg PO HSPRN PRN sleep/joint pain 01/02/25
furosemide 20 mg tablet 20 mg PO DAILY #30 tabs 01/03/25
cephalexin 500 mg capsule 500 mg PO QID 02/06/25
Review of Systems
-
History Source: Patient
A 12 point ROS was completed and negative except as noted: Yes
Constitutional: Reports Fever and Chills
EENT: Denies Sore Throat or Runny Nose
Respiratory: Denies Cough or Trouble Breathing
Cardiac: Denies Chest Pain, Diaphoresis, Palpitations or Syncope
Abdomen/GI: Reports Nausea and Vomiting (Dry heaves); Denies Abdominal Pain, Diarrhea, Constipated, Bloody Stools or Black Stools
: Denies Dysuria, Frequency, Flank Pain, Incontinence, Difficulty Voiding, Urgency or Bleeding
Musculoskeletal: Reports Edema (Left lower extremity nonpitting +2 edema with left calf ulcer wound bed 100% yellow sloughing, slight surrounding erythema around ulceration, [address] from recent biopsy); Denies Joint Pain
Skin: Denies Itching or Rash
Neurological: Reports Weakness; Denies Dizzy or Headache
Endocrine: Reports No Symptoms
Hematologic/Lymphatic: Reports No Symptoms
Psych: Reports Anxiety
Physical Exam
Vital Signs
Vital Signs
Temp Pulse Resp BP Pulse Ox
98.6 F 101 16 119/74 94
02/06/25 13:27 02/06/25 11:50 02/06/25 11:50 02/06/25 11:50 02/06/25 11:50
Physical Exam
General: Conversant, Pain and Chills; No Fever
HEENT: NormoCephalic, Anicteric, Moist mucous membranes, PERRLA, [place] Conjunctivae and No Ptosis
Respiratory: Clear; No Wheezes, Rales or Rhonchi
Cardiac: S1/S2, Tachycardia (Sinus tachycardia) and Peripheral Edema (+2 nonpitting left lower extremity edema); No Murmur, Rub or Gallop
Breast: Deferred by me
GI: Soft, Non Tender, Non Distended, Normal Bowel Sounds and No Hepatosplenomegaly
Genito-urinary: Deferred by me
Musculoskeletal: No Clubbing, No Cyanosis and Edema, Left Lower Extremity (Left lower extremity nonpitting +2 edema with left calf ulcer wound bed 100% yellow sloughing, slight surrounding erythema around ulceration, [address] from recent
biopsy); No Edema, Left Upper Extremity, Edema, Right Upper Extremity or Edema, Right Lower Extremity
Skin: Warm and Dry; No Rash
Neuro: AO x 3, No Motor Deficits, Nonfocal/grossly intact, Cranial Nerves Intact and No Sensory Deficits; No Slurred Speech, Facial Droop, Tremors or Sedated
Psych: Anxious (Due to pain, nausea, fever)
Laboratory Results
-
02/06/25 12:02
02/06/25 12:02
Laboratory Results
Lactic Acid Cancelled 02/06/25 16:00
Total Bilirubin 0.6 mg/dl (0.2-1.3) 02/06/25 12:02
AST 128 U/L (14-36) H 02/06/25 12:02
ALT 63 U/L (0-35) H 02/06/25 12:02
Alkaline Phosphatase 102 U/L (38-126) 02/06/25 12:02
Impression/Plan
-
Impression/plan:
Admit to MedSurg
# Sepsis 2/2 left lower extremity edema/chronic ulcer failure outpatient ABX immunocompromised patient
WBC 3.3, HR 101, reported temp 101F at home current 98.6F
- IV Zosyn�renal dose
- IV NSS 60 cc an hour x 1 L given in ER, continue IV NSS 60 cc an hour x additional 1 L
- Tylenol as needed fever
-Consult wound care
-Follow CBC, CMP,-Blood cultures x 2
#Left lower extremity edema concern for DVT
#History of superficial DVT greater than 20 years ago left lower extremity
-Check peripheral ultrasound left lower extremity
- Will give IV Dilaudid prior to ultrasound
#Acute hypokalemia secondary to diuretics
K3
Will give KCl 40 mEq follow BMP
#History of Lupus /Raynaud's on CellCept/prednisone
- Continue CellCept
- Continue prednisone 5 mg daily
- Continue gabapentin 1200 mg at bedtime
- Continue minoxidil 2.5 mg daily
#Transaminitis likely reactive
-Follow BMP
#Chronic leukopenia/anemia of chronic disease
WBC 3.3, RBC 3.7 near baseline
Hgb 8.7 appears near baseline, MCV 83.3
#Hx lupus nephritis
#CKD 3 A
-Creat 1.2 appears near baseline
#Chronic COPD-no acute exacerbation
- Continue nebs Spiriva, Xolair
#Hx abdominal swelling/ascites likely cardiogenic December 2024 status post paracentesis 2600 mL
-Recommend low salt diet and fluid restriction
#Pulmonary hypertension
-Continue sildenafil
#Hyperlipidemia
- statin continued
#History of CHF
I/O, daily weights
- Hold Lasix 100 mg today
--Minoxidil continued
- 2D echo 11/25/2024: EF 60-65%, normal LVS LVSF no wall abnormalities, mild TR, PASP 30 mmHg
# GERD
-Continue PPI
# Pulmonary hypertension
-Continue sildenafil
#Small bowel volvulus hx December 2024
#dvt prophylaxis
-heparin sq until venous Doppler left lower extremity results
Full code
[2025-02-06] MEDS: KCL 40 MEQ PO (15:18)
[2025-02-06] MEDS: ZOFRAN 4 MG IV ×2 (15:40→18:26)
[2025-02-06] MEDS: DILAUDID 1 MG IV (15:40)
[2025-02-06] MEDS: TYLENOL 650 MG PO ×2 (15:40→20:29)
[2025-02-06 17:09] VITALS: BMI 25.9
[2025-02-06 17:12] VITALS: BP 128/71
--- NOTE | 2025-02-06 18:56 | W.PN.UPDATE ---
Update Note
Progress Note Update
#Left lower extremity edema
Unable to assess left lower extremity for DVT due to patient noncompliance
-Subcu heparin twice daily continue
Ultrasound report left lower extremity:
IMPRESSION: No evidence of deep venous thrombosis of the left thigh and popliteal region.
The patient would not permit imaging of the left deep calf veins and, therefore, thrombus cannot be excluded.
--- NOTE | 2025-02-06 19:08 | W.PN.UPDATE ---
Update Note
Progress Note Update
This is an addendum to the H&P written by Krista Lauren on 02/06/2025.� Patient seen examined independently with HAND CLOTH CUTTER.
49-year-old female past medical history of pulmonary hypertension, HFpEF, lupus on CellCept/prednisone, lupus nephritis, Raynaud's, leukopenia, recurrent ascites unclear if cardiac versus rheumatologic in origin, CKD 3A, GERD, hyperlipidemia,
presenting with worsening of chronic ulcer of the left lower extremity.� Patient had biopsy of the wound suspicious for dermatomyositis and she follows with [facility].� Fever of 101 today.� Sent in for IV antibiotics.
Patient tachycardic.
Labs show chronic leukopenia, anemia which is stable.� Potassium of 3.� Mild transaminitis on labs.
Patient with sepsis secondary to infected wound of the left lower extremity.
Blood cultures pending.� Continue Zosyn.� IV fluids given.� Wound care consulted. Patient refused venous ultrasound.
[2025-02-06] MEDS: REVATIO 20 MG PO (20:09)
[2025-02-06] MEDS: CELLCEPT 1500 MG PO (20:09)
[2025-02-06] MEDS: SYMBICORT 160/4.5 MCG INHALER INH (20:34)
[2025-02-06] MEDS: NEURONTIN 1200 MG PO (21:08)
[2025-02-06 23:22] VITALS: BP 106/80
[2025-02-07] MEDS: ZOSYN 50 IV ×2 (01:00→10:55)
[2025-02-07] MEDS: REVATIO 20 MG PO ×4 (01:00→23:43)
[2025-02-07] MEDS: ZOFRAN 4 MG IV ×2 (01:00→15:21)
[2025-02-07 06:31] VITALS: BMI 25.7
[2025-02-07 07:30] VITALS: BP 111/59
[2025-02-07] MEDS: SYMBICORT 160/4.5 MCG INHALER 2 PUFF INH (07:56)
[2025-02-07] MEDS: SPIRIVA RESPIMAT 2.5 MCG 2 PUFF INH (07:56)
--- NOTE | 2025-02-07 08:12 | W.PN.HOSP.TC ---
Today's Communication/Plan
-
see PN
Assessment / Plan
Assessment / Plan
49yo F with PMHx of lupus, pulmonary HTN, CKD, GERD, reynauld recurrent abd ascites came with 6 month of worsening ulcer in LLE. Had I&D done in wound care center last week and also had MRI of the LLE and biopsy by (derm in [facility])
showed 'muscle inflammation' and concern for infection, so was sent for IV Abx as pr patient. In ED had nausea and vomiting fter administration of DIlaudid
A/P:
#Chronic LLE wound in immunocompromized patient
S/P DOxy and Keflex as outpatient for few weeks before admission
with multiple admissions to [facility]
Recent biopsy and MRI - records not available at this time, patient cannot find papaerwork, request records
US neg for DVT however patient declined study over the wound
Recent I&D in HD - cont wound care, needs daily packing, that patient was not much comfortable with at home
Bcx pending
Zosyn, check MRSA screen
ID consult
Pain mgmt - avoid dilaudid
#Transaminitis
check CPK, hepatiitis panel
US RUQ
#Hypokalemia
follow potassium
#Oral thrush
Nystatin
#Chronic leukopenia
#Chronic anemia
#Pulmonary HTN
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
#SLE nephritis with CKD stage 3b
#GERD
COnt home meds
DVT ppx Hep
Full code
I have spent at least 57min reviewing chart, test results, communication with business risk consultant and providing direct patient care
Anticipated Discharge: > 48 hours
Subjective/Interval History
-
Date of Service: February 07, 2025
Objective Data
-
Labs:
Laboratory Results
02/07/25
06:53
WBC Pending
Hgb Pending
Hct Pending
Plt Count Pending
Sodium Pending
Potassium Pending
Chloride Pending
Carbon Dioxide Pending
BUN Pending
Creatinine Pending
Glucose Pending
Calcium Pending
Total Bilirubin Pending
AST Pending
ALT Pending
Alkaline Phosphatase Pending
Vital Signs:
Vital Signs
Temp Pulse Resp BP Pulse Ox
98.0 F 89 16 111/59 94
02/07/25 07:30 02/07/25 08:02 02/07/25 08:02 02/07/25 07:30 02/07/25 08:02
I&O
02/06/25 02/07/25 02/08/25
06:59 06:59 06:59
Intake Total 800 / 800
Balance 800 / 800
Review of Systems
-
History Source: Patient
All other systems: Reviewed and negative
Skin: Reports Other (L hilliard wound with purulence)
Physical Exam
-
General: Comfortable
GI: Nontender
Skin: Other (wound in LLE with surrounding pain and mild redness )
Neuro: Awake, Alert, Oriented and AO x 3
Psych: Calm
[2025-02-07 08:14] LABS: ALT (SGPT) 63 U/L (0-35); AST (SGOT) 140 U/L (14-36); Albumin 2.9 g/dl (3.5-5.0); Alkaline Phosphatase 130 U/L (38-126); Blood Urea Nitrogen 25 mg/dl (7-17); Calcium 8.9 mg/dl (8.4-10.2); Carbon Dioxide 26 mmol/L (22-30); Chloride 100 mmol/L (98-107); Estimated Creatinine Clearance 59 ml/min; Glucose 78 mg/dl (70-99); Potassium 3.5 mmol/L (3.5-5.1); Sodium 133 mmol/L (135-145); Total Bilirubin 0.5 mg/dl (0.2-1.3); Total Protein 5.6 g/dl (6.3-8.2); eGFR > 60.00
[2025-02-07 08:46] LABS: % Basophils 0.4 % (0-2); % Immature Granulocytes 1.1 % (0-0.5); % Lymphocytes 23.9 % (20.5-51.1); % Neutrophils 60.6 % (42.2-75.2); Absolute Lymphocytes 0.7 10^3/uL (1.2-3.4); Absolute Monocytes 0.4 10^3/uL (0.1-0.6); Absolute Neutrophils 1.7 10^3/uL (1.4-6.5); Hematocrit 25.8 % (37.0-47.0); Hemoglobin 8.2 g/dL (12.0-16.0); Mean Corp Hgb Conc. 31.8 g/dL (33.0-37.0); Mean Corpuscular Hgb 26.6 pg (27.0-31.0); Mean Corpuscular Volume 83.8 fL (81.0-99.0); Mean Platelet Volume 10.2 fL (7.4-10.4); Nucleated Red Blood Cells % 0 %; Platelet Count 248 10^3/uL (130-400); Red Blood Cell Count 3.08 10^6/uL (4.20-5.40); Red Cell Dist. Width 15.9 % (11.5-14.5); White Blood Cell Count 2.9 10^3/uL (4.8-10.8)
[2025-02-07] MEDS: CELLCEPT 1500 MG PO ×2 (09:51→23:40)
[2025-02-07] MEDS: PROTONIX 40 MG PO (09:52)
[2025-02-07] MEDS: TRICOR 145 MG PO (09:52)
[2025-02-07] MEDS: DELTASONE 5 MG PO (09:53)
[2025-02-07] MEDS: FOLVITE 1 MG PO (09:53)
[2025-02-07] MEDS: LONITEN 2.5 MG PO (09:53)
[2025-02-07 10:33] LABS: Creatine Phosphokinase < 20 U/L (30-135)
[2025-02-07] MEDS: LASIX 80 MG PO (12:03)
[2025-02-07] MEDS: MYCOSTATIN ORAL SUSPENSION 5 ML PO ×3 (12:03→23:40)
[2025-02-07] MEDS: KCL 20 MEQ PO ×3 (12:03→23:39)
[2025-02-07] MEDS: ALDACTONE 25 MG PO (12:04)
[2025-02-07] MEDS: LASIX 20 MG PO (12:04)
[2025-02-07] MEDS: MORPHINE SULFATE 2 MG IV (12:04)
--- NOTE | 2025-02-07 12:18 | CON.ID ---
Consultation
-
Date/Time Consultation Requested: 02/07/2025 0755
Date/Time Consultation Performed: 02/07/2025 1115
Requesting Provider: Dr. Agarwal
Performing Provider: Dr. Parisi
Reason for Consultation: Left lower extremity wound
Chief Complaint / Past History
History of Present Illness
Katty Vera is a 49-year-old female with no significant past medical history of SLE and lupus nephritis being evaluated at the request of Dr. Agarwal regarding a left lower extremity wound. History is obtained from chart review, along with
patient interview.
The patient reports that she developed a nodule on her left medial calf area and has been followed for the past 6 months by [facility]. She reports that approximately 1 month ago the area started to drain purulence, and she felt that she
was not getting anywhere with her [facility] team and so she went to [place] [facility]. She reports that a biopsy of the area was performed on 02/06, and because of the ongoing wound and some purulence her Adjuster Arbitrator referred her to the
emergency room. She states that the ER at [place] was 'crazy', and the patient elected to come to the emergency room here at [facility]. The patient states that her Adjuster Arbitrator felt that the wound required IV antibiotics.
The patient reports that she has been on approximately 2 months of doxycycline without significant effect. The patient reported a temperature to 101 �F at admission. In the ER notes, it is reported that the wound is suspicious for dermatomyositis.
At the present time, the patient reports significant pain with even light touch to the area.
Past History
Additional Past Medical History:
SLE
Lupus nephritis
Anemia
GERD
CKD stage III yea
COPD
CHF
Pulmonary hypertension
HLD
Additional Past Surgical History:
Cholecystectomy
Allergy History:
hydroxychloroquine [From Plaquenil] Allergy (Verified 02/06/25 11:50)
Unknown
Medications Reviewed: Yes
Current Antibiotics:
Zosyn
Social History
Tobacco: Former Smoker
Alcohol: None
Drug: None
Living: With Family
Employment: Employed
Family History
Family History: Not Pertinent
Review of Systems
Vital Signs
Temp Pulse Resp BP Pulse Ox
98.0 F 89 16 111/59 94
02/07/25 07:30 02/07/25 08:02 02/07/25 08:02 02/07/25 07:30 02/07/25 08:02
Physical Exam
Physical Exam
Constitutional: No Acute Distress, Comfortable and Non-toxic
Eyes: No Conjunctival Hemorrhage and Sclera Anicteric
Oral: No Thrush and No Ulcers
Cardiovascular: Regular Rate and S1/S2; Negative S3/S4
Pulmonary: Clear; Negative Wheezes, Rales or Rhonchi
Gastrointestinal: Soft and Non Tender
Extremities: Edema (2+ LLE)
Wound: Other (LLE medial calf wound with serous drainage. No purulence. Fat layer visible. Minimal slough. Pos rolled edges with minimal periwound erythema.)
Neurological: Awake and Alert
Psychological: Calm
Lab / Diagnostic Study Results
02/07/25 06:53
02/07/25 06:53
Abs Immat Gran (auto) 0.0 10^3/uL (0-0.05) 02/07/25 06:53
Absolute Neuts (auto) 1.7 10^3/uL (1.4-6.5) 02/07/25 06:53
Absolute Lymphs (auto) 0.7 10^3/uL (1.2-3.4) L 02/07/25 06:53
Absolute Monos (auto) 0.4 10^3/uL (0.1-0.6) 02/07/25 06:53
Absolute Basos (auto) 0.0 10^3/uL (0-0.2) 02/07/25 06:53
Immature Gran % 1.1 % (0-0.5) H 02/07/25 06:53
Neutrophils % 60.6 % (42.2-75.2) 02/07/25 06:53
Lymphocytes % 23.9 % (20.5-51.1) 02/07/25 06:53
Monocytes % 14.0 % (1.7-9.3) H 02/07/25 06:53
Eosinophils % 0.0 % (0-6) 02/07/25 06:53
Basophils % 0.4 % (0-2) 02/07/25 06:53
Lactic Acid Cancelled 02/06/25 16:00
Microbiology Results
Micro:
02/06/25 12:02 Blood Culture - Preliminary
Blood/Venous No Growth in 24 hours- Final report to follow
02/07/25 06:53 Blood Culture - Pending
Blood/Venous
Imaging:
02/06/2025 Duplex ultrasound left lower extremity: No evidence of DVT of the left thigh and popliteal region, but left calf could not be imaged secondary to patient refusal.
Assessment / Plan
Left lower extremity medial calf wound
- reported to be chronic
- not clinically infected at present
- likely componant of edema
Immunosuppression 2* medications
SLE
Lupus nephritis
Anemia
GERD
CKD stage III yea
COPD
CHF
Pulmonary hypertension
HLD
Recommendations:
At present, wound does not appear clinically infected.
Would discontinue further antibiotics.
Will need aggressive local care, including likely debridement of skin edges in a Wound Care Center.
Additionally, will need area wrapped with Nash wrap to decrease overall edema which likely will assist in healing potential.
[2025-02-07] MEDS: HEPARIN 5000 UNITS SC (15:20)
[2025-02-07] MEDS: TYLENOL 650 MG PO (15:21)
[2025-02-07 15:30] VITALS: BP 113/63
[2025-02-07] MEDS: SYMBICORT 160/4.5 MCG INHALER INH (20:15)
[2025-02-07] MEDS: NEURONTIN 1200 MG PO (23:41)
[2025-02-07] MEDS: HEPARIN SC (23:44)
[2025-02-08] MEDS: HEPARIN SC ×2 (01:24→08:00)
[2025-02-08 06:39] LABS: Hematocrit 25.1 % (37.0-47.0); Hemoglobin 7.9 g/dL (12.0-16.0); Mean Corp Hgb Conc. 31.5 g/dL (33.0-37.0); Mean Corpuscular Hgb 26.8 pg (27.0-31.0); Mean Corpuscular Volume 85.1 fL (81.0-99.0); Mean Platelet Volume 10.3 fL (7.4-10.4); Platelet Count 234 10^3/uL (130-400); Red Blood Cell Count 2.95 10^6/uL (4.20-5.40); Red Cell Dist. Width 15.9 % (11.5-14.5); White Blood Cell Count 2.4 10^3/uL (4.8-10.8)
[2025-02-08 06:55] LABS: ALT (SGPT) 41 U/L (0-35); AST (SGOT) 67 U/L (14-36); Albumin 3.1 g/dl (3.5-5.0); Alkaline Phosphatase 95 U/L (38-126); Blood Urea Nitrogen 30 mg/dl (7-17); Calcium 8.4 mg/dl (8.4-10.2); Carbon Dioxide 24 mmol/L (22-30); Chloride 102 mmol/L (98-107); Estimated Creatinine Clearance 50 ml/min; Glucose 70 mg/dl (70-99); Potassium 3.8 mmol/L (3.5-5.1); Sodium 137 mmol/L (135-145); Total Bilirubin 0.5 mg/dl (0.2-1.3); Total Protein 5.6 g/dl (6.3-8.2); eGFR 50.72
[2025-02-08 07:50] VITALS: BP 108/68
[2025-02-08] MEDS: TRICOR 145 MG PO (07:58)
[2025-02-08] MEDS: LASIX 80 MG PO (07:58)
[2025-02-08] MEDS: REVATIO 20 MG PO (07:59)
[2025-02-08] MEDS: MYCOSTATIN ORAL SUSPENSION 5 ML PO (07:59)
[2025-02-08] MEDS: KCL 20 MEQ PO (07:59)
[2025-02-08] MEDS: LASIX 20 MG PO (07:59)
[2025-02-08] MEDS: DELTASONE 5 MG PO (07:59)
[2025-02-08] MEDS: ALDACTONE 25 MG PO (07:59)
[2025-02-08] MEDS: LONITEN 2.5 MG PO (07:59)
[2025-02-08] MEDS: PROTONIX 40 MG PO (07:59)
[2025-02-08] MEDS: FOLVITE 1 MG PO (08:00)
[2025-02-08] MEDS: CELLCEPT 1500 MG PO (08:00)
[2025-02-08] MEDS: SYMBICORT 160/4.5 MCG INHALER INH (08:17)
[2025-02-08] MEDS: SPIRIVA RESPIMAT 2.5 MCG INH (08:17)
--- NOTE | 2025-02-08 09:51 | W.PN.HOSP.TC ---
Today's Communication/Plan
-
d/c
Assessment / Plan
Assessment / Plan
49yo F with PMHx of lupus, pulmonary HTN, CKD, GERD, reynauld recurrent abd ascites came with 6 month of worsening ulcer in LLE. Had I&D done in wound care center last week and also had MRI of the LLE and biopsy by ([facility])
showed 'muscle inflammation' and concern for infection, so was sent for IV Abx as pr patient. In ED had nausea and vomiting fter administration of Dilaudid
A/P:
#Chronic LLE wound in immunocompromised patient
S/P DOxy and Keflex as outpatient for few weeks before admission
with multiple admissions to [facility]
Recent biopsy and MRI - records not available at this time, patient cannot find paperwork, request records
US neg for DVT however patient declined study over the wound
Recent I&D in HD - cont wound care, needs daily packing, that patient was not much comfortable with at home
Bcx pending
Zosyn stopped by ID, no concern for wound infection, advised to cont following with established book cleaner
ID consult
Pain mgmt - avoid dilaudid
#Transaminitis
CPK not elevated
Hepatitis panel pending - to follow with PCP
US with hepatosplenomegaly and no acute findings. mild ascites, trace pleural effusion - cont diuretics
#Hypokalemia
resolved
follow potassium
#Oral thrush
Nystatin
#Chronic leukopenia
#Chronic anemia
#Pulmonary HTN
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
#SLE nephritis with CKD stage 3b
#GERD
COnt home meds
DVT ppx Hep
Full code
I have spent at least 37min reviewing chart, test results, communication with vocational rehab consultant and providing direct patient care
Anticipated Discharge: Today
Subjective/Interval History
-
Date of Service: February 08, 2025
Objective Data
-
Labs:
Laboratory Results
02/08/25
05:10
WBC 2.4 L*
Hgb 7.9 L
Hct 25.1 L
Plt Count 234
Sodium 137
Potassium 3.8
Chloride 102
Carbon Dioxide 24
BUN 30 H
Creatinine 1.3 H
Glucose 70
Calcium 8.4
Total Bilirubin 0.5
AST 67 H
ALT 41 H
Alkaline Phosphatase 95
Vital Signs:
Vital Signs
Temp Pulse Resp BP Pulse Ox
98.8 F 93 16 108/68 97
02/08/25 07:50 02/08/25 07:50 02/08/25 08:17 02/08/25 07:50 02/08/25 08:17
I&O
02/07/25 02/08/25 02/09/25
06:59 06:59 06:59
Intake Total 800 / 800 800 / 800
Balance 800 / 800 800 / 800
Review of Systems
-
History Source: Patient
All other systems: Reviewed and negative
Physical Exam
-
General: No Apparent Distress
HEENT: Normocephalic
Neuro: Awake, Alert, Oriented and AO x 3
Psych: Calm
--- NOTE | 2025-02-08 10:00 | W.DCSUMMARY ---
Discharge Summary
Discharge Data
Date of Admission: 02/06/25
Date of Discharge: 02/08/25
-
Pending Results: Yes
Additional Pending Results:
hepatitis panel
Hospital Course
49yo F with PMHx of lupus, pulmonary HTN, CKD, GERD, reynauld recurrent abd ascites came with 6 month of worsening ulcer in LLE. Had I&D done in wound care center last week and also had MRI of the LLE and biopsy by (derm in [facility])
showed 'muscle inflammation' and concern for infection, so was sent for IV Abx as pr patient. In ED had nausea and vomiting fter administration of Dilaudid.
Zosyn stopped by ID, no concern for wound infection, advised to cont following with established headmaster/mistress. Advised to continue with wound care - has appoitment in 4 days. Provided Rx for dressing changes. Cr and CBC stable from prior. patient
advised to follow with PCP for chronic hepatitis screening panel. Medically stable for d/c home. COnt on same home dose of Spironolactone and Lasix
I have spent at least 37min reviewing chart, test results, communication with new vehicle sales consultant and providing direct patient care
Patient was managed for:
#Chronic LLE wound in immunocompromised patient
#Transaminitis
#Hypokalemia
#Oral thrush
#Chronic leukopenia
#Chronic anemia
#Pulmonary HTN
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
#SLE nephritis with CKD stage 3b
#GERD
Discharge Plan
-
Patient Disposition: Home (Routine Discharge)
Discharge Diagnosis/Procedures: chronic LLE wound
Diet: 2 Gram Sodium
Activity: As tolerated
Activity Restrictions/Additional Instructions:
Follow up on hepatitis screening panel with your family doctor
Referrals:
Adin Wild MD [Family Provider] -
Prescriptions:
New
spironolactone 25 mg Tablet
25 mg PO DAILY Qty: 0 0RF
nystatin 100,000 unit/mL Suspension
5 ml PO QID 7 Days Qty: 140 0RF
Continued
gabapentin 600 mg tablet
1,200 mg PO HS
omeprazole 40 mg capsule,delayed release(DR/EC)
40 mg PO DAILY
sildenafil (pulm.hypertension) 20 mg tablet
20 mg PO Q8H
albuterol sulfate 90 mcg/actuation HFA aerosol inhaler
2 puff INHALATION R Q4HPRN PRN (Reason: sob/wheezing)
mycophenolate mofetil 500 mg tablet
1,500 mg PO BID
fenofibrate nanocrystallized 145 mg Tablet
145 mg PO DAILY Qty: 0
prednisone 5 mg Tablet
5 mg PO DAILY
minoxidil 2.5 mg Tablet
2.5 mg PO DAILY
folic acid 1 mg Tablet
1 mg PO DAILY
budesonide-formoterol [Symbicort] 160-4.5 mcg/actuation Hfa Aerosol Inhaler
2 puff INHALATION R BID
Spiriva Respimat 2.5 mcg/actuation Mist
2 puff INHALATION R DAILY
Saphnelo 300 mg/2 mL (150 mg/mL) Solution
300 mg IV Q4W
Xolair 300 mg/2 mL auto-injector
300 mg SC QMONTH
potassium chloride 20 mEq tablet,ER particles/crystals
20 meq PO QID
furosemide [Lasix] 80 mg tablet
80 mg PO DAILY
acetaminophen [Tylenol Extra Strength] 500 mg Tablet
1,000 mg PO DAILYPRN PRN (Reason: mild pain/fever)
cyclobenzaprine 5 mg Tablet
5 mg PO HSPRN PRN (Reason: sleep/joint pain)
furosemide 20 mg tablet
20 mg PO DAILY Qty: 30 0RF
Rx Instructions:
Take with furosemide 80 mg daily for total of 100 mg daily
Discontinued
cephalexin 500 mg Capsule
500 mg PO QID
Rx Instructions:
for 14 days starting 02/03/25
Discharge Orders:
Discharge Patient (As Directed); Ordered 02/08/25
Ordered By: Cachorro Agarwal
Discharge Date and Time
Print Language: EQUATORIAL GUINEAN
--- NOTE | 2025-02-08 10:24 | CM ---
Patient seen at bedside.
IA completed
Lives with mom in a 1 story home, 4 steps to enter
PLOF: independent
Denies DME
Has had [facility] in past, denies rehab
discussed VN declines VN
PCP: Adin Wild
[facility] [place]
PLAN: Home, no needs, declines VN
[2025-02-08 12:22] LABS: % Basophils 0.4 % (0-2); % Eosinophils 0.4 % (0-6); % Immature Granulocytes 0.4 % (0-0.5); % Lymphocytes 39.2 % (20.5-51.1); % Monocytes 14.6 % (1.7-9.3); Absolute Lymphocytes 0.9 10^3/uL (1.2-3.4); Absolute Monocytes 0.4 10^3/uL (0.1-0.6); Absolute Neutrophils 1.1 10^3/uL (1.4-6.5); Nucleated Red Blood Cells % 0 %
[2025-02-09 18:30] LABS: Hepatitis B Surface Antigen Negative (Negative)
[2025-02-09 18:47] LABS: Hepatitis B Core Ab, Total Negative (Negative); Hepatitis B Surface Antibody Negative; Hepatitis C Antibody Negative (Negative)
== END 2025-02-08 10:54 | disposition home or self-care (01) | DRG 872 ==
LOC: 3 WEST ACU 15:47
PROVIDERS: Clinical Nurse Specialist Family Health; Emergency Medicine; ADMITTING PHYSICIAN Hospitalist; ATTENDING PHYSICIAN Internal Medicine; CONSULT PHYSICIAN Internal Medicine Infectious Disease; EMERGENCY PHYSICIAN Emergency Medicine; FAMILY PHYSICIAN Ophthalmology
DX: A41.9 Sepsis, unspecified organism (principal); L03.116 Cellulitis of left lower limb; D84.821 Immunodeficiency due to drugs; L97.229 Non-pressure chronic ulcer of left calf with unspecified severity; M33.13 Other dermatomyositis without myopathy; I50.32 Chronic diastolic (congestive) heart failure; B37.0 Candidal stomatitis; M32.9 Systemic lupus erythematosus, unspecified; D50.9 Iron deficiency anemia, unspecified; K21.9 Gastro-esophageal reflux disease without esophagitis; I73.00 Raynaud's syndrome without gangrene; D63.1 Anemia in chronic kidney disease; I27.20 Pulmonary hypertension, unspecified; E78.5 Hyperlipidemia, unspecified; J44.9 Chronic obstructive pulmonary disease, unspecified; M32.14 Glomerular disease in systemic lupus erythematosus; N18.32 Chronic kidney disease, stage 3b; R74.01 Elevation of levels of liver transaminase levels; E87.6 Hypokalemia; T50.2X5A Adverse effect of carbonic-anhydrase inhibitors, benzothiadiazides and other diuretics, initial encounter; Y92.9 Unspecified place or not applicable; Z79.52 Long term (current) use of systemic steroids; Z87.891 Personal history of nicotine dependence; Z79.51 Long term (current) use of inhaled steroids; Z90.49 Acquired absence of other specified parts of digestive tract; Z82.49 Family history of ischemic heart disease and other diseases of the circulatory system; Z83.3 Family history of diabetes mellitus; Z81.1 Family history of alcohol abuse and dependence; Z88.8 Allergy status to other drugs, medicaments and biological substances; Z87.19 Personal history of other diseases of the digestive system
CPT/HCPCS: 76700; 80053; 82550; 83605; 85025; 86704; 86706; 86803; 87040; 87340; 93971; 94640; 96365; 96375; 99284

== ENCOUNTER → 2025-02-12 10:14 | Outpatient (REF) | payer OTHER, SELFPAY | LOC: WOUND 10:14 | PROVIDERS: ATTENDING PHYSICIAN Surgery | DX: L97.222 Non-pressure chronic ulcer of left calf with fat layer exposed (principal); I87.2 Venous insufficiency (chronic) (peripheral); I73.9 Peripheral vascular disease, unspecified; J44.9 Chronic obstructive pulmonary disease, unspecified; Z79.52 Long term (current) use of systemic steroids; Z68.26 Body mass index [BMI] 26.0-26.9, adult | CPT/HCPCS: 99213 ==

== ENCOUNTER 2025-02-19 17:31 | Inpatient (IN) | payer OTHER, SELFPAY ==
[2025-02-19 10:20] VITALS: BP 152/101
[2025-02-19 11:35] VITALS: BMI 26.1
[2025-02-19 11:59] LABS: % Immature Granulocytes 1.7 % (0-0.5); % Lymphocytes 9.9 % (20.5-51.1); % Monocytes 7.5 % (1.7-9.3); % Neutrophils 80.6 % (42.2-75.2); Absolute Immature Granulocytes 0.1 10^3/uL (0-0.05); Absolute Lymphocytes 0.4 10^3/uL (1.2-3.4); Absolute Monocytes 0.3 10^3/uL (0.1-0.6); Absolute Neutrophils 2.8 10^3/uL (1.4-6.5); Hematocrit 21.8 % (37.0-47.0); Hemoglobin 6.9 g/dL (12.0-16.0); Mean Corp Hgb Conc. 31.1 g/dL (33.0-37.0); Mean Corpuscular Hgb 26.7 pg (27.0-31.0); Nucleated Red Blood Cells % 0 %; Platelet Count 232 10^3/uL (130-400); Red Blood Cell Count 2.58 10^6/uL (4.20-5.40); White Blood Cell Count 3.5 10^3/uL (4.8-10.8)
[2025-02-19 12:02] LABS: Lactic Acid 0.6 mmol/L (0.7-2.0)
[2025-02-19 12:03] LABS: ALT (SGPT) 26 U/L (0-35); AST (SGOT) 50 U/L (14-36); Albumin 3.5 g/dl (3.5-5.0); Alkaline Phosphatase 102 U/L (38-126); Blood Urea Nitrogen 40 mg/dl (7-17); Calcium 8.6 mg/dl (8.4-10.2); Carbon Dioxide 25 mmol/L (22-30); Chloride 103 mmol/L (98-107); Estimated Creatinine Clearance 38 ml/min; Glucose 84 mg/dl (70-99); Potassium 4.2 mmol/L (3.5-5.1); Sodium 136 mmol/L (135-145); Total Bilirubin 0.6 mg/dl (0.2-1.3); Total Protein 6.7 g/dl (6.3-8.2); eGFR 36.76
--- NOTE | 2025-02-19 12:25 | ED.GENMED ---
History of Present Illness
General
Chief Complaint: Skin Problem
Source: patient
Exam Limitations: none
Time Seen by Provider: 02/19/25 11:18
Nursing documentation reviewed up to this point in time: agreed with
History of Present Illness
History of Present Illness:
Patient is a 49-year-old female with history of lupus, lupus nephritis CHF with preserved EF, ascites paracentesis presents to the ER for evaluation. Pt is new compromise on lupus medication. Patient was sent by wound care, DR Velasquez for
nonhealing wound (for past 8 months). She was admitted February 06 discharge February 08 for cellulitis. She was sent by wound care for admission and likely surgical debridement. She denies any fever or chills. She reports the wound is currently packed and
painful. She denies any fevers.
Past History
Past History
ED Past Medical History: Other (Systemic lupus erythematosus, pulmonary retention, microcytic anemia, pleural effusions, GERD)
Social History
Tobacco: Former smoker
Review of Systems
Review of Systems
Allergies reviewed?: Yes
All Other Systems: ROS reviewed and negative except as documented in HPI and ROS
Constitutional: Reports no symptoms; Denies fever, fatigue or chills
Respiratory: Reports no symptoms
Cardiac: Reports no symptoms
ABD/GI: Reports no symptoms
Musculoskeletal: Reports no symptoms
Skin: Reports other (chronic non healing wound to lle, + pain )
Neurological: Reports no symptoms
Psychiatric: Reports no symptoms
Phy Exam
General Physical Exam
General Presentation: no apparent distress
General age: appears stated age
General Skin: warm and dry
General Habitus: normal
General Mental: alert
Neurological Exam
Neurological Exam: alert and oriented x3
Musculoskeletal Exam
Musculoskeletal Exam: other (left lower leg medial calf with + open wound purulent drainage mild surrounding erythema )
Skin Exam
Skin Exam: normal color and warm/dry
Psychiatric Exam
Psychiatric Exam: normal mood/affect
Course
Orders/Labs/Results
Orders:
Orders
02/19/25 11:36
IV Insert/Care/Rem.- Treatment PRN
02/19/25 11:37
Complete Blood Count/With Diff Urgent
Comprehensive Metabolic Panel Urgent
Ferritin Urgent
Comment: ADD ON
Folate Urgent
Comment: ADD ON
Iron Urgent
Comment: ADD ON
Lactic Acid Q4H
Comment: ON ICE, CANCEL 2ND ORDER IF FIRST LACTIC ACID LEVEL <2
Total Iron Binding Urgent
Comment: ADD ON
Vitamin B12 Urgent
Comment: ADD ON
Blood Culture Q20M
CARO Source: Blood/Venous
Specimen Description:
Comment: Urgent from separate sites. If patient screens positive for possible sepsis
Blood Culture Q20M
CARO Source: Blood/Venous
Specimen Description:
Comment: Urgent from separate sites. If patient screens positive for possible sepsis
02/19/25 12:57
HYDROmorphone [Dilaudid] 1 mg IV NOW STA
02/19/25 13:48
* Blood Bank Products Urgent
'pam Orders: rhina/christopher
Blood Bank Products: *Packed RBC Leuko(PRBC's)
Quantity: 1
Transfuse Today: Yes
Reason: Anemia
IV Insert/Care/Rem.- Treatment PRN
02/19/25 13:55
Vital Signs- Treatment ONCE
Frequency: Once
02/19/25 14:18
Ondansetron Injectable [Zofran] 4 mg .ROUTE .STK-MED ONE
02/19/25 14:24
Ondansetron Injectable [Zofran] 4 mg IV NOW STA
02/19/25 14:29
Type+Screen Urgent
02/19/25 Dinner
Regular
At Your Request: Full Participation
02/19/25 15:28
WOUND/OSTOMY CONSULT Routine
Reason for Consult: LLE ulcer
02/19/25 15:36
Piperacillin/Tazo 3.375 Gram [Zosyn] 3.375 gram in 50 ml IV NOW
US Abdomen Limited Urgent
Reason For Exam: Abdominal ascites
02/19/25 15:37
Add On- LAB Urgent
Tests Added?: Iron, TIBC, ferritin, folate, B12
02/19/25 15:39
Admit/Transfer Patient As Directed
Co-Sign Provider:
Level of Care: Inpatient admission
Assign to:: Medical/Surgical
Physician / Group: taylor jenkins
Diagnosis: Acute on chronic LLE wound w/cellulitis, PRAVEEN on CKD 4,pos ascites
Reason for Hospitalization: Acute on chronic LLE wound w/cellulitis, PRAVEEN on CKD 4,pos ascites
Expected length of stay greater than two midnights?: Yes
ELOS- Estimated Length of Stay in days: 5
I certify the patient meets the requirements for IP care: Yes
Code Status As Directed
Resuscitation Status: Full Code
SURGICAL CONSULT Routine
Consulting Provider: Vargas Barker
Was physician already notified: Yes
Reason for consult: Left lower extremity wound/cellulitis needs debridement
02/19/25 15:45
Lactic Acid Q4H
Comment: ON ICE, CANCEL 2ND ORDER IF FIRST LACTIC ACID LEVEL <2
PRN Pain Medication Management As Directed
May give lesser potent ordered pain med per pt: Yes
preference::
Protocol:: Medication orders for pain may be administered in a
manner that supports deferring to patient preference
when the pt is:
- Requesting an ordered lesser potent pain medication.
Least to most potent pain medications are defined
as: acetaminophen < NSAID < tramadol < opioids
(morphine, oxycodone, hydromorphone).
- Requesting a lesser dose of the same medication IF
ORDERED.
- Requesting a less intrusive route of administration
if both routes are prescribed by the provider (PO <
IV).
Abnormal Lab Results
02/19/25
11:37
WBC 3.5 L 10^3/uL
(4.8-10.8)
RBC 2.58 L 10^6/uL
(4.20-5.40)
Hgb 6.9 L* g/dL
(12.0-16.0)
Hct 21.8 L %
(37.0-47.0)
MCH 26.7 L pg
(27.0-31.0)
MCHC 31.1 L g/dL
(33.0-37.0)
RDW 17.0 H %
(11.5-14.5)
MPV 11.0 H fL
(7.4-10.4)
Abs Immat Gran (auto) 0.1 H 10^3/uL
(0-0.05)
Absolute Lymphs (auto) 0.4 L 10^3/uL
(1.2-3.4)
Immature Gran % 1.7 H %
(0-0.5)
Neutrophils % 80.6 H %
(42.2-75.2)
Lymphocytes % 9.9 L %
(20.5-51.1)
BUN 40 H mg/dl
(7-17)
Creatinine 1.7 H mg/dL
(0.6-1.0)
Lactic Acid 0.6 L mmol/L
(0.7-2.0)
AST 50 H U/L
(14-36)
02/19/25 11:37
02/19/25 11:37
Vital Signs
Initial and Last Documented VS:
Initial Vital Signs
Temp Pulse Resp BP Pulse Ox
98.5 F 97 18 152/101 98
02/19/25 10:20 02/19/25 10:20 02/19/25 10:20 02/19/25 10:20 02/19/25 10:20
Last Documented Vital Signs
Temp Pulse Resp BP Pulse Ox
98.5 F 113 18 102/66 96
02/19/25 10:20 02/19/25 14:15 02/19/25 14:15 02/19/25 14:15 02/19/25 14:15
MDM/Problems Addressed
Differential Diagnosis Includes:
Not limited to infected wound, cellulitis
MDM/Problems Addressed:
As documented patient is a 41-year-old female mu compromised with lupus with chronic wound to left lower extremity. It was documented patient with possible dermatomyositis and history. Previously admitted February 06 to had antibiotics but Zosyn was
stopped by ID with no concern of infection at that time. She was sent today by wound care for worsening appearing wound which appears to be infected. On exam she has obvious open wound with purulent drainage. Patient denies any fever or chills
and is afebrile white count is low at 3.5(chronic for patient) with a hemoglobin of 6.9. Patient has chronic anemia however this is lower than previous. Case discussed with ED physician will give 1 unit of blood as patient likely needs surgical
debridement of this wound. Consent obtained. Chronic elevated renal function.
patient was medicated for discomfort and admitted to the hospitalist for evaluation.
*Pulse Oximetry
Patient hypoxic: no
*Critical Care Note
Total Time (30-74mins, 75-104mins- exclusive of procedures): Not Applicable
Data Reviewed
Review of Other/Old Records Reveals: Labs and Discharge Summary
Source: patient
ED Attending Note
-
Portions of this chart may have been created with voice recognition software.� Occasional wrong word or��sound alike� substitutions may have occurred due to the inherent limitations of voice recognition software.
Discharge Plan
Departure
Patient Disposition: Admit
Date of Disposition: 02/19/25
Time of Disposition: 13:55
Admit to: Med/Surg
Admit to doctor: hospitalist
Presentation/result/management discussed w/ accepting MD/DO: Hospitalist
Patient with high blood pressure during this ER visit?: Yes
Discharge Problem:
Non-healing wound of left lower extremity, Anemia
Prescriptions:
No Action
gabapentin 600 mg tablet
1,200 mg PO HS
omeprazole 40 mg capsule,delayed release(DR/EC)
40 mg PO DAILY
sildenafil (pulm.hypertension) 20 mg tablet
20 mg PO Q8H
albuterol sulfate 90 mcg/actuation HFA aerosol inhaler
2 puff INHALATION R Q4HPRN PRN (Reason: sob/wheezing)
mycophenolate mofetil 500 mg tablet
1,000 mg PO BID
fenofibrate nanocrystallized 145 mg Tablet
145 mg PO DAILY Qty: 0
prednisone 5 mg Tablet
5 mg PO DAILY
minoxidil 2.5 mg Tablet
2.5 mg PO DAILY
folic acid 1 mg Tablet
1 mg PO DAILY
budesonide-formoterol [Symbicort] 160-4.5 mcg/actuation Hfa Aerosol Inhaler
2 puff INHALATION R BID
Spiriva Respimat 2.5 mcg/actuation Mist
2 puff INHALATION R DAILY
Saphnelo 300 mg/2 mL (150 mg/mL) Solution
300 mg IV Q4W
Xolair 300 mg/2 mL auto-injector
300 mg SC QMONTH
potassium chloride 20 mEq tablet,ER particles/crystals
40 meq PO BID
furosemide [Lasix] 80 mg tablet
80 mg PO DAILY
acetaminophen [Tylenol Extra Strength] 500 mg Tablet
1,000 mg PO Q4HPRN PRN (Reason: mild pain/fever)
cyclobenzaprine 5 mg Tablet
5 mg PO HS
furosemide 20 mg tablet
20 mg PO DAILY Qty: 30 0RF
Rx Instructions:
Take with furosemide 80 mg daily for total of 100 mg daily
spironolactone 25 mg Tablet
25 mg PO DAILY Qty: 0 0RF
cephalexin 500 mg Capsule
500 mg PO QID
Rx Instructions:
for 14 days starting 02/13/25
dapsone 100 mg Tablet
100 mg PO DAILY
Referrals:
Negro Scott DO [Family Provider] -
Interventions
Interventions:
*Risk Screen - Suicide Last Done: 02/19/25 10:20
*General Assessment Last Done: 02/19/25 10:20
*Neglect/Abuse Screening Last Done: 02/19/25 10:20
*ED- Fall Risk Assessment Last Done: 02/19/25 10:20
ED-Skin Assessment Last Done: 02/19/25 12:23
Discharge Date and Time
Print Language: PERUVIAN
[2025-02-19 14:15] VITALS: BP 102/66
[2025-02-19] MEDS: ZOFRAN 4 MG IV (14:24)
[2025-02-19] MEDS: DILAUDID 1 MG IV ×2 (14:25→23:53)
--- NOTE | 2025-02-19 14:32 | HPS.HSE ---
Family Physician
-
Family Physician: Negro Scott
Chief Complaint
-
Left lower extremity ulcer with surrounding erythema x 2 to 3 days
History of Present Illness
49-year-old female was sent to the ER today by wound care for admission and likely surgical debridement of her chronic left lower extremity ulcer with biopsy showing dermal fibrovascular changes with acute inflammation 02/09/2025 via biopsy per
patient end of January. The current wound now has surrounding erythema with wound bed 20% yellow eschar possible tunneling drainage and warmth. She still has a single suture from her initial biopsy at the end of January present approximately 3 weeks
ago. She reports the leg has been extremely tender over the past 2 to 3 days and started getting redness around the site and drainage from the center of the wound with a deeper crater appearance. She denies fever, chills, chest pain, palpitations,
cough, shortness of breath, abdominal pain, nausea, vomit, diarrhea, urinary symptoms.
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 She had been on chronic doxycycline for months then course of Keflex prior to 02/06 where she felt the
wound was infected however there was no erythema no drainage wound bed was 100% yellow eschar. She was given initially IV Zosyn then stopped by infectious disease and to follow-up with her field service specialist Dr. Velasquez. During her admission
on 02/06/2025 she refused full ultrasound due to pain we were unable to rule out a clot she had history of superficial DVT greater than 20 years ago.
She has past medical history of dermatomyositis left lower extremity wound, systemic lupus, Raynaud's on CellCept/prednisone, chronic leukopenia/anemia of chronic disease, CKD 3 A, /lupus nephritis, chronic hypokalemia due to diuretics, COPD,
history of cardiogenic ascites December 2024 2600 mL cc removed, chronic CHF, COPD, Pulmonary hypertension, HLD, GERD small bowel volvulus December 2024
Medical History
Past Medical History
Past Medical History: Reports Other
Additional Past Medical History:
chronic left lower extremity ulcer with biopsy showing dermal fibrovascular changes with acute inflammation biopsy 02/09/2025
systemic lupus/ Raynaud's on CellCept/prednisone
chronic leukopenia/anemia of chronic disease
CKD 3 A, /lupus nephritis
chronic hypokalemia due to diuretics
History of superficial DVT greater than 20 years ago left lower extremity
COPD
history of cardiogenic ascites December 2024 2600 mL cc removed
chronic CHF
COPD
pulmonary hypertension
HLD
GERD small bowel volvulus December 2024
Past Surgical History: Reports Other
Additional Past Surgical History:
Cholecystectomy
Social History
Tobacco: Non-smoker
Alcohol: None
Drug: None
Personal: Single
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
Family History
Family History: Other (Mother history of CAD/cardiac stent, father history SD, CABG x 4 vessel, 1 sister history of Raynaud's/DM 2, 1 brother history of alcohol abuse/cirrhosis)
Allergies / Home Medications
Allergies reflects when Allergies were last updated in [facility].
Home Medications with original date entered in [facility]
Allergy/Medication List:
Allergies
Allergy/AdvReac Type Severity Reaction Status Date / Time
hydroxychloroquine Allergy Unknown Verified 02/19/25 10:23
[From Plaquenil]
Home Medications
gabapentin 600 mg tablet 1,200 mg PO HS Pain 08/16/23
omeprazole 40 mg capsule,delayed release 40 mg PO DAILY GERD 08/16/23
sildenafil (pulm.hypertension) 20 mg tablet 20 mg PO Q8H Raynaud's 08/16/23
albuterol sulfate 90 mcg/actuation aerosol inhaler 2 puff inhalation R Q4HPRN PRN sob/wheezing 04/23/24
mycophenolate mofetil 500 mg tablet 1,000 mg PO BID lupus 05/04/24
fenofibrate nanocrystallized 145 mg tablet 145 mg PO DAILY High Cholesterol ##0 05/08/24
anifrolumab-fnia 300 mg/2 mL (150 mg/mL) intravenous solution (Saphnelo) 300 mg IV Q4W Sleep 11/20/24
budesonide-formoterol HFA 160 mcg-4.5 mcg/actuation aerosol inhaler (Symbicort) 2 puff inhalation R BID Lung/Breathing Issues 11/20/24
folic acid 1 mg tablet 1 mg PO DAILY Supplement 11/20/24
furosemide 80 mg tablet (Lasix) 80 mg PO DAILY Heart Failure 11/20/24
minoxidil 2.5 mg tablet 2.5 mg PO DAILY 11/20/24
omalizumab 300 mg/2 mL subcutaneous auto-injector (Xolair) 300 mg SC QMONTH Lung/Breathing Issues 11/20/24
potassium chloride 20 mEq tablet,extended release(part/cryst) 40 meq PO BID Electrolyte Repletion 11/20/24
prednisone 5 mg tablet 5 mg PO DAILY Anti-Inflammatory 11/20/24
tiotropium bromide 2.5 mcg/actuation mist for inhalation (Spiriva Respimat) 2 puff inhalation R DAILY Lung/Breathing Issues 11/20/24
acetaminophen 500 mg tablet (Tylenol Extra Strength) 1,000 mg PO Q4HPRN PRN mild pain/fever 01/02/25
cyclobenzaprine 5 mg tablet 5 mg PO HS 01/02/25
furosemide 20 mg tablet 20 mg PO DAILY #30 tabs 01/03/25
spironolactone 25 mg tablet 25 mg PO DAILY #0 tabs 02/08/25
cephalexin 500 mg capsule 500 mg PO QID 02/19/25
dapsone 100 mg tablet 100 mg PO DAILY 02/19/25
Review of Systems
-
History Source: Patient
A 12 point ROS was completed and negative except as noted: Yes
Constitutional: Denies Fever or Chills
EENT: Denies Sore Throat or Runny Nose
Respiratory: Denies Cough or Trouble Breathing
Cardiac: Denies Chest Pain, Palpitations or Syncope
Abdomen/GI: Denies Abdominal Pain, Nausea, Vomiting, Diarrhea, Constipated, Bloody Stools or Black Stools
: Denies Dysuria, Frequency, Flank Pain, Incontinence, Difficulty Voiding or Urgency
Musculoskeletal: Reports Edema (+1 left lower extremity edema); Denies Joint Pain
Skin: Reports Other (Acute on chronic mid left calf ulceration 20% eschar, upper end of wound with crater appearance no current tunneling but slight green tissue present no odor, surrounding erythema with 1 suture present); Denies Itching or Rash
Neurological: Denies Dizzy or Headache
Endocrine: Reports No Symptoms
Hematologic/Lymphatic: Reports No Symptoms
Psych: Reports Anxiety
Physical Exam
Vital Signs
Vital Signs
Temp Pulse Resp BP Pulse Ox
98.5 F 113 18 102/66 96
02/19/25 10:20 02/19/25 14:15 02/19/25 14:15 02/19/25 14:15 02/19/25 14:15
Physical Exam
General: Comfortable, Conversant and Pain; No Fever or Chills
HEENT: NormoCephalic, Anicteric, Moist mucous membranes, PERRLA, [place] Conjunctivae and No Ptosis
Respiratory: Clear; No Wheezes, Rales or Rhonchi
Cardiac: S1/S2 and Regular Rhythm
Breast: Deferred by me
GI: Soft, Non Tender, Non Distended, Normal Bowel Sounds and No Hepatosplenomegaly
Rectal: Deferred by Provider
Genito-urinary: Deferred by me
Musculoskeletal: No Clubbing and No Cyanosis
Skin: Warm and Dry; No Rash
Neuro: AO x 3, No Motor Deficits, Cranial Nerves Intact and No Sensory Deficits; No Slurred Speech, Facial Droop, Tremors or Sedated
Psych: Calm
Laboratory Results
-
02/19/25 11:37
02/19/25 11:37
Laboratory Results
Lactic Acid 0.6 mmol/L (0.7-2.0) L 02/19/25 11:37
Total Bilirubin 0.6 mg/dl (0.2-1.3) 02/19/25 11:37
AST 50 U/L (14-36) H 02/19/25 11:37
ALT 26 U/L (0-35) 02/19/25 11:37
Alkaline Phosphatase 102 U/L (38-126) 02/19/25 11:37
Data Reviewed
-
Lab Data: Labs Reviewed by me
Impression/Plan
-
Impression/Plan:
Admit to Med surg
#Infected chronic left lower extremity ulcer
#Chronic LLE ulcer /Dermatomyositis immunocompromised patient
Patient had biopsy end of January suture needs to be removed
- IV Zosyn�renal dose
-- Tylenol as needed fever
-Consult wound care
-Follow CBC, CMP,-Blood cultures x 2
- Wound culture
- N.p.o. after midnight for surgery in a.m.
#Rashad on ckd 3A
#Hx lupus nephritis
creat 1.7 creat was 1.3 on 02/09/24-baseline is 1.2
Hold Lasix 100 mg today, spironolactone 25 mg daily(patient took today 02/19/2025) tomorrow 02/20/2025
- Follow BMP
#Hx abdominal swelling/ascites likely cardiogenic December 2024 status post paracentesis 2600 mL
-Recommend low salt diet and fluid restriction
Due to RASHAD hold Lasix 100 mg today, spironolactone 25 mg daily(patient took today 02/19/2025) tomorrow 02/20/2025
-Check ultrasound abdomen to assess ascites
# Acute on chronic anemia/leukopenia of chronic disease
WBC 3.5, RBC 2.58
Hgb 6.9 < 7.9 on 02/08/2025 baseline appears to be mid 8's
- Type and screen
- Transfuse 2 units PRBC
- Blood consent obtained by ER
- Add on iron, ferritin, TIBC, B12, folate
#History of Lupus /Raynaud's on CellCept/prednisone
- Continue CellCept
- Continue prednisone 5 mg daily
- Continue gabapentin 1200 mg at bedtime
- Continue minoxidil 2.5 mg daily
#Transaminitis likely reactive
-Follow BMP
#Chronic COPD-no acute exacerbation
- Continue nebs Spiriva, Xolair
#Pulmonary hypertension
-Continue sildenafil
#Hyperlipidemia
- statin continued
#History of CHF
I/O, daily weights
- Hold Lasix 100 mg today, spironolactone 25 mg daily
--Minoxidil continued
- 2D echo 11/25/2024: EF 60-65%, normal LVS LVSF no wall abnormalities, mild TR, PASP 30 mmHg
# GERD
-Continue PPI
# Pulmonary hypertension
-Continue sildenafil
#Small bowel volvulus hx December 2024
#dvt prophylaxis
-heparin sq until venous Doppler left lower extremity results
Full code
[2025-02-19 16:09] LABS: Iron 49 ug/dl (37-170)
--- NOTE | 2025-02-19 16:17 | W.PN.UPDATE ---
Update Note
Progress Note Update
This is an addendum to the H&P written by Krista Lauren on 02/19/2025.
49-year-old female past medical history of pulmonary hypertension, HFpEF, lupus on CellCept/prednisone, lupus nephritis, Raynaud's, leukopenia, recurrent ascites unclear if cardiac versus rheumatologic in origin, CKD 3A, GERD, hyperlipidemia, sent
in by Dr. Velasquez for surgical debridement of nonhealing wound.
She was recently admitted from 02/06 to 02/08 for concern for wound infection of the ulcer site.� She was initially treated with IV Zosyn, seen by ID without concern for wound infection and advised follow-up with dermatology.
Labs show chronic leukopenia.� Hemoglobin 6.9 from baseline of 8-9.� Creatinine 1.7 from 1.3.
Patient with infection of chronic nonhealing left calf ulcer requiring debridement.
Check blood cultures, wound culture.� Zosyn.� General surgery consulted.�NPO past midnight.
Patient with normocytic anemia with hemoglobin 6.9 likely from chronic disease/renal disease.� Check iron studies, B12 and folate.� 1 unit blood transfusion.
Patient also with PRAVEEN on CKD likely from nephrotoxic medications.� Hold spironolactone, Lasix.
Check Abdominal US to evaluate for ascites.�
[2025-02-19 16:18] LABS: Percent Saturation 12 % (20-50); Total Iron Binding Capacity 389 ug/dl (265-497)
[2025-02-19] MEDS: ZOSYN 50 IV ×2 (16:49→22:14)
[2025-02-19 17:41] LABS: Folate > 20.0 ng/ml (2.76-20); Vitamin B12 851 pg/ml (239-931)
[2025-02-19 20:00] VITALS: BP 113/66; BMI 25.8
[2025-02-19] MEDS: SYMBICORT 160/4.5 MCG INHALER INH (20:39)
[2025-02-19] MEDS: FLEXERIL 5 MG PO (22:11)
[2025-02-19] MEDS: CELLCEPT 1000 MG PO (22:14)
[2025-02-19] MEDS: NEURONTIN 900 MG PO (22:14)
[2025-02-19] MEDS: TYLENOL 650 MG PO (22:17)
[2025-02-19 23:00] VITALS: BP 101/57
[2025-02-19 23:16] VITALS: BP 101/57
[2025-02-19 23:31] VITALS: BP 99/51
[2025-02-19] MEDS: REVATIO PO (23:57)
[2025-02-20] VITALS (13 sets, daily range): BP systolic 94–157; BP diastolic 49–131; BMI 25.8; BMI 24.9
[2025-02-20] MEDS: ZOSYN 50 IV ×4 (04:36→23:52)
--- NOTE | 2025-02-20 04:59 | PTCARENOTE ---
NPO status reviewed with pt. Pt insistent that she be able to take PO but verbally acquiesced to NPO status. Pt was noted by Aidee LEGGETT to be drinking from her personal bottle of water that she arrived with. NPO status reviewed with pt and bottle
of water was placed out of the pts sight. Nursing quality control supervisor spoke with the pt after this RN asked for guidance. No s/s of distress assessed. Will continue to monitor.
[2025-02-20 07:33] LABS: % Basophils 0.3 % (0-2); % Immature Granulocytes 2.2 % (0-0.5); % Lymphocytes 14.5 % (20.5-51.1); % Monocytes 8.8 % (1.7-9.3); % Neutrophils 74.2 % (42.2-75.2); Absolute Immature Granulocytes 0.1 10^3/uL (0-0.05); Absolute Lymphocytes 0.5 10^3/uL (1.2-3.4); Absolute Monocytes 0.3 10^3/uL (0.1-0.6); Absolute Neutrophils 2.4 10^3/uL (1.4-6.5); Hematocrit 27.7 % (37.0-47.0); Hemoglobin 8.9 g/dL (12.0-16.0); Mean Corp Hgb Conc. 32.1 g/dL (33.0-37.0); Mean Corpuscular Hgb 27.1 pg (27.0-31.0); Mean Corpuscular Volume 84.5 fL (81.0-99.0); Mean Platelet Volume 11.4 fL (7.4-10.4); Nucleated Red Blood Cells % 0 %; Platelet Count 218 10^3/uL (130-400); Red Blood Cell Count 3.28 10^6/uL (4.20-5.40); Red Cell Dist. Width 16.3 % (11.5-14.5); White Blood Cell Count 3.2 10^3/uL (4.8-10.8)
[2025-02-20 07:35] LABS: ALT (SGPT) 56 U/L (0-35); AST (SGOT) 154 U/L (14-36); Albumin 3.8 g/dl (3.5-5.0); Alkaline Phosphatase 217 U/L (38-126); Blood Urea Nitrogen 39 mg/dl (7-17); Calcium 8.7 mg/dl (8.4-10.2); Carbon Dioxide 24 mmol/L (22-30); Chloride 102 mmol/L (98-107); Estimated Creatinine Clearance 43 ml/min; Glucose 73 mg/dl (70-99); Potassium 3.9 mmol/L (3.5-5.1); Sodium 138 mmol/L (135-145); Total Bilirubin 0.8 mg/dl (0.2-1.3); Total Protein 6.7 g/dl (6.3-8.2); eGFR 42.72
[2025-02-20] MEDS: SPIRIVA RESPIMAT 2.5 MCG INH (07:54)
[2025-02-20] MEDS: SYMBICORT 160/4.5 MCG INHALER INH ×2 (07:54→19:20)
[2025-02-20] MEDS: ZOFRAN 4 MG IV ×2 (09:13→20:27)
[2025-02-20] MEDS: DILAUDID 1 MG IV ×2 (09:14→20:26)
--- NOTE | 2025-02-20 09:22 | W.PN.HOSP.TC ---
Today's Communication/Plan
-
see plan
Assessment / Plan
Assessment / Plan
Gen: NAD, AAOx3.
Eyes: EOMI, PERRLA, no scleral icterus.
Neck: supple.
CV: RRR, +S1/S2, no m/r/g.
Resp: CTAB, no rales, wheezes, or rhonchi.
Abd: +BS, soft, NT, mild distention with ascites
Skin: No rashes. C/D/I dressing LLE.
Neuro: CN 2-12 intact, non-focal.
Psych: Normal mood and affect.
Abd U/S: Moderate abdominopelvic ascites. Progressed.
Infected chronic LLE ulcer:
-h/o dermatomyositis and SLE
-immunocompromised patient on Cellcept/prednisone
-s/p Bx end of January
-cont Zosyn
-c/s surgery
-c/s wound care
PRAVEEN on CKD3a
-h/o lupus nephritis
-holding home aldactone/Lasix
-Cr improving
h/o cardiogenic ascites:
-Abd U/S above
-holding home aldactone/Lasix with PRAVEEN
-at this time no plans for paracentesis
Other problems:
Acute on chronic anemia/leukopenia of chronic disease: Hb improved with 2U pRBCs
SLE: cont CellCept/prednisone
Transaminitis: likely reactive, trend
COPD, not in acute exacerbation: Continue Symbicort/Spiriva
Pulmonary HTN: cont sildenafil
Hyperlipidemia
Chronic HFpEF: holding home aldactone/Lasix with PRAVEEN
GERD: cont PPI
h/o Small bowel volvulus December 2024
FULL/Heparin
Total time spent on today's encounter was 50 minutes which included time spent in counseling the patient/family regarding diagnosis and treatment plan as listed above, goals of care, and symptom management. Case was discussed with nursing staff,
specialists, and care coordinators/case management. All labs and imaging personally reviewed by me. Remainder the time spent in detailed review of previous records, lab data, imaging, and other medical provider documentation.
Anticipated Discharge: 24 - 48 hours
Subjective/Interval History
-
Date of Service: February 20, 2025
No new complaints.
Objective Data
-
Labs:
Laboratory Results
02/20/25
06:02
WBC 3.2 L
Hgb 8.9 L D
Hct 27.7 L
Plt Count 218
Sodium 138
Potassium 3.9
Chloride 102
Carbon Dioxide 24
BUN 39 H
Creatinine 1.5 H
Glucose 73
Calcium 8.7
Total Bilirubin 0.8
AST 154 H
ALT 56 H
Alkaline Phosphatase 217 H
Vital Signs:
Vital Signs
Temp Pulse Resp BP Pulse Ox
98.2 F 104 18 98/49 98
02/20/25 01:33 02/20/25 01:33 02/20/25 01:33 02/20/25 01:33 02/19/25 20:00
I&O
02/19/25 02/20/25 02/21/25
06:59 06:59 06:59
Intake Total 1210 / 1210
Balance 1210 / 1210
[2025-02-20] MEDS: DELTASONE 5 MG PO (09:24)
[2025-02-20] MEDS: LONITEN 2.5 MG PO (09:24)
[2025-02-20] MEDS: CELLCEPT 1000 MG PO ×2 (09:24→20:20)
[2025-02-20] MEDS: PROTONIX 40 MG PO (09:25)
[2025-02-20] MEDS: FOLVITE 1 MG PO (09:25)
[2025-02-20] MEDS: DAPSONE 100 MG PO (09:25)
[2025-02-20] MEDS: TRICOR 145 MG PO (09:26)
[2025-02-20] MEDS: REVATIO 20 MG PO ×3 (09:26→23:52)
--- NOTE | 2025-02-20 09:40 | WOUNDNOTE ---
[facility] RN note: Patient admitted with
See H&P for complete history.
PMH:
Wound Location and type/assessment: Patient admitted with:
Appetite:
Pressure redistribution devices in place:
Plan:
Will confirm orders with hospitalist and update nurse.
Updated care plan and will follow as needed.
Note to case management of equipment requested for discharge:
Recommend follow up at wound care center upon discharge.
--- NOTE | 2025-02-20 09:40 | WOUNDNOTE ---
[facility] RN note: Patient admitted with acute on chronic LLE wound infection. She's had wound biopsy done as an outpatient. She sees a profile stitching machine operator and Dr. Velasquez at [facility].
See H&P for complete history.
PMH: LLE ulcer for 8 months, LLE DVT 20 years ago, Lupus (CellCept/prednisone), Raynaud's, chronic leukopenia, anemia, CKD3a, lupus nephritis. Previous biopsy showed dermatomyositis, no vasculitis. +Palpable pedal pulses. +1LLE edema. Ulcer is
painful. She takes pain medication. 02/06/25 LLE venous ultrasound was negative for DVT thigh and popliteal veins; she refused to have below the knee done per report.
Wound Location and type/assessment: Patient admitted with: full thickness L medial calf ulcer to subcutaneous layer, pink with yellow slough and local erythema. Moderate serous drainage. Current wound care has been Dakin's gauze, bordered gauze, L
knee high Tubigrip (remove q hs). Rash on lower buttocks/upper thigh. Patient stated the rash is r/t her lupus and is probably there because she missed her last infusion for her lupus. She denies itch with the rash. Dr. Dee to see today for
possible OR debridement.
Appetite: Currently NPO for possible OR debridement.
Pressure redistribution devices in place: [employer] Accumax. Patient moves self in bed.
Plan: NICOLASA Buitrago medicated patient for pain. LLE dressing changed. Instructed patient pressure injury prevention measures. Alva texted Dr. Dee wound picture; defer to surgeon if L knee high compression indicated (i.e. Tubigrip or Nash). Discussed
with NICOLASA Buitrago.
Care plan to be updated and will follow peripherally as needed.
Patient to follow up with her profile stitching machine operator and [facility].
--- NOTE | 2025-02-20 09:52 | WOUNDNOTE ---
L BUTTOCKS (LOWER)/UPPER POSTERIOR THIGH
--- NOTE | 2025-02-20 09:52 | WOUNDNOTE ---
R BUTTOCKS (LOWER)/UPPER POSTERIOR THIGH
--- NOTE | 2025-02-20 11:10 | CM ---
CM following re: discharge planning.
Reviewed pt's chart, met with pt.
Pt is a 49 year old female, admitted with primary dx of Infected chronic LLE ulcer:surgery and wound care following.
Pt reports she lives with mother 1SH, 4 steps to enter. 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 Pt stated she has a strong feelings she will need [facility]N services and pt requested [facility]. A referral to [facility] made.
PCP: Adin Wild.
Pharmacy: [facility] [place]
D/C plan: home with [facility] and family support. Mother to transport at discharge.
CM will follow with discharge plan updates as hospitalization progresses
--- NOTE | 2025-02-20 11:18 | W.SUR.PREOP ---
Pre-Operative Surgical Note
-
I have examined this patient prior to the performance of the scheduled procedure.
The patient's condition is unchanged from the time of the current History and
Physical and the patient is able to undergo the scheduled procedure.
--- NOTE | 2025-02-20 11:23 | CON.GS ---
Addendum entered and electronically signed by Pablo Dee MD 02/20/25 14:22:
Patient seen and examined.
Patient is a 49 yo F with a PMH notable for SLE/Raynaud's (on immunosuppression, prednisone/CellCept), CKD (lupus nephritis), HFpEF c/b cardiogenic ascites, COPD, pulmonary hypertension, and s/p cholecystectomy who presents with a chronic left lower
extremity wound. Ms. Vera reports that she initially had a small ulcer in her LEFT medial calf which has progressed over the past 8 months. She has had extensive workup and treatment at [facility] and [facility]. She recently underwent a
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 She has issues with a post-procedure wound infection and was admitted to from 02/06 - 02/08 for Iv antibiotics. She has been on chronic Doxycycline for months as well
as a course of Keflex. She has been recently followed by the wound care center , and was found to have worsening of her wound. Because of this she was sent to the ER for further management. No fevers or chills. She reports significant pain
associated with the wound. No worsening drainage or spreading redness. She has yet to follow-up with her [facility] Tender.
Gen: NAD
Ext: LLE with a chronic 3 x 3 x 1 cm wound, tender to palpation, no palpable fluctuance, no spreading erythema, desiccated fat and fibrinous debris, no purulence expressed, no necrosis or eschar
Labs notable for a leukopenia, chronic anemia (s/p 1 unit PRBC), and CKD
Patient is a 49 yo F p/w chronic LLE wound
Chronic left lower extremity wound of uncertain origin. 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 Current issues with wound healing possibly compounded by her immunosuppression. No clear
evidence of necrosis or infection. Exam and evaluation limited due to patient's pain tolerance. Options for management including continued local wound care versus operative evaluation and possible debridement were considered and discussed.
Patient would like to proceed with operative evaluation.
Plan for wound evaluation, washout, debridement, and dressing change of a chronic LEFT lower extremity wound. The procedure itself, as well as the risks, benefits, and alternatives was discussed. Specifically, we discussed the risks of bleeding,
infection, injury to surrounding structures (muscle, nerves), wound complications and prolonged healing, and need for further procedures. Typical post procedure recovery was discussed. We discussed that this is likely going to take months to heal
this wound. Would recommend follow-up with her Dermatology team and wound care center at [facility].
-- Operative wound evaluation, washout, debridement, and dressing change of a chronic LEFT lower extremity wound
-- NPO, IVF
-- Abx: Zosyn
Original Note:
Consultation
-
Date/Time Consultation Performed: 02/20/25 1120
Medical History
-
Chief Complaint: wound
History of Present Illness:
Ms Vera is a 49 yo female with a h/o SLE/Raynaud's on immunosuppression (prednisone/cellcept), CKD (lupus nephritis), HFpEF, cardiogenic ascites, copd, pulm htn with chronic LLE wound for the past 8 months. A biopsy was performed end of January and
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 She had been on chronic doxycycline for months then course of Keflex with recent admission earlier this month where was given initially IV Zosyn then stopped by infectious disease with follow-up recommended with her
animal care specialist Dr. Velasquez. Chronic LLE wound present with slough to base of wound with sutures still in place from recent biopsy.
Past Medical History
Past Medical History: CHF (HFpEF, pulmonary htn, cardiogenic ascites), COPD, Hypercholesterolemia, Renal Failure (lupus nephritis) and Other (SLE, Raynaud's, Chronic LLE wound, chronic leukopenia/anemia of chronic disease)
Past Surgical History: Cholecystectomy
Social History
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
Family History
Family History: CAD (mother and father) and Other (Sister with Raynaud's/DM )
Allergies / Home Medications
Allergy/AdvReac Type Severity Reaction Status Date / Time
hydroxychloroquine Allergy Unknown Verified 02/19/25 10:23
[From Plaquenil]
�Medication �Instructions �Recorded �Confirmed �Type
gabapentin 600 mg tablet 1,200 mg PO HS Pain 08/16/23 02/19/25 History
omeprazole 40 mg capsule,delayed 40 mg PO DAILY GERD 08/16/23 02/19/25 History
release
sildenafil (pulm.hypertension) 20 20 mg PO Q8H Raynaud's 08/16/23 02/19/25 History
mg tablet
albuterol sulfate 90 mcg/actuation 2 puff inhalation R Q4HPRN PRN 04/23/24 02/19/25 History
aerosol inhaler sob/wheezing
mycophenolate mofetil 500 mg tablet 1,000 mg PO BID lupus 05/04/24 02/19/25 History
fenofibrate nanocrystallized 145 145 mg PO DAILY High Cholesterol 05/08/24 02/19/25 History
mg tablet ##0
anifrolumab-fnia 300 mg/2 mL (150 300 mg IV Q4W Sleep 11/20/24 02/19/25 History
mg/mL) intravenous solution
(Saphnelo)
budesonide-formoterol HFA 160 2 puff inhalation R BID 11/20/24 02/19/25 History
mcg-4.5 mcg/actuation aerosol Lung/Breathing Issues
inhaler (Symbicort)
folic acid 1 mg tablet 1 mg PO DAILY Supplement 11/20/24 02/19/25 History
furosemide 80 mg tablet (Lasix) 80 mg PO DAILY Heart Failure 11/20/24 02/19/25 History
minoxidil 2.5 mg tablet 2.5 mg PO DAILY Blood Pressure 11/20/24 02/19/25 History
omalizumab 300 mg/2 mL 300 mg SC QMONTH Lung/Breathing 11/20/24 02/19/25 History
subcutaneous auto-injector (Xolair) Issues
potassium chloride 20 mEq 40 meq PO BID Electrolyte Repletion 11/20/24 02/19/25 History
tablet,extended release(part/cryst)
prednisone 5 mg tablet 5 mg PO DAILY Anti-Inflammatory 11/20/24 02/19/25 History
tiotropium bromide 2.5 2 puff inhalation R DAILY 11/20/24 02/19/25 History
mcg/actuation mist for inhalation Lung/Breathing Issues
(Spiriva Respimat)
acetaminophen 500 mg tablet 1,000 mg PO Q4HPRN PRN mild 01/02/25 02/19/25 History
(Tylenol Extra Strength) pain/fever
cyclobenzaprine 5 mg tablet 5 mg PO HS Muscle Spasms 01/02/25 02/19/25 History
furosemide 20 mg tablet 20 mg PO DAILY #30 tabs 01/03/25 02/19/25 Rx
spironolactone 25 mg tablet 25 mg PO DAILY #0 tabs 02/08/25 02/19/25 Rx
cephalexin 500 mg capsule 500 mg PO QID Infection 02/19/25 02/19/25 History
dapsone 100 mg tablet 100 mg PO DAILY Infection 02/19/25 02/19/25 History
Review of Systems
-
History Source: Patient
All other systems: Negative unless noted
A 10 point review of systems was completed, and was negative except as per HPI.
Physical Exam
Vital Signs
Temp Pulse Resp BP Pulse Ox
98.2 F 104 18 98/49 98
02/20/25 01:33 02/20/25 01:33 02/20/25 01:33 02/20/25 01:33 02/19/25 20:00
02/19/25 02/20/25 02/21/25
06:59 06:59 06:59
Actual Weight 72.376 kg 70.08 kg
Body Mass Index (BMI) 24.9
Lab Results
02/20/25 06:02
02/20/25 06:02
WBC 3.2 10^3/uL (4.8-10.8) L 02/20/25 06:02
Hgb 8.9 g/dL (12.0-16.0) L D 02/20/25 06:02
Hct 27.7 % (37.0-47.0) L 02/20/25 06:02
Plt Count 218 10^3/uL (130-400) 02/20/25 06:02
Abs Immat Gran (auto) 0.1 10^3/uL (0-0.05) H 02/20/25 06:02
Neutrophils % 74.2 % (42.2-75.2) 02/20/25 06:02
Physical Exam
General: Well Developed and Well Nourished
HEENT: Moist Mucous Membranes
Respiratory: Non Labored Respirations
GI: Soft and Non Tender
Skin: Warm and Other (Chronic LLE wound present with slough to base and prior stitches still in place from recent biopsy. )
Data Reviewed
-
Ultrasound: Report Reviewed by me, Discussed with Physician and Discussed with Patient
Labs: Labs Reviewed by me, Discussed with Physician and Discussed with Patient
Assessment / Plan
-
49 yo female with SLE/Raynaud's and dermatomyositis on chronic immunosuppression presenting with chronic LLE wound present with slough to base and prior stitches still in place from recent biopsy. Baseline leukopenia unchanged. No lactic acidosis.
Cr appears to be near baseline. h/h stable s/p transfusion of 2 units of pRBC's for chronic anemia. Afebrile with mild tachycardia, soft normal BP's.
Plan:
NPO for OR today for wound debridement. Will remove sutures from biopsy site intraop
[2025-02-20] MEDS: TYLENOL 650 MG PO ×2 (11:43→17:46)
--- NOTE | 2025-02-20 11:48 | PTOTSP ---
SPOKE WITH RN WHO REPORTS PATIENT MOBILIZING INDEPENDENTLY IN THE ROOM. PATIENT CONTACTED BEDSIDE AND REPORTS THE SAME, STATING THAT HER ONLY LIMITING FACTOR IS PAIN HOWEVER SHE DOES NOT EVEN REQUIRE THE USE OF WALKER FOR OFFLOADING LEFT LE. PATIENT
STATING THAT SHE HAS NO NEED FOR P.T. AT THIS TIME. PATIENT TO GO FOR I&D SOME TIME TODAY. PLEASE RECONSULT IF NEEDED POST OP. WILL DISCHARGE FROM THERAPY AT THIS TIME. RN AWARE AND IN AGREEMENT.
--- NOTE | 2025-02-20 12:06 | VNURNOTE ---
URVASHIVN attempted to meet w/patient at bedside. This author introduced herself and role. Patient said 'can we do that later? I was sleeping.' Will follow up later. Referral placed in [facility].
--- NOTE | 2025-02-20 12:19 | PTCARENOTE ---
Addendum entered by Minna Saravia RN 02/20/25 14:45:
Patient returned from PACU @14:45 (report received from OBIEE LEAD DEVELOPERNICOLASA Segura)
Original Note:
Telephone report given to CABLE SPLICERNICOLASA Skaggs @12:03; Second set of CHG wipes completed; Transport volunteers arrived and brought patient and chart to OR @12:15.
--- NOTE | 2025-02-20 12:57 | PTCARENOTE ---
Removed CONTACT PRECAUTIONS per Luna Arambula.
--- NOTE | 2025-02-20 13:50 | W.IMMPOSTOP ---
Surgical Immed Post Op Note
-
Primary Surgeon: Luiz
Assisting Surgeon: SHANNAN Leach
Pre-op Diagnosis: Chronic non-healing LEFT lower extremity wound
Post-op Diagnosis: Chronic non-healing LEFT lower extremity wound
Procedure Performed: Washout, superficial debridement, and dressing change of LEFT lower extremity would
Anesthesia Type: MAC/local
Specimen / Cultures:
1. Wound culture
Estimated Blood Loss: 3 cc
Complications: None
Operative Findings:
1. Wound measurements 3 x 3.5 x 1 cm
2. Necrotic and dedicated fat with fibrinous debris and mild fluid, no ana purulence or necrosis
3. Superficial debridement with gauze and Pulsavac
4. Dressing with Betadine soaked gauze, gauze/ABD and tape
--- NOTE | 2025-02-20 14:48 | WOUNDNOTE ---
WOC RN note: Confirmed wound care for nursing to start tomorrow and L knee high compression with Tubigrip or Nash (remove q hs) with Dr. Dee. Also discussed with Dr. Velasquez. Nursing care plan and discharge instructions updated.
[2025-02-20] MEDS: NEURONTIN 900 MG PO (23:51)
[2025-02-20] MEDS: FLEXERIL 5 MG PO (23:52)
--- NOTE | 2025-02-21 00:18 | PTCARENOTE ---
Pt placed on 2L n/c for pulse ox 88 on RA @ rest. Pt increased to 94%
[2025-02-21] MEDS: DILAUDID 1 MG IV ×2 (01:15→11:10)
[2025-02-21 03:22] VITALS: BP 108/62
[2025-02-21] MEDS: ZOSYN 50 IV ×3 (05:41→17:21)
[2025-02-21] MEDS: TYLENOL 650 MG PO ×2 (05:51→22:50)
[2025-02-21 06:00] VITALS: BMI 25.8
[2025-02-21 07:15] LABS: % Basophils 0.4 % (0-2); % Eosinophils 1.1 % (0-6); % Lymphocytes 16.9 % (20.5-51.1); % Monocytes 10.4 % (1.7-9.3); % Neutrophils 67.2 % (42.2-75.2); Absolute Immature Granulocytes 0.1 10^3/uL (0-0.05); Absolute Lymphocytes 0.5 10^3/uL (1.2-3.4); Absolute Monocytes 0.3 10^3/uL (0.1-0.6); Absolute Neutrophils 1.9 10^3/uL (1.4-6.5); Hematocrit 23.9 % (37.0-47.0); Mean Corp Hgb Conc. 33.5 g/dL (33.0-37.0); Mean Corpuscular Hgb 27.6 pg (27.0-31.0); Mean Corpuscular Volume 82.4 fL (81.0-99.0); Nucleated Red Blood Cells % 0 %; Red Cell Dist. Width 16.5 % (11.5-14.5); White Blood Cell Count 2.8 10^3/uL (4.8-10.8)
[2025-02-21 07:35] VITALS: BP 96/54
[2025-02-21 07:48] LABS: Mean Platelet Volume 11.5 fL (7.4-10.4); Platelet Count 187 10^3/uL (130-400)
[2025-02-21] MEDS: SYMBICORT 160/4.5 MCG INHALER INH (07:52)
[2025-02-21] MEDS: SPIRIVA RESPIMAT 2.5 MCG INH (07:53)
[2025-02-21] MEDS: PROTONIX 40 MG PO (08:40)
[2025-02-21] MEDS: DAPSONE 100 MG PO (08:40)
[2025-02-21] MEDS: REVATIO 20 MG PO ×3 (08:40→22:48)
[2025-02-21] MEDS: DELTASONE 5 MG PO (08:41)
[2025-02-21] MEDS: CELLCEPT 1000 MG PO ×2 (08:41→20:21)
[2025-02-21] MEDS: LONITEN 2.5 MG PO (08:41)
[2025-02-21] MEDS: FOLVITE 1 MG PO (08:41)
[2025-02-21] MEDS: TRICOR 145 MG PO (08:41)
[2025-02-21 09:56] VITALS: BMI 26.4
[2025-02-21 10:56] LABS: ALT (SGPT) 42 U/L (0-35); AST (SGOT) 78 U/L (14-36); Albumin 3.5 g/dl (3.5-5.0); Alkaline Phosphatase 153 U/L (38-126); Blood Urea Nitrogen 26 mg/dl (7-17); Calcium 8.6 mg/dl (8.4-10.2); Carbon Dioxide 30 mmol/L (22-30); Chloride 101 mmol/L (98-107); Estimated Creatinine Clearance 50 ml/min; Glucose 103 mg/dl (70-99); Potassium 3.3 mmol/L (3.5-5.1); Sodium 136 mmol/L (135-145); Total Bilirubin 0.6 mg/dl (0.2-1.3); Total Protein 6.3 g/dl (6.3-8.2); eGFR 50.72
[2025-02-21 11:25] VITALS: BP 118/61
--- NOTE | 2025-02-21 12:06 | W.PN.HOSP.TC ---
Today's Communication/Plan
-
see plan
Assessment / Plan
Assessment / Plan
Gen: NAD, AAOx3.
Eyes: EOMI, PERRLA, no scleral icterus.
Neck: supple.
CV: remains RRR, +S1/S2, no m/r/g.
Resp: CTAB, no rales, wheezes, or rhonchi.
Abd: +BS, soft, NT, mild-mod distention with ascites
Skin: No rashes. LLE dressing was just changed. Picture of wound reviewed on pt's phone. Clean based, deep ulcer (to the level of muscle), without discharge and minimal surrounding erythema
Neuro: CN 2-12 intact, non-focal.
Psych: Normal mood and affect
02/19/25 11:37 Blood/Venous Blood Culture - Preliminary
No Growth in 48 hours- Final report to follow
02/19/25 11:37 Blood/Venous Blood Culture - Preliminary
No Growth in 48 hours- Final report to follow
02/19/25 18:17 Leg - Left Wound Culture - Preliminary
Proteus species
02/19/25 18:17 Leg - Left Gram Stain - Preliminary
02/20/25 13:38 Leg - Left Anaerobic Culture - Preliminary
Culture pending. Anaerobic cultures are examined after 3
days incubation. Additional information to follow.
02/20/25 13:38 Leg - Left Wound Culture - Preliminary
Proteus species
02/20/25 13:38 Leg - Left Gram Stain - Preliminary
Abd U/S: Moderate abdominopelvic ascites. Progressed.
Infected chronic LLE ulcer:
-h/o dermatomyositis and SLE
-immunocompromised patient on Cellcept/prednisone
-s/p Bx end of January
-s/p Washout, superficial debridement, and dressing change of LEFT lower extremity wound on 02/20/[address] Dee
-cont Zosyn
-c/s ID
-follow Cxs (WCx with Proteus above)
-surgery following
PRAVEEN on CKD3a
-h/o lupus nephritis
-holding home aldactone/Lasix
-Cr improving
h/o cardiogenic ascites:
-Abd U/S above
-holding home aldactone/Lasix with PRAVEEN
-at this time no plans for paracentesis
-once Cr nadirs will restart diuretics with close monitoring of creatinine (likely 02/22/25)
-suspect pt may need paracentesis on 02/23/25
Other problems:
Acute on chronic anemia/leukopenia of chronic disease: Hb improved with 2U pRBCs
SLE: cont CellCept/prednisone
Transaminitis: likely reactive, trend
COPD, not in acute exacerbation: Continue Symbicort/Spiriva
Pulmonary HTN: cont sildenafil
Hyperlipidemia
Chronic HFpEF: holding home aldactone/Lasix with PRAVEEN
GERD: cont PPI
h/o Small bowel volvulus December 2024
FULL/Heparin
Total time spent on today's encounter was 51 minutes which included time spent in counseling the patient/family regarding diagnosis and treatment plan as listed above, goals of care, and symptom management. Case was discussed with nursing staff,
specialists, and care coordinators/case management. All labs and imaging personally reviewed by me. Remainder the time spent in detailed review of previous records, lab data, imaging, and other medical provider documentation.
Anticipated Discharge: > 48 hours
Subjective/Interval History
-
Date of Service: February 21, 2025
Denies CP/SOB.
Objective Data
-
Labs:
Laboratory Results
02/21/25 02/21/25 02/21/25
05:54 07:50 10:28
WBC 2.8 L
Hgb 8.0 L
Hct 23.9 L
Plt Count 187
Sodium Cancelled Cancelled 136
Potassium Cancelled Cancelled 3.3 L
Chloride Cancelled Cancelled 101
Carbon Dioxide Cancelled Cancelled 30
BUN Cancelled Cancelled 26 H
Creatinine Cancelled Cancelled 1.3 H
Glucose Cancelled Cancelled 103 H
Calcium Cancelled Cancelled 8.6
Total Bilirubin Cancelled Cancelled 0.6
AST Cancelled Cancelled 78 H
ALT Cancelled Cancelled 42 H
Alkaline Phosphatase Cancelled Cancelled 153 H
Vital Signs:
Vital Signs
Temp Pulse Resp BP Pulse Ox
98.3 F 92 16 118/61 92
02/21/25 11:25 02/21/25 11:25 02/21/25 11:25 02/21/25 11:25 02/21/25 07:35
I&O
02/20/25 02/21/25 02/22/25
06:59 06:59 06:59
Intake Total 1210 / 1210 920 / 920 50 / 50
Balance 1210 / 1210 920 / 920 50 / 50
[2025-02-21] MEDS: ZOFRAN 4 MG IV ×2 (12:07→18:07)
[2025-02-21] MEDS: KCL 40 MEQ PO (12:36)
--- NOTE | 2025-02-21 14:05 | CON.ID ---
Consultation
-
Date/Time Consultation Requested: February 21, 2025 1212
Date/Time Consultation Performed: February 21, 2025 1400
Requesting Provider: Dr. Beni Bauer
Performing Provider: Dr. Radha De Santiago
Reason for Consultation: Left lower extremity wound
Chief Complaint / Past History
Chief Complaint
Worsening left leg wound.
History of Present Illness
Katty Vera is a 49-year-old female with significant past medical history of SLE and lupus nephritis being evaluated at the request of Dr. Bauer regarding a left lower extremity chronic wound. She developed a nodule on her left medial calf area
and has been followed for the past 8 months by [facility]. More than 1 month ago the area started to drain purulence, and she seeked evaluation with [facility] -biopsy of the area was performed on 02/06. She was on doxycycline for 2
months without improvement then placed on cephalexin. She was hospitalized here 02/08. Wound did not look infected and therefore she [facility]. In the meantime the leg wound got worse and bigger covered with yellow slough.
She was seen at [facility] 02/19 then sent to the ER. In the ED surrounding erythema noted. She was started on Zosyn. February 20, she underwent OR wound debridement. Culture growing Proteus. Of note February 06 biopsy culture was positive for Proteus, pathology
showed dermal fibrovascular changes with acute and chronic inflammation, GMS, PAS, FIT stains were negative for organisms, no granuloma. She had low-grade fever this morning. She denies trauma or injury to the leg.
Past History
Additional Past Medical History:
SLE
Lupus nephritis on Cellcept, prednisone
Raynaud's
Anemia
GERD
CKD stage III yea
COPD
CHF
Pulmonary hypertension
HLD
hx small bowel volvulus
Additional Past Surgical History:
Cholecystectomy
Allergy History:
hydroxychloroquine [From Plaquenil] Allergy (Verified 02/19/25 10:23)
Unknown
Medications Reviewed: Yes
Current Antibiotics:
Zosyn d3
Social History
Tobacco: Former Smoker
Alcohol: None
Drug: None
Living: With Family
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
Family History
Family History: Not Pertinent
Review of Systems
Review of Systems
General: Negative Fever, Chills or Change in Appetite
HEENT: Negative Sinus Problems or Headache
Cardiovascular: Negative Chest Pain or Dyspnea
Respiratory: Negative Dyspnea
Gasteroenterology: Negative Nausea, Vomiting or Diarrhea
Genital / Urological: Negative Dysuria or Flank Pain
Neurological: Negative Dizziness
All systems: All other systems were reviewed and were negative
Vital Signs
Temp Pulse Resp BP Pulse Ox
98.3 F 92 16 118/61 92
02/21/25 11:25 02/21/25 11:25 02/21/25 11:25 02/21/25 11:25 02/21/25 07:35
Selected Entries
02/21/25
07:35
Temp 100.4 F H
Physical Exam
Physical Exam
Constitutional: No Acute Distress, Comfortable and Non-toxic
Eyes: No Conjunctival Hemorrhage and Sclera Anicteric
Cardiovascular: Regular Rate and S1/S2
Pulmonary: Clear
Gastrointestinal: Soft, Non Tender, Non Distended and Normal Bowel Sounds
Extremities: Negative Edema
Wound: Other (Left medial calf large wound with heaped up border, granulation tissue with few areas of necrosis, + surrounding erythema)
Neurological: AO x 3
Lab / Diagnostic Study Results
02/21/25 05:54
02/21/25 10:28
Abs Immat Gran (auto) 0.1 10^3/uL (0-0.05) H 02/21/25 05:54
Absolute Neuts (auto) 1.9 10^3/uL (1.4-6.5) 02/21/25 05:54
Absolute Lymphs (auto) 0.5 10^3/uL (1.2-3.4) L 02/21/25 05:54
Absolute Monos (auto) 0.3 10^3/uL (0.1-0.6) 02/21/25 05:54
Absolute Basos (auto) 0.0 10^3/uL (0-0.2) 02/21/25 05:54
Immature Gran % 4.0 % (0-0.5) H 02/21/25 05:54
Neutrophils % 67.2 % (42.2-75.2) 02/21/25 05:54
Lymphocytes % 16.9 % (20.5-51.1) L 02/21/25 05:54
Monocytes % 10.4 % (1.7-9.3) H 02/21/25 05:54
Eosinophils % 1.1 % (0-6) 02/21/25 05:54
Basophils % 0.4 % (0-2) 02/21/25 05:54
Lactic Acid Cancelled 02/19/25 15:45
Microbiology Results
Micro:
02/19/25 11:37 Blood Culture - Preliminary
Blood/Venous No Growth in 48 hours- Final report to follow
02/19/25 11:37 Blood Culture - Preliminary
Blood/Venous No Growth in 48 hours- Final report to follow
02/19/25 18:17 Wound Culture - Preliminary
Leg - Left Proteus species
Gram Stain - Preliminary
02/20/25 13:38 Anaerobic Culture - Preliminary
Leg - Left Culture pending. Anaerobic cultures are examined after 3
days incubation. Additional information to follow.
02/20/25 13:38 Wound Culture - Preliminary
Leg - Left Proteus species
Gram Stain - Preliminary
02/20/25 08:32 MRSA Screen - Pending
Other-Please specify - Unspecified
Assessment / Plan
# Acute infection of chronic left medial calf lesion
# Low grade fever- postop
# SLE/Lupus nephritis on Cellcept, prednisone
- Reviewed outside [facility] labs.
02/06/25 LLE punch bx cx: Proteus resistant to cefazolin, tetracycline; AFB smear neg, AFB cx neg to date; Fungal smear neg, fungal cx neg to date
Path: fibrovascular changes with acute and chronic inflammation, GMS, PAS, FIT stains were negative for organisms, no granuloma
- 02/20/25 s/p OR wound debridement.
Appreciate Surgery - sent cx + Proteus
- Continue Zosyn.
Will de-escalate to po abx when final cx data available.
-Continue wound care.
[2025-02-21 15:15] VITALS: BP 102/73
[2025-02-21] MEDS: ProAIR HFA INHALER 2 PUFF INH (20:21)
[2025-02-21] MEDS: SYMBICORT 160/4.5 MCG INHALER 2 PUFF INH (20:21)
[2025-02-21] MEDS: NEURONTIN 900 MG PO (22:47)
[2025-02-21] MEDS: FLEXERIL 5 MG PO (22:48)
[2025-02-21 23:00] VITALS: BP 114/76
--- NOTE | 2025-02-21 23:42 | PTCARENOTE ---
Pt provided PRN breathing treatment @ beginning of shift, reports difficulty breathing because she has not receiving her scheduled lasix r/t to PRAVEEN. Pt spoke with MD today and that if her labs improve tomorrow they will restart medications. VSS,
fine crackles @ base of b/l . Pt placed on 2l n/c for comfort and pulse 90% on RA, increased to 95% on 2l n/c. Pt encouraged to limit fluid intake and sleep with HOB elevated. Pt reports she feels more comfortable with her breathing with
interventions, resting in bed.
[2025-02-22] MEDS: ZOSYN 50 IV ×2 (00:07→06:23)
[2025-02-22 03:27] VITALS: BP 110/78
[2025-02-22 06:00] VITALS: BMI 26.2
[2025-02-22] MEDS: TYLENOL 650 MG PO ×2 (06:23→14:54)
[2025-02-22 07:41] VITALS: BP 121/75
[2025-02-22] MEDS: SPIRIVA RESPIMAT 2.5 MCG 2 PUFF INH (07:44)
[2025-02-22] MEDS: SYMBICORT 160/4.5 MCG INHALER 2 PUFF INH ×2 (07:44→19:06)
[2025-02-22 08:27] LABS: Mean Corpuscular Hgb 27.1 pg (27.0-31.0); Mean Corpuscular Volume 84.7 fL (81.0-99.0); Mean Platelet Volume 10.3 fL (7.4-10.4); Platelet Count 187 10^3/uL (130-400); Red Blood Cell Count 2.95 10^6/uL (4.20-5.40); Red Cell Dist. Width 16.6 % (11.5-14.5); White Blood Cell Count 2.2 10^3/uL (4.8-10.8)
[2025-02-22] MEDS: CELLCEPT 1000 MG PO ×2 (09:03→20:14)
[2025-02-22] MEDS: TRICOR 145 MG PO (09:04)
[2025-02-22] MEDS: REVATIO 20 MG PO ×3 (09:04→23:52)
[2025-02-22] MEDS: DELTASONE 5 MG PO (09:04)
[2025-02-22] MEDS: SENOKOT-S 1 TABLET PO (09:05)
[2025-02-22] MEDS: DAPSONE 100 MG PO (09:05)
[2025-02-22] MEDS: PROTONIX 40 MG PO (09:05)
[2025-02-22] MEDS: LONITEN 2.5 MG PO (09:05)
[2025-02-22] MEDS: FOLVITE 1 MG PO (09:05)
[2025-02-22 09:18] LABS: ALT (SGPT) 33 U/L (0-35); AST (SGOT) 57 U/L (14-36); Albumin 3.3 g/dl (3.5-5.0); Alkaline Phosphatase 119 U/L (38-126); Blood Urea Nitrogen 19 mg/dl (7-17); Calcium 8.6 mg/dl (8.4-10.2); Carbon Dioxide 28 mmol/L (22-30); Chloride 104 mmol/L (98-107); Estimated Creatinine Clearance 59 ml/min; Glucose 117 mg/dl (70-99); Potassium 3.6 mmol/L (3.5-5.1); Sodium 138 mmol/L (135-145); Total Bilirubin 0.6 mg/dl (0.2-1.3); Total Protein 5.9 g/dl (6.3-8.2); eGFR > 60.00
--- NOTE | 2025-02-22 10:24 | W.PN.ID1 ---
Date of Service
Date of Service: February 22, 2025
Today's Communication
At time of dc, transition to Augmentin 875mg po bid through x 14d.
Assessment / Plan
# Acute infection of chronic left medial calf lesion
# Low grade fever- postop, now resolved
# SLE/Lupus nephritis on Cellcept, prednisone
- Reviewed outside [facility] labs.
02/06/25 LLE punch bx cx: Proteus resistant to cefazolin, tetracycline; AFB smear neg, AFB cx neg to date; Fungal smear neg, fungal cx neg to date
Path:dermal fibrovascular changes with acute and chronic inflammation, GMS, PAS, FIT stains were negative for organisms, no granuloma
- 02/20/25 s/p OR wound debridement.
Appreciate Surgery - sent cx + Proteus
- Narrow Zosyn to ceftriaxone.
- At time of dc, transition to Augmentin 875mg po bid through x 14d.
- Continue wound care.
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
SLE
Lupus nephritis on Cellcept, prednisone
Raynaud's
Anemia
GERD
CKD stage III yea
COPD
CHF
Pulmonary hypertension
HLD
hx small bowel volvulu
Chief Complaint
-: Cellulitis
Vital Signs / Physical Exam
Vital Signs
Vital Signs
Temp Pulse Resp BP Pulse Ox
98.6 F 101 18 121/75 95
02/22/25 07:41 02/22/25 07:47 02/22/25 07:47 02/22/25 07:41 02/22/25 07:47
Physical Exam
Constitutional: No Acute Distress and Comfortable
Cardiovascular: Regular Rate and S1/S2
Pulmonary: Clear
Gastrointestinal: Soft, Non Tender and Non Distended
Genito-Urinary: Negative CVA Tenderness
Extremities: Negative Edema
Wound: Other (Left leg dressing dry)
Neurological: AO x 3
Objective Data
Lab Data
Lab Results
02/22/25 06:56
02/22/25 08:55
Estimated Creat Clear 59 ml/min 02/22/25 08:55
Lactic Acid Cancelled 02/19/25 15:45
Total Bilirubin 0.6 mg/dl (0.2-1.3) 02/22/25 08:55
AST 57 U/L (14-36) H 02/22/25 08:55
ALT 33 U/L (0-35) 02/22/25 08:55
Alkaline Phosphatase 119 U/L (38-126) 02/22/25 08:55
Most recent labs reviewed.
Micro Results:
02/20/25 13:38 Wound Culture - Preliminary
Leg - Left Proteus mirabilis
Gram Stain - Preliminary
02/20/25 13:38 Fungal Culture - Preliminary
Leg - Left Culture in progress.
Positive cultures are reported as soon as detected.
Final report to follow in four to five weeks.
02/20/25 08:32 MRSA Screen - Final
Other-Please specify - Unspecified No Methicillin Resistant Staphylococcus aureus isolated.
02/19/25 11:37 Blood Culture - Preliminary
Blood/Venous No Growth in 48 hours- Final report to follow
02/19/25 11:37 Blood Culture - Preliminary
Blood/Venous No Growth in 48 hours- Final report to follow
02/19/25 18:17 Wound Culture - Preliminary
Leg - Left Proteus species
Gram Stain - Preliminary
02/20/25 13:38 Anaerobic Culture - Preliminary
Leg - Left Culture pending. Anaerobic cultures are examined after 3
days incubation. Additional information to follow.
Procedure Result Verified
Wound/abscess/other Cult Preliminary 02/22/25-0831
Many Proteus mirabilis
Organism 1 Proteus mirabilis
1. Proteus mirabilis
M.I.C. RX
--------- ---
Amoxicillin/Potas. Clavulanate <=8/4 S
Ampicillin <=8 S
Ampicillin/Sulbactam <=4/2 S
Aztreonam <=4 S
Cefazolin 4 I
Cefepime <=2 S
Ceftazidime <=1 S
Ceftriaxone <=1 S
Ertapenem <=0.5 S
Ciprofloxacin <=0.25 S
Gentamicin <=2 S
Meropenem <=1 S
Piperacillin/Tazobactam <=8 S
Tetracycline >8 R
Tobramycin <=2 S
Trimethoprim/Sulfamethoxazole <=2/38 S
Gram Stain Preliminary 02/22/25
Rare WBC
Moderate Gram Negative Rods
Moderate Gram Positive Cocci
--- NOTE | 2025-02-22 10:40 | W.PN.HOSP.TC ---
Today's Communication/Plan
-
paracentesis tomorrow
resume diuretics and monitor BMP
Abx per ID
Assessment / Plan
Assessment / Plan
Gen: NAD, AAOx3.
Eyes: EOMI, PERRLA, no scleral icterus.
Neck: supple.
CV: remains RRR, +S1/S2, no m/r/g.
Resp: CTAB, no rales, wheezes, or rhonchi.
Abd: +BS, soft, NT, mild-mod distention with ascites
Skin: No rashes. LLE dressing was just changed. Picture of wound reviewed on pt's phone. Clean based, deep ulcer (to the level of muscle), without discharge and minimal surrounding erythema
Neuro: CN 2-12 intact, non-focal.
Psych: Normal mood and affect
Assessment:
Infected chronic LLE ulcer:
-h/o dermatomyositis and SLE
-immunocompromised patient on Cellcept/prednisone
-s/p Bx end of January
-s/p Washout, superficial debridement, and dressing change of LEFT lower extremity wound on 02/20/[address] Dee
-cont Rocepin per ID. at discharge will do Augmentin 875mg po bid through x 14d. Culture grew Proteus.
-surgery following
PRAVEEN on CKD3a
-h/o lupus nephritis
-resume Aldactone/Lasix
-Cr improving
h/o cardiogenic ascites:
-Abd U/S above
-resume Aldactone/Lasix
-repeat paracentesis 02/23
Acute on chronic anemia/leukopenia of chronic disease: Hb improved with 2U pRBCs
SLE: cont CellCept/prednisone
Transaminitis: likely reactive, trend
COPD, not in acute exacerbation: Continue Symbicort/Spiriva
Pulmonary HTN: cont sildenafil
Hyperlipidemia
Chronic HFpEF: resume Aldactone/Lasix
GERD: cont PPI
h/o Small bowel volvulus December 2024
DVT ppx: Heparin
Code: Full
Anticipated Discharge: 24 - 48 hours
Subjective/Interval History
-
Date of Service: February 22, 2025
resting comfortably, no complaints except abd distention from ascites
Objective Data
-
Labs:
Laboratory Results
02/22/25 02/22/25
06:56 08:55
WBC 2.2 L*
Hgb 8.0 L
Hct 25.0 L
Plt Count 187
Sodium Cancelled 138
Potassium Cancelled 3.6
Chloride Cancelled 104
Carbon Dioxide Cancelled 28
BUN Cancelled 19 H
Creatinine Cancelled 1.1 H
Glucose Cancelled 117 H
Calcium Cancelled 8.6
Total Bilirubin Cancelled 0.6
AST Cancelled 57 H
ALT Cancelled 33
Alkaline Phosphatase Cancelled 119
Vital Signs:
Vital Signs
Temp Pulse Resp BP Pulse Ox
98.6 F 101 18 121/75 95
02/22/25 07:41 02/22/25 07:47 02/22/25 07:47 02/22/25 07:41 02/22/25 07:47
I&O
02/21/25 02/22/25 02/23/25
06:59 06:59 06:59
Intake Total 920 / 920 1106 / 1106
Balance 920 / 920 1106 / 1106
Data Reviewed
-
Total Time Spent with Patient (in minutes): 41
Labs: Labs Reviewed by me
[2025-02-22 11:05] LABS: % Basophils 0.5 % (0-2); % Immature Granulocytes 6.5 % (0-0.5); % Lymphocytes 20.4 % (20.5-51.1); % Monocytes 13.9 % (1.7-9.3); % Neutrophils 58.7 % (42.2-75.2); Absolute Immature Granulocytes 0.1 10^3/uL (0-0.05); Absolute Lymphocytes 0.4 10^3/uL (1.2-3.4); Absolute Monocytes 0.3 10^3/uL (0.1-0.6); Absolute Neutrophils 1.3 10^3/uL (1.4-6.5); Nucleated Red Blood Cells % 0 %
[2025-02-22] MEDS: LASIX 80 MG PO (11:32)
[2025-02-22] MEDS: STERILE WATER FOR INJECTION 20 ML IV (11:33)
[2025-02-22] MEDS: ROCEPHIN 2000 MG IV (11:33)
[2025-02-22] MEDS: ALDACTONE 25 MG PO (11:33)
[2025-02-22] MEDS: DILAUDID 1 MG IV (11:36)
[2025-02-22] MEDS: ZOFRAN 4 MG IV (11:41)
--- NOTE | 2025-02-22 13:51 | CM ---
CM following re: d/c planning.
CM met with pt as requested.
CM explained d/c plan, home with [facility].
Pt agreeable with plan. She is anxious about wound care, but understands she needs to learn to do it.
CM provided emotional support. Answered all questions.
Goal: home with [facility].
[2025-02-22 15:36] VITALS: BP 110/66
[2025-02-22] MEDS: TYLENOL PO (20:18)
[2025-02-22] MEDS: COMPAZINE 10 MG PO (21:07)
[2025-02-22] MEDS: BENADRYL 25 MG IV (21:09)
[2025-02-22] MEDS: NEURONTIN 900 MG PO (21:12)
[2025-02-22] MEDS: FLEXERIL 5 MG PO (21:12)
--- NOTE | 2025-02-22 22:31 | PTCARENOTE ---
Pt. refusing to take off compression tubi laundry aide off of LLE stating that she's worried the underlying dressing will fall off. Reiterated to pt. that the doctor had placed orders to have her take off compression at night but continued to refuse. Tubi
screening unit registered nurse remains on LLE.
[2025-02-22 23:05] VITALS: BP 100/50
[2025-02-23 05:46] VITALS: BMI 26.1
[2025-02-23] MEDS: LASIX 80 MG PO (06:39)
[2025-02-23] MEDS: LASIX 20 MG PO (06:40)
[2025-02-23] MEDS: SPIRIVA RESPIMAT 2.5 MCG INH (07:03)
[2025-02-23] MEDS: SYMBICORT 160/4.5 MCG INHALER INH (07:03)
[2025-02-23 07:30] VITALS: BP 134/90
[2025-02-23] MEDS: TRICOR 145 MG PO (07:41)
[2025-02-23] MEDS: FOLVITE 1 MG PO (07:41)
[2025-02-23] MEDS: REVATIO 20 MG PO (07:41)
[2025-02-23] MEDS: DAPSONE 100 MG PO (07:41)
[2025-02-23] MEDS: CELLCEPT 1000 MG PO (07:41)
[2025-02-23] MEDS: PROTONIX 40 MG PO (07:41)
[2025-02-23] MEDS: LONITEN 2.5 MG PO (07:41)
[2025-02-23] MEDS: ALDACTONE 25 MG PO (07:42)
[2025-02-23] MEDS: DELTASONE 5 MG PO (07:42)
[2025-02-23 08:27] LABS: % Basophils 0.3 % (0-2); % Immature Granulocytes 4.2 % (0-0.5); % Lymphocytes 14.6 % (20.5-51.1); % Neutrophils 69.9 % (42.2-75.2); Absolute Immature Granulocytes 0.1 10^3/uL (0-0.05); Absolute Lymphocytes 0.5 10^3/uL (1.2-3.4); Absolute Monocytes 0.3 10^3/uL (0.1-0.6); Absolute Neutrophils 2.2 10^3/uL (1.4-6.5); Hematocrit 25.7 % (37.0-47.0); Mean Corp Hgb Conc. 31.1 g/dL (33.0-37.0); Mean Corpuscular Hgb 26.8 pg (27.0-31.0); Mean Platelet Volume 10.7 fL (7.4-10.4); Platelet Count 229 10^3/uL (130-400); Red Blood Cell Count 2.99 10^6/uL (4.20-5.40); Red Cell Dist. Width 16.5 % (11.5-14.5); White Blood Cell Count 3.1 10^3/uL (4.8-10.8)
[2025-02-23 08:33] LABS: ALT (SGPT) 30 U/L (0-35); AST (SGOT) 53 U/L (14-36); Albumin 3.5 g/dl (3.5-5.0); Alkaline Phosphatase 109 U/L (38-126); Blood Urea Nitrogen 22 mg/dl (7-17); Calcium 8.5 mg/dl (8.4-10.2); Carbon Dioxide 29 mmol/L (22-30); Chloride 101 mmol/L (98-107); Estimated Creatinine Clearance 64 ml/min; Glucose 92 mg/dl (70-99); Potassium 3.6 mmol/L (3.5-5.1); Sodium 135 mmol/L (135-145); Total Bilirubin 0.6 mg/dl (0.2-1.3); Total Protein 6.1 g/dl (6.3-8.2); eGFR > 60.00
--- NOTE | 2025-02-23 09:04 | W.PN.ID1 ---
Date of Service
Date of Service: February 23, 2025
Today's Communication
- Broaden ceftriaxone to Unasyn
- At time of dc, transition to Augmentin 875mg po bid through x 14d.
Assessment / Plan
# Acute infection of chronic left medial calf lesion
# Low grade fever- postop, now resolved
# SLE/Lupus nephritis on Cellcept, prednisone
- Reviewed outside [facility] labs.
02/06/25 LLE punch bx cx: Proteus resistant to cefazolin, tetracycline; AFB smear neg, AFB cx neg to date; Fungal smear neg, fungal cx neg to date
Path:dermal fibrovascular changes with acute and chronic inflammation, GMS, PAS, FIT stains were negative for organisms, no granuloma
- 02/20/25 s/p OR wound debridement.
Appreciate Surgery - OR cx + Proteus, Enterococcus, Strep species
- Broaden ceftriaxone to Unasyn
- At time of dc, transition to Augmentin 875mg po bid through x 14d.
- Continue wound care.
# Cardiogenic ascites
- For therapeutic paracentesis today
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
SLE
Lupus nephritis on Cellcept, prednisone
Raynaud's
Cardiogenic ascites
Anemia
GERD
CKD stage III
COPD
CHF
Pulmonary hypertension
HLD
hx small bowel volvulu
Chief Complaint
-: Cellulitis
Subjective / Review of Systems
Wants to go home soon. For paracentesis today.
Vital Signs / Physical Exam
Vital Signs
Vital Signs
Temp Pulse Resp BP Pulse Ox
99.9 F 119 16 134/90 95
02/23/25 07:30 02/23/25 07:42 02/23/25 07:30 02/23/25 07:42 02/23/25 07:30
Physical Exam
Constitutional: No Acute Distress and Comfortable
Cardiovascular: Regular Rate and S1/S2
Pulmonary: Clear
Gastrointestinal: Soft, Non Tender and Distended
Genito-Urinary: Negative CVA Tenderness
Extremities: Negative Edema
Wound: Other (Left leg dressing dry)
Neurological: AO x 3
Objective Data
Lab Data
Lab Results
02/23/25 07:45
02/23/25 07:45
Estimated Creat Clear 64 ml/min 02/23/25 07:45
Lactic Acid Cancelled 02/19/25 15:45
Total Bilirubin 0.6 mg/dl (0.2-1.3) 02/23/25 07:45
AST 53 U/L (14-36) H 02/23/25 07:45
ALT 30 U/L (0-35) 02/23/25 07:45
Alkaline Phosphatase 109 U/L (38-126) 02/23/25 07:45
Most recent labs reviewed.
Micro Results:
02/19/25 18:17 Wound Culture - Preliminary
Leg - Left Gram negative bacilli
Proteus mirabilis
Enterococcus species
Streptococcus species
Gram Stain - Preliminary
02/20/25 13:38 Wound Culture - Preliminary
Leg - Left Proteus mirabilis
Enterococcus species
Streptococcus species
Gram Stain - Preliminary
02/19/25 11:37 Blood Culture - Preliminary
Blood/Venous No Growth in 72 hours- Final report to follow
02/19/25 11:37 Blood Culture - Preliminary
Blood/Venous No Growth in 72 hours- Final report to follow
02/20/25 13:38 Fungal Culture - Preliminary
Leg - Left Culture in progress.
Positive cultures are reported as soon as detected.
Final report to follow in four to five weeks.
02/20/25 08:32 MRSA Screen - Final
Other-Please specify - Unspecified No Methicillin Resistant Staphylococcus aureus isolated.
02/20/25 13:38 Anaerobic Culture - Preliminary
Leg - Left Culture pending. Anaerobic cultures are examined after 3
days incubation. Additional information to follow.
Procedure Result Verified
Wound/abscess/other Cult Preliminary 02/22/25
Many Proteus mirabilis
Organism 1 Proteus mirabilis
1. Proteus mirabilis
M.I.C. RX
--------- ---
Amoxicillin/Potas. Clavulanate <=8/4 S
Ampicillin <=8 S
Ampicillin/Sulbactam <=4/2 S
Aztreonam <=4 S
Cefazolin 4 I
Cefepime <=2 S
Ceftazidime <=1 S
Ceftriaxone <=1 S
Ertapenem <=0.5 S
Ciprofloxacin <=0.25 S
Gentamicin <=2 S
Meropenem <=1 S
Piperacillin/Tazobactam <=8 S
Tetracycline >8 R
Tobramycin <=2 S
Trimethoprim/Sulfamethoxazole <=2/38 S
Gram Stain Preliminary 02/22/25
Rare WBC
Moderate Gram Negative Rods
Moderate Gram Positive Cocci
[2025-02-23] MEDS: TYLENOL 650 MG PO (09:05)
[2025-02-23 09:17] VITALS: BP 124/71; BP_SYST 127
[2025-02-23 10:14] VITALS: BP 117/75; BP_SYST 124
--- NOTE | 2025-02-23 10:15 | CM ---
Patient chart reviewed
IR for paracentesis
Referral in [facility] for [facility]-accepted
PLAN: home with [facility] when stable
[2025-02-23 10:38] VITALS: BP 128/77
--- NOTE | 2025-02-23 10:57 | VNURNOTE ---
Home Health Liaison met with patient at bedside to discuss [facility] nurse/therapy, visits, schedule and homebound status. Patient is agreeable and understands that visits at home will be 2-3 x per week to assess and teach medical management. Patient is
willing to learn wound care. Patient is aware that [facility] will contact them for start of care in 1-2 days after discharge from .
[facility] referral completed in [facility].
[2025-02-23 11:21] LABS: Body Fluid Mononuclear 84.5 %; Body Fluid Polymorphonuclear 15.5 %; Body Fluid WBC 136 /CUMM
[2025-02-23 11:28] LABS: Body Fluid Second Tech EF
[2025-02-23 11:36] LABS: Body Fluid Amylase 34 U/L; Body Fluid LDH 83 U/L; Body Fluid Protein 3.8 g/dl
--- NOTE | 2025-02-23 12:17 | W.PN.HOSP.TC ---
Addendum entered and electronically signed by Eleni Bhatia MD 02/23/25 12:21:
acute pneumonia RUL
- add Azithromycin x 7 days per ID
Original Note:
Today's Communication/Plan
-
dc to home with [facility]N today
Assessment / Plan
Assessment / Plan
Gen: NAD, AAOx3.
Eyes: EOMI, PERRLA, no scleral icterus.
Neck: supple.
CV: remains RRR, +S1/S2, no m/r/g.
Resp: CTAB, no rales, wheezes, or rhonchi.
Abd: +BS, soft, NT, mild-mod distention with ascites
Skin: No rashes. LLE dressing was just changed. Picture of wound reviewed on pt's phone. Clean based, deep ulcer (to the level of muscle), without discharge and minimal surrounding erythema
Neuro: CN 2-12 intact, non-focal.
Psych: Normal mood and affect
Assessment:
Infected chronic LLE ulcer:
-h/o dermatomyositis and SLE
-immunocompromised patient on Cellcept/prednisone
-s/p Bx end of January
-s/p Washout, superficial debridement, and dressing change of LEFT lower extremity wound on 02/20/[address] Dee
-at discharge will do Augmentin 875mg po bid through x 14d per ID. Culture grew Proteus.
-surgery following
PRAVEEN on CKD3a
-h/o lupus nephritis
-continue Aldactone/Lasix
-Cr improving
h/o cardiogenic ascites:
-Abd U/S above
-continue Aldactone/Lasix
-paracentesis 02/23 with 850 cc removed. no SBP.
Acute on chronic anemia/leukopenia of chronic disease: Hb improved with 2U pRBCs
SLE: cont CellCept/prednisone
Transaminitis: likely reactive, trend
COPD, not in acute exacerbation: Continue Symbicort/Spiriva
Pulmonary HTN: cont sildenafil
Hyperlipidemia
Chronic HFpEF: resume Aldactone/Lasix
GERD: cont PPI
h/o Small bowel volvulus December 2024
DVT ppx: Heparin
Code: Full
More than 30 minutes spent in discharge including
Final examination of the patient
Summarizing hospital stay
Instructions for continuing care to all relevant caregivers
Preparation of discharge records, prescriptions, and referral forms
Total time spent (in minutes): 41
Anticipated Discharge: Today
Subjective/Interval History
-
Date of Service: February 23, 2025
found to have pneumonia this AM on CXR with transient hypoxia and low grade fever
s/p paracentesis 850 cc removed
Objective Data
-
Labs:
Laboratory Results
02/23/25
07:45
WBC 3.1 L
Hgb 8.0 L
Hct 25.7 L
Plt Count 229 D
Sodium 135
Potassium 3.6
Chloride 101
Carbon Dioxide 29
BUN 22 H
Creatinine 1.0
Glucose 92
Calcium 8.5
Total Bilirubin 0.6
AST 53 H
ALT 30
Alkaline Phosphatase 109
Vital Signs:
Vital Signs
Temp Pulse Resp BP Pulse Ox
100.7 F H 126 18 128/77 93
02/23/25 10:38 02/23/25 10:38 02/23/25 10:38 02/23/25 10:38 02/23/25 10:38
I&O
02/22/25 02/23/25 02/24/25
06:59 06:59 06:59
Intake Total 1106 / 1106 1440 / 1440
Balance 1106 / 1106 1440 / 1440
Data Reviewed
-
Total Time Spent with Patient (in minutes): 41
Labs: Labs Reviewed by me
[2025-02-23 12:25] VITALS: BP 132/78
--- NOTE | 2025-02-23 12:28 | W.DS.TRANS ---
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
-
Discharge Instructions:
Sleep Apnea Risk Low
Discharge Diagnosis/Procedures LLE ulcer s/p washout/debridement 02/20.
Pneumonia. Ascites s/p paracentesis
Diet 2 Gram Sodium,Restrict fluids to 48 oz
Activity As tolerated
Other Services VN
Instructions:
Stand-Alone Forms:
Changes to Home Medications: No
Discharge Medications:
DC Medications w/original date entered in [employer]
gabapentin 600 mg tablet 1,200 mg PO HS Pain 08/16/23
omeprazole 40 mg capsule,delayed release 40 mg PO DAILY GERD 08/16/23
sildenafil (pulm.hypertension) 20 mg tablet 20 mg PO Q8H Raynaud's 08/16/23
albuterol sulfate 90 mcg/actuation aerosol inhaler 2 puff inhalation R Q4HPRN PRN sob/wheezing 04/23/24
mycophenolate mofetil 500 mg tablet 1,000 mg PO BID lupus 05/04/24
fenofibrate nanocrystallized 145 mg tablet 145 mg PO DAILY High Cholesterol ##0 05/08/24
anifrolumab-fnia 300 mg/2 mL (150 mg/mL) intravenous solution (Saphnelo) 300 mg IV Q4W Sleep 11/20/24
budesonide-formoterol HFA 160 mcg-4.5 mcg/actuation aerosol inhaler (Symbicort) 2 puff inhalation R BID Lung/Breathing Issues 11/20/24
folic acid 1 mg tablet 1 mg PO DAILY Supplement 11/20/24
furosemide 80 mg tablet (Lasix) 80 mg PO DAILY Heart Failure 11/20/24
minoxidil 2.5 mg tablet 2.5 mg PO DAILY Blood Pressure 11/20/24
omalizumab 300 mg/2 mL subcutaneous auto-injector (Xolair) 300 mg SC QMONTH Lung/Breathing Issues 11/20/24
potassium chloride 20 mEq tablet,extended release(part/cryst) 40 meq PO BID Electrolyte Repletion 11/20/24
prednisone 5 mg tablet 5 mg PO DAILY Anti-Inflammatory 11/20/24
tiotropium bromide 2.5 mcg/actuation mist for inhalation (Spiriva Respimat) 2 puff inhalation R DAILY Lung/Breathing Issues 11/20/24
acetaminophen 500 mg tablet (Tylenol Extra Strength) 1,000 mg PO Q4HPRN PRN mild pain/fever 01/02/25
cyclobenzaprine 5 mg tablet 5 mg PO HS Muscle Spasms 01/02/25
furosemide 20 mg tablet 20 mg PO DAILY #30 tabs 01/03/25
spironolactone 25 mg tablet 25 mg PO DAILY #0 tabs 02/08/25
dapsone 100 mg tablet 100 mg PO DAILY Infection 02/19/25
amoxicillin 875 mg-potassium clavulanate 125 mg tablet 1 tab PO BID #28 tabs 02/23/25
azithromycin 250 mg tablet 250 mg PO DAILY 6 days #6 tabs 02/23/25
oxycodone 5 mg tablet 5 mg PO DAILY PRN Pain #10 tabs 02/23/25
Home Medication Changes
Pending Results: No
Total time spent discharging patient (in min): 41
[2025-02-23] MEDS: ZITHROMAX 500 MG PO (13:21)
[2025-02-23] MEDS: TESSALON PERLES 100 MG PO (13:36)
--- NOTE | 2025-02-23 13:58 | PTCARENOTE ---
pt discharged to home. pt instructed and verbalized understanding of LLE wound care at home, supplies provided. VN arranged. pt refused dressing prior to discharge and stated 'I'm just taking a shower when I get home, and it will just get wet. I
will put new dressing on after I shower.'
== END 2025-02-23 14:02 | disposition home health service (06) | DRG 579 ==
LOC: 2 SOUTH 17:31
PROVIDERS: Clinical Nurse Specialist Family Health; Internal Medicine; Nurse Practitioner; Radiology Vascular & Interventional Radiology; ADMITTING PHYSICIAN Hospitalist; ATTENDING PHYSICIAN Internal Medicine; CONSULT PHYSICIAN Internal Medicine Infectious Disease; EMERGENCY PHYSICIAN Emergency Medicine; FAMILY PHYSICIAN Family Medicine; OTHER PHYSICIAN Surgery
PROC: 30233N1 Transfusion of Nonautologous Red Blood Cells into Peripheral Vein, Percutaneous Approach (ICD-10-PCS; 2025-02-19)
PROC: 0JDP0ZZ Extraction of Left Lower Leg Subcutaneous Tissue and Fascia, Open Approach (ICD-10-PCS; 2025-02-20)
PROC: 0W9G3ZX Drainage of Peritoneal Cavity, Percutaneous Approach, Diagnostic (ICD-10-PCS; 2025-02-23)
DX: L97.222 Non-pressure chronic ulcer of left calf with fat layer exposed (principal); J18.9 Pneumonia, unspecified organism; D84.821 Immunodeficiency due to drugs; I50.32 Chronic diastolic (congestive) heart failure; R18.8 Other ascites; N18.4 Chronic kidney disease, stage 4 (severe); N17.9 Acute kidney failure, unspecified; Z16.24 Resistance to multiple antibiotics; J44.0 Chronic obstructive pulmonary disease with (acute) lower respiratory infection; M32.14 Glomerular disease in systemic lupus erythematosus; D50.9 Iron deficiency anemia, unspecified; K21.9 Gastro-esophageal reflux disease without esophagitis; M32.9 Systemic lupus erythematosus, unspecified; I73.00 Raynaud's syndrome without gangrene; D63.1 Anemia in chronic kidney disease; I27.20 Pulmonary hypertension, unspecified; E78.00 Pure hypercholesterolemia, unspecified; T50.2X5A Adverse effect of carbonic-anhydrase inhibitors, benzothiadiazides and other diuretics, initial encounter; R74.01 Elevation of levels of liver transaminase levels; B96.4 Proteus (mirabilis) (morganii) as the cause of diseases classified elsewhere; L08.89 Other specified local infections of the skin and subcutaneous tissue; E87.6 Hypokalemia; Z79.51 Long term (current) use of inhaled steroids; Z87.891 Personal history of nicotine dependence; Z82.49 Family history of ischemic heart disease and other diseases of the circulatory system; Z83.3 Family history of diabetes mellitus; Z81.1 Family history of alcohol abuse and dependence; Z88.8 Allergy status to other drugs, medicaments and biological substances; Z79.52 Long term (current) use of systemic steroids; Z90.49 Acquired absence of other specified parts of digestive tract
CPT/HCPCS: 49083; 71046; 76705; 80053; 82042; 82150; 82607; 82728; 82746; 83540; 83550; 83605; 83615; 84157; 85025; 86850; 86900; 86901; 86920; 87015; 87040; 87070; 87071; 87075; 87076; 87077; 87102; 87185; 87186; 87205; 87449; 87899; 89051; 94640; 96365; 96375; 99215; 99284; P9016

== ENCOUNTER → 2025-03-12 08:43 | Outpatient (REF) | payer OTHER, SELFPAY | LOC: WOUND 08:43 | PROVIDERS: ATTENDING PHYSICIAN Surgery | DX: L97.222 Non-pressure chronic ulcer of left calf with fat layer exposed (principal); L93.0 Discoid lupus erythematosus; I87.2 Venous insufficiency (chronic) (peripheral); I73.9 Peripheral vascular disease, unspecified; J44.9 Chronic obstructive pulmonary disease, unspecified; Z68.26 Body mass index [BMI] 26.0-26.9, adult; Z79.52 Long term (current) use of systemic steroids | CPT/HCPCS: 99213 ==

== ENCOUNTER → 2025-03-19 09:41 | Outpatient (REF) | payer OTHER, SELFPAY | LOC: WOUND 09:41 | PROVIDERS: ATTENDING PHYSICIAN Surgery | DX: L97.222 Non-pressure chronic ulcer of left calf with fat layer exposed (principal); L93.0 Discoid lupus erythematosus; I87.2 Venous insufficiency (chronic) (peripheral); I73.9 Peripheral vascular disease, unspecified; Z79.52 Long term (current) use of systemic steroids; J44.9 Chronic obstructive pulmonary disease, unspecified; Z68.26 Body mass index [BMI] 26.0-26.9, adult | CPT/HCPCS: 11042 ==

== ENCOUNTER → 2025-04-08 14:04 | Outpatient (REF) | payer MEDICARE, OTHER, SELFPAY | LOC: RAD 14:04 | PROVIDERS: ATTENDING PHYSICIAN Surgery; FAMILY PHYSICIAN Registered Nurse | DX: L97.222 Non-pressure chronic ulcer of left calf with fat layer exposed (principal); L93.0 Discoid lupus erythematosus; I87.2 Venous insufficiency (chronic) (peripheral) | CPT/HCPCS: 93922; 93971 ==

== ENCOUNTER → 2025-04-09 09:27 | Outpatient (REF) | payer MEDICARE, OTHER, SELFPAY | LOC: WOUND 09:27 | PROVIDERS: ATTENDING PHYSICIAN Surgery | DX: L97.222 Non-pressure chronic ulcer of left calf with fat layer exposed (principal); L93.0 Discoid lupus erythematosus; I87.2 Venous insufficiency (chronic) (peripheral); I73.9 Peripheral vascular disease, unspecified; J44.9 Chronic obstructive pulmonary disease, unspecified; Z79.52 Long term (current) use of systemic steroids; Z68.26 Body mass index [BMI] 26.0-26.9, adult | CPT/HCPCS: 99213 ==

== ENCOUNTER → 2025-04-23 09:58 | Outpatient (REF) | payer MEDICARE, OTHER, SELFPAY | LOC: WOUND 09:58 | PROVIDERS: ATTENDING PHYSICIAN Surgery | DX: L97.222 Non-pressure chronic ulcer of left calf with fat layer exposed (principal); L93.0 Discoid lupus erythematosus; I87.2 Venous insufficiency (chronic) (peripheral); I73.9 Peripheral vascular disease, unspecified; J44.9 Chronic obstructive pulmonary disease, unspecified; Z79.52 Long term (current) use of systemic steroids; Z68.26 Body mass index [BMI] 26.0-26.9, adult | CPT/HCPCS: 99213 ==

== ENCOUNTER → 2025-05-21 09:02 | Outpatient (REF) | payer MEDICARE, OTHER, SELFPAY | LOC: WOUND 09:02 | PROVIDERS: ATTENDING PHYSICIAN Surgery | DX: L97.222 Non-pressure chronic ulcer of left calf with fat layer exposed (principal); L93.0 Discoid lupus erythematosus; I87.2 Venous insufficiency (chronic) (peripheral); I73.9 Peripheral vascular disease, unspecified; Z79.52 Long term (current) use of systemic steroids; J44.9 Chronic obstructive pulmonary disease, unspecified; Z68.26 Body mass index [BMI] 26.0-26.9, adult | CPT/HCPCS: 99213 ==

== ENCOUNTER → 2025-06-18 09:37 | Outpatient (REF) | payer MEDICARE, OTHER, SELFPAY | LOC: WOUND 09:37 | PROVIDERS: ATTENDING PHYSICIAN Surgery | DX: L97.222 Non-pressure chronic ulcer of left calf with fat layer exposed (principal); L93.0 Discoid lupus erythematosus; I87.2 Venous insufficiency (chronic) (peripheral); I73.9 Peripheral vascular disease, unspecified; J44.9 Chronic obstructive pulmonary disease, unspecified; Z68.26 Body mass index [BMI] 26.0-26.9, adult; Z79.52 Long term (current) use of systemic steroids | CPT/HCPCS: 99213 ==

== ENCOUNTER → 2025-07-09 08:37 | Outpatient (REF) | payer MEDICARE, OTHER, SELFPAY | LOC: WOUND 08:37 | PROVIDERS: ATTENDING PHYSICIAN Surgery | DX: L97.222 Non-pressure chronic ulcer of left calf with fat layer exposed (principal); L93.0 Discoid lupus erythematosus; I87.2 Venous insufficiency (chronic) (peripheral); I73.9 Peripheral vascular disease, unspecified; Z79.52 Long term (current) use of systemic steroids; J44.9 Chronic obstructive pulmonary disease, unspecified; Z68.26 Body mass index [BMI] 26.0-26.9, adult | CPT/HCPCS: 99213 ==

== ENCOUNTER → 2025-07-09 09:37 | Outpatient (REF) | payer MEDICARE, OTHER, SELFPAY ==
[2025-07-09 12:53] LABS: Blood Urea Nitrogen 64 mg/dl (7-17); Calcium 9.6 mg/dl (8.4-10.2); Carbon Dioxide 31 mmol/L (22-30); Chloride 87 mmol/L (98-107); Glucose 147 mg/dl (70-99); Magnesium 1.9 mg/dl (1.6-2.3); Potassium 2.7 mmol/L (3.5-5.1); Sodium 132 mmol/L (135-145); eGFR 55.84
== END ==
LOC: HWLAB 09:37
PROVIDERS: ATTENDING PHYSICIAN Internal Medicine Cardiovascular Disease
DX: I50.30 Unspecified diastolic (congestive) heart failure (principal); N17.9 Acute kidney failure, unspecified
CPT/HCPCS: 36415; 80048; 83735; 83880

== ENCOUNTER → 2025-08-07 09:03 | Outpatient (REF) | payer MEDICARE, OTHER, SELFPAY | LOC: WOUND 09:03 | PROVIDERS: ATTENDING PHYSICIAN Surgery; FAMILY PHYSICIAN Registered Nurse | DX: L97.222 Non-pressure chronic ulcer of left calf with fat layer exposed (principal); L93.0 Discoid lupus erythematosus; I87.2 Venous insufficiency (chronic) (peripheral); I73.9 Peripheral vascular disease, unspecified; J44.9 Chronic obstructive pulmonary disease, unspecified; Z68.26 Body mass index [BMI] 26.0-26.9, adult; Z79.52 Long term (current) use of systemic steroids | CPT/HCPCS: 99213 ==

== ENCOUNTER 2025-08-27 14:49 | Inpatient (IN) | payer MEDICARE, OTHER, SELFPAY ==
[2025-08-27] VITALS (44 sets, daily range): BP systolic 57–106; BP diastolic 34–89; BMI 28.3; BMI 28.7
[2025-08-27 12:39] LABS: Glucose - Point of Care 110 mg/dl (70-99)
--- NOTE | 2025-08-27 12:40 | ED.GENMED ---
History of Present Illness
<Roberto Gandhi PA-C - Last Filed: 08/27/25 18:49>
General
Chief Complaint: Weakness
Time Seen by Provider: 08/27/25 12:38
History of Present Illness
History of Present Illness:
49-year-old female with history of systemic lupus on prednisone and CellCept, CHF, COPD, and pulmonary arterial hypertension presents to the emergency department via EMS for multiple syncopal events. She states she has not felt well for 1 to 2
days. 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 Last metolazone was taken 2d ago. She also
reports that with a syncopal event this morning she developed neck pain. Denies any nausea vomiting or fever. Notes that she did not take her prednisone yet today.
Past History
<Roberto Gandhi PA-C - Last Filed: 08/27/25 18:49>
Past History
ED Past Medical History: Other (Systemic lupus erythematosus, pulmonary retention, microcytic anemia, pleural effusions, GERD)
Social History
Tobacco: Former smoker
Review of Systems
<Roberto Gandhi PA-C - Last Filed: 08/27/25 18:49>
Review of Systems
Allergies reviewed?: Yes
All Other Systems: ROS reviewed and negative except as documented in HPI and ROS
Phy Exam
<Roberto Gandhi PA-C - Last Filed: 08/27/25 18:49>
Physical Exam
Physical Exam:
GEN: Well appearing, NAD, WDWN
HEENT: Oral mucosa moist, no scleral icterus, no nasal congestion
Cardiac: Regular rate and rhythm, no murmur
Lung: No respiratory distress, no tachypnea, lungs clear to auscultation
MSK: No gross deformity or injuries
Skin: Generally pale/mottled, digital cyanosis noted
Neuro: AO x3; CN II-XII grossly intact. BUE strength 5/5 in all ayala, sensation intact and symmetric. BLE strength 5/5 in all ayala, sensation intact and symmetric
Psych: Calm, cooperative
Course
<Roberto Gandhi PA-C - Last Filed: 08/27/25 18:49>
Orders/Labs/Results
Orders:
Orders
08/27/25 Breakfast
Regular
At Your Request: Full Participation
08/27/25 12:39
Electrocardiogram (*1) Urgent
Reason for Study: QTc Monitoring
Bedside Glucose- Treatment ONCE
EKG- Treatment ONCE
0.9% Sodium Chloride 1000 ml [Nss] 1,000 ml IV BOLUS
Hydrocortisone Sod Succinate [Solu-Cortef] 100 mg IV NOW STA
08/27/25 12:41
Complete Blood Count/With Diff Urgent
Comprehensive Metabolic Panel Urgent
Cortisol, Random Urgent
Comment: ADD ON
Magnesium Urgent
Comment: ADD ON
08/27/25 13:05
Fentanyl Citrate/Pf [Sublimaze] 50 mcg IV NOW STA
08/27/25 13:20
Potassium Chloride [KCl] 40 meq PO NOW STA
08/27/25 13:23
Add On- LAB Urgent
Tests Added?: cortisol level
08/27/25 13:33
Magnesium Sulfate 1 G/D5w [Magnesium Sulfate] 1 gm in 100 ml IV NOW
08/27/25 13:34
CR Chest Portable - 1 View Urgent
Comment:
Reason For Exam: adrenal crisis
Reason Study Needs to be Portable: Other
08/27/25 13:44
Potassium Chloride [KCl] 20 meq 0.9% Sodium Chloride 150 ml [Nss] 150 ml IV NOW
08/27/25 13:50
0.9% Sodium Chloride 1000 ml [Nss] 1,000 ml IV BOLUS
08/27/25 14:09
COVID-19 Antigen Urgent
Source: Nasal Swab
Free T4 Urgent
TSH Reflex To Free T4 Urgent
Blood Culture Urgent
CARO Source: Blood/Venous
Specimen Description:
Influenza A+B Rapid Molecular Urgent
CARO Source: Nasal Swab
Specimen Description:
08/27/25 14:21
Admit/Transfer Patient As Directed
Co-Sign Provider:
Level of Care: Inpatient admission
Assign to:: ICU
Physician / Group: Robby
Diagnosis: Adrenal Insufficiency
Reason for Hospitalization: Adrenal Insufficiency
Expected length of stay greater than two midnights?: Yes
ELOS- Estimated Length of Stay in days: 4
I certify the patient meets the requirements for IP care: Yes
PRN Pain Medication Management As Directed
May give lesser potent ordered pain med per pt: Yes
preference::
Protocol:: Medication orders for pain may be administered in a
manner that supports deferring to patient preference
when the pt is:
- Requesting an ordered lesser potent pain medication.
Least to most potent pain medications are defined
as: acetaminophen < NSAID < tramadol < opioids
(morphine, oxycodone, hydromorphone).
- Requesting a lesser dose of the same medication IF
ORDERED.
- Requesting a less intrusive route of administration
if both routes are prescribed by the provider (PO <
IV).
08/27/25 14:23
Code Status As Directed
Resuscitation Status: Full Code
08/27/25 14:26
Add On- LAB Urgent
Tests Added?: Magnesium
CT Head W/o Iv Contrast Urgent
Comment:
Reason For Exam: Headache, Fall
08/27/25 16:16
Urinalysis Reflex To Culture Urgent
Date Specimen was Collected: 08/27/25
Time Specimen was Collected: 16:15
08/27/25 16:45
Acetaminophen [Tylenol] 650 mg PO Q4HPRN PRN
HYDROmorphone [Dilaudid] 0.5 mg IV Q4HPRN PRN
Lactated Ringers [Lr] 1,000 ml IV 100 mls/hr
Oxycodone [Roxicodone] 5 mg PO TIDPRN PRN Moderate Pain Moderate Pain
VANCOMYCIN Pharmacy to Dose [VANCOCIN Pharmacy to Dose] 1 each Pharmacy To Prepare [Call Pharmacy To Prepare] 0 ml IV PER PROTOCOL
08/27/25 16:45
WOUND/OSTOMY CONSULT Routine
Reason for Consult: LLE Wound (chronic)
Activity As Directed
Activity Level: Bedrest
Bladder Scan As Directed
Follow Bladder Retention/Intermittent Cath Algorithm?: Yes
PRN if no void in __ hours: 6
Frequency: Per Retention Algorithm
If Bladder Scan Result >: 400
then:: Straight cath
EKG with chest pain [ECG as needed] As Directed
ECG as needed for:: Chest Pain
I/O [Intake/ Output] As Directed
Frequency: Per unit guidelines
Pneumatic Compression Sleeves As Directed
Type: Knee high
Straight Cath As Directed
Frequency: Per Retention Algorithm
Additional Instructions: straight cath as needed per acute urinary retention algorithm for 24 hrs
Additional Instructions: for bladder scan greater than 400 mL
Vital Signs As Directed
Frequency: Per unit guidelines
Weight As Directed
Frequency: Daily
Oxygen Therapy [O2 Therapy] [RESP] Routine
Titrate/Wean O2 to maintain O2 sat greater than (%): 94
DX Deep Vein Thrombosis Video Routine
08/27/25 18:00
Hydrocortisone Sod Succinate [Solu-Cortef] 50 mg IV Q6
Piperacillin/Tazo 3.375 Gram [Zosyn] 3.375 gram in 50 ml IV Q6H
08/27/25 20:00
Potassium Chloride [KCl] 40 meq PO BID
08/27/25 22:00
Gabapentin [Neurontin] 1,200 mg PO HS
08/28/25 06:00
EKG [Electrocardiogram (*1)] IN AM
Reason for Study: Chest Pain
Complete Blood Count/No Diff IN AM
LFT [[id number]-[id number]-Vghpokt] IN AM
Magnesium IN AM
Phosphorus IN AM
08/28/25 08:00
Dapsone 100 mg PO DAILY
FOLic ACID [Folvite] 1 mg PO DAILY
Pantoprazole [Protonix] 40 mg PO DAILY
Abnormal Lab Results
08/27/25 08/27/25 08/27/25
12:38 12:41 14:09
RBC 3.18 L 10^6/uL
(4.20-5.40)
Hgb 8.7 L g/dL
(12.0-16.0)
Hct 28.3 L %
(37.0-47.0)
MCHC 30.7 L g/dL
(33.0-37.0)
RDW 16.9 H %
(11.5-14.5)
Abs Immat Gran (auto) 0.1 H 10^3/uL
(0-0.05)
Absolute Lymphs (auto) 0.9 L 10^3/uL
(1.2-3.4)
Immature Gran % 0.6 H %
(0-0.5)
Neutrophils % 80.9 H %
(42.2-75.2)
Lymphocytes % 10.9 L %
(20.5-51.1)
Sodium 126 L mmol/L
(135-145)
Potassium 2.7 L* mmol/L
(3.5-5.1)
Chloride 87 L mmol/L
(98-107)
BUN 60 H mg/dl
(7-17)
Creatinine 1.6 H mg/dL
(0.6-1.0)
TSH (Reflex) 0.04 L uIU/ml
(0.47-4.68)
POC Glucose 110 H mg/dl
(70-99)
08/27/25 12:41
08/27/25 12:41
Vital Signs
Initial and Last Documented VS:
Initial Vital Signs
Temp Pulse Resp Pulse Ox
96.3 F L 80 22 98
08/27/25 12:31 08/27/25 12:31 08/27/25 12:31 08/27/25 12:31
Last Documented Vital Signs
Temp Pulse Resp BP Pulse Ox
97.8 F 104 14 94/63 92
08/27/25 16:50 08/27/25 18:00 08/27/25 18:08 08/27/25 18:00 08/27/25 18:08
<Mark Urbano MD - Last Filed: 08/27/25 13:59>
Orders/Labs/Results
Orders:
Orders
08/27/25 Breakfast
Regular
At Your Request: Full Participation
08/27/25 12:39
Electrocardiogram (*1) Urgent
Reason for Study: QTc Monitoring
Bedside Glucose- Treatment ONCE
EKG- Treatment ONCE
0.9% Sodium Chloride 1000 ml [Nss] 1,000 ml IV BOLUS
Hydrocortisone Sod Succinate [Solu-Cortef] 100 mg IV NOW STA
08/27/25 12:41
Complete Blood Count/With Diff Urgent
Comprehensive Metabolic Panel Urgent
Cortisol, Random Urgent
Comment: ADD ON
Magnesium Urgent
Comment: ADD ON
08/27/25 13:05
Fentanyl Citrate/Pf [Sublimaze] 50 mcg IV NOW STA
08/27/25 13:20
Potassium Chloride [KCl] 40 meq PO NOW STA
08/27/25 13:23
Add On- LAB Urgent
Tests Added?: cortisol level
08/27/25 13:33
Magnesium Sulfate 1 G/D5w [Magnesium Sulfate] 1 gm in 100 ml IV NOW
08/27/25 13:34
CR Chest Portable - 1 View Urgent
Comment:
Reason For Exam: adrenal crisis
Reason Study Needs to be Portable: Other
08/27/25 13:44
Potassium Chloride [KCl] 20 meq 0.9% Sodium Chloride 150 ml [Nss] 150 ml IV NOW
08/27/25 13:50
0.9% Sodium Chloride 1000 ml [Nss] 1,000 ml IV BOLUS
08/27/25 14:09
COVID-19 Antigen Urgent
Source: Nasal Swab
Free T4 Urgent
TSH Reflex To Free T4 Urgent
Blood Culture Urgent
CARO Source: Blood/Venous
Specimen Description:
Influenza A+B Rapid Molecular Urgent
CARO Source: Nasal Swab
Specimen Description:
08/27/25 14:21
Admit/Transfer Patient As Directed
Co-Sign Provider:
Level of Care: Inpatient admission
Assign to:: ICU
Physician / Group: Robby
Diagnosis: Adrenal Insufficiency
Reason for Hospitalization: Adrenal Insufficiency
Expected length of stay greater than two midnights?: Yes
ELOS- Estimated Length of Stay in days: 4
I certify the patient meets the requirements for IP care: Yes
PRN Pain Medication Management As Directed
May give lesser potent ordered pain med per pt: Yes
preference::
Protocol:: Medication orders for pain may be administered in a
manner that supports deferring to patient preference
when the pt is:
- Requesting an ordered lesser potent pain medication.
Least to most potent pain medications are defined
as: acetaminophen < NSAID < tramadol < opioids
(morphine, oxycodone, hydromorphone).
- Requesting a lesser dose of the same medication IF
ORDERED.
- Requesting a less intrusive route of administration
if both routes are prescribed by the provider (PO <
IV).
08/27/25 14:23
Code Status As Directed
Resuscitation Status: Full Code
08/27/25 14:26
Add On- LAB Urgent
Tests Added?: Magnesium
CT Head W/o Iv Contrast Urgent
Comment:
Reason For Exam: Headache, Fall
08/27/25 16:16
Urinalysis Reflex To Culture Urgent
Date Specimen was Collected: 08/27/25
Time Specimen was Collected: 16:15
08/27/25 16:45
Acetaminophen [Tylenol] 650 mg PO Q4HPRN PRN
HYDROmorphone [Dilaudid] 0.5 mg IV Q4HPRN PRN
Lactated Ringers [Lr] 1,000 ml IV 100 mls/hr
Oxycodone [Roxicodone] 5 mg PO TIDPRN PRN Moderate Pain Moderate Pain
VANCOMYCIN Pharmacy to Dose [VANCOCIN Pharmacy to Dose] 1 each Pharmacy To Prepare [Call Pharmacy To Prepare] 0 ml IV PER PROTOCOL
08/27/25 16:45
WOUND/OSTOMY CONSULT Routine
Reason for Consult: LLE Wound (chronic)
Activity As Directed
Activity Level: Bedrest
Bladder Scan As Directed
Follow Bladder Retention/Intermittent Cath Algorithm?: Yes
PRN if no void in __ hours: 6
Frequency: Per Retention Algorithm
If Bladder Scan Result >: 400
then:: Straight cath
EKG with chest pain [ECG as needed] As Directed
ECG as needed for:: Chest Pain
I/O [Intake/ Output] As Directed
Frequency: Per unit guidelines
Pneumatic Compression Sleeves As Directed
Type: Knee high
Straight Cath As Directed
Frequency: Per Retention Algorithm
Additional Instructions: straight cath as needed per acute urinary retention algorithm for 24 hrs
Additional Instructions: for bladder scan greater than 400 mL
Vital Signs As Directed
Frequency: Per unit guidelines
Weight As Directed
Frequency: Daily
Oxygen Therapy [O2 Therapy] [RESP] Routine
Titrate/Wean O2 to maintain O2 sat greater than (%): 94
DX Deep Vein Thrombosis Video Routine
08/27/25 18:00
Hydrocortisone Sod Succinate [Solu-Cortef] 50 mg IV Q6
Piperacillin/Tazo 3.375 Gram [Zosyn] 3.375 gram in 50 ml IV Q6H
08/27/25 20:00
Potassium Chloride [KCl] 40 meq PO BID
08/27/25 22:00
Gabapentin [Neurontin] 1,200 mg PO HS
08/28/25 06:00
EKG [Electrocardiogram (*1)] IN AM
Reason for Study: Chest Pain
Complete Blood Count/No Diff IN AM
LFT [[id number]-Llhb-Bnxxapo] IN AM
Magnesium IN AM
Phosphorus IN AM
08/28/25 08:00
Dapsone 100 mg PO DAILY
FOLic ACID [Folvite] 1 mg PO DAILY
Pantoprazole [Protonix] 40 mg PO DAILY
Abnormal Lab Results
08/27/25 08/27/25 08/27/25
12:38 12:41 14:09
RBC 3.18 L 10^6/uL
(4.20-5.40)
Hgb 8.7 L g/dL
(12.0-16.0)
Hct 28.3 L %
(37.0-47.0)
MCHC 30.7 L g/dL
(33.0-37.0)
RDW 16.9 H %
(11.5-14.5)
Abs Immat Gran (auto) 0.1 H 10^3/uL
(0-0.05)
Absolute Lymphs (auto) 0.9 L 10^3/uL
(1.2-3.4)
Immature Gran % 0.6 H %
(0-0.5)
Neutrophils % 80.9 H %
(42.2-75.2)
Lymphocytes % 10.9 L %
(20.5-51.1)
Sodium 126 L mmol/L
(135-145)
Potassium 2.7 L* mmol/L
(3.5-5.1)
Chloride 87 L mmol/L
(98-107)
BUN 60 H mg/dl
(7-17)
Creatinine 1.6 H mg/dL
(0.6-1.0)
TSH (Reflex) 0.04 L uIU/ml
(0.47-4.68)
POC Glucose 110 H mg/dl
(70-99)
08/27/25 12:41
08/27/25 12:41
Vital Signs
Initial and Last Documented VS:
Initial Vital Signs
Temp Pulse Resp Pulse Ox
96.3 F L 80 22 98
08/27/25 12:31 08/27/25 12:31 08/27/25 12:31 08/27/25 12:31
Last Documented Vital Signs
Temp Pulse Resp BP Pulse Ox
97.8 F 104 14 94/63 92
08/27/25 16:50 08/27/25 18:00 08/27/25 18:08 08/27/25 18:00 08/27/25 18:08
Martinlt;Roberto Gandhi PA-C - Last Filed: 08/27/25 18:49>
MDM/Problems Addressed
MDM/Problems Addressed:
Combination of intractable hypotension with hypokalemia is highly suspicious for adrenal crisis however it is not clear what provoked this. Highly unlikely that 1 dose of valsartan triggered her hypotension. She does complain of head and neck pain
but is freely moving the head and neck and I have a low clinical suspicion for meningitis. She is afebrile with no leukocytosis and urinalysis as well as chest x-ray revealed no infectious etiology. Given stress dose steroids and IV fluids as well
as electrolyte repletion and will be admitted to the intensive care unit for further management. We did discuss the case with hospitalist regarding any other investigation of infectious etiology, we did discuss the possibility of lumbar puncture
however she has no clinical signs of meningitis otherwise making this likely nondiagnostic
<Roberto Gandhi PA-C - Last Filed: 08/27/25 18:49>
*Pulse Oximetry
SaO2: 98
Oxygen Mode of Delivery: Room air
Patient hypoxic: no
*Critical Care Note
Total Time (30-74mins, 75-104mins- exclusive of procedures): 80 minutes
comment:
Critical care time: 80 minutes
Critical care time was exclusive of: Separately billable procedures, treating other patients, and teaching time
Critical care was necessary to treat or prevent imminent or life-threatening deterioration of the following conditions: Adrenal crisis/hypotension/hypokalemia
Critical care time spent personally by me on the following activities:
[x] Review of old charts
[x] Obtaining history from patient or surrogate
[x] Ordering and review of the laboratory studies
[x] Ordering and review of radiographic studies
[x] Ordering and performing treatments and interventions
[x] Patient patient's response to treatment
[x] Development of treatment plan with patient or surrogate
ED Attending Note
<Roberto Gandhi PA-C - Last Filed: 08/27/25 18:49>
-
Portions of this chart may have been created with voice recognition software.� Occasional wrong word or��sound alike� substitutions may have occurred due to the inherent limitations of voice recognition software.
<Mark Urbano MD - Last Filed: 08/27/25 13:59>
ED Attending Note
Patient seen and examined by attending physician: Yes
ED Attending Note:
I have seen and evaluated the patient with a [id number] encounter. I have spoken to the advance practicer provider and involved in the medical history, the physical exam, medical decision making.
Evaluation and management service: agree unless noted differently below.
Results interpretation: agree unless noted differently below.
Focused HPI: 49-year-old female with history of lupus, COPD on chronic steroids presents to the ER for evaluation of malaise, syncope today also complaining of neck pain. Patient reports that she was feeling unwell yesterday but this morning was
well enough to go shopping for groceries. When she returned she went to the bathroom and while she was urinating she started to develop some pain in her neck that she describes an aching pain across the back of her neck. She says that she took
some ibuprofen and went to lay down and nearly passed out when she stood up. She laid in bed for a bit and when she stood up from bed she passed out and fell to the ground. EMS called to bring her to the hospital. She has had continued
lightheadedness particularly with sitting up in bed. She denies any chest pain, palpitations; she has chronic shortness of breath without acute change. She has headache which has been chronic for the past few weeks. Continues to have pain in the
back of the neck. She was noted to be hypothermic, hypotensive here�patient is on chronic steroids prednisone 10 mg daily says that she forgot to take her dose this morning but has otherwise been compliant and there is no recent change to her
regimen. She denies any recent illness such as fever or chills aside from some malaise yesterday. She denies any vomiting or diarrhea, abdominal pain, sore throat, congestion or any other acute symptoms.
Physical exam: Patient is awake and alert, nontoxic-appearing. She is hypotensive, mildly tachycardic, mildly tachypneic, not hypoxic. She is mildly hypothermic. She has no appreciable cardiac rubs gallops or murmurs. Her lungs sound generally
clear without focal wheezing. She has a chronic wound on the medial left leg but no edema in the legs. On exam of the neck she has some muscular tenderness in his paraspinal musculature as well as in the upper trapezius bilaterally but no focal
tenderness and no midline tenderness and she has full range of motion in the neck. She has no meningeal signs. Head appears atraumatic. Cranial nerves are grossly intact and she is moving all extremities without gross deficit.
Medical Decision Makin-year-old female presents to the ER for evaluation after syncope; she is complaining of neck pain that preceded syncope and says she was feeling unwell yesterday. Vitals and exam are as above. Labs were sent off
including a CBC which shows chronic anemia not acutely changed. Chemistry shows severe hypokalemia with a potassium of 2.7. PRAVEEN with creatinine of 1.6 from prior baseline of 1-1.2. She has acute hyponatremia with a sodium of 126. Glucose
acceptable. Overall clinical picture is concerning for some adrenal insufficiency unclear if this may have been a result of noncompliance that she at least admits to missing today's dose although she does not believe she has missed any other doses.
Could also been triggered by illness will send infectious workup. Provide fluids and Solu-Cortef. Regarding her neck pain�it seems quite clearly muscular pain and she does not have anything to suggest vascular pathology or bony pathology. Hold
on imaging for now. Anticipate admission.
Discharge Plan
Departure
Patient Disposition: Admit
Date of Disposition: 08/27/25
Time of Disposition: 14:07
Admit to: IMU
Presentation/result/management discussed w/ accepting MD/DO: Hospitalist
Discharge Problem:
Acute adrenal crisis, Shock
Interventions
Interventions:
*Risk Screen - Suicide Last Done: 08/27/25 12:38
*General Assessment Last Done: 08/27/25 12:54
*Neglect/Abuse Screening Last Done: 08/27/25 12:38
*ED- Fall Risk Assessment Last Done: 08/27/25 12:55
*ED COVID-19 Vaccine History Last Done: 08/27/25 17:05
*Nursing Disposition Last Done: 08/27/25 16:46
ED- Cardiac Assessment Last Done: 08/27/25 13:00
ED- Neurological Assessment Last Done: 08/27/25 12:35
ED- Pulmonary Assessment Last Done: 08/27/25 13:00
Discharge Date and Time
Discharge Date/Time: 08/27/25 16:47
[2025-08-27] MEDS: NSS 1000 IV ×3 (12:45→19:32)
[2025-08-27] MEDS: SOLU-CORTEF 100 MG IV (12:46)
[2025-08-27 12:55] LABS: Hematocrit 28.3 % (37.0-47.0); Hemoglobin 8.7 g/dL (12.0-16.0); Mean Corp Hgb Conc. 30.7 g/dL (33.0-37.0); Mean Corpuscular Volume 89.0 fL (81.0-99.0); Nucleated Red Blood Cells % 0 %; Platelet Count 230 10^3/uL (130-400); Red Cell Dist. Width 16.9 % (11.5-14.5)
[2025-08-27 13:09] LABS: ALT (SGPT) 15 U/L (0-35); AST (SGOT) 21 U/L (14-36); Albumin 4.0 g/dl (3.5-5.0); Alkaline Phosphatase 56 U/L (38-126); Blood Urea Nitrogen 60 mg/dl (7-17); Calcium 9.1 mg/dl (8.4-10.2); Carbon Dioxide 28 mmol/L (22-30); Chloride 87 mmol/L (98-107); Estimated Creatinine Clearance 47 ml/min; Glucose 98 mg/dl (70-99); Sodium 126 mmol/L (135-145); Total Protein 6.5 g/dl (6.3-8.2); eGFR 39.54
[2025-08-27 13:19] LABS: Potassium 2.7 mmol/L (3.5-5.1)
[2025-08-27] MEDS: KCL 160 MEQ IV (14:11)
[2025-08-27] MEDS: MAGNESIUM SULFATE 100 IV (14:11)
--- NOTE | 2025-08-27 14:27 | HPS.HSE ---
Family Physician
-
Family Physician: YAZMIN Kelly
Chief Complaint
-
Syncope, Headache
History of Present Illness
Patient is a 49y F with PMH significant for SLE, HFpEF and CKD III who presents to ED for evaluation of weakness / syncope. Patient states that she has had mild - moderate right-sided headache for the past 2 days or so. Today she was changed
from her usual metolazone to valsartan 40mg once daily (she took one dose today). She has been feeling progressively weaker throughout the day. She went to urinate today and became flushed, diaphoretic and nauseated while sitting on the toilet.
She developed abrupt and severe posterior neck pain. She felt weak and had difficulty standing and 'the next thing I know' she woke on the floor. She does not recall falling.
She was able to crawl to her bed and call family for assistance. She was brought to the ED for further evaluation.
Patient states that she did not take her usual prednisone today (10mg daily).
She denies any other recent / focal symptoms including sore throat, change in cough, SOB, abdominal pain, emesis / diarrhea, urinary symptoms, etc.
Medical History
Past Medical History
Past Medical History: Reports Other
Additional Past Medical History:
Chronic left lower extremity ulcer with biopsy showing dermal fibrovascular changes with acute inflammation biopsy 02/09/2025
SLE / Raynaud's on CellCept/prednisone
Chronic leukopenia/anemia of chronic disease (? med effect / dapsone)
CKD IIIA / lupus nephritis / nephrotic syndrome
Chronic hypokalemia due to diuretics
History of superficial DVT greater than 20 years ago left lower extremity
Chronic HFpEF
Pulmonary Hypertension
Chronic / Recurrent Ascites
COPD
Pulmonary hypertension
HLD
GERD
Small bowel volvulus December 2024
Past Surgical History: Reports Other
Additional Past Surgical History:
Cholecystectomy
Social History
Tobacco: Non-smoker
Alcohol: None
Drug: None
Personal: Single
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
Family History
Family History: Other (Mother history of CAD/cardiac stent, father history DC, CABG x 4 vessel, 1 sister history of Raynaud's/DM 2, 1 brother history of alcohol abuse/cirrhosis)
Allergies / Home Medications
Allergies reflects when Allergies were last updated in [employer]
Home Medications with original date entered in [employer]
Allergy/Medication List:
Allergies
Allergy/AdvReac Type Severity Reaction Status Date / Time
hydroxychloroquine (From Allergy Unknown Verified 08/27/25 12:37
Plaquenil)
Home Medications
gabapentin 600 mg tablet 1,200 mg PO HS Pain 08/16/23
omeprazole 40 mg capsule,delayed release 40 mg PO DAILY GERD 08/16/23
sildenafil (pulm.hypertension) 20 mg tablet 20 mg PO Q8H Raynaud's 08/16/23
albuterol sulfate 90 mcg/actuation aerosol inhaler 2 puff inhalation R Q4HPRN PRN sob/wheezing 04/23/24
mycophenolate mofetil 500 mg tablet 1,500 mg PO BID lupus 05/04/24
fenofibrate nanocrystallized 145 mg tablet 145 mg PO DAILY High Cholesterol ##0 05/08/24
anifrolumab-fnia 300 mg/2 mL (150 mg/mL) intravenous solution (Saphnelo) 300 mg IV Q4W Sleep 11/20/24
folic acid 1 mg tablet 1 mg PO DAILY Supplement 11/20/24
minoxidil 2.5 mg tablet 2.5 mg PO DAILY Blood Pressure 11/20/24
omalizumab 300 mg/2 mL subcutaneous auto-injector (Xolair) 300 mg SC QMONTH Lung/Breathing Issues 11/20/24
potassium chloride 20 mEq tablet,extended release(part/cryst) 40 meq PO BID Electrolyte Repletion 11/20/24
prednisone 5 mg tablet 10 mg PO DAILY Anti-Inflammatory 11/20/24
tiotropium bromide 2.5 mcg/actuation mist for inhalation (Spiriva Respimat) 2 puff inhalation R DAILY Lung/Breathing Issues 11/20/24
acetaminophen 500 mg tablet (Tylenol Extra Strength) 1,500 mg PO HSPRN PRN mild pain/fever 01/02/25
cyclobenzaprine 5 mg tablet 5 mg PO HS Muscle Spasms 01/02/25
dapsone 100 mg tablet 100 mg PO DAILY Infection 02/19/25
dapagliflozin propanediol 10 mg tablet (Farxiga) 10 mg PO DAILY 08/27/25
oxycodone 5 mg tablet 5 mg PO TIDPRN PRN severe Pain 08/27/25
spironolactone 25 mg tablet 37.5 mg PO DAILY 08/27/25
torsemide 20 mg tablet 40 mg PO QPM Fluid Retention/Swelling 08/27/25
torsemide 20 mg tablet 60 mg PO DAILY Fluid Retention/Swelling 08/27/25
tramadol 50 mg tablet 50 mg PO HS 08/27/25
Review of Systems
-
History Source: Patient
A 12 point ROS was completed and negative except as noted: Yes
Constitutional: Reports Fatigue; Denies Fever or Chills
EENT: Denies Sore Throat
Respiratory: Reports Cough (chronic - no change); Denies Trouble Breathing
Cardiac: Reports Diaphoresis and Syncope; Denies Chest Pain or Palpitations
Abdomen/GI: Reports Nausea; Denies Abdominal Pain, Vomiting, Diarrhea, Constipated, Bloody Stools or Black Stools
: Denies Dysuria, Frequency or Flank Pain
Musculoskeletal: Reports Other (Neck pain); Denies Joint Pain or Edema
Neurological: Reports Headache; Denies Dizzy, Weakness or Numbness
Psych: Denies Depression or Anxiety
Physical Exam
Vital Signs
Vital Signs
Temp Pulse Resp BP Pulse Ox
96.3 F L 105 24 91/53 98
08/27/25 12:31 08/27/25 13:00 08/27/25 13:00 08/27/25 12:58 08/27/25 12:40
Physical Exam
General: Other (49y F awake and alert. In mild distress due to headache / neck pain.)
HEENT: Moist mucous membranes, PERRLA and Other (Neck is supple. Complains of pain, but full ROM.)
Respiratory: Clear and Other (Decreased at bases - otherwise clear.); No Wheezes, Rales or Rhonchi
Cardiac: S1/S2 and Regular Rhythm; No Murmur
GI: Other (Abdomen is obese. Soft. No fluid wave. No focal tenderness.)
Musculoskeletal: No Clubbing, No Cyanosis and No Edema
Neuro: AO x 3 and Nonfocal/grossly intact
Laboratory Results
-
08/27/25 12:41
08/27/25 12:41
Laboratory Results
Total Bilirubin 0.5 mg/dl (0.2-1.3) 08/27/25 12:41
AST 21 U/L (14-36) 08/27/25 12:41
ALT 15 U/L (0-35) 08/27/25 12:41
Alkaline Phosphatase 56 U/L (38-126) 08/27/25 12:41
Impression/Plan
-
A/P: Patient is a 49y F with PMH significant for SLE on chronic prednisone, CHF and nephrotic syndrome who presents to ED for evaluation after syncopal episode.
Syncope
Persistent Hypotension
- Admit to ICU for further evaluation and treatment.
- Stress dose steroids given persistent hypotension, syncope, etc.
- IVF boluses if needed +/- pressor support to maintain perfusion.
- Hold usual antihypertensive medication regimen - including newly added valsartan.
- No clear focal infectious process, etc as trigger for current presentation.
- COVID / Flu pending. UA pending.
- Empiric abx for now pending culture data, etc.
- Monitor on telemetry for any arrhythmia - though syncope clearly seems BP mediated.
- Seems unlikely that single dose of newly added valsartan precipitated this event.
Headache / Neck Pain
- Pain started BEFORE syncope and fall today.
- CT head acutely to rule out SAH, etc.
- Patient awake and alert and with full mobility of neck - meningitis seems unlikely.
- Supportive care / pain control.
Hyponatremia
Chronic HFpEF
Nephrotic Syndrome
- Patient reports fluid build-up typically occurs in the abdomen - not peripherally.
- Her weight is increased from prior visits and hyponatremia would suggest degree of volume overload (or adrenal insufficiency as noted above).
- Hold usual diuretic regimen acutely pending improvement in BP / perfusion.
- Follow I/Os, daily weights, etc.
- Will likey benefit from re-institution of diuretic regimen once stable.
- Echo in 11/2024 with LVEF = 60-65% and pulmonary hypertension.
- Was scheduled for kidney biopsy in the near future re: nephrotic syndrome.
PRAVEEN on CKD III
Hypokalemia
- SCr = 1.6 compared to recent baseline of 1.2.
- K = 2.7 with h/o similar on chronic diuretic regimen.
- Received 2L NSS in the ED.
- Hold diuretics acutely as noted above.
- PO replacement of potassium.
- Check Mg.
SLE
Chronic Immunosuppressed State
- No acute pain symptoms other than neck pain as noted above.
- Holding prednisone while on hydrocortisone.
- Hold CellCept / Saphnelo acutely.
- Empiric abx for now as noted above.
- Continue dapsone for PJP prophylaxis.
Chronic Leukopenia
Chronic Anemia
- Likely myelosuppression secondary to dapsone.
- Left shift with rise in WBC today from baseline - ? stress response v infectious process.
- Follow cell counts for changes.
COPD without Acute Exacerbation
- Stable/ CXR unremarkable.
- Nebs PRN, O2 support, etc.
DVT Prophylaxis: Subcut Heparin (after CT head completed / clear)
Code Status: Full
[2025-08-27] MEDS: KCL 40 MEQ PO ×2 (14:30→20:55)
[2025-08-27] MEDS: SUBLIMAZE 50 MCG IV (14:30)
[2025-08-27 14:50] LABS: COVID-19 Antigen Negative (Negative)
[2025-08-27 14:52] LABS: Magnesium 2.0 mg/dl (1.6-2.3)
[2025-08-27 15:56] LABS: Cortisol, Random 36.2 ug/dl
--- NOTE | 2025-08-27 15:56 | CM ---
Chart reviewed and spoke with patient and her mother Timur at bedside
Pt lives with mother at [address] independent with ADLs
PCP Dr. Radha Gomez
[facility] in [place]
Hx of [facility] ; Jolanta Serrano made aware of her admission
no hx of SNF
DCP is to return home with HHC
Jolanta liapamelaon at [facility] made aware
Brother or mom can provide transportation at [place]
CM will continue to follow up for any dcp needs
--- NOTE | 2025-08-27 16:02 | VNURNOTE ---
Chart reviewed. Patient is current with [facility]. Will continue to follow hospital course and DC plans.
--- NOTE | 2025-08-27 16:16 | CON.CAR ---
Addendum entered and electronically signed by Mariana Ewing MD 08/27/25 18:04:
I saw and examined the patient.
The Oil Pumper's note was reviewed and I agree with the note.
Comment: Patient well-known to me and I recently saw her in the office 08/20/25. She has history of heart failure with improved ejection fraction. She is followed by myself for heart failure with preserved ejection fraction with chronic volume
overload. She struggles with hypokalemia. As an outpatient she has done fairly well on diuretic therapy, spironolactone and SGLT2 inhibitor.
She has chronic intermittent ascites (status post multiple paracenteses) for which she was worked up by Dr. Hill of GI including liver biopsy and felt that ascites was secondary to hepatic congestion from volume overload.
She has fluctuating creatinine with renal insufficiency and followed by Dr. Brenda Mcpherson at [place]. Most recently she was noted to have significant proteinuria and plan was for renal biopsy at [facility] tomorrow.
She has chronic anemia noted. From a rheumatology perspective her lupus, dermatomyositis and Raynaud's is also followed at [facility] for which she remains on mycophenolate, Saphnelo, and sildenafil.
Prior right heart catheterization [facility] 02/17/2025 with PA 33/13 PCW 8 RV 33/0 RA 9 cardiac output 5.5 cardiac index 3.06 and PVR 2.73.
She does not have pulmonary arterial hypertension by last right heart catheterization. She was felt to have WHO Group 2/3.
She has been on sildenafil greater than 10 years for Raynaud's.
She now presents after recent discontinuation of Zaroxolyn which she was on twice weekly (nephrology) and the addition of low-dose valsartan (1 dose taken) of having severe neck pain and syncope/near syncope which sounds somewhat vagal in nature.
Her blood pressure has been persistently low. Her weight has continued to climb and is now over 183 pounds. Goal weight closer to 170 pounds. She has abdominal swelling which has become very significant compared to visit 08/20/2025.
Impression:
Syncope related to pain likely prolonged vagal response and hypotension.
Total body volume overload with significant increase in weight (Zaroxolyn had been discontinued)
Heart failure with improved/preserved left ventricular ejection fraction and secondary pulmonary hypertension (volume overload by right heart cath 02/2025)
Ascites, recurrent
Proteinuria with plan for renal biopsy at [place] tomorrow
Lupus/dermatomyositis/Raynaud's-on immunosuppression and sildenafil for Raynaud's
Hypokalemia
Anemia
Renal insufficiency
Plan:
-Hypotension
Supportive care, with neck pain some degree of vasovagal dizziness/near syncope
No obvious infection, lactate level pending
-Intravascularly volume deplete with total body volume overload.
Supportive care
Try to avoid excess volume
Paracentesis for comfort if needed (she has had liver evaluation and liver biopsy recently and ascites felt to be secondary to volume overload)
Previously did well on torsemide 60 mg in the a.m. and 40 mg in the p.m. along with Zaroxolyn 2.5 mg twice weekly, SGLT2 inhibitor and Aldactone.
-Heart failure with improved/preserved ejection fraction
Eventual diuresis as able
Pending course will likely require repeat right heart catheterization given high risk of future development of pulmonary arterial hypertension
- Proteinuria
Which may be one of the big drivers of worsening status. Plan was for renal biopsy at [facility] on 08/28/2025
Recommend consulting nephrology and biopsy this hospital stay if agreeable.
Concern for immune mediated proteinuria
- Lupus, dermatomyositis, Raynaud's
Continue current treatment
She is on sildenafil purely for Raynaud's
- COPD with former tobacco use
Continue current treatment
- Neck pain to be evaluated per primary service
- Anemia, chronic evaluation per primary service
Discussed with nursing at the bedside and bi developer.
I have spent 45 minutes total critical care time.
Original Note:
Consultation
Consultation Request
Date/Time Consultation Performed: 08/27/25
Requesting Provider: Dr. Bustamante
Performing Provider: Jeri Sheriff PA-C for Dr. Mariana Ewing
Reason for Consultation: syncope
Medical History
-
Chief Complaint: syncope
History of Present Illness:
Patient is a 49-year-old woman with history of cardiomyopathy with improved EF, lupus with pulmonary hypertension, history of lupus nephritis, Raynaud's, pulm HTN, prior episode of vent dependent respiratory failure August 2023. She has had
ongoing issues with ascites, felt to be from CHF after extensive GI evaluation, requiring prior paracenteses. She was maintained on torsemide 60mg daily and 40mg QPM with metolazone 2.5mg TuTh until spoke to vamp creaser (Rojas- Dr. Brenda Mcpherson) on
the phone several days ago who told her to stop her metolazone due to worsening proteinuria (1.4 --> 7.7g)and started her on valsartan 40mg daily. She states she took her 1st dose of valsartan today. Reports approximately 1 hour after taking states
she was sitting on the toilet, developed severe neck pain and felt hot and shaky. She was able to make it to her bed and laid there for a time. She then got up to brush her teeth and states she passed out, coming to on the floor. She remains with
significant neck pain. BP low on arrival to ER and receiving IVF. Electrolytes also off - Na 126, K 2.7. Cardiology consulted for evaluation. Denies fevers. Also states she has had headaches for the last 2 weeks.
PMH:
Chronic HFpEF
Ascites, felt to be secondary to CHF
s/p paracentesis 3200 mL of ascitic fluid 11/21/2024
s/p paracentesis 1650 cc of clear yellow ascitic fluid 11/24/2024
CKD
history of iron deficiency anemia
h/o respiratory failure requiring intubation 08/2023
Pulmonary HTN on sildenafil
Lupus with prior lupus nephritis
Chronic steroid use due to SLE
Raynaud's
Dermatomyositis
COPD
GERD
Former tobacco use
Cholecystectomy
Past Medical History
Past Medical History: CHF (History of heart failure with improved EF), HTN, Hypercholesterolemia and Other (systemic lupus, pulmonary hypertension,)
Past Surgical History: Cholecystectomy
Social History
Tobacco: Former Smoker
Alcohol: None
Drug: None
Living: With Family
Family History
Family History: Reviewed & Not Pertinent
Allergies / Home Medications
Allergy/AdvReac Type Severity Reaction Status Date / Time
hydroxychloroquine (From Allergy Unknown Verified 08/27/25 12:37
Plaquenil)
�Medication �Instructions �Recorded �Confirmed �Type
gabapentin 600 mg tablet 1,200 mg PO HS Pain 08/16/23 08/27/25 History
omeprazole 40 mg capsule,delayed 40 mg PO DAILY GERD 08/16/23 08/27/25 History
release
sildenafil (pulm.hypertension) 20 20 mg PO Q8H Raynaud's 08/16/23 08/27/25 History
mg tablet
albuterol sulfate 90 mcg/actuation 2 puff inhalation R Q4HPRN PRN 04/23/24 08/27/25 History
aerosol inhaler sob/wheezing
mycophenolate mofetil 500 mg tablet 1,500 mg PO BID lupus 05/04/24 08/27/25 History
fenofibrate nanocrystallized 145 145 mg PO DAILY High Cholesterol 05/08/24 08/27/25 History
mg tablet ##0
anifrolumab-fnia 300 mg/2 mL (150 300 mg IV Q4W Sleep 11/20/24 08/27/25 History
mg/mL) intravenous solution
(Saphnelo)
folic acid 1 mg tablet 1 mg PO DAILY Supplement 11/20/24 08/27/25 History
minoxidil 2.5 mg tablet 2.5 mg PO DAILY Blood Pressure 11/20/24 08/27/25 History
omalizumab 300 mg/2 mL 300 mg SC QMONTH Lung/Breathing 11/20/24 08/27/25 History
subcutaneous auto-injector (Xolair) Issues
potassium chloride 20 mEq 40 meq PO BID Electrolyte Repletion 11/20/24 08/27/25 History
tablet,extended release(part/cryst)
prednisone 5 mg tablet 10 mg PO DAILY Anti-Inflammatory 11/20/24 08/27/25 History
tiotropium bromide 2.5 2 puff inhalation R DAILY 11/20/24 08/27/25 History
mcg/actuation mist for inhalation Lung/Breathing Issues
(Spiriva Respimat)
acetaminophen 500 mg tablet 1,500 mg PO HSPRN PRN mild 01/02/25 08/27/25 History
(Tylenol Extra Strength) pain/fever
cyclobenzaprine 5 mg tablet 5 mg PO HS Muscle Spasms 01/02/25 08/27/25 History
dapsone 100 mg tablet 100 mg PO DAILY Infection 02/19/25 08/27/25 History
dapagliflozin propanediol 10 mg 10 mg PO DAILY 08/27/25 08/27/25 History
tablet (Farxiga)
oxycodone 5 mg tablet 5 mg PO TIDPRN PRN severe Pain 08/27/25 08/27/25 History
spironolactone 25 mg tablet 37.5 mg PO DAILY 08/27/25 08/27/25 History
torsemide 20 mg tablet 40 mg PO QPM Fluid 08/27/25 08/27/25 History
Retention/Swelling
torsemide 20 mg tablet 60 mg PO DAILY Fluid 08/27/25 08/27/25 History
Retention/Swelling
tramadol 50 mg tablet 50 mg PO HS 08/27/25 08/27/25 History
Review of Systems
-
History Source: Patient and Family
All other systems: Negative unless noted
Physical Exam
Vital Signs
Temp Pulse Resp BP Pulse Ox
97.0 F 89 22 97/53 100
08/27/25 15:33 08/27/25 16:00 08/27/25 15:45 08/27/25 16:00 08/27/25 15:00
Lab Results
08/27/25 12:41
08/27/25 12:41
Physical Exam
General: Other (c/o neck pain)
HEENT: Normocephalic, Anicteric and Moist Mucous Membranes
Respiratory: Clear and Non Labored Respirations
Cardiac: S1/S2 and Regular Rhythm
GI: Soft, Non Tender, Normal Bowel Sounds and Distended (mild)
Musculoskeletal: No Clubbing, No Cyanosis and No Edema
Skin: Warm, Dry and Other (dressing to LLE)
Neuro: AO x 3
Impression / Plan
-
Primary Bridge Expert: Dr. Mariana Ewing
Assessment:
Presentation with syncope
Hypotension
Hyponatremia
Hypokalemia
Neck pain
Chronic HFpEF
Nephrotic syndrome
Ascites, felt to be secondary to CHF
s/p paracenteses 11/21/24, 11/24/24, 01/02/25, 01/2025, 02/23/25, 06/2025
CKD
history of iron deficiency anemia
h/o respiratory failure requiring intubation 08/2023
Pulmonary HTN on sildenafil
Lupus with prior lupus nephritis
Chronic steroid use due to SLE
Raynaud's
Dermatomyositis
COPD
GERD
Former tobacco use
Cholecystectomy
ECHO 11/25/24: EF 60-65%, mild TR, PAP 30mmHg, no pericardial effusion
Plan:
-Patient presents after syncopal episode
-head CT results pending
-despite recent medication changes which could possibly explain syncopal episode (new valsartan), situation could also suggest vagal etiology (toilet, pain) of dizziness/syncope.
-valsartan stopped. BP remains low in ER and was given 2L NSS with some improvement. holding OP torsemide and aldactone for now
-receiving stress dose steroids
-assess for underlying infectious processes to explain hypotension. of note, she does have LLE wound. covid/flu negative. blood culture pending
-CXR completed today with clear lungs. will need to follow volume status closely as she retains fluid in abdomen and states she can already feel distention. she has required paracenteses in past. as OP on torsemide 60mg AM and 40mg QPM and had been
on metolazone 2.5mg TuTh until was stopped by her vamp creaser several days ago. she has history of dietary indiscretion
-dry weight has been 165-169 pounds.
-Cr within baseline range at 1.6 on 08/27
-follow on tele. EKG SR. QTc appears overestimated by EKG read 08/27
-last echo from 11/2024 as above, EF preserved. on farxiga as OP
-replete Na and potassium.
-TSH low at 0.04. free T4 pending
-work up of abrupt neck pain per primary service
-d/w patient and mother at bedside
Data Reviewed
-
EKG: Tracing Personally Visualized and interpreted
Medical Tests (Nuc Med, Echo etc): Report Reviewed by me
Labs: Labs Reviewed by me
Old Records: Reviewed
[2025-08-27 16:48] LABS: Urine Character Clear (Clear)
[2025-08-27 17:05] LABS: Urine Red Blood Cell 0-2 /HPF (0-2); Urine Squamous Cell 0-2 /LPF (Few); Urine White Cell 0-2 /HPF (0-5)
[2025-08-27] MEDS: SOLU-CORTEF 50 MG IV (18:17)
[2025-08-27 18:18] LABS: APTT 27.1 Sec (23.4-35.0); INR 0.93; PT 13.0 Sec (11.4-14.6)
[2025-08-27] MEDS: LR 1000 IV (18:18)
[2025-08-27 18:31] LABS: ALT (SGPT) 15 U/L (0-35); AST (SGOT) 19 U/L (14-36); Albumin 3.6 g/dl (3.5-5.0); Alkaline Phosphatase 49 U/L (38-126); Blood Urea Nitrogen 53 mg/dl (7-17); Calcium 8.6 mg/dl (8.4-10.2); Carbon Dioxide 25 mmol/L (22-30); Chloride 92 mmol/L (98-107); Estimated Creatinine Clearance 54 ml/min; Glucose 114 mg/dl (70-99); Potassium 3.4 mmol/L (3.5-5.1); Sodium 126 mmol/L (135-145); Total Protein 5.9 g/dl (6.3-8.2); eGFR 46.41
[2025-08-27] MEDS: TYLENOL 650 MG PO (18:57)
--- NOTE | 2025-08-27 19:44 | PTCARENOTE ---
"Pt arrived to floor on stretcher from ER; Slid over to bed; AAO x 3, noted to be very anxious at the time; Placed on monitor - sinus rhythm / sinus tachycardia; BP soft - 95/55; Started LR @ 100ml'hr through R upper arm INT; Dr Antunez and Dr Mcclain"Reji in to see patients, waiting for order changes. Oriented to room, call montano within reach. Will continue to monitor and assess. "
[2025-08-27] MEDS: HEPARIN 5000 UNITS SC (20:54)
[2025-08-27] MEDS: LEVOPHED 250 IV (20:54)
[2025-08-27] MEDS: NEURONTIN 1200 MG PO (20:56)
[2025-08-27] MEDS: DILAUDID 0.5 MG IV (21:49)
--- NOTE | 2025-08-27 22:55 | PTCARENOTE ---
Assumed care of pt at 1900. Pt A/O x3, pt has been anxious, restless, irritable. Reporting 10/10 pain to her neck at start of shift and also reporting the urge to urinate but has been unable to void on the bedpan. Pt has been hypotensive with
systolic BP in 70s-80s and MAP in low/mid 50s. 1L NS bolus ordered/administered at start of shift, Levophed ordered in case bolus did not help BP and ended up being started at approx 2100. Discussed with pt and her mom and brother that the goals for
this shift would be for her BP to improve so that we can control her pain with something stronger than Tylenol (she reported that Tylenol 'did nothing'), and also possibly get her up to the BSC so she can void, but that with her BP as low as the 70s
it is not safe to do either of those things. Eventually pt's BP increased with MAP 65 and systolic >90, able to get pt up to BSC and she voided and verbalized that she felt some relief from being able to do that, also medicated with IV Dilaudid (see
EMAR). Pt was able to fall asleep and when she woke up to void again she verbalized that her pain was better. Pt now resting with eyes closed, continues on Levo and IVF. SR 90s on monitor.
[2025-08-28] VITALS (49 sets, daily range): BP systolic 77–144; BP diastolic 45–108; PULSE 93–102; BMI 28.7
[2025-08-28] MEDS: SOLU-CORTEF 50 MG IV ×2 (00:06→05:54)
--- NOTE | 2025-08-28 00:45 | PTCARENOTE ---
Assessment unchanged. Has been OOB with standby/1 assist to BSC three times so far this shift to urinate. Remains on Levophed--BP has been labile with systolic BP readings >100 followed by < 70s with no changes in pt condition/med titrations/meds
given to explain the drastic swing in systolic pressures. Remains on Levo at 4mcg/min. SR 90s on monitor. Neck pain starting to come back but is controlled enough at this time for pt to be able to doze off.
[2025-08-28] MEDS: DILAUDID 0.5 MG IV ×2 (02:35→06:37)
[2025-08-28] MEDS: TIGAN IM (04:36)
[2025-08-28] MEDS: LR 1000 IV (04:36)
[2025-08-28 05:21] LABS: Hematocrit 29.6 % (37.0-47.0); Hemoglobin 9.8 g/dL (12.0-16.0); Mean Corp Hgb Conc. 33.1 g/dL (33.0-37.0); Mean Corpuscular Volume 86.0 fL (81.0-99.0); Platelet Count 283 10^3/uL (130-400); Red Cell Dist. Width 16.9 % (11.5-14.5)
[2025-08-28 05:46] LABS: ALT (SGPT) 14 U/L (0-35); AST (SGOT) 25 U/L (14-36); Albumin 3.7 g/dl (3.5-5.0); Alkaline Phosphatase 49 U/L (38-126); Blood Urea Nitrogen 49 mg/dl (7-17); Calcium 8.8 mg/dl (8.4-10.2); Carbon Dioxide 21 mmol/L (22-30); Chloride 100 mmol/L (98-107); Estimated Creatinine Clearance 69 ml/min; Glucose 139 mg/dl (70-99); Magnesium 2.3 mg/dl (1.6-2.3); Potassium 3.5 mmol/L (3.5-5.1); Sodium 130 mmol/L (135-145); Total Protein 6.2 g/dl (6.3-8.2); eGFR > 60.00
--- NOTE | 2025-08-28 06:31 | PTCARENOTE ---
0400 assessment unchanged. Pt weaned off Levophed at approx 0530. Pt states she feels 'so much better'. Was able to ambulate to BR with standby assistance, performed hygiene care herself--partial bath with soap/water, deodorant, washed face, brushed
teeth. Linens and gown changed. Pt reporting increased neck pain after moving around. SR 90s on monitor.
[2025-08-28] MEDS: PROTONIX 40 MG PO (06:44)
--- NOTE | 2025-08-28 07:12 | W.PN.HOSP.TC ---
Addendum entered and electronically signed by Carrie Gage MD 08/28/25 14:18:
I saw and evaluated the patient independently. I reviewed and discussed the resident�s note and agree with findings and plan as documented by Dr. Buchanan.
GENERAL: well developed, well nourished, female in no apparent distress
HEENT: NC/AT
HEART: regular rate and rhythm, +S1, +S2
LUNGS : clear to auscultation bilaterally
ABDOM: soft, nontender, distended, + bowel sounds, no fluid wave appreciated
EXT: no cyanosis, clubbing, or edema
NEUROLOGIC: grossly intact
Presyncope likely due to Persistent Hypotension likely from overdiuresis ((spironolactone, torsemide, metolazone)--on top of med change to valsartan--admission labs showed contraction alkalosis with elevated bicarb of 28 (on 07/09/25 bicarb was 31)-
no evidence of arrhythmia on telemetry, and cardiac exam benign--less likely adrenal insufficiency with NORMAL cortisol on admission of 36.2--nevertheless, stress dose steroids started--would taper--now off pressors--cont IVF (lactate and creatinine
both were elevated, now normalized after fluid resuscitation supports dehydration) --neg orthostatics--apprec cards, [facility] Sunday
Hyponatremia/Hypokalemia-- again due to hypovolemia--cont IVF, monitor and replete
Chronic HFpEF/Chronic intermittent ascites --do not feel there is much fluid there--no fluid wave on admission--plan was to order US to eval for ascites, professor of psychology did and said enough to tap--will defer to them--holding diuretics- Echo in 11/2024
with LVEF = 60-65% and pulmonary hypertension--pro BNP 200 argues against acute exacerbation of HFpEF
PRAVEEN on CKD III with proteinuria--plan was for renal biopsy--can follow up with nephrology as outpt (they do not follow our group here)- Cr 1.6, now to 1.1 after fluids
Headache/Neck Pain--still think due to hypovolemia--cont IVF--lidocaine patch added--head CT neg
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
Chronic Anemia - Likely anemia of chronic disease- Hgb stable- continue to monitor
COPD without Acute Exacerbation- stable
DVT proph
code status--FULL CODE
Original Note:
Today's Communication/Plan
-
- consider steroid taper
- per cardiology, plan for right heart cath 08/31/2025
- still holding diuretics
- monitor VS and BMP
Assessment / Plan
Assessment / Plan
49 yo F PMH SLE on mycophenolate/glucocorticoids, Raynaud's, HFpEF, pulmonary hypertension, CKD III, hx of ascites, COPD, dermatomyositis who p/w weakness / presyncope.
Presyncope
Persistent Hypotension
- HPI to me: she denies LOC recalls all details; hence presyncope
- ddx presyncope is similar to ddx syncope: cardiac - arrhythmia, valvular; neurologic - seizure, cva; vasovagal; orthostatic
- no evidence of arrhythmia on telemetry, and cardiac exam benign. HPI does not support seizure or cva.
- hence, most likely etiology could be orthostatic, dehydration, and/or vasovagal, likely in the setting of overdiuresis (spironolactone, torsemide, metolazone, and recent change to valsartan) and in setting of restroom use
- lactate and creatinine both were elevated, now normalized after fluid resuscitation supports dehydration
- was persistently hypotensive and was on norepi 6, now off. BP 120/80s
- hydrocortisone was given, fluid rate is LR 100cc/hr
- recent orthostatic vitals negative, but measurements were done after fluid resuscitation/hydrocortisone
Plan:
- holding hypertensive medications
- random cortisol rules out adrenal insufficiency -> steroid taper
- cardiology consult: plan for right heart catheterization 08/31/2025
Hyponatremia
Hypokalemia
- on admission, Na+ 126; K+ 2.7; most recently K+ 3.5; Na+ 130 after repletion and fluids
- Mg2+ 2.3
- could be attributed to overdiuresis
- continue to monitor
Chronic HFpEF
Chronic intermittent ascites
- Patient reports fluid build-up typically occurs in the abdomen - not peripherally and reported seeing GI for regular paracenteses at [facility]
- Hold usual diuretic regimen for now
- Echo in 11/2024 with LVEF = 60-65% and pulmonary hypertension.
- Was scheduled for kidney biopsy in the near future re: nephrotic syndrome / albuminuria
- per cardiology; goal weight is 170, today 183; follows with Dr. Ewing
- proBNP 200 and does not appear volume overloaded, does not suggest HFpEF exacerbation
- cardiology has been consulted, f/u recs
PRAVEEN on CKD III
- Cr 1.6, now to 1.1 after fluids
- baseline could be 1.0
- monitor BMP
Headache / Neck Pain
- Pain started prior to presyncope
- CT head negative
- AOx3, able to move all extremities, denies radicular symptoms, no focal tenderness
- pain control
SLE
Raynaud
Dermatomyositis
- consider steroid taper to home prednisone
- Holding mycophenolate / Saphnelo for now
- sildenafil for Raynaud
- Dapsone for PJP prophylaxis.
Chronic Anemia
- Likely anemia of chronic disease
- Hgb stable
- continue to monitor
COPD without Acute Exacerbation
- stable
Anticipated Discharge: > 48 hours
Subjective/Interval History
-
Date of Service: August 28, 2025
49 yo F PMH SLE on mycophenolate/glucocorticoids, Raynaud's, HFpEF, pulmonary hypertension, and CKD III, hx of ascites who p/w weakness / presyncope.
She says that she experienced significant neck pain yesterday while going to the bathrrom, no clear trigger, and then after going to lie down in bed for 30 minutes. After wanting to get up, she slid to the ground and reports extreme generalized
weakness. denies LOC, denies head strike. she recalls all details. was able to call for help using her phone. She denies palpitations, chest pain around this episode.
She reports the neck pain, denies paresthesia, focal weakness, numbness/tingling, radicular symptoms.
She reports a chronic, constant headache for 2 weeks that has not worsened or improved around this episode.
She endorses dyspnea due to COPD.
she takes metozalone TTh and was switched to valsartan yesterday, and she attributes her episode to the med change.
Other meds: she confirms torsemide 60mg/40mg AM/PM and spironolactone. She confirms gabapentin 1200mg.
Prednsione 10mg
sildanefil for the raynaud's not pHTN
In the ED, VS n/f BP as low to 57/41, HR 80s, afebrile, normal oxygen saturation
Labs: Hgb 8.7,
Na 126, K 2.7, Cr 1.6 (baseline ); BUN 60
Lactate 2.7
LFTs within normal limits
Random cortisol 36.2 (prior to hydrocortisone)
UA 2+ albumin
EKG normal sinus rhythm
CT Head & CXR unremarkable
She received NS 2L, hydrocortisone 100mg, potassium chloride, magnesium sulfate
admitted to ICU for further management
This morning, she reports the ongoing neck pain and endorses some dyspnea, abdominal bloating (requesting paracentesis). but denies palpitations, chest pain. She feels better after receiving hydromorphone
Nursing reports that she has been off norepi 6ug with BP now in 120/80s. Patient is able to ambulate to bathroom and is eating her breakfast. Last hydrocortisone was 50mg at 6am.
No acute events on telemetry
Objective Data
-
Labs:
Laboratory Results
08/28/25
04:49
WBC 8.4
Hgb 9.8 L
Hct 29.6 L
Plt Count 283 D
Sodium 130 L
Potassium 3.5
Chloride 100
Carbon Dioxide 21 L
BUN 49 H
Creatinine 1.1 H
Glucose 139 H
Calcium 8.8
Total Bilirubin 0.7
AST 25
ALT 14
Alkaline Phosphatase 49
Na+ now 130
K+ 3.5
Cr 1.1
Toxicology negative
Vital Signs:
Vital Signs
Temp Pulse Resp BP Pulse Ox
98.3 F 101 13 95/60 95
08/28/25 07:07 08/28/25 06:01 08/28/25 06:01 08/28/25 06:01 08/27/25 23:45
BP 120/80s
HR 90-100s
LR 100cc
I&O
08/27/25 08/28/25 08/29/25
06:59 06:59 06:59
Intake Total 3295.4 / 3295.4
Output Total 3080 / 3080
Balance 215.4 / 215.4
EKG 08/27/2025
Vent. Rate : 92 BPM Atrial Rate : 92 BPM
P-R Int : 182 ms QRS Dur : 88 ms
QT Int : 426 ms P-R-T Axes : 12 93 42 degrees
QTcB Int : 526 ms
NORMAL SINUS RHYTHM
RIGHTWARD AXIS
NONSPECIFIC T WAVE ABNORMALITY
CXR 08/27/2025
IMPRESSION:
1. Clear lungs.
2. Right-sided pneumonia seen on prior chest x-ray has resolved.
3. Unchanged elevation of right hemidiaphragm.
CT Head 08/27/2025
IMPRESSION:
No acute intracranial abnormality noted.
Mild atrophy
Review of Systems
-
History Source: Patient
Constitutional: Reports No Symptoms
EENT: Reports No Symptoms Reported
Respiratory: Reports Trouble Breathing
Cardiac: Reports No Symptoms
Abdomen/GI: Reports Bloated
Musculoskeletal: Reports Joint Pain (neck pain) and Other (raynauds)
Skin: Reports Other (raynauds)
Neuro: Reports Headache
Physical Exam
-
General: Conversant
HEENT: Normocephalic and Atraumatic
Respiratory: Crackles
Cardiac: Other (no murmurs on my exam)
GI: Nontender, Normal Bowel Sounds and Distended
Musculoskeletal: Other (no spinal tenderness on neck)
Neuro: AO x 3, No Motor Deficits and Nonfocal/Grossly Intact
Psych: Calm
[2025-08-28] MEDS: TIGAN 200 MG IM (07:18)
[2025-08-28 07:49] LABS: Glucose - Point of Care 78 mg/dl (70-99)
--- NOTE | 2025-08-28 07:55 | PTCARENOTE ---
Assumed care of Pt at shift change; Ongoing neck pain and headache but reports improvement from recent pain meds. AAO x 3, makes needs known; Anxious at times; NSR on monitor; 2 mcg Levophed infusing into R arm, SBP remains > 90 for 4 hours.
Last BP = 124/80, Levo stopped. Continues with LR @ 100ml/hr; Pt OOB to bathroom with minimal assistance, reports leg weakness and gen fatigue. Will continue to monitor and assess.
[2025-08-28] MEDS: DAPSONE 100 MG PO (08:27)
[2025-08-28] MEDS: KCL 40 MEQ PO ×2 (08:28→20:57)
[2025-08-28] MEDS: FOLVITE 1 MG PO (08:28)
[2025-08-28] MEDS: HEPARIN 5000 UNITS SC ×2 (08:30→20:57)
--- NOTE | 2025-08-28 08:53 | WOUNDNOTE ---
[employer] RN note: Patient admitted with adrenal insufficiency, woke on floor prior to admission. She has VN weekly. She does her own wound care.
See H&P for complete history.
PMH: from H+P 'Past Medical History: Reports Other
Additional Past Medical History:
Chronic left lower extremity ulcer with biopsy showing dermal fibrovascular changes with acute inflammation biopsy 02/09/2025
SLE / Raynaud's on CellCept/prednisone
Chronic leukopenia/anemia of chronic disease (? med effect / dapsone)
CKD IIIA / lupus nephritis / nephrotic syndrome
Chronic hypokalemia due to diuretics
History of superficial DVT greater than 20 years ago left lower extremity
Chronic HFpEF
Pulmonary Hypertension
Chronic / Recurrent Ascites
COPD
Pulmonary hypertension
HLD
GERD
Small bowel volvulus December 2024
Past Surgical History: Reports Other
Additional Past Surgical History:
Cholecystectomy'
Social History
Tobacco: Non-smoker
Alcohol: None
Drug: None
Personal: Single
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
Family History
Family History: Other (Mother history of CAD/cardiac stent, father history OK, CABG x 4 vessel, 1 sister history of Raynaud's/DM 2, 1 brother history of alcohol abuse/cirrhosis)
Wound Location and type/assessment: Patient admitted with: L medial calf full thickness wound with yellow moist fibrin cover. Unsure of cause. She's had wound for 8 months and is slowly healing as per patient. 02/09/25 biopsy showed dermal
fibrovascular changes. She is followed by mechanical manufacturing technician and Dr. Velasquez at [facility]. Current wound care clean with saline, Tacrolimus .1% ointment, bordered gauze, change bid. +Palpable L pedal pulse. Patient wears compression socks/stockings at home
while out of bed. She declined compression during hospital stay. Trace LLE edema. 04/08/25 LLE venous Doppler negative for DVT. 04/08/25 R JONATHAN 1.15, TBI 1.08; L JONATHAN 1.28, TBI .82. Coccyx crease non blanchable red suspect d/t moisture and possibly
pressure as she woke up on her floor prior to admission.
Appetite: good.
Pressure redistribution devices in place: Centrella Max air bed. She turns self in bed and is ambulatory.
Plan: LLE dressing changed. Heels off bed with air chair cushion. Instructed patient pressure injury prevention measures.
Will confirm orders with Dr. Buchanan and discussed with NICOLASA Lu.
Care plan to be updated and will follow as needed.
[2025-08-28 09:15] LABS: Iron 70 ug/dl (37-170)
[2025-08-28 09:26] LABS: Total Iron Binding Capacity 411 ug/dl (265-497)
--- NOTE | 2025-08-28 09:52 | W.PN.CARDCBS ---
Addendum entered and electronically signed by Mariana Ewing MD 08/28/25 17:36:
I saw the patient this evening once again. She is sitting in chair and is a bit uncomfortable with abdominal distention. Results of ultrasound reviewed with some pockets of fluid but not free-flowing fluid for which she would need to undergo
paracentesis. We discussed this at length.
Abdominal CT scan pending which was recommended.
Plan at this time I will add back sildenafil at usual outpatient dose (this is used for Raynaud's). Parameters will be placed.
If patient tolerates would add back spironolactone tomorrow.
Eventually add back torsemide at lower dose perhaps 20 mg daily or twice daily until right heart catheterization which is scheduled for Sunday.
Discussed with patient at length.
Original Note:
Today's Communication / Plan
-
-Right heart catheterization on Sunday. High risk of future development of pulmonary arterial hypertension.
-Would likely benefit from paracentesis.
-Plan was for renal biopsy at [facility] (Dr. Que grigsby) on 08/28/2025.Recommend consulting nephrology and biopsy this hospital stay if able.
- I will reassess her later today and start readding some of her medications back.
Impression / Plan
-
Primary Abstract Maker: Dr. Mariana Ewing
Assessment:
Presentation with syncope in the setting of neck pain with concomitant hypotension
Chronic HFpEF total body volume overload
Ascites, felt to be secondary to CHF
s/p paracenteses 11/21/24, 11/24/24, 01/02/25, 01/2025, 02/23/25, 06/2025
Hypotension
Hyponatremia
Hypokalemia
Neck pain
Proteinuria (outpatient 7.7 g)
CKD
history of iron deficiency anemia
h/o respiratory failure requiring intubation 08/2023
Pulmonary HTN on sildenafil
Lupus with prior lupus nephritis
Chronic steroid use due to SLE/immunosuppression
Raynaud's
Dermatomyositis
COPD
GERD
Former tobacco use
Cholecystectomy
ECHO 11/25/24: EF 60-65%, mild TR, PAP 30mmHg, no pericardial effusion
Plan:
Plan:
-Hypotension
Supportive care, with neck pain some degree of vasovagal dizziness/near syncope
No obvious infection, lactate level improved
-Intravascularly volume deplete with total body volume overload.
Try to avoid excess volume
Paracentesis for comfort today would be recommended. (she has had liver evaluation and liver biopsy recently and ascites felt to be secondary to volume overload)
Previously did well on torsemide 60 mg in the a.m. and 40 mg in the p.m. along with Zaroxolyn 2.5 mg twice weekly, SGLT2 inhibitor and Aldactone. Will restart when able.
Dry weight previously 165 to 169 pounds.
-Heart failure with improved/preserved ejection fraction
Eventual diuresis as able (baseline medications above)
Plan for right heart catheterization on Sunday. High risk of future development of pulmonary arterial hypertension. Last right heart catheterization was a [facility] 02/2025.
Prior right heart catheterization [facility] 02/17/2025 with PA 33/13 PCW 8 RV 33/0 RA 9 cardiac output 5.5 cardiac index 3.06 and PVR 2.73.
She does not have pulmonary arterial hypertension by last right heart catheterization. She was felt to have WHO Group 2/3.
She has been on sildenafil greater than 10 years for Raynaud's. Resume when able.
- Proteinuria
Which may be one of the big drivers of worsening status. Plan was for renal biopsy at [facility] (Dr. Grey recently) on 08/28/2025
Recommend consulting nephrology and biopsy this hospital stay if able.
Concern for immune mediated proteinuria
- Lupus, dermatomyositis, Raynaud's
Continue current treatment. Currently on stress dose steroids. History of adrenal insufficiency in the past.
She is on sildenafil purely for Raynaud's
- COPD with former tobacco use
Continue current treatment
- Neck pain to be evaluated per primary service
- Anemia, chronic evaluation per primary service
-Tendency towards hypokalemia and hyponatremia.
Replete potassium as needed
- Hair loss
She has been on minoxidil for hair loss and I explained to her that this will not be discontinued given hypotension. We discussed alternatives.
- Anemia
I have added on iron studies.
Progress Note - Abstract Maker
Subjective
Date of Service: August 28, 2025
Her abdomen is distended and painful.
Objective
Labs:
08/28/25 04:49
08/28/25 04:49
Labs
Hgb 9.8 g/dL (12.0-16.0) L 08/28/25 04:49
Hct 29.6 % (37.0-47.0) L 08/28/25 04:49
Plt Count 283 10^3/uL (130-400) D 08/28/25 04:49
PT 13.0 Sec (11.4-14.6) 08/27/25 17:54
INR 0.93 08/27/25 17:54
APTT 27.1 Sec (23.4-35.0) 08/27/25 17:54
Sodium 130 mmol/L (135-145) L 08/28/25 04:49
Potassium 3.5 mmol/L (3.5-5.1) 08/28/25 04:49
BUN 49 mg/dl (7-17) H 08/28/25 04:49
Creatinine 1.1 mg/dL (0.6-1.0) H 08/28/25 04:49
Glucose 139 mg/dl (70-99) H 08/28/25 04:49
Vital Signs and I&O:
Vital Signs
Temp Pulse Resp BP Pulse Ox
98.3 F 96 20 124/80 95
08/28/25 07:07 08/28/25 07:23 08/28/25 07:23 08/28/25 07:23 08/27/25 23:45
Vital Signs
Temp Pulse Resp BP Pulse Ox
98.3 F 96 20 124/80 95
08/28/25 07:07 08/28/25 07:23 08/28/25 07:23 08/28/25 07:23 08/27/25 23:45
Intake & Output
08/26/25 08/27/25 08/28/25 08/29/25
06:59 06:59 06:59 06:59
Intake Total 3295.4 / 3295.4 780 / 780
Output Total 3080 / 3080 995 / 995
Balance 215.4 / 215.4 -215 / -215
Physical Exam
Physical Exam
General: Well developed, well nourished in NAD.
Heart: Distant heart sounds, regular, 2/6 basal systolic murmur
Lungs: Coarse breath sounds decreased.
Abdomen: Distended
Extremities: Trivial edema bilaterally.
Neuro: Grossly nonfocal, awake, alert and oriented x3.
[2025-08-28] MEDS: LIDOCAINE 4% PATCH 1 PATCH TOPICAL (09:56)
[2025-08-28] MEDS: ROXICODONE 5 MG PO (09:58)
--- NOTE | 2025-08-28 10:54 | CON.INTV ---
Consultation
Consultation Request
Date/Time Consultation Requested: 08/27/25 1645
Date/Time Consultation Performed: 08/27/25
Requesting Provider: Dr. González Bustamante
Performing Provider: Dr. Gaudencio Mendoza
Medical History
Past Medical History
Past Medical History: CHF, COPD, Renal Failure (CKD III) and Other (SLE, Raynaud's, Pulmonary hypertension, GERD)
Past Surgical History: Cholecystectomy
Social History
Tobacco: Non-smoker
Alcohol: None
Drug: None
Employment: Employed
Family History
Family History: CAD (Maternal and paternal) and Other (Raynaud's in sister)
Allergies / Home Medications
Allergies
Allergy/AdvReac Type Severity Reaction Status Date / Time
hydroxychloroquine (From Allergy Unknown Verified 08/27/25 12:37
Plaquenil)
Home Medications
�Medication �Instructions �Recorded �Confirmed �Last Taken �Type
gabapentin 600 mg tablet 1,200 mg PO HS Pain 08/16/23 08/27/25 08/26/25 History
omeprazole 40 mg capsule,delayed 40 mg PO DAILY GERD 08/16/23 08/27/25 08/27/25 History
release
sildenafil (pulm.hypertension) 20 20 mg PO Q8H Raynaud's 08/16/23 08/27/25 08/27/25 History
mg tablet
albuterol sulfate 90 mcg/actuation 2 puff inhalation R Q4HPRN PRN 04/23/24 08/27/25 Unknown History
aerosol inhaler sob/wheezing
mycophenolate mofetil 500 mg tablet 1,500 mg PO BID lupus 05/04/24 08/27/25 08/27/25 History
fenofibrate nanocrystallized 145 145 mg PO DAILY High Cholesterol 05/08/24 08/27/25 08/27/25 History
mg tablet ##0
anifrolumab-fnia 300 mg/2 mL (150 300 mg IV Q4W SLE 02/08/27/25 01/06/25 History
mg/mL) intravenous solution
(Saphnelo)
folic acid 1 mg tablet 1 mg PO DAILY Supplement 11/20/24 08/27/25 08/27/25 History
minoxidil 2.5 mg tablet 2.5 mg PO DAILY hair loss 11/20/24 08/27/25 08/27/25 History
omalizumab 300 mg/2 mL 300 mg SC QMONTH Lung/Breathing 11/20/24 08/27/25 Unknown History
subcutaneous auto-injector (Xolair) Issues
potassium chloride 20 mEq 40 meq PO BID Electrolyte Repletion 11/20/24 08/27/25 08/27/25 History
tablet,extended release(part/cryst)
prednisone 5 mg tablet 10 mg PO DAILY Anti-Inflammatory 11/20/24 08/27/25 08/26/25 History
tiotropium bromide 2.5 2 puff inhalation R DAILY 11/20/24 08/27/25 08/27/25 History
mcg/actuation mist for inhalation Lung/Breathing Issues
(Spiriva Respimat)
acetaminophen 500 mg tablet 1,500 mg PO HSPRN PRN mild 01/02/25 08/27/25 08/26/25 History
(Tylenol Extra Strength) pain/fever
cyclobenzaprine 5 mg tablet 5 mg PO HS Muscle Spasms 01/02/25 08/27/25 08/26/25 History
dapsone 100 mg tablet 100 mg PO DAILY Infection 02/19/25 08/27/25 08/27/25 History
dapagliflozin propanediol 10 mg 10 mg PO DAILY 08/27/25 08/27/25 08/27/25 History
tablet (Farxiga)
oxycodone 5 mg tablet 5 mg PO TIDPRN PRN severe Pain 08/27/25 08/27/25 Unknown History
spironolactone 25 mg tablet 37.5 mg PO DAILY 08/27/25 08/27/25 08/27/25 History
torsemide 20 mg tablet 40 mg PO QPM Fluid 08/27/25 08/27/25 08/26/25 History
Retention/Swelling
torsemide 20 mg tablet 60 mg PO DAILY Fluid 08/27/25 08/27/25 08/27/25 History
Retention/Swelling
tramadol 50 mg tablet 50 mg PO HS 08/27/25 08/27/25 08/26/25 History
tacrolimus 0.1 % topical ointment 1 applic topical BID LLE wound 08/28/25 08/28/25 08/27/25 History
0800
Review of Systems
-
History Source: Patient
Constitutional: Fatigue
EENT: No Symptoms
Respiratory: No Symptoms
Cardiac: No Symptoms
Abdomen/GI: Nausea
Musculoskeletal: Other
Skin: No Symptoms
Neuro: Headache and Other (Neck pain)
Hematologic/Lymphatic: No Symptoms
Vitals / Labs / Diagnostic Testing
Vital Signs
Temp Pulse Resp BP Pulse Ox
98.3 F 93 20 107/69 95
08/28/25 07:07 08/28/25 10:01 08/28/25 07:23 08/28/25 10:01 08/27/25 23:45
Lab Data
08/28/25 04:49
08/28/25 04:49
Laboratory Results
08/27/25
17:54
PT 13.0
INR 0.93
APTT 27.1
Microbiology
08/27/25 14:09 Nasal Swab Influenza Types A & B (NGOZI) - Final
Negative for Influenza A & B, NAAT
Negative results must be combined with clinical observations
and patient history.
Nucleic Acid Amplification test (NAAT)performed on the
[employer] platform.
Diagnostic Testing:
Physical Exam
-
HEENT: Normocephalic, Anicteric and Moist Mucous Membranes
Cardiovascular: S1/S2 and Regular Rhythm
Respiratory: Clear
GI: Soft, Distended, Non Tender and Normal Bowel Sounds
Neurology: Awake and AO x 3
Skin: Warm and Other (Ulcer with purulent discharge on left lower extremity)
General: Comfortable
Assessment
-
Assessment
49-year-old female with SLE on chronic prednisone, HFpEF, CKD 3, Raynaud's who presents with syncope, headaches (x2 weeks), hypotension, electrolyte derangements and PRAVEEN after missing prednisone dose and recently starting valsartan. Clinical
picture initially was suspicious for adrenal insufficiency. However now it is most consistent with multifactorial hypotension primarily driven by aggressive diuresis rather than adrenal crisis.
Plan:
#Syncope with persistent hypotension -most consistent with intravascular volume depletion from diuretic use
Patient presented with acute weakness, diaphoresis, flushing, syncope after sitting on toilet, hypotension.
Labs showed PRAVEEN, hypokalemia-all strongly suggest overdiuresis/decreased p.o. intake
Adrenal crisis now unlikely given no hyperkalemia, no severe hyponatremia pattern and rapid improvement with fluids/no refractory hypotension
Patient initially required Levophed, but off pressors now. BP 110/61 on evaluation today.
Maintain MAP > 65
Discontinue stress dose hydrocortisone. Resume prednisone 10 mg daily.
Paracentesis today
Holding diuretics and valsartan..
Continue IV fluids while monitoring volume status
Telemetry monitoring
Orthostatic vital signs stable today. Continue to monitor
Antibiotics were discontinued after UA did not show signs of infection, patient afebrile and no leukocytosis.
Cardiology consulted and following: Right heart cath on 08/31/2025. High risk of future development of pulmonary arterial hypertension. Last right heart cath at [facility] February 2025.
#Acute posterior neck pain
#Headache x [address] head negative. Symptoms likely benign-tension versus dehydration
Monitor for neurological changes, low concern for subarachnoid hemorrhage/meningitis
Pain control as needed. Lidocaine patch to the posterior neck daily.
#PRAVEEN on CKD III -improving
#History of proteinuria
Cr 1.6 --> improved to 1.1 after IVF
Likely prerenal from volume depletion and diuretic use
Holding diuretics. Avoid nephrotoxins.
Consider consulting nephrology-biopsy if able. Biopsy was scheduled for 08/28/2025 at [facility], however hospitalized at currently.
Trend BMP: Expected continued recovery
#Hypokalemia
#Hyponatremia
K 2.7, Na 126 on 08/27/2025 (initial presentation)
After IV fluids and PO K repletion, K improved to 3.5,Na 130 on 08/28/2025
Maintain Mg >2. Mg normal today
# SLE on chronic immunosuppression
Placed on stress dose steroids given suspected adrenal insufficiency upon initial presentation
Return to prednisone 10 mg daily today.
Hold CellCept and Saphnelo while acutely ill
Continue dapsone for PJP prophylaxis
#Chronic leukopenia and anemia
Likely due to medication (dapsone) and SLE (chronic disease)
Trend CBC
#COPD -stable
No exacerbation
DVT prophylaxis: Heparin SC
CODE STATUS: Full code
Data Reviewed
-
CT Scan: Report reviewed by me, Discussed with Physician and Discussed with Patient
Labs: Labs reviewed by me, Discussed with Physician, Discussed with Nurse and Discussed with Patient
[2025-08-28 11:31] LABS: Ferritin 97.3 ng/ml (6.24-137)
[2025-08-28] MEDS: DELTASONE 10 MG PO (11:43)
[2025-08-28] MEDS: TYLENOL 650 MG PO ×3 (11:49→23:29)
--- NOTE | 2025-08-28 13:07 | PTCARENOTE ---
Physician in to eval for ascites with US - ordered CT for better imaging. Pt placed on NPO x 3 hours, no oral contrast. Pt reporting increased nausea following lunch, no emesis. Dr. Mendoza made aware, Zofran ordered. Tylenol provided for
complaint of middle back pain, Pt states this is a chronic issue. Also reports improvement of neck pain with lidoderm patch. Continues to void frequently in bathroom.
--- NOTE | 2025-08-28 14:15 | PTCARENOTE ---
echo being done bedside
--- NOTE | 2025-08-28 15:22 | PN.CDI ---
CDI
- -
CDI:
Physician Documentation Request
Admit Date: 08/27/25 14:49
Dear Doctor,
Please review the following and provide your response in the progress notes.
Current documentation includes a diagnosis of hypotension.
Clinical Indicators:
- On admission MAP 50-60s, Sys BP 80-90s
- Levophed started
- 08/28 PN 'Presyncope likely due to Persistent Hypotension likely from overdiuresis'
- 08/28 Tin Stacker 'Shock due to hypovolemia and multiple medications'
In an attempt to clarify potentially conflicting documentation, please clarify which of the following is the most likely etiology of the above symptoms and treatment rendered:
Hypovolemic shock - indicate if due to surgery, trauma or other etiology
Hypotension due to medications
Other (please specify)
Use of terms such as suspected, likely, concern for, or probable (associated with a specific diagnosis that is being evaluated, monitored, or treated as if it exists) are acceptable and can be coded in the inpatient setting, when documented at the
time of discharge.
Thank you,
Yarely Arnett RN
CDI Specialist
Please use your independent medical judgment in providing your response.
--- NOTE | 2025-08-28 16:30 | PTCARENOTE ---
Pt sent to CT scan via transport
--- NOTE | 2025-08-28 16:33 | CM ---
Patient seen at bedside earlier today. Patient stated she was living with her mother and her brother was present in room. Patient plan is pending medical treatment planning needs. CM will continue to follow for discharge planning needs.
PLan; transfer to IVU at this time
[2025-08-28] MEDS: TUMS CHEWABLE TABLET 200 MG PO (17:05)
--- NOTE | 2025-08-28 18:18 | PTCARENOTE ---
Report given to IVU nurse; Assisted Pt with gathering belongings from room. Pt assisted in wheelchair to rm [id number]
--- NOTE | 2025-08-28 18:52 | PTCARENOTE ---
received pt. pt assisted to BR. pt extremely CESPEDES. VSS. Pt sr/st on the monitor. pt c/o SOB, no pain at this time. pt settled in bed and resting comfortably. Pt educated on plan of care and pt verbalized understanding. call montano within reach.
[2025-08-28] MEDS: CELLCEPT 1500 MG PO (20:57)
[2025-08-28] MEDS: REMOVE LIDOCAINE PATCH 1 PATCH REMOVE (20:58)
[2025-08-28] MEDS: REVATIO 20 MG PO (22:45)
[2025-08-28] MEDS: FLEXERIL 5 MG PO (22:45)
[2025-08-28] MEDS: MELATONIN 5 MG PO (22:45)
[2025-08-28] MEDS: NEURONTIN 1200 MG PO (22:46)
[2025-08-29] VITALS (7 sets, daily range): BP systolic 93–116; BP diastolic 52–79; BMI 29.5
--- NOTE | 2025-08-29 00:10 | PTCARENOTE ---
Pt rec'd at change of shift ambulating in room. Called nursing to room several times over temperature in room. Too hot/then too cold, blankets on and off. Upset about 'size of my abd'. and c/o being uncomfortable when trying to sleep. Pt stated ' I
think I'm just having a panic attack because I need to get out of here. I have to help my Mom with Thanksgiving'. Emotional support given. Tylenol given for c/o H/A at HS.
[2025-08-29 05:09] LABS: Hematocrit 28.4 % (37.0-47.0); Hemoglobin 8.8 g/dL (12.0-16.0); Mean Corp Hgb Conc. 31.0 g/dL (33.0-37.0); Mean Corpuscular Volume 89.3 fL (81.0-99.0); Platelet Count 214 10^3/uL (130-400); Red Cell Dist. Width 17.0 % (11.5-14.5)
[2025-08-29 05:19] LABS: Blood Urea Nitrogen 28 mg/dl (7-17); Calcium 9.0 mg/dl (8.4-10.2); Carbon Dioxide 26 mmol/L (22-30); Chloride 104 mmol/L (98-107); Estimated Creatinine Clearance 97 ml/min; Glucose 94 mg/dl (70-99); Potassium 3.5 mmol/L (3.5-5.1); Sodium 136 mmol/L (135-145); eGFR > 60.00
--- NOTE | 2025-08-29 05:22 | PTCARENOTE ---
Pt hollering at staff this morning ' my wt is up, I can't breathe,I want my lasix and I want to take a shower'. Pt reports having slept for awhile but is stating shes going to have panic attack if she has to stay in the hospital any longer. Davonq
requesting fluids. listened to pt's concerns while asking pt to stay in bed to catch her breath.
--- NOTE | 2025-08-29 07:20 | W.PN.HOSP.TC ---
Addendum entered and electronically signed by Carrie Gage MD 08/29/25 13:58:
I saw and evaluated the patient independently. I reviewed and discussed the resident�s note and agree with findings and plan as documented by Dr. Buchanan.
GENERAL: well developed, well nourished, female in no apparent distress--pt wants emergent paracentesis
HEENT: NC/AT--NO O2 requirements
HEART: regular rate and rhythm, +S1, +S2
LUNGS : clear to auscultation bilaterally
ABDOM: soft, nontender, distended, + bowel sounds, no fluid wave appreciated
EXT: no cyanosis, clubbing, or edema
NEUROLOGIC: grossly intact
Presyncope likely due to Hypovolemic shock from overdiuresis (spironolactone, torsemide, metolazone--on top of med change to valsartan)--admission labs showed contraction alkalosis with elevated bicarb of 28 (on 07/09/25 bicarb was 31)- no evidence
of arrhythmia on telemetry, and cardiac exam benign--less likely adrenal insufficiency with NORMAL cortisol on admission of 36.2--nevertheless, stress dose steroids started and now tapered to off and back on outpt prednisone dose --off pressors--
stopped IVF (lactate and creatinine both were elevated, now normalized after fluid resuscitation also supports dehydration) --neg orthostatics--apprec cards, [facility] Sunday
Hyponatremia/Hypokalemia-- again due to hypovolemia-- monitor and replete--resolved sodium 136 (hyponatremia was due to hypovolemia)
Chronic HFpEF/Chronic intermittent ascites --did not feel there was much fluid there and in fact US and CT did not show enough fluid for paracentesis--no fluid wave on admission--will order US for Sunday to eval for ascites (paracentesis not needed
urgently as pt without O2 requirements, speaking in full sentences, took a shower, moving around the room)-- diuretics as per cards but NOT in overt heart failure with pro BNP 200- Echo in 11/2024 with LVEF = 60-65% and pulmonary hypertension
overnight weight gain--unclear if scales are correct or even reliable--was on high dose stress steroids so total body weight can could have conceivably happened--diuretics per cardiology--pt c/o of SOB due to perceived need for
paracentesis--consider CT PE study as nephrotic syndrome is a hypercoagulable state
PRAVEEN on CKD III with proteinuria--plan was for renal biopsy--can follow up with nephrology as outpt (they do not follow our group here)- Cr 1.6, 1.1 and 0.8 after fluids
Headache/Neck Pain--seems resolved as pt no longer complaining --was likely due to hypovolemia--stopped IVF--lidocaine patch added--head CT neg
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
Chronic Anemia - Likely anemia of chronic disease- Hgb stable- continue to monitor
COPD without Acute Exacerbation- stable
DVT proph
code status--FULL CODE
08/28/25 --I asked the patient why she is seeing doctors at [facility], [facility], going to [facility], and now us. Fragmented care not in her best interest. She likes her doctors was the answer.
08/29/25 -- Patient asked for a new doctor because I would not call in IR emergently at her request.
Original Note:
Today's Communication/Plan
-
- per cardiology, IV furosemide once and spironolactone 25mg daily
- okay to shower
- bowel regimen added
- can consider US abdomen limited for Sunday, 08/31
- RHC for 08/31
Assessment / Plan
Assessment / Plan
49 yo F PMH SLE on mycophenolate/glucocorticoids, Raynaud's, HFpEF, pulmonary hypertension, CKD III, hx of ascites, COPD, dermatomyositis who p/w weakness / presyncope.
Presyncope
Shock due to hypovolemia and persistent hypotension (likely due to medications, specified below)
- HPI to me: she denies LOC recalls all details; hence presyncope
- ddx presyncope is similar to ddx syncope: cardiac - arrhythmia, valvular; neurologic - seizure, cva; vasovagal; orthostatic
- no evidence of arrhythmia on telemetry, and cardiac exam benign. HPI does not support seizure or cva.
- hence, most likely etiology could be orthostatic, dehydration, and/or vasovagal, likely in the setting of overdiuresis (spironolactone, torsemide, metolazone, and recent change to valsartan) and in setting of restroom use
- lactate and creatinine both were elevated at admission, now normalized after fluid resuscitation supports dehydration
- was hypotensive and was on norepi 6, now off. interval BP 110s/60s
- recent orthostatic vitals negative, but measurements were done after fluid resuscitation/hydrocortisone
- random cortisol rules out adrenal insufficiency -> changed steroid regimen to prednisone 10mg (home dose)
- corticosteroids can lead to fluid retention
Plan:
- she reports that she feels her abdomen is more distended,
- can consider abdominal US to evaluate for how much fluid has accumulated for Sunday, 08/31
- weight is up 2kg in 24 hours
- per cardiology, IV furosemide once and spironolactone 25mg daily
- cardiology consult: plan for right heart catheterization 08/31/2025
Hyponatremia
Hypokalemia
- on admission, Na+ 126; K+ 2.7; Na+ 136; K+ 3.5
- Mg2+ 2.3
- could be attributed to overdiuresis
- continue to monitor
Chronic HFpEF
Chronic intermittent ascites
- Patient reports fluid build-up typically occurs in the abdomen
- Hold usual diuretic regimen for now
- Echo in 11/2024 with LVEF = 60-65% and pulmonary hypertension.
- Was scheduled for kidney biopsy in the near future re: nephrotic syndrome / albuminuria
- proBNP 200 and does not appear volume overloaded, does not suggest HFpEF exacerbation
- cardiology has been consulted, IV furosemide once, and spironolactone daily, as above
PRAVEEN on CKD III
- Cr 1.6, now to 1.1 -> 0.8 after fluids
- monitor BMP
Headache / Neck Pain
- Pain started prior to presyncope
- CT head negative
SLE
Raynaud
Dermatomyositis
- prednisone 10mg
- continuing mycophenolate / holding Saphnelo
- sildenafil for Raynaud
- Dapsone for PJP prophylaxis.
Chronic Anemia
- Likely anemia of chronic disease
- Hgb stable
- continue to monitor
COPD without Acute Exacerbation
- stable
DVTppx: subq heparin
Bowel regimen: miralax and senna
Okay to shower
medical records regarding liver biopsy at [facility] requested
Anticipated Discharge: > 48 hours
Subjective/Interval History
-
Date of Service: August 29, 2025
patient reports feeling more ascitic, requesting to take shower, requesting bowel regimen,
reports that her dyspnea is from more fluid filling in belly and is anxious to take her diuretics as well
really wants to take a shower
yesterday, patient requested tums
Objective Data
-
Labs:
Laboratory Results
08/29/25
04:49
WBC 5.7
Hgb 8.8 L
Hct 28.4 L
Plt Count 214 D
Sodium 136
Potassium 3.5
Chloride 104
Carbon Dioxide 26
BUN 28 H
Creatinine 0.8
Glucose [address] abdomen pelvis with IV contrast: 08/28/2025
IMPRESSION:
Mild to moderate ascites.
Relatively stable hepatosplenomegaly, suggestion of mild fatty infiltration of liver
Trace bilateral pleural effusions.
No bowel obstruction. No obstructive uropathy.
Vital Signs:
Vital Signs
Temp Pulse Resp BP Pulse Ox
97.8 F 99 18 110/62 99
08/29/25 07:08 08/29/25 06:00 08/29/25 07:08 08/29/25 04:43 08/29/25 07:08
HR 90s-100s
I&O
08/28/25 08/29/25 08/30/25
06:59 06:59 06:59
Intake Total 3295.4 / 3295.4 2580 / 2580
Output Total 3080 / 3080 2970 / 2970 200 / 200
Balance 215.4 / 215.4 -390 / -390 -200 / -200
net I/O past 24 hour: -550 mL
chart recorded weight is 83.1 to 85.3 in 24 hours
Review of Systems
-
History Source: Patient
Constitutional: Reports No Symptoms
EENT: Reports No Symptoms Reported
Respiratory: Reports Trouble Breathing
Cardiac: Reports No Symptoms
Abdomen/GI: Reports Bloated and Other (no abdominal pain)
Genitourinary: Reports No Symptoms
Musculoskeletal: Reports No Symptoms
Neuro: Reports Headache
Psych: Reports Anxious
Physical Exam
-
General: Conversant
HEENT: Normocephalic
Respiratory: Crackles (possibly faint crackles at lung bases; unchanged from yesterday for me)
Cardiac: Other (no murmurs on my exam)
GI: Soft, Nontender and Distended (?possibly increased from yesterday)
Musculoskeletal: No Edema and Other
Neuro: Awake, Alert and Nonfocal/Grossly Intact
Psych: Anxious
--- NOTE | 2025-08-29 08:20 | W.PN.CARDCBS ---
Today's Communication / Plan
-
IV Lasix x 1
Will add back spironolactone 25 mg daily
Plan for right heart catheterization Sunday
Recommendations for renal biopsy as per Dr. Mariana Ewing's note
We will follow closely with you
I have no objection to her showering
May need repeat abdominal imaging as her abdomen is more distended today with weight up
Impression / Plan
-
Primary Oxygen Therapist: Dr. Mariana Ewing
Assessment:
Presentation with syncope in the setting of neck pain with concomitant hypotension
Chronic HFpEF total body volume overload
Ascites, felt to be secondary to CHF
s/p paracenteses 11/21/24, 11/24/24, 01/02/25, 01/2025, 02/23/25, 06/2025
Hypotension
Hyponatremia
Hypokalemia
Neck pain
Proteinuria (outpatient 7.7 g)
CKD
history of iron deficiency anemia
h/o respiratory failure requiring intubation 08/2023
Pulmonary HTN on sildenafil
Lupus with prior lupus nephritis
Chronic steroid use due to SLE/immunosuppression
Raynaud's
Dermatomyositis
COPD
GERD
Former tobacco use
Cholecystectomy
ECHO 11/25/24: EF 60-65%, mild TR, PAP 30mmHg, no pericardial effusion
Plan:
Plan:
-Hypotension
Blood pressure stable this morning
-Intravascularly volume deplete with total body volume overload.
Try to avoid excess volume
Primary team evaluating for paracentesis (she has had liver evaluation and liver biopsy recently and ascites felt to be secondary to volume overload)
Previously did well on torsemide 60 mg in the a.m. and 40 mg in the p.m. along with Zaroxolyn 2.5 mg twice weekly, SGLT2 inhibitor and Aldactone. Will restart when able.
Dry weight is up 3 kg today. I have no objection to IV Lasix and given her weight increase can give an IV dose this morning August 29. As her creatinine is stable I will also add back her outpatient dose of spironolactone. Careful monitoring of
electrolytes as she has had hypokalemia in the past please keep K greater than 4 and mag greater than 2.
-Heart failure with improved/preserved ejection fraction
Eventual diuresis as able (baseline medications above)
Plan for right heart catheterization on Sunday. High risk of future development of pulmonary arterial hypertension. Last right heart catheterization was a [facility] 02/2025.
Prior right heart catheterization [facility] 02/17/2025 with PA 33/13 PCW 8 RV 33/0 RA 9 cardiac output 5.5 cardiac index 3.06 and PVR 2.73.
She does not have pulmonary arterial hypertension by last right heart catheterization. She was felt to have WHO Group 2/3.
She has been on sildenafil greater than 10 years for Raynaud's. Resume when able.
- Proteinuria
Which may be one of the big drivers of worsening status. Plan was for renal biopsy at [facility] (Dr. Grey recently) on 08/28/2025
Her outpatient barrel lathe operator inside recommended consulting nephrology and biopsy this hospital stay if able.
Concern for immune mediated proteinuria
- Lupus, dermatomyositis, Raynaud's
Continue current treatment. Currently on stress dose steroids. History of adrenal insufficiency in the past.
She is on sildenafil purely for Raynaud's
- COPD with former tobacco use
Continue current treatment
- Neck pain to be evaluated per primary service
- Anemia, chronic evaluation per primary service
Progress Note - Oxygen Therapist
Subjective
Date of Service: August 29, 2025
Weight up 6 pounds today
Abdominal swelling
She is tearful this morning
Objective
Labs:
08/29/25 04:49
08/29/25 04:49
Labs
Hgb 8.8 g/dL (12.0-16.0) L 08/29/25 04:49
Hct 28.4 % (37.0-47.0) L 08/29/25 04:49
Plt Count 214 10^3/uL (130-400) D 08/29/25 04:49
PT 13.0 Sec (11.4-14.6) 08/27/25 17:54
INR 0.93 08/27/25 17:54
APTT 27.1 Sec (23.4-35.0) 08/27/25 17:54
Sodium 136 mmol/L (135-145) 08/29/25 04:49
Potassium 3.5 mmol/L (3.5-5.1) 08/29/25 04:49
BUN 28 mg/dl (7-17) H 08/29/25 04:49
Creatinine 0.8 mg/dL (0.6-1.0) 08/29/25 04:49
Glucose 94 mg/dl (70-99) 08/29/25 04:49
Vital Signs and I&O:
Vital Signs
Temp Pulse Resp BP Pulse Ox
97.8 F 99 18 110/62 99
08/29/25 07:08 08/29/25 06:00 08/29/25 07:08 08/29/25 04:43 08/29/25 07:08
Vital Signs
Temp Pulse Resp BP Pulse Ox
97.8 F 99 18 110/62 99
08/29/25 07:08 08/29/25 06:00 08/29/25 07:08 08/29/25 04:43 08/29/25 07:08
Intake & Output
08/27/25 08/28/25 08/29/25 08/30/25
06:59 06:59 06:59 06:59
Intake Total 3295.4 / 3295.4 2580 / 2580
Output Total 3080 / 3080 2970 / 2970 200 / 200
Balance 215.4 / 215.4 -390 / -390 -200 / -200
Physical Exam
Physical Exam
����Physical Exam
���������������������General:��no apparent distress, not acutely ill
���������������������������Neck:��supple. no meningeal signs. normal psoterior pharynx
������������������������
���������������������������Heart:��s1/s2 regular rate and rhythm, no murmur. equal radial pulses.
��������������������������Lungs: ��no acute respiratory distress. clear bilaterally
����������������������Abdomen:�Abdomen is mildly distended
��������������������������Neuro:��alert and oriented. no focal neurological deficits
������������������������������Skin: ��no rash
�����������������������Psychiatric:�well kept. interactive and cooperative
�����������������������Extremities:��no edema. no calf tenderness. negative homans. good distal pulses
��
�
[2025-08-29] MEDS: NON-FORMULARY ITEM 1 APPLIC TOPICAL ×2 (08:30→10:24)
[2025-08-29] MEDS: KCL 40 MEQ PO ×2 (10:20→20:31)
[2025-08-29] MEDS: CELLCEPT 1500 MG PO ×2 (10:21→20:32)
[2025-08-29] MEDS: PROTONIX 40 MG PO (10:22)
[2025-08-29] MEDS: FOLVITE 1 MG PO (10:22)
[2025-08-29] MEDS: DELTASONE 10 MG PO (10:22)
[2025-08-29] MEDS: DAPSONE 100 MG PO (10:22)
[2025-08-29] MEDS: REVATIO 20 MG PO ×3 (10:23→22:21)
[2025-08-29] MEDS: HEPARIN SC ×2 (10:23→20:28)
[2025-08-29] MEDS: LIDOCAINE 4% PATCH TOPICAL (10:23)
[2025-08-29] MEDS: ALDACTONE 25 MG PO (10:23)
[2025-08-29] MEDS: SENOKOT-S 1 TABLET PO (12:29)
[2025-08-29] MEDS: TYLENOL 650 MG PO ×2 (12:29→17:04)
[2025-08-29] MEDS: LASIX 40 MG IV ×2 (12:30→17:04)
--- NOTE | 2025-08-29 18:15 | PTCARENOTE ---
Pt complaining about 'staff not helping,' notified RN 'I do not want the same doctor tomorrow.' Pt c/o about not getting more Lasix, notified Dr. Alves, ordered Lasix BID. Pt also wanted to shower so Dr. Alves ordered. Pt c/o OLSON, Tylenol given
as ordered, see MAR. Pt continues to be 'disappointed with care.' Pt ambulating in room and tolerating, pt educated on plan of care and verbalized understanding. pt continues to be SR/ST on the monitor, hr in the 110s, vss. pt resting in bed
currently. call montano within reach.
[2025-08-29] MEDS: NON-FORMULARY ITEM TOPICAL (20:32)
[2025-08-29] MEDS: REMOVE LIDOCAINE PATCH REMOVE (20:32)
[2025-08-29] MEDS: FLEXERIL 5 MG PO (22:20)
[2025-08-29] MEDS: NEURONTIN 1200 MG PO (22:20)
[2025-08-29] MEDS: MELATONIN 5 MG PO (22:52)
[2025-08-29] MEDS: TUMS CHEWABLE TABLET 200 MG PO (22:52)
[2025-08-30 05:12] VITALS: BP 107/62
[2025-08-30 05:39] LABS: Hematocrit 31.2 % (37.0-47.0); Hemoglobin 9.3 g/dL (12.0-16.0); Mean Corp Hgb Conc. 29.8 g/dL (33.0-37.0); Mean Corpuscular Volume 93.1 fL (81.0-99.0); Platelet Count 210 10^3/uL (130-400); Red Cell Dist. Width 16.7 % (11.5-14.5)
[2025-08-30 06:13] LABS: Blood Urea Nitrogen 22 mg/dl (7-17); Calcium 9.6 mg/dl (8.4-10.2); Carbon Dioxide 29 mmol/L (22-30); Chloride 104 mmol/L (98-107); Estimated Creatinine Clearance 97 ml/min; Glucose 81 mg/dl (70-99); Potassium 4.1 mmol/L (3.5-5.1); Sodium 133 mmol/L (135-145); eGFR > 60.00
--- NOTE | 2025-08-30 06:45 | PTCARENOTE ---
Patient refusing daily weight- stating 'I'm gonna freak out if my weight went up again, I'll do it tomorrow'.
[2025-08-30 07:08] VITALS: BP 127/71
[2025-08-30] MEDS: REVATIO 20 MG PO ×3 (07:57→21:13)
[2025-08-30] MEDS: DAPSONE 100 MG PO (07:57)
[2025-08-30] MEDS: PROTONIX 40 MG PO (07:57)
[2025-08-30] MEDS: CELLCEPT 1500 MG PO ×2 (07:57→21:13)
[2025-08-30] MEDS: KCL 40 MEQ PO ×2 (07:57→21:10)
[2025-08-30] MEDS: LASIX 40 MG IV ×2 (07:57→16:21)
[2025-08-30] MEDS: ALDACTONE 25 MG PO (07:58)
[2025-08-30] MEDS: FOLVITE 1 MG PO (07:58)
[2025-08-30] MEDS: DELTASONE 10 MG PO (08:06)
[2025-08-30] MEDS: LIDOCAINE 4% PATCH TOPICAL (08:07)
[2025-08-30] MEDS: HEPARIN SC ×2 (08:07→20:08)
[2025-08-30] MEDS: NON-FORMULARY ITEM 1 APPLIC TOPICAL (08:07)
--- NOTE | 2025-08-30 08:21 | W.PN.CARDCBS ---
Today's Communication / Plan
-
Continue IV diuresis
N.p.o. after midnight for right heart catheterization Sunday
Impression / Plan
-
Primary Porcelain Slusher: Dr. Mariana Ewing
Assessment:
Presentation with syncope in the setting of neck pain with concomitant hypotension
Chronic HFpEF total body volume overload
Ascites, felt to be secondary to CHF
s/p paracenteses 11/21/24, 11/24/24, 01/02/25, 01/2025, 02/23/25, 06/2025
Hypotension
Hyponatremia
Hypokalemia
Neck pain
Proteinuria (outpatient 7.7 g)
CKD
history of iron deficiency anemia
h/o respiratory failure requiring intubation 08/2023
Pulmonary HTN on sildenafil
Lupus with prior lupus nephritis
Chronic steroid use due to SLE/immunosuppression
Raynaud's
Dermatomyositis
COPD
GERD
Former tobacco use
Cholecystectomy
ECHO 11/25/24: EF 60-65%, mild TR, PAP 30mmHg, no pericardial effusion
Plan:
Plan:
-Hypotension
Blood pressure stable this morning
- I increased Lasix to twice daily yesterday 08/29 and will continue through 08/30 and 08/31.
-N.p.o. after midnight for right heart catheterization on 08/31
Previously did well on torsemide 60 mg in the a.m. and 40 mg in the p.m. along with Zaroxolyn 2.5 mg twice weekly, SGLT2 inhibitor and Aldactone. Will restart when able.
-Patient tells me she feels much better after the twice daily Lasix given throughout the weekend. The right heart catheterization will put data behind her intravascular volume status on current regimen
- I added back spironolactone on 08/29 with potassium increased to 4.1 on 08/30
-Heart failure with improved/preserved ejection fraction
Eventual diuresis as able (baseline medications above)
Plan for right heart catheterization on Sunday. High risk of future development of pulmonary arterial hypertension. Last right heart catheterization was a [facility] 02/2025.
Prior right heart catheterization [facility] 02/17/2025 with PA 33/13 PCW 8 RV 33/0 RA 9 cardiac output 5.5 cardiac index 3.06 and PVR 2.73.
She does not have pulmonary arterial hypertension by last right heart catheterization. She was felt to have WHO Group 2/3.
She has been on sildenafil greater than 10 years for Raynaud's. Resume when able.
- Proteinuria
Which may be one of the big drivers of worsening status. Plan was for renal biopsy at [facility] (Dr. Grey recently) on 08/28/2025
Her outpatient registered nurse maternal child recommended consulting nephrology and biopsy this hospital stay if able.
Concern for immune mediated proteinuria
- Lupus, dermatomyositis, Raynaud's
Continue current treatment. Currently on stress dose steroids. History of adrenal insufficiency in the past.
She is on sildenafil purely for Raynaud's
- COPD with former tobacco use
Continue current treatment
- Neck pain to be evaluated per primary service
- Anemia, chronic evaluation per primary service
Progress Note - Porcelain Slusher
Subjective
Date of Service: August 30, 2025
Feeling better
Objective
Labs:
08/30/25 05:24
08/30/25 05:24
Labs
Hgb 9.3 g/dL (12.0-16.0) L 08/30/25 05:24
Hct 31.2 % (37.0-47.0) L 08/30/25 05:24
Plt Count 210 10^3/uL (130-400) 08/30/25 05:24
PT 13.0 Sec (11.4-14.6) 08/27/25 17:54
INR 0.93 08/27/25 17:54
APTT 27.1 Sec (23.4-35.0) 08/27/25 17:54
Sodium 133 mmol/L (135-145) L 08/30/25 05:24
Potassium 4.1 mmol/L (3.5-5.1) 08/30/25 05:24
BUN 22 mg/dl (7-17) H 08/30/25 05:24
Creatinine 0.8 mg/dL (0.6-1.0) 08/30/25 05:24
Glucose 81 mg/dl (70-99) 08/30/25 05:24
Vital Signs and I&O:
Vital Signs
Temp Pulse Resp BP Pulse Ox
97.6 F 79 20 94/52 95
08/30/25 07:08 08/29/25 23:00 08/30/25 07:08 08/29/25 19:30 08/30/25 07:08
Vital Signs
Temp Pulse Resp BP Pulse Ox
97.6 F 79 20 94/52 95
08/30/25 07:08 08/29/25 23:00 08/30/25 07:08 08/29/25 19:30 08/30/25 07:08
Intake & Output
08/28/25 08/29/25 08/30/25 08/31/25
06:59 06:59 06:59 06:59
Intake Total 3295.4 / 3295.4 2580 / 2580 960 / 960
Output Total 3080 / 3080 2970 / 2970 1800 / 1800
Balance 215.4 / 215.4 -390 / -390 -840 / -840
Physical Exam
Physical Exam
����Physical Exam
���������������������General:��no apparent distress, not acutely ill
���������������������������Neck:��supple. no meningeal signs. normal psoterior pharynx
������������������������
���������������������������Heart:��s1/s2 regular rate and rhythm, no murmur. equal radial pulses.
��������������������������Lungs: ��no acute respiratory distress. clear bilaterally
����������������������Abdomen:�normal bowel sounds. not tender. no CVAT
��������������������������Neuro:��alert and oriented. no focal neurological deficits
������������������������������Skin: ��no rash
�����������������������Psychiatric:�well kept. interactive and cooperative
�����������������������Extremities:��no edema. no calf tenderness. negative homans. good distal pulses
��
�
--- NOTE | 2025-08-30 10:52 | PTCARENOTE ---
Assumed care 0700. Patient awake and alert, anxious, cooperative. NSR/ST with ambulation. Less abdominal distention, no edema. Shortness of breath with exertion. Patient sent to US on stretcher. Walking the room. VSS, call montano in reach
--- NOTE | 2025-08-30 13:06 | W.PN.HOSP.TC ---
Today's Communication/Plan
-
Ultrasound abdomen report reviewed
IR consulted for routine paracentesis
For RHC tomorrow
Maintain on diuretics per cardiology
Assessment / Plan
Assessment / Plan
Presyncope
-likely due to Hypovolemic shock from overdiuresis spironolactone, torsemide, metolazone--on top of med change to valsartan)
-Patient on chronic prednisone, and adrenal insufficiency has been ruled out. Taken off of stress test ordered
-No reported cardiac arrhythmias.
-Orthostatic vitals has been negative
-Patient is currently back on Aldactone and IV Lasix
Chronic diastolic congestive heart failure
- Clinical exam not suggestive of excessive volume overload although patient weight is up
- proBNP 200 only
- Cardiology is planning to do right heart catheterization for better assess volume status
- Currently on IV diuretics and to be maintained on
History of recurrent ascites
- Patient complaining some abdominal discomfort and abdominal distention
- Initial CT abdomen pelvis and ultrasound did not show significant fluid collection
- Repeat ultrasound done today showing possible small to moderate collection, IR consulted for drainage as amenable
Acute kidney injury on CKD unknown
- Renal function is normalized with creatinine and GFR greater than 60
- Unable to classify patient has CKD stage II. baseline unclear from fragmented lab data available
- As patient has history of SLE there was outpatient renal biopsy pending with [facility]
Hyponatremia/Hypokalemia
- improved
Headache/Neck Pain
- CT head negative
- Currently improved
- Maintain on symptomatic care with lidocaine patch
SLE/Raynaud's/Dermatomyositis
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
- now back on home dose of prednisone
- Restarted mycophenolate/on saphnelo every month
-cont sildenafil for Raynaud's
-maintain on Dapsone for PJP prophylaxis.
Chronic Anemia
- Likely anemia of chronic disease- Hgb stable- continue to monitor
COPD without Acute Exacerbation- stable
DVT prophylaxis
code status--FULL CODE
Anticipated Discharge: 24 - 48 hours
Subjective/Interval History
-
Date of Service: August 30, 2025
Abdominal discomfort is improved
Denies significant dyspnea
Remains off of oxygen
No new complaints
Objective Data
-
Labs:
Laboratory Results
08/30/25
05:24
WBC 4.6 L
Hgb 9.3 L
Hct 31.2 L
Plt Count 210
Sodium 133 L
Potassium 4.1
Chloride 104
Carbon Dioxide 29
BUN 22 H
Creatinine 0.8
Glucose 81
Calcium 9.6
Vital Signs:
Vital Signs
Temp Pulse Resp BP Pulse Ox
97.6 F 111 20 127/71 95
08/30/25 07:08 08/30/25 09:00 08/30/25 07:08 08/30/25 07:08 08/30/25 07:08
I&O
08/29/25 08/30/25 08/31/25
06:59 06:59 06:59
Intake Total 2580 / 2580 960 / 960
Output Total 2970 / 2970 1800 / 1800
Balance -390 / -390 -840 / -840
Review of Systems
-
Respiratory: Reports No Symptoms
Cardiac: Reports No Symptoms
Abdomen/GI: Reports Abdominal Pain; Denies Nausea
Physical Exam
-
General: Obese
HEENT: Negative Oxygen
GI: Soft, Nontender and Normal Bowel Sounds; Negative Nondistended (minimal distention)
Musculoskeletal: Negative Edema, Right Lower Extrem or Edema, Left Lower Extrem
Neuro: Awake, Alert and Oriented
[2025-08-30 15:32] VITALS: BP 113/70
[2025-08-30 18:56] VITALS: BP 110/65
[2025-08-30] MEDS: NON-FORMULARY ITEM TOPICAL (20:09)
[2025-08-30] MEDS: REMOVE LIDOCAINE PATCH REMOVE (20:09)
[2025-08-30] MEDS: FLEXERIL 5 MG PO (21:10)
[2025-08-30] MEDS: MELATONIN 5 MG PO (21:11)
[2025-08-30] MEDS: NEURONTIN 1200 MG PO (21:13)
[2025-08-30 23:04] VITALS: BP 96/54
--- NOTE | 2025-08-31 04:16 | PTCARENOTE ---
Patient inquiring about the timing of her planned cardiac cath and paracentesis for today, upset about NPO status. Patient informed that she is on the schedule for her cardiac cath, however the timing is tentative and may change depending on several
factors. Discussed at length with patient. Patient stating 'I'm leaving the hospital one way or another today' and 'if they don't discharge me, I'll just sign out. I'm not staying here another night'.
[2025-08-31 04:31] VITALS: BP 115/74
[2025-08-31 04:45] VITALS: BMI 28.8
[2025-08-31 04:46] VITALS: BP 115/74
[2025-08-31 05:03] LABS: Hematocrit 27.5 % (37.0-47.0); Hemoglobin 8.5 g/dL (12.0-16.0); Mean Corp Hgb Conc. 30.9 g/dL (33.0-37.0); Mean Corpuscular Volume 88.7 fL (81.0-99.0); Platelet Count 207 10^3/uL (130-400); Red Cell Dist. Width 16.3 % (11.5-14.5)
[2025-08-31 05:13] LABS: Blood Urea Nitrogen 22 mg/dl (7-17); Calcium 9.0 mg/dl (8.4-10.2); Carbon Dioxide 30 mmol/L (22-30); Chloride 101 mmol/L (98-107); Estimated Creatinine Clearance 109 ml/min; Glucose 79 mg/dl (70-99); Potassium 3.7 mmol/L (3.5-5.1); Sodium 135 mmol/L (135-145); eGFR > 60.00
[2025-08-31 07:15] VITALS: BP 108/68
[2025-08-31] MEDS: CELLCEPT 1500 MG PO (09:10)
[2025-08-31] MEDS: DAPSONE 100 MG PO (09:11)
[2025-08-31] MEDS: REVATIO 20 MG PO (09:14)
[2025-08-31] MEDS: DELTASONE 10 MG PO (09:14)
[2025-08-31] MEDS: FLUSH (NSS) 1 FLUSH IV (09:14)
[2025-08-31] MEDS: HEPARIN SC (09:24)
[2025-08-31] MEDS: LIDOCAINE 4% PATCH TOPICAL (09:30)
[2025-08-31] MEDS: NON-FORMULARY ITEM 1 APPLIC TOPICAL (09:30)
--- NOTE | 2025-08-31 11:25 | CM ---
Reviewed chart. Ms. Vera was transferred to IVU. Met with Ms. Vera to review discharge plans. She states prior to admission she resides with her mother in a one story home with three steps to enter. She states prior to admission she was
independent with ambulation and adls. She states she does not have any DME in the home. She states she has a prescription plan and uses [facility] pharmacy. She states she she is current with [facility] and she would like to continue with
the service. She states she has a RN that comes out weekly to assist with wound care. Telephone call to [facility] to make the referral. Referral sent. Medical work-up in progress. The discharge plan is to return home with her mother
and resumption of [facility] when medically stable.
--- NOTE | 2025-08-31 11:33 | W.PN.CARDCBS ---
Addendum entered and electronically signed by Roddy Mills MD 08/31/25 18:31:
41-year-old woman with acute on chronic HFpEF, history of ascites admitted with syncope in the setting of pain and hypotension, right heart cath recommended for today but patient insistent on discharge
PMH: Ascites status post paracenteses on multiple occasions, hypotension, hyponatremia, hypokalemia, nephrotic syndrome, PRAVEEN, iron deficiency anemia, history of vent dependent respiratory failure, pulmonary hypertension on sildenafil, lupus/lupus
nephritis, chronic steroid use, Raynaud's, dermatomyositis, COPD, GERD
Meds: Reviewed
Rest of history as below, reviewed in detail and agree unless otherwise specified
129/96, pulse 102, respiratory rate 18, afebrile, limited insight, no acute distress, insistent on leaving, head neck exam unremarkable lungs are clear, regular rate and rhythm no obvious murmurs JVD okay, not much edema
Impression/plan:
As below. Reviewed in detail and agree, unless otherwise specified
Not clear that HFpEF is the primary mule driver of her clinical phenotype. Serum albumin is at lower limit of normal, but by report has severe nephrotic range proteinuria in the past, 7.7 g. Urine protein is 1-2+, history of hyaline casts
Will empirically make changes to her diuretic follow labs closely and proceed with outpatient right heart cath, will arrange for outpatient cardiac follow-up.
Renal biopsy had been planned.
We advised patient that we prefer that she stay and complete evaluation and reformulation of treatment plan.
Original Note:
Today's Communication / Plan
-
Lasix 120 mg PO BID plus metolazone 2.5 mg MoWeFr upon discharge to home
Check labs later this week
Patient not willing to return for RHC until 09/11/2025
Interval cardiology follow-up being arranged
Impression / Plan
-
PCP: Radha Gomez
Primary Medical Claims Assistant: Dr. Mariana Ewing
Store Merchandiser: [facility] physician
Assessment:
Presentation with syncope in the setting of neck pain with concomitant hypotension 08/27/2025
Acute on chronic HFpEF total body volume overload
Ascites, felt to be secondary to CHF
s/p paracenteses 11/21/24, 11/24/24, 01/02/25, 01/2025, 02/23/25, 06/2025
Insufficient fluid for paracentesis on U/S and IR evaluation 08/31/2025
Hypotension
Hyponatremia
Hypokalemia
Neck pain
Proteinuria (outpatient 7.7 g)
PRAVEEN
history of iron deficiency anemia
h/o respiratory failure requiring intubation 08/2023
Pulmonary HTN on sildenafil
Lupus with prior lupus nephritis
Chronic steroid use due to SLE/immunosuppression
Raynaud's
Dermatomyositis
COPD
GERD
Former tobacco use
Cholecystectomy
ECHO 11/25/24: EF 60-65%, mild TR, PAP 30mmHg, no pericardial effusion
Echo 08/28/2025: EF 60 to 65%, mild TR with PAP 31 mmHg
Plan:
-Patient initially admitted with an episode of syncope/near syncope in the setting of volume overload and PRAVEEN. Cardiology was consulted to help manage volume status and because of syncope.
-Syncope was thought to possibly be due to vasovagal mechanism in the setting of neck pain. No obvious arrhythmia or orthostasis.
-Patient with PRAVEEN and Cre of 1.6 on admission. Outpatient dosing of torsemide 60 mg AM and 40 mg PM daily plus metolazone 2.5 mgTuTh, Farxiga and spironolactone 37.5 mg daily were held initially due to PRAVEEN. Cre improved and is 0.7 on my review of
labs 08/31/2025.
-Patient was started on Lasix 40 mg IV BID 08/29/2025, but has only diuresed 2 lbs as of 08/31/2025. Patient reports ongoing LE edema and abdominal distention, but did not have sufficient fluid for paracentesis on U/S and IR evaluation 08/31/2025.
Patient does have a history of previous successful paracenteses with the most recent being 06/2025.
-Previous dry weight 165-169 lbs and patient currently weighs 183 lbs on 08/31/2025.
-Patient reports she only had significant increase in urine output on days of metolazone dosing prior to admission. Plan from a cardiology standpoint is to start Lasix 120 mg BID plus metolazone 2.5 mg MoWeFr upon discharge to home and check BMP on
Sunday.
-Patient was planned for RHC on 08/31/2025, but is adamantly refusing that now. I attempted to talk to the patient about the importance of staying in the hospital and following through with RHC with the information he can give us and how it can
help us with managing her volume status and the PRAVEEN she had on admission. Patient absolutely refuses to stay in the hospital and says she is leaving 08/31/2025 no matter what. Patient is willing to proceed with an outpatient RHC, but not until
09/11/2025, patient says that she wants her mother to be available for the test, but then tells me she wants to wait until 09/11/2025 for RHC because her brother will be around and then she would not have to bother her mother.
-Patient does not currently have a diagnosis of pulmonary hypertension. Patient is felt to be at high risk for the future development of pulmonary arterial hypertension. Patient had a previous RHC at [facility] 02/17/2025 with PA 33/13 PCW 8 RV 33/0 RA
9 cardiac output 5.5 cardiac index 3.06 and PVR 2.73. Again it was felt that these numbers were not significant enough for diagnosis of pulmonary arterial hypertension, but she was felt to be WHO group 2/3.
-Patient is chronically on sildenafil 20 mg TID for her h/o lupus and she follows with a mapper at [facility]. Sildenafil was also held initially, but resumed on 08/28/2025.
-Patient also has a history of Raynaud's phenomenon and dermatomyositis. Patient is currently on a regimen of prednisone 10 mg daily and she has a history of adrenal insufficiency.
-Patient has evidence of proteinuria, albumin level was 3.7 on admission. Patient is following with the patternmaker helper at [facility], she was referred there by her PCP. Patient was recommended a renal biopsy, but says it was initially scheduled for
08/27/2025 and so she missed that due to her admission to [facility] same day.
-Patient was taking minoxidil 2.5 mg daily for hair loss prior to admission and this has been stopped due to hypotension
-While patient is hemodynamically stable for discharge, labs are improved and she has a normal pulse ox on RA, she is at high risk for readmission and we had an in-depth conversation reviewing this. Her medical therapy has not been optimized.
Patient is absolutely not willing to stay in the hospital any longer. Outpatient follow-up being arranged as noted above.
Progress Note - Medical Claims Assistant
Subjective
Date of Service: August 31, 2025
She says she is tired of being in the hospital, she feels well enough to go home and is leaving today no matter what
Objective
Labs:
08/31/25 04:38
08/31/25 04:38
Labs
Hgb 8.5 g/dL (12.0-16.0) L 08/31/25 04:38
Hct 27.5 % (37.0-47.0) L 08/31/25 04:38
Plt Count 207 10^3/uL (130-400) 08/31/25 04:38
PT 13.0 Sec (11.4-14.6) 08/27/25 17:54
INR 0.93 08/27/25 17:54
APTT 27.1 Sec (23.4-35.0) 08/27/25 17:54
Sodium 135 mmol/L (135-145) 08/31/25 04:38
Potassium 3.7 mmol/L (3.5-5.1) 08/31/25 04:38
BUN 22 mg/dl (7-17) H 08/31/25 04:38
Creatinine 0.7 mg/dL (0.6-1.0) 08/31/25 04:38
Glucose 79 mg/dl (70-99) 08/31/25 04:38
Vital Signs and I&O:
Vital Signs
Temp Pulse Resp BP Pulse Ox
98.7 F 89 18 108/68 100
08/31/25 07:21 08/31/25 08:00 08/31/25 07:21 08/31/25 07:15 08/31/25 07:21
Vital Signs
Temp Pulse Resp BP Pulse Ox
98.7 F 89 18 108/68 100
08/31/25 07:21 08/31/25 08:00 08/31/25 07:21 08/31/25 07:15 08/31/25 07:21
Intake & Output
08/29/25 08/30/25 08/31/25 09/01/25
06:59 06:59 06:59 06:59
Intake Total 2580 / 2580 960 / 960 480 / 480
Output Total 2970 / 2970 1800 / 1800 2475 / 2475 200 / 200
Balance -390 / -390 -840 / -840 -1994 / -1994 -200 / -200
Physical Exam
Physical Exam
General: NAD, AO x 3
Heart: SR on telemetry. Regular, 2/6 basal systolic murmur
Lungs: RA. Coarse breath sounds decreased.
Abdomen: Distended
Extremities: Trace edema B/L LE
Neuro: Grossly nonfocal
[2025-08-31 11:39] VITALS: BP 129/96
[2025-08-31] MEDS: FOLVITE 1 MG PO (12:00)
[2025-08-31] MEDS: PROTONIX 40 MG PO (12:00)
[2025-08-31] MEDS: ALDACTONE 25 MG PO (12:02)
[2025-08-31] MEDS: FLUSH (NSS) 2 FLUSH IV (12:12)
[2025-08-31] MEDS: LASIX 80 MG IV (12:13)
[2025-08-31] MEDS: KCL 40 MEQ PO (12:14)
[2025-08-31] MEDS: LASIX IV (12:30)
--- NOTE | 2025-08-31 12:45 | PTCARENOTE ---
The patient is aaox3. Her vital signs remained stable. NSR/ST has been noted on the monitor with heart rates fluctuating between 80 & 110. She had no complaints of pain or discomfort. She did complain of feeling fluid in her abdomen prior to going
to [facility]. She refused to get a heart cath stating that she would like to have it done as an outpatient. In addition, she wants to wait after the holidays and have her mother with her. She did her own wound care on her left lower leg. She wants to go
home today.
--- NOTE | 2025-09-01 08:35 | W.DCSUMMARY ---
Discharge Summary
Discharge Data
Date of Admission: 08/27/25
Date of Discharge: 08/31/25
-
Pending Results: No
Hospital Course
Discharging Physician : Dr Og Jackson
Disposition : None
Primary care physician : Dr Radha Gomez
Principal Discharge diagnosis :
Hypovolemic shock
Syncope secondary to medication side effects
Hyponatremia
Hypokalemia
Acute kidney injury on chronic kidney disease
Recurrent ascites
Chronic Discharge diagnosis :
Chronic diastolic congestive heart failure
Headache/neck pain
Systemic lupus erythematosus
Raynaud's disease
Dermatomyositis
Chronic anemia
Chronic obstructive pulmonary disease
Physical examination:
GEN: aox3
HEENT: moist mucus membrane,
Chest: Clear to auscultation
Heart: N s1/s2, RRR, no murmur
Abd: N BS, soft, nontender, nondistended, no organomegaly
Neuro: No motor or sensory deficits
Ext: No edema
Hospital Course :
Patient is a 49-year-old female with above-mentioned past medical history came to ER after having syncope. Patient was complaining some ongoing neck pain/headache for few days, there was reportedly increasing home medication of metolazone to
valsartan recently. Patient was noted to be hypotensive and was provided IV fluid boluses. Home medications of diuretics/antihypertensives were withheld. Patient required brief vasopressor support to maintain blood pressure. Initially there was
question of possible infection playing role and was maintained on empiric antibiotics although no clear source found and antibiotics were discontinued. Patient is on chronic small dose steroids with history of SLE/dermatomyositis, random cortisol
levels were checked and were within normal limit as well. Patient orthostatic vitals were negative. Patient Hypotension was felt to be side effect from blood pressure medications. After improvement patient was restarted on
diuretics/antihypertensives.
Patient also had associated electrolyte imbalance due to hypotension/hypovolemia which resolved post repletion.
Cardiology was following the patient and with patient history of diastolic heart failure and intermittent ascites requested a right heart catheterization to better assess volume status. Patient initially agreed for the procedure although later
declined. Patient also was complaining abdominal distention and repeat ultrasound x 2 over the stay showed small collection. Paracentesis was attempted although on did not have a large pocket amenable to tap.
Post medical stabilization patient was discharged home.
Important imaging findings :
None
Procedure findings :
None
Discharge Plan
-
Patient Disposition: Home with Home Care
Discharge Diagnosis/Procedures: HF exacerbation, Hypotension, PRAVEEN
Condition: Fair
Diet: 2 Gram Sodium and Restrict fluids to 48 oz
Activity: As tolerated
Driving Restrictions: As prior to admission
Bathing Restrictions: OK to Shower
Other Services: VN
Specialty Instructions: Weigh Daily- Call MD for wt gain/loss 3 lbs overnight/5 lbs in 1 week
Activity Restrictions/Additional Instructions:
Wound Care Instructions
LLE wound-resume prior wound care.
Pressure redistributing chair cushion (i.e. Air chair cushion).
Barrier ointment to coccyx crease twice a day.
Elevate heels off bed with pillow or air chair cushion.
Follow up with your operations officer afloat.
Follow up at wound care center call for an appointment.
Referrals:
[facility] [Outside] - in one to two days
Radha Gomez CRNP [Family Provider, Family Practice] - in one week
Additional Discharge Medication Instructions: - Stop taking torsemide (Demadex) it has been replaced with furosemide (Lasix)
- Start taking furosemide (Lasix) 120 mg (one and a half tablets of an 80 mg tablet) twice daily
- Increase metolazone dosing to 2.5 mg in the mornings only on Mondays, Wednesdays and Fridays
- Please stop taking minoxidil, it was stopped because it could have been contributing to low blood pressure
Prescriptions:
New
furosemide [Lasix] 80 mg tablet
120 mg PO BID Qty: 90 11RF
metolazone 2.5 mg tablet
2.5 mg PO MOWEFR Qty: 12 0RF
Continued
gabapentin 600 mg tablet
1,200 mg PO HS
omeprazole 40 mg capsule,delayed release(DR/EC)
40 mg PO DAILY
albuterol sulfate 90 mcg/actuation HFA aerosol inhaler
2 puff INHALATION R Q4HPRN PRN (Reason: sob/wheezing)
mycophenolate mofetil 500 mg tablet
1,500 mg PO BID
fenofibrate nanocrystallized 145 mg Tablet
145 mg PO DAILY Qty: 0
prednisone 5 mg Tablet
10 mg PO DAILY
folic acid 1 mg Tablet
1 mg PO DAILY
Spiriva Respimat 2.5 mcg/actuation Mist
2 puff INHALATION R DAILY
Saphnelo 300 mg/2 mL (150 mg/mL) Solution
300 mg IV Q4W
Xolair 300 mg/2 mL auto-injector
300 mg SC QMONTH
potassium chloride 20 mEq tablet,ER particles/crystals
40 meq PO BID
acetaminophen [Tylenol Extra Strength] 500 mg Tablet
1,500 mg PO HSPRN PRN (Reason: mild pain/fever)
cyclobenzaprine 5 mg Tablet
5 mg PO HS
dapsone 100 mg Tablet
100 mg PO DAILY
tramadol 50 mg Tablet
50 mg PO HS
dapagliflozin propanediol [Farxiga] 10 mg Tablet
10 mg PO DAILY
oxycodone 5 mg tablet
5 mg PO TIDPRN PRN (Reason: severe Pain)
tacrolimus 0.1 % Ointment
1 applic TOPICAL BID
sildenafil 25 mg Tablet
20 mg PO TID
calcium carbonate [Tums] 200 mg calcium (500 mg) Tablet,Chewable
200 mg PO QIDPRN PRN (Reason: heartburn)
spironolactone 25 mg tablet
25 mg PO DAILY Qty: 0 0RF
Discontinued
minoxidil 2.5 mg Tablet
2.5 mg PO DAILY
torsemide 20 mg Tablet
60 mg PO DAILY
torsemide 20 mg Tablet
40 mg PO QPM
Discharge Orders:
Discharge Patient (As Directed); Ordered 08/31/25
Ordered By: Og Jackson
Care Plan Goals
Care Plan Goals:
Problem: Readiness for enhanced knowledge related to diagnosis and treatment plan
Goal: Understand your diagnosis and treatment plan needs, including medications if applicable.
Instructions: Know your diagnosis, underlying causes and treatment plan options, including medications if applicable. Consult with your health care team to learn about your diagnosis and treatment plan, including medications if applicable.
Discharge Date and Time
Discharge Date/Time: 08/31/25 13:51
Print Language: BAHAMIAN
== END 2025-08-31 13:51 | disposition home health service (06) | DRG 682 ==
LOC: IVU 14:49
PROVIDERS: Internal Medicine; Nurse Practitioner Primary Care; Physician Assistant; ADMITTING PHYSICIAN Hospitalist; ATTENDING PHYSICIAN Hospitalist; CONSULT PHYSICIAN Internal Medicine Cardiovascular Disease; EMERGENCY PHYSICIAN Emergency Medicine; FAMILY PHYSICIAN Registered Nurse; OTHER PHYSICIAN Internal Medicine
DX: N17.9 Acute kidney failure, unspecified (principal); R57.1 Hypovolemic shock; E87.1 Hypo-osmolality and hyponatremia; I50.32 Chronic diastolic (congestive) heart failure; R18.8 Other ascites; M33.13 Other dermatomyositis without myopathy; D84.821 Immunodeficiency due to drugs; I95.2 Hypotension due to drugs; R55 Syncope and collapse; J44.9 Chronic obstructive pulmonary disease, unspecified; N18.31 Chronic kidney disease, stage 3a; D63.1 Anemia in chronic kidney disease; M32.14 Glomerular disease in systemic lupus erythematosus; E87.6 Hypokalemia; T50.2X5A Adverse effect of carbonic-anhydrase inhibitors, benzothiadiazides and other diuretics, initial encounter; I73.00 Raynaud's syndrome without gangrene; K21.9 Gastro-esophageal reflux disease without esophagitis; I27.21 Secondary pulmonary arterial hypertension; Z11.52 Encounter for screening for COVID-19; Z79.624 Long term (current) use of inhibitors of nucleotide synthesis; Z79.52 Long term (current) use of systemic steroids; Z79.899 Other long term (current) drug therapy; Z87.891 Personal history of nicotine dependence
CPT/HCPCS: 51701; 70450; 71045; 74177; 76705; 80048; 80053; 80306; 81003; 81015; 82248; 82533; 82570; 82728; 82962; 83540; 83550; 83605; 83735; 83880; 84100; 84439; 84443; 85025; 85027; 85610; 85730; 87040; 87070; 87502; 87811; 93005; 93306; 96361; 96365; 99291; 99292; Q9967

== ENCOUNTER 2025-09-11 06:17 | Day surgery (SDC) | payer MEDICARE, OTHER, SELFPAY ==
[2025-09-11 06:36] VITALS: BMI 28.7
[2025-09-11 06:43] VITALS: BP 125/69
--- NOTE | 2025-09-11 09:14 | ITS.CL.CATH ---
Certified Medical Coder - Catheterization
Cardiac Catheterization
Procedure Report:
RIGHT HEART CATHETERIZATION
Date of Procedure: September 11, 2025
Referring: Dr. Mariana Ewing
INDICATION: Lupus and COPD. Shortness of breath
NOTE: Patient is exceedingly anxious and refused femoral access in femoral veinous access IF we could not get access in brachial vein. We were fortunate to obtain right brachial access with ultrasound guidance
Hemodynamics (mmHg):
RA (m) : 5
RV (s/d,m) : 28/4, 8
PA (s/d, m) : 30/14, 21
PCWP (m) : 15
AO: 114/69, 84
Cardiac Output : 4.1 L/min and Cardiac Index : 2.2 L/min/m-2
Systemic vascular resistance: 19.3 Wood units or 1541 [id number])
Pulmonary vascular resistance: 1.5 Wood units or 117 [id number](-5)
SEDATION: 15 minutes of procedural sedation was utilized. An independent certified medical assistant was present to assist with and help manage the patient's level of consciousness and physiologic status
RADIATION SUMMARY: Fluoro Time (min): 0.9, Dose (mGy): 3.4, DAP (Gy.cm2) : 0.51
CONCLUSION:
1. Compensated right and left ventricular filling pressures
Copy to: Dr. Mariana Ewing
[2025-09-11 09:28] VITALS: BP 111/69
[2025-09-11 09:43] VITALS: BP 115/71
[2025-09-11 09:58] VITALS: BP 115/71
[2025-09-11 10:13] VITALS: BP 116/71
[2025-09-11 10:16] VITALS: BP 118/71
== END 2025-09-11 10:30 | disposition home or self-care (01) ==
LOC: CATH 06:17
PROVIDERS: ATTENDING PHYSICIAN Internal Medicine Interventional Cardiology; FAMILY PHYSICIAN Registered Nurse; OTHER PHYSICIAN Internal Medicine Cardiovascular Disease
DX: J44.9 Chronic obstructive pulmonary disease, unspecified (principal); M32.9 Systemic lupus erythematosus, unspecified; R06.02 Shortness of breath
CPT/HCPCS: 99152; 93451; C1769; C1894

== ENCOUNTER 2025-09-17 09:16 | Outpatient (REF) | payer MEDICARE, OTHER, SELFPAY | END 2025-09-17 23:59 | disposition home or self-care (01) | LOC: WOUND 09:16 | PROVIDERS: ATTENDING PHYSICIAN Registered Nurse; FAMILY PHYSICIAN Registered Nurse | DX: L97.222 Non-pressure chronic ulcer of left calf with fat layer exposed (principal); L93.0 Discoid lupus erythematosus; I87.2 Venous insufficiency (chronic) (peripheral); I73.9 Peripheral vascular disease, unspecified; J44.9 Chronic obstructive pulmonary disease, unspecified; Z68.26 Body mass index [BMI] 26.0-26.9, adult; Z79.52 Long term (current) use of systemic steroids | CPT/HCPCS: 99213 ==